=== PATIENT | female | born 1950 | race Caucasian/White ===

== ENCOUNTER 2019-01-27 11:18 | Inpatient (IN) ==
--- NOTE | 2019-01-27 11:32 | Emergency Department Note ---
Disposition Clinical Impression: Generalized weakness, EKG abnormality Disposition: Admitted As Inpatient Condition: Fair Time of Disposition: 14:20 General Adult HPI - General Stated complaint: altered mental status Time Seen by Provider: 01/27/19 11:21 Source: patient, EMS Mode of arrival: EMS Limitations: no limitations Nursing Notes Reviewed: Yes Vital Signs Reviewed: Yes - History of Present Illness HPI Narrative: Patient is a 68-year-old female who is brought in via EMS from dialysis center for concern of dizziness and confusion. Patient with known history of CKD currently on dialysis, hypertension, hyperlipidemia, COPD, atrial fibrillation with pacemaker placement. Per EMS, patient was brought in from dialysis as the nurse was concerned that she seems slightly altered following her dialysis t reatment, patient also complained of dizziness following her dialysis treatment. Per the nurse, patient was not oriented to time which was concerning and I change from baseline. There is no known focal weakness, numbness or tingling. Patient's glucose was 109, vitals otherwise stable. Per patient, she states that she has been having occasional dizziness and lightheadedness for the past few days, worse whenever she is up and moving around, she denies any syncope or loss of consciousness. She has not fallen or had any high trauma. She denies any current confusion, she states she feels at baseline. She was diagnosed with a pneumonia approximately 2 months ago, she finished her course and feels as though it is possible that she has this again and she has been having generalized weakness for the past few days.. She denies any significant change in cough, no recent fevers or chills. No sputum production. Patient denies chest pain, shortness of breath, abdominal pain, nausea or vomiting. Denies any urinary symptoms. - Related Data Home Medications Medication Instructions Recorded Confirmed HYDROcodone/Acet 5/325 mg [[place] 1 tab PO TID PRN 08/27/15 01/27/19 5-325 mg] Tizanidine HCl 2 mg PO QAM 08/27/15 01/27/19 ALPRAZolam [Xanax 0.25 MG Tablet] 0.25 mg PO BID 04/22/17 01/27/19 Labetalol HCl 200 mg PO QID 04/28/18 01/27/19 Tizanidine HCl 4 mg PO QPM 04/28/18 01/27/19 Aspirin Enteric Coated [Aspirin EC] 81 mg PO DAILY 11/13/18 01/27/19 Furosemide [Lasix] 40 mg PO SUMOWEFR 11/13/18 01/27/19 Sevelamer [Renvela] 1,600 mg PO 1200,1700 11/13/18 01/27/19 Sevelamer [Renvela] 800 mg PO 0800 11/13/18 01/27/19 Verapamil HCl [Verapamil ER] 120 mg PO DAILY 11/13/18 01/27/19 Famotidine [Pepcid] 40 mg PO DAILY 11/22/18 01/27/19 PARoxetine HCl [Paroxetine HCl] 40 mg PO DAILY 01/27/19 01/27/19 Ren[place] Tablet 1 tab PO DAILY 01/27/19 01/27/19 Allergies Allergy/AdvReac Type Severity Reaction Status Date / Time blue dye Allergy Hives Verified 11/22/18 09:40 latex Allergy Itching Verified 11/22/18 09:40 Nickel Allergy Hives Verified 11/22/18 09:40 shrimp Allergy Hives Verified 11/22/18 09:40 Sulfa (Sulfonamide Allergy Hives Verified 11/22/18 09:40 Antibiotics) All systems ED: reviewed and negative except as stated. Review of Systems: As Per HPI Constitutional: Reports: weakness. Denies: fever, chills ENT ED: Denies: congestion Cardiovascular: Denies: chest pain, palpitations, dyspnea on exertion, syncope Respiratory: Denies: cough, dyspnea, wheezes Gastrointestinal: Denies: abdominal pain, nausea, vomiting, diarrhea, hematemesis, melena, hematochezia Genitourinary: Denies: urgency, dysuria, frequency Integumentary: Denies: rash Neurological: Reports: weakness, other (Lightheaded and dizziness). Denies: headache, numbness, paresthesias, confusion Endocrine: Reports: fatigue Past Medical History - Past Medical History Medical history: Reports: atrial fibrillation, dialysis, GI bleed, hypertension, migraine, renal disease, other Surgical history: Reports: appendectomy, cholecystectomy, pacemaker/AICD, other, vascular surgery, pacemaker Psychiatric history: Reports: anxiety, depression BOTTLE CAPPER history: Reports: no BOTTLE CAPPER history - Social History Smoking Status: Never smoker Smokeless Tobacco Status: No Alcohol use: Reports: none Drug use: Reports: none Physical Exam - General Limitations: no limitations General appearance: alert, in no apparent distress - Head Head exam: atraumatic, normocephalic, normal inspection - Eye Eye exam: Present: normal appearance - ENT ENT exam: normal exam, normal oropharynx, mucous membranes moist - Neck Neck exam: Present: normal inspection, full ROM, trachea midline - Chest Chest inspection: Present: normal inspection, symmetric chest wall rise - Respiratory Respiratory exam: Present: other (Patient with decreased breath sounds in the bases, without crackles, wheezing) - Cardiovascular Cardiovascular exam: Present: regular rate, irregular rhythm, normal heart sounds - Abdominal Exam Abdominal exam: Present: soft, Non-Tender. Absent: tenderness, distention, gua rding, rebound, rigidity - Extremities Exam Extremities exam: Present: normal inspection, full ROM, normal capillary refill, other (Palpable thrill felt in the right upper extremity). Absent: tenderness, pedal edema, calf tenderness - Expanded Lower Extremity Exam Neurovascular/Tendon exam: Absent: motor deficit, sensory deficit, tendon deficit - Neurological Exam Neurological exam: Present: alert, oriented X3 - Expanded Neurological Exam Patient oriented to: Present: person, place, time Speech: Present: fluid speech Cranial nerves: EOM function (II, III, IV, ): Normal, facial sensation (V): Normal, facial palsy (VII): Normal, spinal accessory function (XI): Normal, tongue deviation (XII): Normal Cerebellar function: finger to nose: Normal Motor strength - LUE: 5/5 Motor strength - RUE: 5/5 Motor strength - LLE: 5/5 Motor strength - RLE: 5/5 Sensory exam upper extremity: light touch: Normal Sensory exam lower extremity: light touch: Normal Coma Scale Eye Opening: Spontaneous Coma Scale Motor Response: Obeys Commands Coma Scale Verbal Response: Oriented Coma Scale Total: 15 - Psychiatric Psychiatric exam: Present: normal affect, normal mood - Skin Skin exam: Present: warm, dry, intact, normal color. Absent: cyanosis, d iaphoresis Course Vital Signs Temperature 97.8 F 01/27/19 11:29 Pulse Rate 77 01/27/19 11:29 Respiratory Rate 17 01/27/19 11:29 Blood Pressure 155/84 01/27/19 11:29 O2 Sat by Pulse Oximetry 96 01/27/19 11:29 Temperature 97.8 F 01/27/19 11:29 Pulse Rate 81 01/27/19 14:56 Respiratory Rate 17 01/27/19 14:56 Blood Pressure 177/88 01/27/19 14:56 O2 Sat by Pulse Oximetry 100 01/27/19 14:56 Oxygen Delivery Oxygen Delivery Room Air Medical Decision Making - MDM Narrative Medical decision making narrative: Patient is a 68-year-old female who is presenting from dialysis for dizziness and confusion. On arrival, patient is in no acute distress, she is alert and 3, with an NIH of 0, GCS of 15. She does state that she has been having dizziness off and on for the past few days with history of dizziness in the past. She also describes this as more of a lightheadedness and feeling as though this worsens with any type of movement. Concern for intercranial etiology CT of the head will be performed, as well as infectious etiology, workup to be performed. We will hold off on fluids at this point in time, with history of dialysis, CK D, as well as initial chest x-ray does show vascular congestion. CBC is relatively unremarkable, BMP shows a creatinine which is actually better than prior in the past, this is appropriate given recent dialysis today. Urinalysis shows no acute infection. CT head shows no acute intracranial a bnormality. Looking at the patient's EKG it is difficult to decipher as there is new T-wave inversion in leads 2, 3, aVF as well as V3 through V5, it is difficult to know if this is her baseline as all prior EKGs have been paced rhythm, this is not paced. Patient currently denies any chest pain or shortness of breath, just generalized weakness and fatigue. No history of cardiac stents or CABG in the past. I did speak to Dr. Toledo regarding this patient, as initially there was concern for elevated troponin at 0.11, however I did get a call from the microbiological laboratory technician who believes that this was a lab air, we will be responding. Upon repeat laboratory work, it appears that the patient's troponin is 0.03. As a patient continues to have dizziness and lightheadedness as well as on paced rhythm with possible new T-wave introversion, patient agrees for admission for further cardiac evaluation. Patient is stable at time of admission. - Medical Records Medical records reviewed: Yes I reviewed the patient's medical records. - Lab Data Lab results reviewed: Yes I reviewed the patient's lab results. Result diagrams: 01/29/19 06:53 01/30/19 00:51 Lab Results 01/27/19 01/27/19 01/27/19 Range/Units 12:38 12:46 12:46 WBC 5.5 (4.3-11.1) K/mcL RBC 3.25 L (3.82-4.97) M/mcL Hgb 10.2 L (11.5-15.4) g/dL Hct 32.0 L (35.3-44.9) % MCV 98.5 (83.0-100.0) fL MCH 31.4 (28.0-33.3) pg MCHC 31.9 (31.6-35.5) g/dL RDW 13.8 (11.5-14.5) % Plt Count 165 (140-400) K/mcL MPV 10.2 (9.4-12.4) fL Immature Gran % 0.4 (0-4) % Seg Neutrophils % 61.4 % Lymphocytes % 16.8 % Monocytes % 12.5 % Eosinophils % 8.0 % Basophils % 0.9 % Neutrophils # 3.4 (1.6-8.9) K/mcL Lymphocytes # 0.9 (0.6-4.6) K/mcL Monocytes # 0.7 (0.0-1.3) K/mcL Eosinophils # 0.4 (0.0-0.6) K/mcL Basophils # 0.1 (0.0-0.2) K/mcL Sodium 138 (136-145) mEq/L Potassium 3.6 (3.5-5.1) mEq/L Chloride 100 (98-107) mEq/L Carbon Dioxide 30 H (23-29) mEq/L BUN 16 (8-23) mg/dL Creatinine 2.04 H (0.60-1.20) mg/dL Est GFR ( Amer) 29 L (> 60) Est GFR (Non-Af Amer) 24 L (> 60) BUN/Creatinine Ratio 8 (6-26) Glucose 84 (70-105) mg/dL Calculated Osmolality 286 (280-300) Calcium 8.3 L (8.6-10.3) mg/dL Magnesium 1.9 (1.6-2.6) mg/dL Ammonia (16-53) mcmol/L Troponin I < 0.03 (< 0.04) ng/mL Urine Color Yellow (Yellow) Urine Clarity Clear (Clear) Urine pH 8.0 (5.0-8.0) pH Units Ur Specific Avinger 1.021 (1.010-1.025) Urine Protein Trace (Neg-Trace) mg/dL Urine Glucose (UA) Normal (Normal) mg/dL Urine Ketones Negative (Negative) mg/dL Urine Blood Negative (Negative) Urine Nitrite Negative (Negative) Urine Bilirubin Negative (Negative) Urine Urobilinogen Normal (Normal) mg/dL Ur Leukocyte Esterase Moderate H (Negative) Urine Microscopic RBC 0-3 (0-3) per hpf Urine Microscopic WBC 3-5 H (0-3) per hpf Ur Squamous Epith Cells Many H (None-Few) per lpf Urine Bacteria None Seen (None-Few) per hpf Hyaline Casts None Seen (None-Few) per lpf 01/27/19 Range/Units 12:46 WBC (4.3-11.1) K/mcL RBC (3.82-4.97) M/mcL Hgb (11.5-15.4) g/dL Hct (35.3-44.9) % MCV (83.0-100.0) fL MCH (28.0-33.3) pg MCHC (31.6-35.5) g/dL RDW (11.5-14.5) % Plt Count (140-400) K/mcL MPV (9.4-12.4) fL Immature Gran % (0-4) % Seg Neutrophils % % Lymphocytes % % Monocytes % % Eosinophils % % Basophils % % Neutrophils # (1.6-8.9) K/mcL Lymphocytes # (0.6-4.6) K/mcL Monocytes # (0.0-1.3) K/mcL Eosinophils # (0.0-0.6) K/mcL Basophils # (0.0-0.2) K/mcL Sodium (136-145) mEq/L Potassium (3.5-5.1) mEq/L Chloride (98-107) mEq/L Carbon Dioxide (23-29) mEq/L BUN (8-23) mg/dL Creatinine (0.60-1.20) mg/dL Est GFR ( Amer) (> 60) Est GFR (Non-Af Amer) (> 60) BUN/Creatinine Ratio (6-26) Glucose (70-105) mg/dL Calculated Osmolality (280-300) Calcium (8.6-10.3) mg/dL Magnesium (1.6-2.6) mg/dL Ammonia 29 (16-53) mcmol/L Troponin I (< 0.04) ng/mL Urine Color (Yellow) Urine Clarity (Clear) Urine pH (5.0-8.0) pH Units Ur Specific Avinger (1.010-1.025) Urine Protein (Neg-Trace) mg/dL Urine Glucose (UA) (Normal) mg/dL Urine Ketones (Negative) mg/dL Urine Blood (Negative) Urine Nitrite (Negative) Urine Bilirubin (Negative) Urine Urobilinogen (Normal) mg/dL Ur Leukocyte Esterase (Negative) Urine Microscopic RBC (0-3) per hpf Urine Microscopic WBC (0-3) per hpf Ur Squamous Epith Cells (None-Few) per lpf Urine Bacteria (None-Few) per hpf Hyaline Casts (None-Few) per lpf - Radiology Data Radiology results reviewed: Yes I reviewed the patient's radiology results. Head CT 01/27/19 11:26 IMPRESSION: No acute intracranial abnormality. D/ / Melissa Frye MD / Melissa Frye MD Interpreting Provider: Melissa Frye MD Chest X-Ray 01/27/19 11:27 IMPRESSION: 1. Similar appearance of bibasilar airspace opacities which may represent combination of atelectasis/infiltrate and effusion. Right midlung airspace opacity may represent fluid within the fissure or infiltrate. 2. Mild pulmonary vascular congestion. D/ / Allie Garner MD / Allie Garner MD Interpreting Provider: Allie Garner MD - EKG Data EKG #1 EKG attestation: Yes I reviewed and interpreted this EKG. EKG results narrative: KG performed 1138 with ventricular rate of 76, irregularly irregular rhythm, with normal axis, there is no ST segment elevation, depression there is new T- wave changes in lead 2, 3, aVF, V3, V4, V5 patient is not currently paced. When compared to old EKG performed on 11/13/2018, this is a significant change as patient was ventricular paced at that time. Upon review of old charts, there is a EKG with the patient was not paced intermittently that did have T-wave inversions in lead 3 and V3. Attestation Statement - Attestation Attestation: I have seen this patient with the resident physician, I have personally evaluated this patient. I had reviewed the chart and document dictation by the resident physician and aM in agreement with the information documented by the resident physician. Please see documentation by the resident physician for complete chart including past medical history, family medical history, review of systems, current history and physical and laboratory and imaging studies. I was present for all procedures, provided direct supervision for all procedures, was present for the entirety of all procedures and provided direct guidance during the procedures. Please see documentation by the resident physician for any procedures performed. I have reviewed all interpretations of EKGs, and reviewed all EKGs performed on patient's as well. I have also reviewed reports of imaging as provided by radiology.
--- NOTE | 2019-01-27 12:07 | Emergency Department Note ---
Disposition Clinical Impression: Generalized weakness, EKG abnormality, Elevated troponin Disposition: Admitted As Inpatient Forms: ED Satisfaction Letter Time of Disposition: 13:29 General Adult HPI - General Chief complaint: ED Altered Mental Status Stated complaint: altered mental status Time Seen by Provider: 01/27/19 11:21 Source: patient, EMS Nursing Notes Reviewed: Yes Vital Signs Reviewed: Yes - History of Present Illness Pain Scale: 0 - Related Data Home Medications Medication Instructions Recorded Confirmed HYDROcodone/Acet 5/325 mg [[place] 1 tab PO TID PRN 08/27/15 11/22/18 5-325 mg] Paroxetine [Paxil] 40 mg PO QAM 08/27/15 11/22/18 Tizanidine HCl 2 mg PO QAM 08/27/15 11/22/18 ALPRAZolam [Xanax 0.25 MG Tablet] 0.25 mg PO BID 04/22/17 11/22/18 Labetalol HCl 200 mg PO QID 04/28/18 11/22/18 Tizanidine HCl 4 mg PO QPM 04/28/18 11/22/18 Aspirin Enteric Coated [Aspirin EC] 81 mg PO DAILY 11/13/18 11/22/18 Cholecalciferol (D-3) [Vitamin D] 2,000 unit PO DAILY 11/13/18 11/22/18 Comp.stocking,Knee,Regular,Med 20 - 30 mm DAILY 11/13/18 11/22/18 [Jobst Ultrasheer] Ferrous Sulfate [Iron] 325 mg PO DAILY 11/13/18 11/22/18 Folic Acid/Vit B Complex and C 1 tab PO DAILY 11/13/18 11/22/18 [Dialyvite Tablet] Furosemide [Lasix] 40 mg PO SUMOWEFR 11/13/18 11/22/18 Sevelamer [Renvela] 1,600 mg PO 1200,1700 11/13/18 11/22/18 Sevelamer [Renvela] 800 mg PO 0800 11/13/18 11/22/18 Verapamil HCl [Verapamil ER] 120 mg PO DAILY 11/13/18 11/22/18 Cinacalcet [Sensipar] 30 mg PO DAILY 11/22/18 11/22/18 Doxycycline Hyclate [Vibramycin] 100 mg PO BID 11/22/18 11/22/18 Famotidine [Pepcid] 40 mg PO DAILY 11/22/18 11/22/18 Allergies Allergy/AdvReac Type Severity Reaction Status Date / Time blue dye Allergy Hives Verified 11/22/18 09:40 latex Allergy Itching Verified 11/22/18 09:40 Nickel Allergy Hives Verified 11/22/18 09:40 shrimp Allergy Hives Verified 11/22/18 09:40 Sulfa (Sulfonamide Allergy Hives Verified 11/22/18 09:40 Antibiotics) Past Medical History - Past Medical History Medical history: Reports: atrial fibrillation, dialysis, GI bleed, hypertension, migraine, renal disease, other Surgical history: Reports: appendectomy, cholecystectomy, pacemaker/AICD, other, vascular surgery, pacemaker Psychiatric history: Reports: anxiety, depression AIR AND WATER FILLER history: Reports: no AIR AND WATER FILLER history - Social History Smoking Status: Never smoker Smokeless Tobacco Status: No Alcohol use: Reports: none Drug use: Reports: none Physical Exam - General General appearance: alert Course Vital Signs Temperature 97.8 F 01/27/19 11:29 Pulse Rate 77 01/27/19 11:29 Respiratory Rate 17 01/27/19 11:29 Blood Pressure 155/84 01/27/19 11:29 O2 Sat by Pulse Oximetry 96 01/27/19 11:29 Temperature 97.8 F 01/27/19 11:29 Pulse Rate 77 01/27/19 11:29 Respiratory Rate 17 01/27/19 11:29 Blood Pressure 155/84 01/27/19 11:29 O2 Sat by Pulse Oximetry 96 01/27/19 11:29 Oxygen Delivery Oxygen Delivery Nasal Cannula Medical Decision Making - Lab Data Result diagrams: 01/27/19 12:46 Lab Results 01/27/19 01/27/19 01/27/19 Range/Units 12:46 12:46 12:46 WBC 5.5 (4.3-11.1) K/mcL RBC 3.25 L (3.82-4.97) M/mcL Hgb 10.2 L (11.5-15.4) g/dL Hct 32.0 L (35.3-44.9) % MCV 98.5 (83.0-100.0) fL MCH 31.4 (28.0-33.3) pg MCHC 31.9 (31.6-35.5) g/dL RDW 13.8 (11.5-14.5) % Plt Count 165 (140-400) K/mcL MPV 10.2 (9.4-12.4) fL Immature Gran % 0.4 (0-4) % Seg Neutrophils % 61.4 % Lymphocytes % 16.8 % Monocytes % 12.5 % Eosinophils % 8.0 % Basophils % 0.9 % Neutrophils # 3.4 (1.6-8.9) K/mcL Lymphocytes # 0.9 (0.6-4.6) K/mcL Monocytes # 0.7 (0.0-1.3) K/mcL Eosinophils # 0.4 (0.0-0.6) K/mcL Basophils # 0.1 (0.0-0.2) K/mcL Ammonia 29 (16-53) mcmol/L Troponin I 0.11 H* (< 0.04) ng/mL Attestation Statement - Attestation Attestation: I have seen this patient with the resident physician, I have personally evaluated this patient. I had reviewed the chart and document dictation by the resident physician and aM in agreement with the information documented by the resident physician. Please see documentation by the resident physician for complete chart including past medical history, family medical history, review of systems, current history and physical and laboratory and imaging studies. I was present for all procedures, provided direct supervision for all procedures, was present for the entirety of all procedures and provided direct guidance during the procedures. Please see documentation by the resident physician for any procedures performed. I have reviewed all interpretations of EKGs, and reviewed all EKGs performed on patient's as well. I have also reviewed reports of imaging as provided by radiology. Patient was sent to the ER from dialysis for concerns of some generalized weakness dizziness thinking that she was a little bit slower than usual and maybe a little bit confused. Patient states that she does not need to be here. She does endorse that she has some chronic dizziness which she states feels like a lightheaded sensation when she gets up and walks around. She states that maybe been a little bit worse over the last few days but states that she did not want to come to the ER. She states a for sure to come here from dialysis. She denies any headache neck pain chest pain or shortness of breath that is any different than her baseline. She states she has a little bit of a cough and was recently treated for pneumonia, thought maybe because she was feeling a little bit more weak that she might still have pneumonia but otherwise has had no fevers no chills no sputum production no increased shortness of breath no significant increased cough. She denies abdominal pain or black or bloody stool. She does report they have recently evaluated her for some GI bleeding because of anemia, she reports she had a scope which did not show anything. We were able to find this documented from last week, which showed Maradiaga's esophagus but no other active bleeding. On physical exam she is alert and oriented, she is rundown appearance but nontoxic, she appears globally chronically ill but is in no acute distress, awake and talking and oriented. Cranial nerves are grossly intact. Lungs slightly diminished at the bases but no focal adventitious sounds. Cardiovascular irregularly irregular, but normal heart rate, 2/6 systolic murmur no rubs or gallops normal-appearing healthy appearing right upper extremity fistula. Abdomen soft and nontender. There was trace lower extremity edema without unilateral swelling palpable cord Tenderness or Homans sign. Skin is warm dry without rash or petechiae she does appear slightly pale no jaundice. EKG was A. fib rate controlled, she does not a history of a pacemaker and all of her prior EKGs that I can visualize Boni paced rhythm which makes comparison very difficult, she does have T-wave inversions in leads II, III, and F aVF as well as V3 through V5 which appear new but again this is comparing to paced rhythms from previous which makes it very difficult. Basic laboratory studies were ordered. Head CT and chest x-ray were ordered. The patient still makes urine and a urinalysis was also ordered. A head CT showed no acute findings. Chest x-ray showed evidence of potentially of some mild vascular congestion. No evidence of focal pneumonia. CBC within acceptable limits. Ammonia level within acceptable limits. Troponin is 0.11, even though this patient is a dialysis patient she does have several troponins previously that were less than 0.03, she continues to deny chest pain but as above does have EKG abnormality again it is difficult to assess its acuity but is not ST elevation or ST depression, we will contact cardiology to discuss consideration of heparin for this patient, her troponin is less than 0.6, and she is chest pain-free, therefore we will await cardiology recommendations she was given aspirin. She will be admitted to the hospital for further evaluation and management.
[2019-01-27 13:06] LABS: Basophils # 0.1 K/mcL (0.0-0.2); Basophils % 0.9 %; Eosinophils # 0.4 K/mcL (0.0-0.6); Hemoglobin 10.2 g/dL (11.5-15.4); Immature Granulocytes % 0.4 % (0-4); Lymphocytes # 0.9 K/mcL (0.6-4.6); Lymphocytes % 16.8 %; Mean Corpuscular HGB Conc 31.9 g/dL (31.6-35.5); Mean Corpuscular Hemoglobin 31.4 pg (28.0-33.3); Mean Corpuscular Volume 98.5 fL (83.0-100.0); Mean Platelet Volume 10.2 fL (9.4-12.4); Monocytes # 0.7 K/mcL (0.0-1.3); Monocytes % 12.5 %; Neutrophils # 3.4 K/mcL (1.6-8.9); Platelet Count 165 K/mcL (140-400); Red Blood Count 3.25 M/mcL (3.82-4.97); Red Cell Distribution Width 13.8 % (11.5-14.5); Segmented Neutrophils % 61.4 %; White Blood Count 5.5 K/mcL (4.3-11.1)
[2019-01-27 13:12] LABS: Bilirubin,Urine Negative (Negative); Blood,Urine Negative (Negative); Clarity,Urine Clear (Clear); Color,Urine Yellow (Yellow); Glucose,Urine (UA) Normal (Normal); Ketones,Urine Negative (Negative); Leukocyte Esterase,Urine Moderate (Negative); Nitrite,Urine Negative (Negative); Protein,Urine Trace mg/dL (Neg-Trace); Specific Gravity,Urine 1.021 (1.010-1.025); Urobilinogen,Urine Normal (Normal)
[2019-01-27 13:16] LABS: Bacteria,Urine None Seen per hpf (None-Few); Hyaline Casts,Urine None Seen per lpf (None-Few); RBC,Urine 0-3 per hpf (0-3); Squamous Epithelial Cell,Urine Many per lpf (None-Few)
[2019-01-27] MEDS ORDERED: Aspirin 81 MG TAB.CHEW PO ONE (13:20)
[2019-01-27 13:57] LABS: BUN/Creatinine Ratio 8 (6-26); Blood Urea Nitrogen 16 mg/dL (8-23); Calcium 8.3 mg/dL (8.6-10.3); Carbon Dioxide 30 mEq/L (23-29); Chloride 100 mEq/L (98-107); Glucose 84 mg/dL (70-105); Magnesium 1.9 mg/dL (1.6-2.6); Osmolality,Calculated 286 (280-300); Potassium 3.6 mEq/L (3.5-5.1); Sodium 138 mEq/L (136-145); eGFR For African Americans 29 (> 60); eGFR For Non-African Americans 24 (> 60)
[2019-01-27 14:06] LABS: Troponin I < 0.03 ng/mL (< 0.04)
--- NOTE | 2019-01-27 16:39 | Electrocardiograph Report ---
[address] [address] Test Date: 2019-01-27 Pat Name: Patricia Adamson Department: EXAM17 Room: Gender: F Test Lead: : 1950 Requested By: Boni Ascencio Order Number: [id number] Reading MD: Jose A Lynn Measurements Intervals [place] Rate: 76 P: NC: QRS: 1 QRSD: 108 T: -77 QT: 416 QTc: 468 Interpretive Statements Atrial fibrillation ST-T changes suggests diffuse ischemia Electronically Signed On 01-27-2019 16:38:22 EDT by Jose A Lynn
[2019-01-27] MEDS ORDERED: Mag Hydrox/Al Hydrox/Simeth 30 ML UDC PO PRN (17:24)
[2019-01-27] MEDS ORDERED: Ondansetron 4 MG/2 ML VIAL IVP PRN (17:24)
[2019-01-27] MEDS ORDERED: Naloxone 0.4 MG/ML INJ IVP PRN (17:24)
[2019-01-27] MEDS ORDERED: MOM Conc 10 ML UD.LIQ PO PRN (17:24)
[2019-01-27] MEDS ORDERED: *HR* Promethazine 25 MG/ML VIAL IVP PRN (17:24)
--- NOTE | 2019-01-27 17:32 | Internal Med History&Physical ---
Date of Encounter: 01/27/19 Time of Encounter: 17:29 Internal Medicine - H&P: HPI Admitted From: Home Plans for Post Hospital Care: Home History of present illness: Ms. Adamson is a 68 year old female who is brought in via EMS from dialysis center for concern of dizziness and confusion. Patient with known history of CKD currently on dialysis, hypertension, hyperlipidemia, COPD, atrial fibrillation with pacemaker placement. Per EMS, patient was brought in from dialysis as the nurse was concerned that she seems slightly altered following her dialysis treatment, patient also complained of dizziness following her dialysis treatment. Per the nurse, patient was not oriented to time which was concerning and I change from baseline. There is no known focal weakness, numbness or tingling. Per patient, she states that she has been having occasional dizziness and lightheadedness for the past few days, worse whenever she is up and moving around, she denies any syncope or loss of consciousness. She has not fallen or had any high trauma. She denies any current confusion, she states she feels at baseline. She was diagnosed with a pneumonia approximately 2 months ago, she finished her course and feels as though it is possible that she has this again and she has been having generalized weakness for the past few days.. She denies any significant change in cough, no recent fevers or chills. No sputum production. Patient denies chest pain, shortness of breath, abdominal pain, nausea or vomiting. Denies any urinary symptoms. In the ED, vital signs were notable for high blood pressure. Labs showed elevated creatinine at the baseline, chest x-ray showed mild pulmonary vascular congestion. The CT head was negative for acute change. Patient will be admitted for further evaluation. CODE STATUS is full code. Past Med Surg Social Fam HX - Past Medical History Medical history: atrial fibrillation, dialysis, GI bleed, hypertension, migraine, renal disease, other Additional medical history: Chronic Back Pain, iron deficiency anemia, cerebral aneurysm, vitamin D deficiency, pacemaker, Rheumatic Fever, Right Carotid Aneurysm, Exertional Angina Psychiatric history: anxiety, depression - Past Surgical History Surgical History: appendectomy, cholecystectomy, pacemaker/AICD, other, vascular surgery, pacemaker Additional surgical history: gastric bypass 2000. lap choley 1979. cardiac cath. pacemaker placed 05/2013. fliud drainage off right lung 08/2017. coil embolization og left distal carotid artery. hemorrhoidectomy. bilateral phlebectomy - Social History Smoking Status: Never smoker Smokeless Tobacco Status: No Alcohol use: none Drug use: none - Family History Sister Adopted: No Family Member Ethnicity: Non- Living Status: Hx Family Cardiac Disorders: Yes (HTN, CKD) Hx Family Respiratory Disorders: Yes (COPD) Father Family Member Ethnicity: Non- Living Status: Hx Family Cardiac Disorders: Yes (Stroke, CHF) Hx Family Respiratory Disorders: Yes (Smoker) Hx Family Neurologic Disorders: Yes (pt states father had stroke) Internal Medicine - H&P: Meds HYDROcodone/Acet 5/325 mg [[place] 5-325 mg] 1 tab PO TID PRN 08/27/15 [History] Tizanidine HCl 2 mg PO QAM 08/27/15 [History] ALPRAZolam [Xanax 0.25 MG Tablet] 0.25 mg PO BID 04/22/17 [History] Labetalol HCl 200 mg PO QID 04/28/18 [History] Tizanidine HCl 4 mg PO QPM 04/28/18 [History] Aspirin Enteric Coated [Aspirin EC] 81 mg PO DAILY 11/13/18 [History] Furosemide [Lasix] 40 mg PO SUMOWEFR 11/13/18 [History] Sevelamer [Renvela] 1,600 mg PO 1200,1700 11/13/18 [History] Sevelamer [Renvela] 800 mg PO 0800 11/13/18 [History] Verapamil HCl [Verapamil ER] 120 mg PO DAILY 11/13/18 [History] Famotidine [Pepcid] 40 mg PO DAILY 11/22/18 [History] PARoxetine HCl [Paroxetine HCl] 40 mg PO DAILY 01/27/19 [History] Renal-Augustine Tablet 1 tab PO DAILY 01/27/19 [History] Allergy/AdvReac Type Severity Reaction Status Date / Time blue dye Allergy Hives Verified 11/22/18 09:40 latex Allergy Itching Verified 11/22/18 09:40 Nickel Allergy Hives Verified 11/22/18 09:40 shrimp Allergy Hives Verified 11/22/18 09:40 Sulfa (Sulfonamide Allergy Hives Verified 11/22/18 09:40 Antibiotics) All Systems PM: A 10-system review of systems was performed and is negative for pertinent findings except as documented above in the HPI. Review of systems: REVIEW OF SYSTEMS: CONSTITUTIONAL: No weight loss, fever, chills, weakness or fatigue. HEENT: Eyes: No visual loss, blurred vision, double vision or yellow sclerae. Ears, Nose, Throat: No hearing loss, sneezing, congestion, runny nose or sore throat. SKIN: No rash or itching. CARDIOVASCULAR: No chest pain, chest pressure or chest discomfort. No palpitations or edema. RESPIRATORY: No shortness of breath, cough or sputum. GASTROINTESTINAL: No anorexia, nausea, vomiting or diarrhea. No abdominal pain or blood. GENITOURINARY: No dysuria, urgency, or frequency. NEUROLOGICAL: No headache, dizziness, syncope, paralysis, ataxia, numbness or tingling in the extremities. No change in bowel or bladder control. MUSCULOSKELETAL: No muscle, back pain, joint pain or stiffness. HEMATOLOGIC: No anemia, bleeding or bruising. LYMPHATICS: No enlarged nodes. No history of splenectomy. PSYCHIATRIC: No history of depression or anxiety. ENDOCRINOLOGIC: No reports of sweating, cold or heat intolerance. No polyuria or polydipsia. - Constitutional Vitals: Temp Pulse Resp BP Pulse Ox 97.8 F 81 17 177/88 100 01/27/19 11:29 01/27/19 14:56 01/27/19 14:56 01/27/19 14:56 01/27/19 14:56 General appearance: Present: A&O X 3 Exam: PHYSICAL EXAMINATION: GENERAL APPEARANCE: The patient is alert, oriented and in no acute distress. HEENT: Head is normocephalic. The sinuses are nontender. Pupils are equal and reactive. The nares are patent. Oropharynx clear without lesions. NECK: Supple without lymphadenopathy. HEART: Regular rate and rhythm. LUNGS: No crackles or wheezes are heard. ABDOMEN: Soft, nontender, nondistended with good bowel sounds heard. Inguinal area is normal. EXTREMITIES: Without cyanosis, clubbing or edema. NEUROLOGICAL: Gross nonfocal. SKIN: Warm and dry without any rash. Internal Med - H&P Results - Labs CBC & Chem 7: 01/27/19 12:46 01/27/19 12:46 Labs: Short CBC 01/27/19 Range/Units 12:46 WBC 5.5 (4.3-11.1) K/mcL Hgb 10.2 L (11.5-15.4) g/dL Hct 32.0 L (35.3-44.9) % Plt Count 165 (140-400) K/mcL Neutrophils # 3.4 (1.6-8.9) K/mcL BMP 01/27/19 12:46 Sodium 138 Potassium 3.6 Chloride 100 Carbon Dioxide 30 H BUN 16 Creatinine 2.04 H Glucose 84 Calcium 8.3 L Cardiac Enzymes 01/27/19 Range/Units 12:46 Troponin I < 0.03 (< 0.04) ng/mL Urine 01/27/19 Range/Units 12:38 Urine Color Yellow (Yellow) Urine Clarity Clear (Clear) Urine pH 8.0 (5.0-8.0) pH Units Ur Specific [place] 1.021 (1.010-1.025) Urine Protein Trace (Neg-Trace) mg/dL Urine Glucose (UA) Normal (Normal) mg/dL - Impressions ITS Impressions Head CT 01/27/19 11:26 IMPRESSION: No acute intracranial abnormality. D/ / Melissa Frye MD / Melissa Frye MD Interpreting Provider: Melissa Frye MD Chest X-Ray 01/27/19 11:27 IMPRESSION: 1. Similar appearance of bibasilar airspace opacities which may represent combination of atelectasis/infiltrate and effusion. Right midlung airspace opacity may represent fluid within the fissure or infiltrate. 2. Mild pulmonary vascular congestion. D/ / Allie Garner MD / Allie Garner MD Interpreting Provider: Allie Garner MD - Assessment and Plan (1) Pre-syncope Current Visit: Yes Status: Acute Assessment and plan: 68-year-old female with past medical history significant for ESRD with dialysis, atrial fibrillation, pacemaker/AICD, anemia, GI bleeding, and hypertension presented with one episode of presyncope after dialysis. Patient reported on and off lightheadedness in the past couple days. Based on the description per patient, it is likely orthostatic hypotension associated, given the history of ESRD and currently on dialysis. We will check orthostatic vital signs. Patient has history of atrial fibrillation, currently not on anticoagulation, likely due to history of GI bleeding, she does has increased risk of CVA, however, no focal neuro deficit on physical exam in addition to negative CT head. EKG showed atrial fibrillation with nonspecific ST-T change, patient does not have history of CAD, will continue cycling troponin, telemetry monitoring, EKG as needed. Cardiology likely will perform a pacemaker interrogation in the morning. We will check d-dimer, will pursue further testing if PE is of concern. Patient does not have any history of structural heart disease, however, further workup will be deferred to cardiology. (2) Anemia of chronic disease Current Visit: No Status: Chronic Assessment and plan: Stable, continue monitoring. (3) Atrial fibrillation Current Visit: No Status: Chronic Assessment and plan: Continue home medication once verified, not on anticoagulant likely due to history of GI bleeding. Qualifiers: Atrial fibrillation type: unspecified Qualified Code(s): I48.91 - Unspecified atrial fibrillation (4) Pacemaker Current Visit: No Status: Acute Assessment and plan: Pacemaker interrogation per cardiology. (5) H/O gastric bypass Current Visit: No Status: Acute Assessment and plan: No complications from gastric bypass surgery, continue monitoring. (6) GI bleed Current Visit: No Status: Chronic Assessment and plan: No active bleeding, continue monitoring. Qualifiers: GI bleed type/associated pathology: unspecified gastrointestinal hemorrhage type Qualified Code(s): K92.2 - Gastrointestinal hemorrhage, unspecified (7) ESRD (end stage renal disease) on dialysis Current Visit: No Status: Chronic Assessment and plan: On dialysis, renal consult. (8) Hypertension Current Visit: No Status: Acute Assessment and plan: BP was elevated, resume home medication was verified, adjust if indicated. Qualifiers: Hypertension type: unspecified Qualified Code(s): I10 - Essential (primary) hypertension (9) DVT prophylaxis Current Visit: Yes Status: Acute Assessment and plan: Heparin subcutaneous. - Time Spent With Patient Total time spent is greater than 50% in coordination of care (as documented) at patient's floor/unit and/or counseling patient: Greater than 35 minutes
[2019-01-27] MEDS ORDERED: tiZANidine 4 MG TABLET PO SCH (18:00)
[2019-01-27] MEDS: *HR* Heparin 5,000 UNIT/ML VIAL SQ SCH (20:36)
[2019-01-27] MEDS: ALPRAZolam 0.25 MG TABLET PO SCH (20:37)
--- NOTE | 2019-01-27 21:04 | Event Note ---
Date of Encounter: 01/27/19 Time of Encounter: 21:01 Patient reported to nurse and to myself that she has been having thoughts of harming herself for months but has not acted on it. States she has a plan but does not want to discuss it with me. Will order bedside sitter and suicide precautions until can be seen by psychiatry. Consult order placed will need called in a.m.
[2019-01-28 01:37] LABS: Basophils # 0.1 K/mcL (0.0-0.2); Basophils % 0.9 %; Eosinophils # 0.5 K/mcL (0.0-0.6); Eosinophils % 9.1 %; Hematocrit 31.3 % (35.3-44.9); Immature Granulocytes % 0.2 % (0-4); Lymphocytes % 18.5 %; Mean Corpuscular HGB Conc 31.9 g/dL (31.6-35.5); Mean Corpuscular Hemoglobin 31.1 pg (28.0-33.3); Mean Corpuscular Volume 97.2 fL (83.0-100.0); Mean Platelet Volume 10.9 fL (9.4-12.4); Monocytes # 0.7 K/mcL (0.0-1.3); Monocytes % 12.7 %; Neutrophils # 3.2 K/mcL (1.6-8.9); Platelet Count 139 K/mcL (140-400); Red Blood Count 3.22 M/mcL (3.82-4.97); Red Cell Distribution Width 13.8 % (11.5-14.5); Segmented Neutrophils % 58.6 %; White Blood Count 5.5 K/mcL (4.3-11.1)
[2019-01-28 01:59] LABS: Calcium 8.8 mg/dL (8.6-10.3); Potassium 4.5 mEq/L (3.5-5.1)
[2019-01-28] MEDS: *HR* HYDROcodone/Acet 5/325 mg TABLET PO PRN ×3 (03:18→22:24)
[2019-01-28] MEDS: *HR* Heparin 5,000 UNIT/ML VIAL SQ SCH ×2 (06:19→17:26)
[2019-01-28] MEDS: Renal Vitamin 1 CAP CAPSULE PO SCH (08:27)
[2019-01-28] MEDS: ALPRAZolam 0.25 MG TABLET PO SCH ×2 (08:27→22:25)
[2019-01-28] MEDS: Verapamil ER (24 HR) 120 MG TABLET.ER PO SCH (08:27)
[2019-01-28] MEDS: Famotidine 20 MG TABLET PO SCH (08:27)
[2019-01-28] MEDS: Aspirin Enteric Coated 81 MG Tablet PO SCH (08:27)
[2019-01-28] MEDS ORDERED: tiZANidine 4 MG TABLET PO SCH (09:00)
[2019-01-28] MEDS ORDERED: Furosemide 20 MG TABLET PO SCH (09:00)
--- NOTE | 2019-01-28 09:16 | Internal Med Progress Note ---
Hospitalist Progress Note - Encounter Date of Encounter: 01/28/19 Time of Encounter: 08:44 - Subjective Interval History: Patient seen and examined this morning with her. Overnight events noted. Discussed about any suicidal ideation with patient. She denies having any plan but tells only sometimes she has those thoughts given all her medical problems. Is not planning to harm herself. Has mild shortness of breath since she had pneumonia about 2 months ago. Denies any chest pain. Complains of dizziness with the room spinning more when she is ambulating. Denies any difficulty hearing or ear discharge. Has mild abdominal discomfort and recently diagnosed with Maradiaga's esophagus. - Exam Vitals: Temp Pulse Resp BP Pulse Ox 98.1 F 73 22 189/77 99 01/28/19 07:00 01/28/19 07:00 01/28/19 07:00 01/28/19 07:00 01/28/19 07:00 Exam: General: In no acute distress. Respiratory exam: CTAB. no accessory muscle use, rales, rhonchi, wheezes Cardiovascular exam: RRR, +S1, +S2. no murmur, gallop, rubs. GI/Abdominal exam: Non-tender, Non-distended, normal bowel sounds, soft, no peritoneal signs. Extremities exam: no pedal edema, pulses palpable in b/l lower extremities. no calf tenderness, Has Rt arm fistula with thrill Neurological exam: CN II-XII intact, AO X3, no focal deficits. Skin exam: No skin rash - Assessment and Plan (1) DVT prophylaxis Current Visit: Yes Status: Acute (2) Anemia of chronic disease Current Visit: No Status: Chronic (3) Atrial fibrillation Current Visit: No Status: Chronic (4) Pacemaker Current Visit: No Status: Acute (5) H/O gastric bypass Current Visit: No Status: Acute (6) GI bleed Current Visit: No Status: Chronic (7) ESRD (end stage renal disease) on dialysis Current Visit: No Status: Chronic (8) Hypertension Current Visit: No Status: Acute (9) Pre-syncope Current Visit: Yes Status: Acute - Summary of Assessment and Plan Summary of Assessment and Plan: Assessment Acute Presyncope, dizziness suicidal ideation Chronic ESRD pacemaker chronic anemia afib h/o brain aneurysm h/o gastric bypass, GI bleed, barretts HTN Plan - Will get MRI to further evaluate for posterior stroke given patient not on AC due to GI bleed history. Possible orthostatic as symptom more while ambulating. will obtain orthostatic vitals - EKG with afib with twave inversion in lateral leads. Negative trops. No h/o CAD. Cardiology consulted for pacemaker interrogation and presyncope. - Elevated d-dimer, possibly related to ESRD, CXR with bibasilar airspace opacity with possible atelectasis/infiltrated. Will monitor for fever. She does have mild shortness of breath but its present for many months. Will consider CTA chest to evaluate for PE. - c/w tele monitoring. c/w labetalol. Rate controlled. Will add amlodipine and prn hydralazine for better BP control - Patient denies suicidal ideation. Only has occasional thought give her medical problems. Denies any plan. Will cancer psychiatry consult - c/w pepcid - Heparin subcutaneous for DVT ppx Internal Medicine: Result - Labs CBC & Chem 7: 01/28/19 01:26 01/28/19 01:26 Labs: Short CBC 01/27/19 01/28/19 Range/Units 12:46 01:26 WBC 5.5 5.5 (4.3-11.1) K/mcL Hgb 10.2 L 10.0 L (11.5-15.4) g/dL Hct 32.0 L 31.3 L (35.3-44.9) % Plt Count 165 139 L (140-400) K/mcL Neutrophils # 3.4 3.2 (1.6-8.9) K/mcL BMP 01/27/19 01/28/19 12:46 01:26 Sodium 138 138 Potassium 3.6 4.5 Chloride 100 102 Carbon Dioxide 30 H 29 BUN 16 24 H Creatinine 2.04 H 2.80 H Glucose 84 88 Calcium 8.3 L 8.8 Cardiac Enzymes 01/27/19 01/27/19 01/28/19 Range/Units 12:46 19:20 01:26 Troponin I < 0.03 < 0.03 < 0.03 (< 0.04) ng/mL Urine 01/27/19 Range/Units 12:38 Urine Color Yellow (Yellow) Urine Clarity Clear (Clear) Urine pH 8.0 (5.0-8.0) pH Units Ur Specific [place] 1.021 (1.010-1.025) Urine Protein Trace (Neg-Trace) mg/dL Urine Glucose (UA) Normal (Normal) mg/dL - ABG Interpretation ABG results: PT/INR, D-dimer 1192 ng/mLFEU (0-500) H 01/27/19 19:20 - Impressions Impressions Head CT 01/27/19 11:26 IMPRESSION: No acute intracranial abnormality. D/ / Melissa Frye MD / Melissa Frye MD Interpreting Provider: Melissa Frye MD Chest X-Ray 01/27/19 11:27 IMPRESSION: 1. Similar appearance of bibasilar airspace opacities which may represent combination of atelectasis/infiltrate and effusion. Right midlung airspace opacity may represent fluid within the fissure or infiltrate. 2. Mild pulmonary vascular congestion. D/ / Allie Garner MD / Allie Garner MD Interpreting Provider: Allie Garner MD Consult Discharge Plan - Plan Referrals: Gareth Lee MD [Primary Care Provider] - (3) Atrial fibrillation Qualifiers: Atrial fibrillation type: unspecified Qualified Code(s): I48.91 - Unspecified atrial fibrillation (6) GI bleed Qualifiers: GI bleed type/associated pathology: unspecified gastrointestinal hemorrhage type Qualified Code(s): K92.2 - Gastrointestinal hemorrhage, unspecified (8) Hypertension Qualifiers: Hypertension type: unspecified Qualified Code(s): I10 - Essential (primary) hypertension
[2019-01-28] MEDS ORDERED: Acetaminophen 325 MG TABLET PO PRN (10:49)
[2019-01-28] MEDS ORDERED: Loratadine 10 MG TABLET PO PRN (10:57)
[2019-01-28] MEDS: amLODIPine 5 MG TABLET PO SCH (12:06)
--- NOTE | 2019-01-28 12:33 | Nephrology Consult Note ---
Date of Encounter: 01/28/19 Time of Encounter: 10:00 Assessment and Plan (1) ESRD (end stage renal disease) on dialysis Current Visit: No Status: Chronic ESRD on HD TTS. Today is Thursday and she completed HD yesterday, and biochemically she does not have indications for extra HD today. I recommend continuing her routine TTS dialysis schedule. Thank you for consult in the [facility], and I will follow with you. History of Present Illness - Reason for Consult Consult date: 01/27/19 end stage renal disease Requesting physician: Gordon Crane - Chief Complaint ESRD - History of Present Illness The patient is a very pleasant 68-year-old female with a past medical history of ESRD on hemodialysis every Thursday//Thursday. Nephrology was consulted to help maintain her dialysis schedule. She said she last completed dialysis on . She dialyzes at the [facility] dialysis unit in [place], [place]. She did not affirm nausea, vomiting, diarrhea, constipation, or abdominal complaints. Past Med Surg Social Fam HX - Past Medical History Medical history: atrial fibrillation, dialysis, GI bleed, hypertension, migraine, renal disease, other Additional medical history: Chronic Back Pain, iron deficiency anemia, cerebral aneurysm, vitamin D deficiency, pacemaker, Rheumatic Fever, Right Carotid Aneurysm, Exertional Angina Psychiatric history: anxiety, depression - Past Surgical History Surgical History: appendectomy, cholecystectomy, pacemaker/AICD, other, vascular surgery, pacemaker Additional surgical history: gastric bypass 2000. lap choley 1979. cardiac cath. pacemaker placed 05/2013. fliud drainage off right lung 08/2017. coil embolization og left distal carotid artery. hemorrhoidectomy. bilateral phlebectomy - Social History Smoking Status: Never smoker Smokeless Tobacco Status: No Alcohol use: none Drug use: none - Family History Sister Adopted: No Family Member Ethnicity: Non- Living Status: Hx Family Cardiac Disorders: Yes (HTN, CKD) Hx Family Respiratory Disorders: Yes (COPD) Father Family Member Ethnicity: Non- Living Status: Hx Family Cardiac Disorders: Yes (Stroke, CHF) Hx Family Respiratory Disorders: Yes (Smoker) Hx Family Neurologic Disorders: Yes (pt states father had stroke) Medications and Allergies HYDROcodone/Acet 5/325 mg [[place] 5-325 mg] 1 tab PO TID PRN 08/27/15 [History] Tizanidine HCl 2 mg PO QAM 08/27/15 [History] ALPRAZolam [Xanax 0.25 MG Tablet] 0.25 mg PO BID 04/22/17 [History] Labetalol HCl 200 mg PO QID 04/28/18 [History] Tizanidine HCl 4 mg PO QPM 04/28/18 [History] Aspirin Enteric Coated [Aspirin EC] 81 mg PO DAILY 11/13/18 [History] Furosemide [Lasix] 40 mg PO SUMOWEFR 11/13/18 [History] Sevelamer [Renvela] 1,600 mg PO 1200,1700 11/13/18 [History] Sevelamer [Renvela] 800 mg PO 0800 11/13/18 [History] Verapamil HCl [Verapamil ER] 120 mg PO DAILY 11/13/18 [History] Famotidine [Pepcid] 40 mg PO DAILY 11/22/18 [History] PARoxetine HCl [Paroxetine HCl] 40 mg PO DAILY 01/27/19 [History] Renal-Augustine Tablet 1 tab PO DAILY 01/27/19 [History] Allergy/AdvReac Type Severity Reaction Status Date / Time blue dye Allergy Hives Verified 11/22/18 09:40 latex Allergy Itching Verified 11/22/18 09:40 Nickel Allergy Hives Verified 11/22/18 09:40 shrimp Allergy Hives Verified 11/22/18 09:40 Sulfa (Sulfonamide Allergy Hives Verified 11/22/18 09:40 Antibiotics) Review of Systems All Systems: reviewed and no additional remarkable complaints except as stated Exam - Vital Signs Vital signs: Initial Vital Signs Temp Pulse Resp BP Pulse Ox 97.8 F 77 17 155/84 96 01/27/19 11:29 01/27/19 11:29 01/27/19 11:29 01/27/19 11:29 01/27/19 11:29 Vital Signs - Last 8 Hours Temp Pulse Pulse Pulse Pulse Resp BP 01/28/19 10:57 97.4 F L 72 22 149/81 01/28/19 10:47 70 72 69 01/28/19 07:00 98.1 F 73 22 189/77 BP BP BP Pulse Ox 01/28/19 10:57 98 01/28/19 10:47 147/85 149/81 157/73 01/28/19 07:00 99 Intake and Output 01/27/19 01/28/19 01/28/19 23:59 07:59 15:59 Intake Total 240 / 240 Output Total 0 / 0 300 / 300 Balance 240 / 240 -300 / -300 Intake: Oral 240 / 240 Output: Urine 0 / 0 300 / 300 Other: Meal Dinner Percent of Meal Consumed 20% # Voids 1 Weight 68.4 kg 68 kg Patient Weight 01/28/19 23:59 Weight 68 kg - General Appearance General appearance: well-developed, well-nourished, appears started age EENT: ATNC, PERRL, mucous membranes moist Neck: supple Respiratory: clear Cardiology: edema (minimal to trace ankle nontense swelling bilaterally), regular rate, regular rhythm, normal S1, normal S2 - Dialysis Access Dialysis Vascular Access: Arteriovenous Fistula (Right forearm AVF) thrill: Yes bruit: Yes Gastrointestinal: normoactive bowel sounds, no tenderness, no guarding Integumentary: no rash, warm and dry Neurologic: no focal deficit, no asterixis, alert and oriented x3 Musculoskeletal: no deformities, no erythema, no cyanosis Psychiatric: mood/affect appropriate, cooperative Results - Lab Results 01/29/19 06:53 01/29/19 06:53 Most recent lab results 01/28/19 01:26 Calcium 8.8 Consult Discharge Plan - Plan Referrals: Gareth Lee MD [Primary Care Provider] -
--- NOTE | 2019-01-28 12:35 | Event Note ---
Date of Encounter: 01/28/19 Time of Encounter: 12:30 - Cardiology Event Note [employer] single chamber pacer check done: all measurements appropriate, set to pace at 70, no events. Full cardiology consult done by Dr. Osman. Cardiology signing off, f/u arranged.
--- NOTE | 2019-01-28 14:07 | Neurology - Consult Note ---
<Leeroy Lakhani J - Last Filed: 01/28/19 15:00> Date of Encounter: 01/28/19 Time of Encounter: 13:55 Assessment and Plan (1) Dizziness Current Visit: Yes Status: Acute Neurology consulted to evaluate for lightheaded/dizziness and AMS Etiology unclear; r/o central vs peripheral cause HTN on admission with SBP in the 170's and still having episodes of HTN; HTN episodes possibly contributing to lightheadedness EKG showing A-fib which is chronic; has a pacer AICD; has been interrogated by cardio with no abnormalities Vital signs are negative for orthostasis CT head negative for acute abnormality The Neurological exam is non focal and I am unable to reproduce dizziness throughout my exam. She reports that the dizziness has significantly improved today but is still occurring intermittently. Given abrupt onset with quick resolution an central neurological cause of dizziness is thought to be less likely. Rec Echocardiogram Recommend trialing meclizine Continue with neuro assessments every shift Continuous telemetry Neurology will continue to follow History of Present Illness Chief complaint: dizziness HPI: Ms. Adamson is a 68 year old female with a PMH of atrial fibrillation, ESRD on HD, HTN, migraines, SILVINO, cerebral aneurysm with coiling, right carotid artery an eurysm, anxiety and depression, pacer with AICD. Neurology is consulted for evaluation of dizziness. The patient reports that on 01/27/19 she awoke and was "extremely dizzy "reporting that when she went to stand to get out of bed she almost fell. She describes the dizziness as a "head spinning sensation "but reports that it was not exacerbated by activity or position change. The dizziness somewhat improved enabling her to go to her scheduled hemodialysis appointment. She was then brought to [facility] via EMS for further evaluation due to altered mental state and increasing dizziness after hemodialysis. At the time of my assessment this afternoon she states that the dizziness has significantly improved but is still there somewhat intermittently. She denies any focal neurological complaints such as weakness, paresthesias, dysphagia, dysarthria, visual disturbances, ataxia. Further, she denies chest pains, shortness of breath, peripheral edema, palpitations, fevers, chills, flu-like signs or symptoms. A CT of the head was completed showing no acute intracranial abnormalities. Review her vital signs reveal hypertension on admission with SBP in the 170s. Past Med Surg Social Fam HX - Past Medical History Medical history: atrial fibrillation, dialysis, GI bleed, hypertension, migraine, renal disease, other Additional medical history: Chronic Back Pain, iron deficiency anemia, cerebral aneurysm, vitamin D deficiency, pacemaker, Rheumatic Fever, Right Carotid Aneurysm, Exertional Angina Psychiatric history: anxiety, depression - Past Surgical History Surgical History: appendectomy, cholecystectomy, pacemaker/AICD, other, vascular surgery, pacemaker Additional surgical history: gastric bypass 2000. lap choley 1979. cardiac cath. pacemaker placed 05/2013. fliud drainage off right lung 08/2017. coil embolization og left distal carotid artery. hemorrhoidectomy. bilateral phlebectomy - Social History Smoking Status: Never smoker Smokeless Tobacco Status: No Alcohol use: none Drug use: none - Family History Sister Adopted: No Family Member Ethnicity: Non- Living Status: Hx Family Cardiac Disorders: Yes (HTN, CKD) Hx Family Respiratory Disorders: Yes (COPD) Father Family Member Ethnicity: Non- Living Status: Hx Family Cardiac Disorders: Yes (Stroke, CHF) Hx Family Respiratory Disorders: Yes (Smoker) Hx Family Neurologic Disorders: Yes (pt states father had stroke) Medications and Allergies HYDROcodone/Acet 5/325 mg [[place] 5-325 mg] 1 tab PO TID PRN 08/27/15 [History] Tizanidine HCl 2 mg PO QAM 08/27/15 [History] ALPRAZolam [Xanax 0.25 MG Tablet] 0.25 mg PO BID 04/22/17 [History] Labetalol HCl 200 mg PO QID 04/28/18 [History] Tizanidine HCl 4 mg PO QPM 04/28/18 [History] Aspirin Enteric Coated [Aspirin EC] 81 mg PO DAILY 11/13/18 [History] Furosemide [Lasix] 40 mg PO SUMOWEFR 11/13/18 [History] Sevelamer [Renvela] 1,600 mg PO 1200,1700 11/13/18 [History] Sevelamer [Renvela] 800 mg PO 0800 11/13/18 [History] Verapamil HCl [Verapamil ER] 120 mg PO DAILY 11/13/18 [History] Famotidine [Pepcid] 40 mg PO DAILY 11/22/18 [History] PARoxetine HCl [Paroxetine HCl] 40 mg PO DAILY 01/27/19 [History] Renal-[place]ine Tablet 1 tab PO DAILY 01/27/19 [History] Allergy/AdvReac Type Severity Reaction Status Date / Time blue dye Allergy Hives Verified 11/22/18 09:40 latex Allergy Itching Verified 11/22/18 09:40 Nickel Allergy Hives Verified 11/22/18 09:40 shrimp Allergy Hives Verified 11/22/18 09:40 Sulfa (Sulfonamide Allergy Hives Verified 11/22/18 09:40 Antibiotics) All Systems: The remainder of the systems were reviewed and are negative Review of Systems: REVIEW OF SYSTEMS GENERAL: Negative for any nausea, vomiting, fevers, chills NEUROLOGIC: Negative for any blurry vision, blind spots, double vision, facial asymmetry, dysphagia, dysarthria, hemiparesis, hemisensory deficits, vertigo, at axia, seizures, paralysis, tingling, numbness, unilateral weakness or numbness/tingling Positive-dizziness and altered mental state. All symptoms have since resolved. She is reporting chronic diplopia CARDIAC: Negative for any chest pain, dyspnea on exertion and peripheral edema or palpitations GENITOURINARY: Negative for any dysuria, urinary frequency, incontinence. ENDOCRINE: Thyroid trouble, heat/cold intolerance, excessive sweating Physical Examination - Vital Signs Vital Signs: Initial Vital Signs Temp Pulse Resp BP Pulse Ox 97.8 F 77 17 155/84 96 01/27/19 11:29 01/27/19 11:29 01/27/19 11:29 01/27/19 11:29 01/27/19 11:29 - Exam Exam: Examination: General Examination: *CONSTITUTIONAL: Alert and oriented x3, no acute distress *GENERAL APPEARANCE OF PATIENT elderly female, no acute distress *EYES: pupils equal, round, reactive to light and accommodation, conjunctiva clear *CARDIOVASCULAR RRR, no peripheral edema, distal temperature normal, dorsalis pedis pulses normal. See vital signs Musculoskeletal: *GAIT AND STATION deferred. Sitting upright in bed without truncal ataxia *ASSESSMENT OF MUSCLE STRENGTH IN THE UPPER AND LOWER EXTREMITIES bilateral deltoid, bicep, tricep, senior speech pathologist strength, hip flexors ,anterior tibialis, dorsoflexion of the foot 4/5 *MUSCLE TONE IN THE UPPER AND LOWER EXTREMITIES normal. No abnormal movements, fasciculations or atrophy identified. Neurological: *ORIENTATION to person, situation, time and place *RECURRENT AND REMOTE MEMORY intact *ATTENTION AND CONCENTRATION are normal *LANGUAGE FUNCTION no significant aphasia or dysarthia was noted. *FUND OF KNOWLEDGE aware of current events, past history, vocabulary *MENTAL attention span and concentration normal. *CN II optic fundi were normal, no papilledema noted. *CN III,IV, chronic pupillary asymmetry left greater than right. Left pupil does not diet or constrict to stimulus. Otherwise extraocular eye movements were full, no nystagmus and no ptosis noted. *CN V shows normal sensation and jaw opens symmetrically. *CN VII shows normal facial movement symmetrically, upper and lower bilaterally. *CN VIII shows no significant hearing loss on exam *CN IX,,X palate elevated symmetrically *CN XI normal strength in the sternocleidomastoid muscles, symmetrical shoulder shrugging. *CN XII tongue protruded in the midline, with normal strength and movement. *SENSORY EXAMINATION light touch intact *REFLEXES: deep tendon reflexes were normal and symmetrical , grade 2/4 diffusely, no pathological reflexes were noted. *CEREBELLAR TESTING normal finger to nose, heel/knee/trejo *PAIN LEVEL 0/10 Results - Laboratory Findings CBC and BMP: 01/28/19 01:26 01/28/19 01:26 Abnormal lab findings: Abnormal lab results RBC 3.22 M/mcL (3.82-4.97) L 01/28/19 01:26 Hgb 10.0 g/dL (11.5-15.4) L 01/28/19 01:26 Hct 31.3 % (35.3-44.9) L 01/28/19 01:26 Plt Count 139 K/mcL (140-400) L 01/28/19 01:26 1192 ng/mLFEU (0-500) H 01/27/19 19:20 Carbon Dioxide 30 mEq/L (23-29) H 01/27/19 12:46 BUN 24 mg/dL (8-23) H 01/28/19 01:26 2.80 mg/dL (0.60-1.20) H 01/28/19 01:26 Est GFR ( Amer) 20 (> 60) L 01/28/19 01:26 Est GFR (Non-Af Amer) 17 (> 60) L 01/28/19 01:26 Calcium 8.3 mg/dL (8.6-10.3) L 01/27/19 12:46 Ur Leukocyte Esterase Moderate (Negative) H 01/27/19 12:38 3-5 per hpf (0-3) H 01/27/19 12:38 Ur Squamous Epith Cells Many per lpf (None-Few) H 01/27/19 12:38 - Diagnostic Findings Additional findings: CT/CT head/brain wo con IMPRESSION: No acute intracranial abnormality. Consult Discharge Plan - Plan Referrals: Gareth Lee MD [Primary Care Provider] - <Rickie Maldonado I - Last Filed: 01/29/19 15:13> Date of Encounter: 01/28/19 Assessment and Plan (1) Dizziness Current Visit: Yes Status: Acute I have personally performed a face to face diagnostic evaluation, including HPI, EXAM, which is included in the Assesment and plan, which was discussed with Leeroy Lakhani CNP, I agree with the above outlined documentation. As pt seem to be back to baseline, NO CT abnormality, Unable to get CCTA due to renal issues, cant get MRA due to pacer but considering all and with recent imaging studies less likely to be Vertebral stenosis. suggest increase fluids intake may treat with Meclizine PRN suggest f/u at [facility] as she is being following up for her Aneurysm Rickie Maldonado MD History of Present Illness HPI: Ms. Adamson is a 68 year old female All Systems: The remainder of the systems were reviewed and are negative Physical Examination - Vital Signs Vital Signs: Initial Vital Signs Temp Pulse Resp BP Pulse Ox 97.8 F 77 17 155/84 96 01/27/19 11:29 01/27/19 11:29 01/27/19 11:29 01/27/19 11:29 01/27/19 11:29 Results - Laboratory Findings CBC and BMP: 01/29/19 06:53 01/29/19 06:53 Abnormal lab findings: Abnormal lab results RBC 3.22 M/mcL (3.82-4.97) L 01/28/19 01:26 Hgb 10.0 g/dL (11.5-15.4) L 01/28/19 01:26 Hct 31.3 % (35.3-44.9) L 01/28/19 01:26 Plt Count 139 K/mcL (140-400) L 01/28/19 01:26 1192 ng/mLFEU (0-500) H 01/27/19 19:20 Carbon Dioxide 30 mEq/L (23-29) H 01/27/19 12:46 BUN 24 mg/dL (8-23) H 01/28/19 01:26 2.80 mg/dL (0.60-1.20) H 01/28/19 01:26 Est GFR ( Amer) 20 (> 60) L 01/28/19 01:26 Est GFR (Non-Af Amer) 17 (> 60) L 01/28/19 01:26 Calcium 8.3 mg/dL (8.6-10.3) L 01/27/19 12:46 Ur Leukocyte Esterase Moderate (Negative) H 01/27/19 12:38 3-5 per hpf (0-3) H 01/27/19 12:38 Ur Squamous Epith Cells Many per lpf (None-Few) H 01/27/19 12:38
--- NOTE | 2019-01-28 14:48 | Cardiology Consult Note ---
Date of Encounter: 01/28/19 Time of Encounter: 12:00 Assessment and Plan (1) Dizziness Current Visit: Yes Status: Acute Possibly from dehydration. Patient reports she is back to her baseline. Troponins are negative. Obtain limited echocardiogram with attention to LVEF and tricuspid valve with Doppler to evaluate for RVSP (2) Atrial fibrillation Current Visit: No Status: Chronic Rate controlled. Continue verapamil 120 mg daily. Not on anticoagulation because of multiple episodes of GI bleed Qualifiers: Atrial fibrillation type: unspecified Qualified Code(s): I48.91 - Unspecified atrial fibrillation (3) Chronic kidney disease, stage 5, kidney failure Current Visit: No Status: Chronic (4) ESRD (end stage renal disease) on dialysis Current Visit: No Status: Chronic Discussion w patient/family: The assessment and plan as outlined above was discussed with the patient and/or family members who expressed understanding and agreement. All questions were answered. Thank you for involving us in the care of your patient. Please call with any questions. History of Present Illness Consult date: 01/28/19 History of present illness: Ms. Adamson is a 68 year old female Ms. Adamson is a pleasant 68 year old female with past medical history of atrial fibrillation, PPM, ESRD on dialysis, recurrent pleural effusions requiring throracentesis, and HLD who presented with dizziness and lightheadedness prior to undergoing dialysis yesterday. She denies palpitations, chest pain, or syncope. She has severe tricuspid regurgitation and at least mild pulmonary hypertension (RVSP 45mmHg) from echocardiogram done in May 2018. LVEF at that time was 55-60% Pharmacological nuclear stress test in July 2017 was negative for ischemia Past Med Surg Social Fam HX - Past Medical History Medical history: atrial fibrillation, dialysis, GI bleed, hypertension, migraine, renal disease, other Additional medical history: Chronic Back Pain, iron deficiency anemia, cerebral aneurysm, vitamin D deficiency, pacemaker, Rheumatic Fever, Right Carotid Aneurysm, Exertional Angina Psychiatric history: anxiety, depression - Past Surgical History Surgical History: appendectomy, cholecystectomy, pacemaker/AICD, other, vascular surgery, pacemaker Additional surgical history: gastric bypass 2000. lap choley 1979. cardiac cath. pacemaker placed 05/2013. fliud drainage off right lung 08/2017. coil embolization og left distal carotid artery. hemorrhoidectomy. bilateral phlebectomy - Social History Smoking Status: Never smoker Smokeless Tobacco Status: No Alcohol use: none Drug use: none - Family History Sister Adopted: No Family Member Ethnicity: Non- Living Status: Hx Family Cardiac Disorders: Yes (HTN, CKD) Hx Family Respiratory Disorders: Yes (COPD) Father Family Member Ethnicity: Non- Living Status: Hx Family Cardiac Disorders: Yes (Stroke, CHF) Hx Family Respiratory Disorders: Yes (Smoker) Hx Family Neurologic Disorders: Yes (pt states father had stroke) Medications and Allergies HYDROcodone/Acet 5/325 mg [[place] 5-325 mg] 1 tab PO TID PRN 08/27/15 [History] Tizanidine HCl 2 mg PO QAM 08/27/15 [History] ALPRAZolam [Xanax 0.25 MG Tablet] 0.25 mg PO BID 04/22/17 [History] Labetalol HCl 200 mg PO QID 04/28/18 [History] Tizanidine HCl 4 mg PO QPM 04/28/18 [History] Aspirin Enteric Coated [Aspirin EC] 81 mg PO DAILY 11/13/18 [History] Furosemide [Lasix] 40 mg PO SUMOWEFR 11/13/18 [History] Sevelamer [Renvela] 1,600 mg PO 1200,1700 11/13/18 [History] Sevelamer [Renvela] 800 mg PO 0800 11/13/18 [History] Verapamil HCl [Verapamil ER] 120 mg PO DAILY 11/13/18 [History] Famotidine [Pepcid] 40 mg PO DAILY 11/22/18 [History] PARoxetine HCl [Paroxetine HCl] 40 mg PO DAILY 01/27/19 [History] Renal-[place]ine Tablet 1 tab PO DAILY 01/27/19 [History] Allergy/AdvReac Type Severity Reaction Status Date / Time blue dye Allergy Hives Verified 11/22/18 09:40 latex Allergy Itching Verified 11/22/18 09:40 Nickel Allergy Hives Verified 11/22/18 09:40 shrimp Allergy Hives Verified 11/22/18 09:40 Sulfa (Sulfonamide Allergy Hives Verified 11/22/18 09:40 Antibiotics) All Systems Review: The remainder of the systems were reviewed and are negative - Constitutional Constitutional: no anorexia, no chills - Cardiovascular Cardiovascular: irregular heart rhythm, no chest pain with exertion, no palpitations, no syncope - Respiratory Respiratory: no cough - Gastrointestinal Gastrointestinal: no abdominal pain - Musculoskeletal Musculoskeletal: no abnormal gait - Integumentary Integumentary: no unusual bruising - Neurological Neurological: dizziness, no abnormal speech, no focal weakness - Psychiatric Psychiatric: no anxiety - Hematological/Lymphatic Hematologic/Lymphatic: no easy bleeding Physical Examination Vital Signs, Last 4 Hours Temp Pulse Resp BP Pulse Ox 01/28/19 10:57 97.4 F L 72 22 149/81 98 General: Conversant HEENT: Atraumatic, Normocephaly Neck: No JVD Cardiac: Normal S1 and S2, Other (Irregularly irregular rhythm, grade 3/6 left lower sternal edge pansystolic murmur) Lungs: Normal Breath Sounds, Other (Mild basilar crackles) Abdomen: Soft Musculoskeletal: No Chest Wall Tenderness Extremities: No Edema, Other (Mild pedal edema) Results 01/28/19 01:26 01/28/19 01:26 Lab Results 01/27/19 01/27/19 01/28/19 19:20 19:20 01:26 WBC Hgb Hct Plt Count D-Dimer 1192 H Sodium Potassium Chloride Carbon Dioxide BUN Creatinine Glucose Calcium Troponin I < 0.03 < 0.03 01/28/19 01/28/19 01/28/19 01:26 01:26 08:44 WBC 5.5 Hgb 10.0 L Hct 31.3 L Plt Count 139 L D-Dimer Sodium 138 Potassium 4.5 Chloride 102 Carbon Dioxide 29 BUN 24 H Creatinine 2.80 H Glucose 88 Calcium 8.8 Troponin I < 0.03 - EKG Interpretation EKG results cardiology: personally reviewed (Atrial fibrillation with nonspecific ST-T changes) Consult Discharge Plan - Plan Referrals: Gareth Lee MD [Primary Care Provider] -
[2019-01-28] MEDS: tiZANidine 4 MG TABLET PO SCH ×2 (15:38→22:25)
[2019-01-29] MEDS: *HR* Heparin 5,000 UNIT/ML VIAL SQ SCH ×2 (05:26→17:07)
[2019-01-29 07:21] LABS: Basophils # 0.1 K/mcL (0.0-0.2); Basophils % 0.8 %; Eosinophils # 0.5 K/mcL (0.0-0.6); Eosinophils % 7.9 %; Hematocrit 31.9 % (35.3-44.9); Hemoglobin 10.1 g/dL (11.5-15.4); Immature Granulocytes % 0.3 % (0-4); Lymphocytes # 0.7 K/mcL (0.6-4.6); Lymphocytes % 10.6 %; Mean Corpuscular HGB Conc 31.7 g/dL (31.6-35.5); Mean Corpuscular Hemoglobin 31.4 pg (28.0-33.3); Mean Corpuscular Volume 99.1 fL (83.0-100.0); Mean Platelet Volume 10.7 fL (9.4-12.4); Monocytes # 0.6 K/mcL (0.0-1.3); Monocytes % 9.4 %; Neutrophils # 4.7 K/mcL (1.6-8.9); Platelet Count 146 K/mcL (140-400); Red Blood Count 3.22 M/mcL (3.82-4.97); Red Cell Distribution Width 13.9 % (11.5-14.5); White Blood Count 6.6 K/mcL (4.3-11.1)
[2019-01-29] MEDS: *HR* HYDROcodone/Acet 5/325 mg TABLET PO PRN ×2 (07:24→13:10)
[2019-01-29] MEDS ORDERED: 0.9 % Sodium Chloride 250 ML IVC PRN (07:26)
[2019-01-29] MEDS ORDERED: 0.9 % Sodium Chloride 1,000 ML PRIME SCH (07:30)
[2019-01-29 07:39] LABS: Calcium 9.4 mg/dL (8.6-10.3); Potassium 4.7 mEq/L (3.5-5.1)
[2019-01-29] MEDS: ALPRAZolam 0.25 MG TABLET PO SCH ×2 (08:30→21:14)
[2019-01-29] MEDS: Aspirin Enteric Coated 81 MG Tablet PO SCH (08:31)
[2019-01-29] MEDS: Renal Vitamin 1 CAP CAPSULE PO SCH (08:31)
[2019-01-29] MEDS: Famotidine 20 MG TABLET PO SCH (08:31)
[2019-01-29 08:43] LABS: Hepatitis B Surface Antibody 4.99 mIU/mL
[2019-01-29 08:54] LABS: Hepatitis B Surface Antigen Nonreactive (Nonreactive)
--- NOTE | 2019-01-29 10:10 | Nephrology Progress Note ---
Date of Encounter: 01/29/19 Time of Encounter: 08:15 - Assessment and Plan (1) ESRD (end stage renal disease) on dialysis Current Visit: No Status: Chronic ESRD on HD TTS: I recommend HD today, and I reviewed the labs/vitals/med list/other progress notes/imaging for complex E/M and MDM to compose the HD orders for today. Tentatively, her next dialysis treatment is planned for Thursday. I will be available in the interim if needed. Please feel free to call or page me with any Renal questions. Thank you Subjective Principal diagnosis: ESRD Interval history: The patient was seen and examined earlier today. She was eating breakfast, and did not affirm nausea, vomiting, or diarrhea. Objective - Vital Signs Vital signs: Vital Signs Temp Pulse Pulse Pulse Pulse Resp BP 01/29/19 07:13 97.8 F 64 16 161/61 01/29/19 05:26 98.2 F 74 19 150/81 01/29/19 01:05 97.6 F 64 16 116/76 01/28/19 19:51 97.6 F 64 17 133/78 01/28/19 15:47 97.5 F L 66 17 116/75 01/28/19 10:57 97.4 F L 72 22 149/81 01/28/19 10:47 70 72 69 BP BP BP Pulse Ox 01/29/19 07:13 98 01/29/19 05:26 97 01/29/19 01:05 98 01/28/19 19:51 99 01/28/19 15:47 94 01/28/19 10:57 98 01/28/19 10:47 147/85 149/81 157/73 Intake and Output 01/28/19 01/29/19 01/29/19 23:59 07:59 15:59 Intake Total 120 / 120 Balance 120 / -180 Intake: Oral 120 / 120 Other: # Voids 1 Weight 67.2 kg Patient Weight 01/29/19 23:59 Weight 67.2 kg - General Appearance Exam: General appearance: well-developed, well-nourished, appears started age EENT: ATNC, PERRL, mucous membranes moist Neck: supple Respiratory: clear Cardiology: edema (minimal to trace ankle nontense swelling bilaterally), regular rate, regular rhythm, normal S1, normal S2 - Dialysis Access Dialysis Vascular Access: Arteriovenous Fistula (Right forearm AVF), which appeared mildly infiltrated thrill: Yes bruit: Yes Gastrointestinal: normoactive bowel sounds, no tenderness, no guarding Integumentary: no rash, warm and dry Neurologic: no focal deficit, no asterixis, alert and oriented x3 Musculoskeletal: no deformities, no erythema, no cyanosis Psychiatric: mood/affect appropriate, cooperative - Lab 01/29/19 06:53 01/29/19 06:53 Most recent lab results 01/29/19 06:53 Calcium 9.4 Consult Discharge Plan - Plan Referrals: Gareth Lee MD [Primary Care Provider] -
[2019-01-29] MEDS ORDERED: 0.9 % Sodium Chloride 1,000 ML ONE (12:57)
[2019-01-29] MEDS: Verapamil ER (24 HR) 120 MG TABLET.ER PO SCH (13:04)
[2019-01-29] MEDS: amLODIPine 5 MG TABLET PO SCH (13:05)
[2019-01-29] MEDS ORDERED: 0.9 % Sodium Chloride 250 ML IVC SCH (14:45)
--- NOTE | 2019-01-29 14:51 | Internal Med Progress Note ---
Hospitalist Progress Note - Encounter Date of Encounter: 01/29/19 Time of Encounter: 11:45 - Subjective Interval History: Patient seen and examined this morning at bedside after dialysis. Patient complained of some headache and blurry vision. Mentioned headache started after dialysis but has on and off blurry vision for a while especially on her left eye. Currently present even with her glasses which according to her does not happen usually. Not able to completely clarify whether his double vision or blurry vision. No specific eye position making her symptoms worse. Does complain of some abdominal bloating and headache as well. Patient is h emodynamically stable. Her blood pressure has been on the higher end today. - Exam Vitals: Temp Pulse Resp BP Pulse Ox 97.7 F 64 18 195/82 98 01/29/19 13:00 01/29/19 07:13 01/29/19 13:00 01/29/19 13:00 01/29/19 07:13 Exam: General: In no acute distress. Respiratory exam: CTAB. no accessory muscle use, rales, rhonchi, wheezes Cardiovascular exam: RRR, +S1, +S2. no murmur, gallop, rubs. GI/Abdominal exam: Non-tender, Non-distended, normal bowel sounds, soft, no peritoneal signs. Extremities exam: no pedal edema, pulses palpable in b/l lower extremities. no calf tenderness, Has Rt arm fistula with thrill Neurological exam: CN II-XII intact, AO X3, no focal deficits. Skin exam: No skin rash - Assessment and Plan (1) DVT prophylaxis Current Visit: Yes Status: Acute (2) Anemia of chronic disease Current Visit: No Status: Chronic (3) Atrial fibrillation Current Visit: No Status: Chronic (4) Pacemaker Current Visit: No Status: Acute (5) H/O gastric bypass Current Visit: No Status: Acute (6) GI bleed Current Visit: No Status: Chronic (7) ESRD (end stage renal disease) on dialysis Current Visit: No Status: Chronic (8) Hypertension Current Visit: No Status: Acute (9) Pre-syncope Current Visit: Yes Status: Acute - Summary of Assessment and Plan Summary of Assessment and Plan: Assessment Acute Presyncope, dizziness, blurry vision Chronic ESRD pacemaker chronic anemia afib h/o brain aneurysm h/o gastric bypass, GI bleed, barretts HTN anxiety, depression Plan - Cannot get MRI due to pacemaker. Dehydration possible cause. Discussed with neurology and nephrology. Will stop lasix. Give 250 cc of NS and get CTA head and neck to evaluate for posterior circulatory cause. has h/o afib rate controlled with verapamil but not on AC due to GI bleed history. negative orthostatics. Complained of headache and some blurry vision today after dialysis. patient symptoms are also vague and not consistent. There may be component of anxiety/depression and patient agrees to every symptoms she is asked. - EKG with afib with twave inversion in lateral leads. Negative trops. No h/o CAD. Cardiology following, ECHO with EF 55, mild dilated RV and sever biatrial enlargement, mod-sev TR , mod pulm HTN. negative stress test in 07/2017 - Elevated d-dimer, possibly related to ESRD, CXR with bibasilar airspace opacity with possible atelectasis/infiltrated. Will monitor for fever. She does have mild shortness of breath but its present for many months. clinically stable. Monitor for now. - c/w tele monitoring. c/w labetalol, verapamil, amlodipine and prn hydralazine for better BP control - Patient denies suicidal ideation. - c/w pepcid - c/w home anxiety and depression meds. - Heparin subcutaneous for DVT ppx Internal Medicine: Result - Labs CBC & Chem 7: 01/29/19 06:53 01/29/19 06:53 Labs: Short CBC 01/29/19 Range/Units 06:53 WBC 6.6 (4.3-11.1) K/mcL Hgb 10.1 L (11.5-15.4) g/dL Hct 31.9 L (35.3-44.9) % Plt Count 146 (140-400) K/mcL Neutrophils # 4.7 (1.6-8.9) K/mcL BMP 01/29/19 06:53 Sodium 137 Potassium 4.7 Chloride 99 Carbon Dioxide 25 BUN 35 H Creatinine 4.06 H Glucose 87 Calcium 9.4 - ABG Interpretation ABG results: PT/INR, D-dimer 1192 ng/mLFEU (0-500) H 01/27/19 19:20 - Impressions Impressions Echocardiogram Limited Views 01/28/19 15:10 Impressions: LVEF 55%. Atypical septal motion consistent with paced rhythm. Normal LV chamber size, wall thickness and function. Mildly dilated right ventricle. Severely biatrial enlargement. Moderate-severe tricuspid regurgitation, due to malcoaptation Moderate pulmonary hypertension.Estimated RVSP is 44 mmHg. A device lead was visualized in the right atrium and right ventricle. Left Ventricular Wall Motion: Rest Echo Findings All wall segments showed normal motion. Findings: Study Quality * Technically adequate exam. ECG Findings * Paced rhythm. Left Ventricle * LVEF 55%. * Atypical septal motion consistent with paced rhythm. * Normal LV chamber size, wall thickness and function. Right Ventricle * Mildly dilated right ventricle. Left Atrium * Severely dilated left atrium. Right Atrium * Severely dilated right atrium. Tricuspid Valve * Moderate-severe tricuspid regurgitation. * Moderate pulmonary hypertension.Estimated RVSP is 44 mmHg. * * Estimated RA pressure is 10 mmHg. IVC * The IVC is dilated. Device lead * A device lead was visualized in the right atrium and right ventricle. Consult Discharge Plan - Plan Referrals: Gareth Lee MD [Primary Care Provider] - (3) Atrial fibrillation Qualifiers: Atrial fibrillation type: unspecified Qualified Code(s): I48.91 - Unspecified atrial fibrillation (6) GI bleed Qualifiers: GI bleed type/associated pathology: unspecified gastrointestinal hemorrhage type Qualified Code(s): K92.2 - Gastrointestinal hemorrhage, unspecified (8) Hypertension Qualifiers: Hypertension type: unspecified Qualified Code(s): I10 - Essential (primary) hypertension
[2019-01-29] MEDS ORDERED: Isovue-370 500 ML BOTTLE IVP ONE (14:53)
--- NOTE | 2019-01-29 15:07 | Neurology Progress Note ---
Date of Encounter: 01/29/19 Time of Encounter: 12:05 Assessment and Plan (1) Dizziness Current Visit: Yes Status: Acute Patient continued to have some dizziness predominantly positional increasing blurred vision in the left eye without any other focal findings on neurological examination Though no evidence of any large vessel stroke but a small vessel disease is a possibility but again the symptom does not seems to be typical as seem to be fluctuating perhaps more peripheral than central Unfortunately not able to get any MRI scan because of the pacemaker though CT scan of the head did not show any acute abnormality She is about due for her repeat CT angiogram because of her history of cerebral aneurysm but that has been precluded because of her history of renal failure. At this time I would suggest that should discuss it with nephrology is possible that he may use a lower dose of IV contrast to get a CT angiogram of her head and neck, if not we may repeat a CT of her head today In the meantime suggest to treat her accordingly she is also seem to be dehydrated is on Lasix not been getting enough fluids perhaps may benefit from increasing fluid intake and discontinuation of the Plavix that also need to be discussed with nephrology service At the same time mild headaches can be treated with symptomatically We will start her on low-dose of muscle accident night that might help as a preventive agent If not able to get CT angiogram she she will need to done at [facility] as scheduled as an outpatient Discussed with the primary team agree with the plan Rickie Maldonado MD Subjective Principal diagnosis: ESRD Interval history: Patient complaining of some occasional dizziness as well as blurring vision in her left eye though dizziness has improved since yesterday not having it as much at the same time denies any new focal motor weakness or any other sensory symptoms She is unable to get CTA because of renal failure at the same time unable to get an MRI because of the pacemaker According to the patient she has an history of coiling of cerebral aneurysm as well as bleeding in her both eyes in the past and has difficulty with her vision as well as chronic double vision in both eyes As far as dizziness is seemed to be positional especially when she is bending her head up and down and sometimes [id number] but if she is not moving the head she is not having any dizziness she is also complaining of some mild headaches as well CT scan of the head negative for any acute bleed Patient has an history of coiling of aneurysm several years ago had serial imaging studies until 5 years ago and was supposed to get every 5 years she is about to do her angiogram now she had contacted [facility] but has not been able to schedule it yet She does acknowledges that she is been getting some anxiety because of this as well as with her other medical conditions Beside dizziness and occasional diplopia that she had it for long-time patient denies any focal motor weakness or any other new neurological symptoms Objective - Constitutional Vitals: Temp Pulse Resp BP Pulse Ox 97.7 F 64 18 195/82 98 01/29/19 13:00 01/29/19 07:13 01/29/19 13:00 01/29/19 13:00 01/29/19 07:13 - Neurological Exam Motor Examination: Present: grossly full strength in all extremities Sensation intact: Present: intact Reflexes: Biceps: 1+, Triceps: 1+, Brachioradialis: 1+, Patella: 1+, Achilles: 1+ Mental Status Examination: Present: awake, alert, oriented to person, oriented to place, oriented to time, follows commands appropriately, answers questions appropriately, follows simple commands, localizes noxious stimulation Cranial nerve examination: Present: PERRL, visual acevedo intact, no facial asymmetry is present, hearing is intact symmetrically Cerebellar examination: Present: no dysmetria, no truncal ataxia, no difficulty with rapid alternating movements (On cranial nerves examination patient did have asymmetric pupils which is for longer of time as well as decreased vision and decreased movement of the left eye . medial and left rectus, which she had it chronically) Results - Laboratory Findings CBC and BMP: 01/29/19 06:53 01/29/19 06:53 Abnormal lab findings: Abnormal lab results RBC 3.22 M/mcL (3.82-4.97) L 01/29/19 06:53 Hgb 10.1 g/dL (11.5-15.4) L 01/29/19 06:53 Hct 31.9 % (35.3-44.9) L 01/29/19 06:53 Plt Count 139 K/mcL (140-400) L 01/28/19 01:26 1192 ng/mLFEU (0-500) H 01/27/19 19:20 Carbon Dioxide 30 mEq/L (23-29) H 01/27/19 12:46 BUN 35 mg/dL (8-23) H 01/29/19 06:53 4.06 mg/dL (0.60-1.20) H 01/29/19 06:53 Est GFR ( Amer) 13 (> 60) L 01/29/19 06:53 Est GFR (Non-Af Amer) 11 (> 60) L 01/29/19 06:53 Calcium 8.3 mg/dL (8.6-10.3) L 01/27/19 12:46 Ur Leukocyte Esterase Moderate (Negative) H 01/27/19 12:38 3-5 per hpf (0-3) H 01/27/19 12:38 Ur Squamous Epith Cells Many per lpf (None-Few) H 01/27/19 12:38 Hep Bs Antibody 4.99 mIU/mL (10.00-) L 01/29/19 06:53 Consult Discharge Plan - Plan Referrals: Gareth Lee MD [Primary Care Provider] -
[2019-01-29] MEDS ORDERED: 0.9 % Sodium Chloride 250 ML ONE (16:26)
[2019-01-29] MEDS: 0.9 % Sodium Chloride 250 ML IVC SCH (16:33)
[2019-01-29] MEDS: tiZANidine 4 MG TABLET PO SCH (17:07)
[2019-01-30 02:54] LABS: Calcium 8.8 mg/dL (8.6-10.3)
[2019-01-30] MEDS: tiZANidine 4 MG TABLET PO SCH (05:37)
[2019-01-30] MEDS: *HR* Heparin 5,000 UNIT/ML VIAL SQ SCH (05:37)
[2019-01-30] MEDS: 0.9 % Sodium Chloride 250 ML IVC SCH (06:59)
[2019-01-30] MEDS: Aspirin Enteric Coated 81 MG Tablet PO SCH (08:36)
[2019-01-30] MEDS: Renal Vitamin 1 CAP CAPSULE PO SCH (08:36)
[2019-01-30] MEDS: Famotidine 20 MG TABLET PO SCH (08:37)
[2019-01-30] MEDS: amLODIPine 5 MG TABLET PO SCH (08:37)
[2019-01-30] MEDS: Verapamil ER (24 HR) 120 MG TABLET.ER PO SCH (08:37)
[2019-01-30] MEDS: ALPRAZolam 0.25 MG TABLET PO SCH (08:37)
[2019-01-30] MEDS: *HR* HYDROcodone/Acet 5/325 mg TABLET PO PRN (08:42)
[2019-01-30 11:01] VITALS: BP 113/64
--- NOTE | 2019-01-30 13:36 | Discharge Summary ---
- NOTES TO OUTPATIENT PROVIDER Notes to Outpatient Provider: She will need to follow with pulmonology within a week. Has been asked to hold Lasix for about a week and follow-up with nephrology and cardiology. Orders not resulted at time of discharge: Pending orders 01/31/19 04:00 BMP [Basic Metabolic Panel] AM 0400 CBC [Complete Blood Count] [HEME] [place] 04002/01/19 04:00 BMP [Basic Metabolic Panel] AM 04002/02/19 04:00 BMP [Basic Metabolic Panel] AM 04002/03/19 04:00 BMP [Basic Metabolic Panel] AM 04002/04/19 04:00 BMP [Basic Metabolic Panel] AM 0400 Date of Encounter: 01/30/19 Time of Encounter: 11:33 - Discharge Diagnosis (1) DVT prophylaxis Priority: Secondary Status: Acute (2) Anemia of chronic disease Priority: Secondary Status: Chronic (3) Atrial fibrillation Priority: Secondary Status: Chronic Qualifiers: Atrial fibrillation type: unspecified Qualified Code(s): I48.91 - Unspecified atrial fibrillation (4) Pacemaker Priority: Secondary Status: Acute (5) H/O gastric bypass Priority: Secondary Status: Acute (6) ESRD (end stage renal disease) on dialysis Priority: Secondary Status: Chronic (7) Hypertension Priority: Secondary Status: Acute Qualifiers: Hypertension type: unspecified Qualified Code(s): I10 - Essential (primary) hypertension (8) Pre-syncope Priority: Primary Status: Acute Hospital course: Ms. 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 She had some dizziness on and off for few days. She was treated for pneumonia about 2 months ago. Patient was admitted for further evaluation. Cardiology consult was obtained for pacemaker interrogation and nephrology was called to manage dialysis. No events were noted on interrogation of pacemaker. Echocardiogram was obtained per cardiology which was unchanged. Neurology was also consulted given no obvious source for possible posterior circulation cause. Patient had CTA head and neck given she did not get MRI due to pacemaker was unremarkable. Patient got dialyzed while in hospital. She received fluid with the contrast load. Orthostatics were unremarkable. Patient could have had her symptoms from dehydration and her Lasix were held and she was given a small to 50 mL fluids. Her dizziness had resolved but she had headache after. She also complained of some shortness of breath since her pneumonia. She appears anxious and had a lot of thick symptoms. CT chest was obtained to evaluate for possible loculated effusion seen partially on head and neck CT showed stable loculated effusion and small left pleural effusion and atelectasis. Patient did not have any fevers chills and only had mild shortness of breath. Discussed with pulmonology and she could follow-up with pulmonology as outpatient. She is otherwise stable to be discharged home to follow-up with pulmonology within 1 week hold her Lasix and follow of nephrology within one week and cardiology as outpatient. Discharge discussed with: patient, showroom consultant - Time Spent with Patient Total time spent providing and/or coordinating discharge services: Time spent: Greater than 30 minutes (40) - Discharge Medications Prescriptions: Continued Tizanidine HCl 2 mg PO QAM HYDROcodone/Acet 5/325 mg [[place] 5-325 mg] 1 tab PO TID PRN PRN Reason: Pain ALPRAZolam [Xanax 0.25 MG Tablet] 0.25 mg PO BID Labetalol HCl 200 mg PO QID Tizanidine HCl 4 mg PO QPM Verapamil HCl [Verapamil ER] 120 mg PO DAILY Aspirin Enteric Coated [Aspirin EC] 81 mg PO DAILY Sevelamer [Renvela] 800 mg PO 0800 Furosemide [Lasix] 40 mg PO SUMOWEFR Sevelamer [Renvela] 1,600 mg PO 1200,1700 Famotidine [Pepcid] 40 mg PO DAILY PARoxetine HCl [Paroxetine HCl] 40 mg PO DAILY Renal-Augustine Tablet 1 tab PO DAILY Home Medications: HYDROcodone/Acet 5/325 mg [[place] 5-325 mg] 1 tab PO TID PRN 08/27/15 [History] Tizanidine HCl 2 mg PO QAM 08/27/15 [History] ALPRAZolam [Xanax 0.25 MG Tablet] 0.25 mg PO BID 04/22/17 [History] Labetalol HCl 200 mg PO QID 04/28/18 [History] Tizanidine HCl 4 mg PO QPM 04/28/18 [History] Aspirin Enteric Coated [Aspirin EC] 81 mg PO DAILY 11/13/18 [History] Furosemide [Lasix] 40 mg PO SUMOWEFR 11/13/18 [History] Sevelamer [Renvela] 1,600 mg PO 1200,1700 11/13/18 [History] Sevelamer [Renvela] 800 mg PO 0800 11/13/18 [History] Verapamil HCl [Verapamil ER] 120 mg PO DAILY 11/13/18 [History] Famotidine [Pepcid] 40 mg PO DAILY 11/22/18 [History] PARoxetine HCl [Paroxetine HCl] 40 mg PO DAILY 01/27/19 [History] Renal-Augustine Tablet 1 tab PO DAILY 01/27/19 [History] Allergies/Adverse Reactions: Allergy/AdvReac Type Severity Reaction Status Date / Time blue dye Allergy Hives Verified 11/22/18 09:40 latex Allergy Itching Verified 11/22/18 09:40 Nickel Allergy Hives Verified 11/22/18 09:40 shrimp Allergy Hives Verified 11/22/18 09:40 Sulfa (Sulfonamide Allergy Hives Verified 11/22/18 09:40 Antibiotics) Date of admission: 01/28/19 11:47 Primary care physician: Gareth Lee MD Consults: 01/27/19 14:42 Consult to Cardiology [CONS] Stat Comment: Consulting Provider: Cardiology Ruth Reason for Consult: new EKG without pacing Time Notified: 14:43 Call Completed: Yes 01/28/19 07:18 Consult to Nephrology [CONS] Routine Consulting Provider: Kidney Ruth/SABRA/MIRIAM/JOSSELIN Reason for Consult: dialysis management Call Completed: No 01/28/19 08:53 Consult to Nurse Navigator [CONS] Routine Comment: hd 01/28/19 11:55 Consult to Neurology [CONS] Routine Consulting Provider: [facility] Reason for Consult: presyncope, dizziness Call Completed: Yes 01/29/19 07:30 Consult to Dialysis [CONS] ONCE Discharging clinician: Gordon Crane - Constitutional Vitals: Temp Pulse Resp BP Pulse Ox 98.3 F 73 18 113/64 93 01/30/19 10:57 01/30/19 10:57 01/30/19 10:57 01/30/19 10:57 01/30/19 10:57 Exam: General: In no acute distress. Respiratory exam: no accessory muscle use. mild crackle at base. Cardiovascular exam: RRR, +S1, +S2. no murmur, gallop, rubs. GI/Abdominal exam: Non-tender, Non-distended, normal bowel sounds, soft, no peritoneal signs. Extremities exam: no pedal edema, pulses palpable in b/l lower extremities. no calf tenderness, Has Rt arm fistula with thrill Neurological exam: CN II-XII intact, AO X3, no focal deficits. Skin exam: No skin rash Pych: anxious - Patient Status Disposition: Home, Self-Care Condition: Fair - Discharge Instructions Follow Up With: Gareth Lee MD [Primary Care Provider] - Eugenio Parker MD [Partnered Physician] - - Diet and Activity Activity: increase activity as tolerated
--- NOTE | 2019-01-30 14:24 | Physician Discharge Referral ---
Home Health/Hosp Referral Info Transfer to: Home Health - Diagnosis (1) DVT prophylaxis Status: Acute (2) Anemia of chronic disease Status: Chronic (3) Atrial fibrillation Status: Chronic (4) Pacemaker Status: Acute (5) H/O gastric bypass Status: Acute (6) ESRD (end stage renal disease) on dialysis Status: Chronic (7) Hypertension Status: Acute (8) Pre-syncope Status: Acute - Respiratory Orders Smoking Cessation: Smoking cessation has been advised. For more information, call the [place] Tobacco Quit Line at 5-477-HLXK-NOW. - Services Needed Following services are medically necessary services: Home Health Aide - Transfer Medications Home Medications: HYDROcodone/Acet 5/325 mg [[place] 5-325 mg] 1 tab PO TID PRN 08/27/15 [History] Tizanidine HCl 2 mg PO QAM 08/27/15 [History] ALPRAZolam [Xanax 0.25 MG Tablet] 0.25 mg PO BID 04/22/17 [History] Labetalol HCl 200 mg PO QID 04/28/18 [History] Tizanidine HCl 4 mg PO QPM 04/28/18 [History] Aspirin Enteric Coated [Aspirin EC] 81 mg PO DAILY 11/13/18 [History] Furosemide [Lasix] 40 mg PO SUMOWEFR 11/13/18 [History] Sevelamer [Renvela] 1,600 mg PO 1200,1700 11/13/18 [History] Sevelamer [Renvela] 800 mg PO 0800 11/13/18 [History] Verapamil HCl [Verapamil ER] 120 mg PO DAILY 11/13/18 [History] Famotidine [Pepcid] 40 mg PO DAILY 11/22/18 [History] PARoxetine HCl [Paroxetine HCl] 40 mg PO DAILY 01/27/19 [History] Renal-Augustine Tablet 1 tab PO DAILY 01/27/19 [History] Allergies/Adverse Reactions: Allergy/AdvReac Type Severity Reaction Status Date / Time blue dye Allergy Hives Verified 11/22/18 09:40 latex Allergy Itching Verified 11/22/18 09:40 Nickel Allergy Hives Verified 11/22/18 09:40 shrimp Allergy Hives Verified 11/22/18 09:40 Sulfa (Sulfonamide Allergy Hives Verified 11/22/18 09:40 Antibiotics) Certification: Further, I certify that my clinical findings support that this patient is homebound (i.e. absences from home require considerable and taxing effort and are for medical reasons or buddhism services or infrequently or short duration when for other reasons) because: Homebound Reason: Patient requires assistance of a person or device to safely leave home Attestation: My signature below is to certify that this patient is under my care and that I, or nurse practitioner, or a physician's psychological assistant working with me, has a [id number] encounter with this patient.
== END 2019-01-30 17:18 | disposition home or self-care (01) | DRG 640 ==
LOC: EMEROOARM 11:18 → 2ANU 11:18 → SUATTDRO 01-28 11:47
PROVIDERS: ADMIT Internal Medicine Nephrology; ATTEND Internal Medicine

== ENCOUNTER 2019-02-21 18:20 | Inpatient (IN) ==
--- NOTE | 2019-02-21 18:52 | Emergency Department Note ---
Disposition Clinical Impression: Diplopia, Weakness, Atrial fibrillation, Frail elderly, CKD (chronic kidney disease), ESRD (end stage renal disease) on dialysis, Anemia, Elevated troponin, Drooping eyelid, Ataxia Disposition: Admitted As Inpatient Referrals: Gareth Lee MD [Primary Care Provider] - Forms: ED Satisfaction Letter Time of Disposition: 23:53 General Adult HPI - General Chief complaint: ED Dizziness Stated complaint: diziness Time Seen by Provider: 02/21/19 18:39 - History of Present Illness HPI Narrative: 68-year-old female comes in by EMS with concerns for double vision which began last Thursday. She has a history of chronic diplopia and wears glasses for c orrection. She states even with her glasses on now she has double vision. She reported increasing weakness and could not walk normally this evening. She has had trouble standing up. She states she cannot ambulate without holding onto things. There is no history of fall. The patient was recently admitted to the hospital for urinary tract infection. There is no history of headache neck stiffness rash or speech facial drooping unilateral arm or leg weakness or numbness or fall. The patient denies chest pain shortness of breath or abdominal pain no vomiting or diarrhea. No persistent urinary symptomatology is noted. The patient's daughter called EMS to have the patient brought to the [facility] for evaluation. The patient is currently not anticoagulated. No bleeding of any sort no convulsions or confusion. There is no history of eye pain. She describes chronic left eye droop with a chronic non-reactive left pupil. She has a history of brain vascular coil. Pain Scale: 6 - Related Data Home Medications Medication Instructions Recorded Confirmed HYDROcodone/Acet 5/325 mg [[place] 1 tab PO TID PRN 08/27/15 02/21/19 5-325 mg] Tizanidine HCl 2 mg PO QAM 08/27/15 02/21/19 ALPRAZolam [Xanax 0.25 MG Tablet] 0.25 mg PO BID 04/22/17 02/21/19 Labetalol HCl 200 mg PO QID 04/28/18 02/21/19 Tizanidine HCl 4 mg PO QPM 04/28/18 02/21/19 Aspirin Enteric Coated [Aspirin EC] 81 mg PO DAILY 11/13/18 02/21/19 Sevelamer [Renvela] 1,600 mg PO 1200,1700 11/13/18 02/21/19 Verapamil HCl [Verapamil ER] 120 mg PO DAILY 11/13/18 02/21/19 Famotidine [Pepcid] 40 mg PO DAILY 11/22/18 02/21/19 PARoxetine HCl [Paroxetine HCl] 40 mg PO DAILY 01/27/19 02/21/19 Renal Vitamin [Renal Caps Softgel] 1 mg PO DAILY #0 01/27/19 02/21/19 Furosemide [Lasix] 40 mg PO SUMOWEFR 02/04/19 02/21/19 Cetirizine HCl [Zyrtec] 10 mg PO DAILY 02/11/19 02/21/19 Ferrous Sulfate [Iron] 325 mg PO DAILY 02/11/19 02/21/19 Sevelamer [Renvela] 800 mg PO 0800 02/12/19 02/21/19 Allergies Allergy/AdvReac Type Severity Reaction Status Date / Time blue dye Allergy Hives Verified 02/12/19 14:49 latex Allergy Itching Verified 02/12/19 14:49 Nickel Allergy Hives Verified 02/12/19 14:49 shrimp Allergy Hives Verified 02/12/19 14:49 Sulfa (Sulfonamide Allergy Hives Verified 02/12/19 14:49 Antibiotics) All systems ED: reviewed and negative except as stated. 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 Absent: PERRL (The right pupil reacts normally the left does not. Some left lid droop is noted.) - ENT ENT exam: normal exam, normal oropharynx, mucous membranes moist, TM's normal bilaterally, normal external ear exam - Neck Neck exam: Present: normal inspection, full ROM, trachea midline. Absent: tenderness - Chest Chest inspection: Present: symmetric chest wall rise. Absent: tenderness - Respiratory Respiratory exam: Present: normal lung sounds bilaterally. Absent: respiratory distress, prolonged expiratory phase - Cardiovascular Cardiovascular exam: Present: regular rate, irregular rhythm - Abdominal Exam Abdominal exam: Present: soft, Non-Tender, normal bowel sounds. Absent: tenderness, distention, guarding, rebound, rigidity - Extremities Exam Extremities exam: Present: normal inspection, full ROM, normal capillary refill. Absent: tenderness, pedal edema, joint swelling, calf tenderness - Expanded Lower Extremity Exam Lower leg exam: Absent: Homans' sign Neurovascular/Tendon exam: Present: normal capillary refill. Absent: motor deficit, sensory deficit, extremity cold to touch, pallor - Back Exam Back exam: Present: normal inspection, full ROM. Absent: tenderness, CVA tenderness (R), CVA tenderness (L), vertebral tenderness - Neurological Exam Neurological exam: Present: alert, oriented X3. Absent: CN II-XII intact (Left lid droop and left nonreactive pupil noted/chronic per patient), normal gait (The patient is unable to ambulate normally and has to hold onto things.), motor sensory deficit - Psychiatric Psychiatric exam: Present: normal affect, normal mood - Skin Skin exam: Present: warm, dry, intact, normal color Course Vital Signs Temperature 98.6 F 02/21/19 18:24 Pulse Rate 82 02/21/19 18:24 Respiratory Rate 18 02/21/19 18:24 Blood Pressure 127/96 02/21/19 18:24 O2 Sat by Pulse Oximetry 100 02/21/19 18:24 Temperature 98.6 F 02/21/19 18:24 Pulse Rate 87 02/21/19 23:14 Respiratory Rate 18 02/21/19 23:14 Blood Pressure 170/91 02/21/19 23:14 O2 Sat by Pulse Oximetry 100 02/21/19 23:14 Oxygen Delivery Oxygen Delivery Nasal Cannula Medical Decision Making - [facility] Narrative Medical decision making narrative: The patient is elderly and usually takes care of herself at home. She cannot properly support her weight and walk normally at this time. The patient describes acute diplopia which began last Thursday. She has a known history of cerebrovascular disease as well as chronic diplopia with corrective diplopia glasses however she reports she now has diplopia even with her corrective glasse s on. Atrial fibrillation noted, elevated troponin noted. Aspirin ordered. Based on the patient's age, apparent new onset occular vs neurologic symptomatology, history of cerebrovascular disease, renal failure, elevated troponin, anemia, atrial fibrillation, new onset inability to ambulate properly, I thought it would be appropriate to admit the patient to the hospital. I discussed the case with the hospitalist on-call who has accepted the patient to their care. The patient and daughter are agreeable. - Lab Data Lab results reviewed: Yes I reviewed the patient's lab results. Result diagrams: 02/21/19 19:11 02/21/19 19:11 Lab Results 02/21/19 02/21/19 02/21/19 Range/Units 19:11 19:11 19:11 WBC 9.6 (4.3-11.1) K/mcL RBC 2.97 L (3.82-4.97) M/mcL Hgb 9.1 L (11.5-15.4) g/dL Hct 28.8 L (35.3-44.9) % MCV 97.0 (83.0-100.0) fL MCH 30.6 (28.0-33.3) pg MCHC 31.6 (31.6-35.5) g/dL RDW 14.2 (11.5-14.5) % Plt Count 170 (140-400) K/mcL MPV 11.0 (9.4-12.4) fL Immature Gran % 0.5 (0-4) % Seg Neutrophils % 77.8 % Lymphocytes % 8.5 % Monocytes % 7.2 % Eosinophils % 5.2 % Basophils % 0.8 % Neutrophils # 7.4 (1.6-8.9) K/mcL Lymphocytes # 0.8 (0.6-4.6) K/mcL Monocytes # 0.7 (0.0-1.3) K/mcL Eosinophils # 0.5 (0.0-0.6) K/mcL Basophils # 0.1 (0.0-0.2) K/mcL PT 11.9 (9.4-12.1) Seconds INR 1.0 APTT (26.0-36.0) Seconds Sodium 139 (136-145) mEq/L Potassium 4.2 (3.5-5.1) mEq/L Chloride 97 L (98-107) mEq/L Carbon Dioxide 27 (23-29) mEq/L BUN 39 H (8-23) mg/dL Creatinine 3.78 H (0.60-1.20) mg/dL Est GFR ( Amer) 14 L (> 60) Est GFR (Non-Af Amer) 12 L (> 60) BUN/Creatinine Ratio 10 (6-26) Glucose 98 (70-105) mg/dL Calculated Osmolality 297 (280-300) Lactic Acid (0.5-2.2) mmol/L Calcium 9.2 (8.6-10.3) mg/dL Total Bilirubin 0.4 (0.3-1.0) mg/dL AST 27 (13-39) Units/L ALT 24 (7-52) Units/L Alkaline Phosphatase 130 H (34-104) Units/L Troponin I 0.04 H* (< 0.04) ng/mL C-Reactive Protein (Less than 10) mg/L Serum Total Protein 5.9 L (6.4-8.9) g/dL Albumin 3.5 (3.5-5.7) g/dL Globulin 2.4 (2.4-3.5) g/dL Albumin/Globulin Ratio 1.5 (1.1-2.2) Urine Color (Yellow) Urine Clarity (Clear) Urine pH (5.0-8.0) pH Units Ur Specific [place] (1.010-1.025) Urine Protein (Neg-Trace) mg/dL Urine Glucose (UA) (Normal) mg/dL Urine Ketones (Negative) mg/dL Urine Blood (Negative) Urine Nitrite (Negative) Urine Bilirubin (Negative) Urine Urobilinogen (Normal) mg/dL Ur Leukocyte Esterase (Negative) Urine Microscopic RBC (0-3) per hpf Urine Microscopic WBC (0-3) per hpf Ur Squamous Epith Cells (None-Few) per lpf Urine Bacteria (None-Few) per hpf Hyaline Casts (None-Few) per lpf Ur Culture Indicated? (NO) 02/21/19 02/21/19 02/21/19 Range/Units 19:11 19:11 19:11 WBC (4.3-11.1) K/mcL RBC (3.82-4.97) M/mcL Hgb (11.5-15.4) g/dL Hct (35.3-44.9) % MCV (83.0-100.0) fL MCH (28.0-33.3) pg MCHC (31.6-35.5) g/dL RDW (11.5-14.5) % Plt Count (140-400) K/mcL MPV (9.4-12.4) fL Immature Gran % (0-4) % Seg Neutrophils % % Lymphocytes % % Monocytes % % Eosinophils % % Basophils % % Neutrophils # (1.6-8.9) K/mcL Lymphocytes # (0.6-4.6) K/mcL Monocytes # (0.0-1.3) K/mcL Eosinophils # (0.0-0.6) K/mcL Basophils # (0.0-0.2) K/mcL PT (9.4-12.1) Seconds INR APTT 34.6 (26.0-36.0) Seconds Sodium (136-145) mEq/L Potassium (3.5-5.1) mEq/L Chloride (98-107) mEq/L Carbon Dioxide (23-29) mEq/L BUN (8-23) mg/dL Creatinine (0.60-1.20) mg/dL Est GFR ( Amer) (> 60) Est GFR (Non-Af Amer) (> 60) BUN/Creatinine Ratio (6-26) Glucose (70-105) mg/dL Calculated Osmolality (280-300) Lactic Acid 0.5 (0.5-2.2) mmol/L Calcium (8.6-10.3) mg/dL Total Bilirubin (0.3-1.0) mg/dL AST (13-39) Units/L ALT (7-52) Units/L Alkaline Phosphatase (34-104) Units/L Troponin I (< 0.04) ng/mL C-Reactive Protein 11 H (Less than 10) mg/L Serum Total Protein (6.4-8.9) g/dL Albumin (3.5-5.7) g/dL Globulin (2.4-3.5) g/dL Albumin/Globulin Ratio (1.1-2.2) Urine Color (Yellow) Urine Clarity (Clear) Urine pH (5.0-8.0) pH Units Ur Specific [place] (1.010-1.025) Urine Protein (Neg-Trace) mg/dL Urine Glucose (UA) (Normal) mg/dL Urine Ketones (Negative) mg/dL Urine Blood (Negative) Urine Nitrite (Negative) Urine Bilirubin (Negative) Urine Urobilinogen (Normal) mg/dL Ur Leukocyte Esterase (Negative) Urine Microscopic RBC (0-3) per hpf Urine Microscopic WBC (0-3) per hpf Ur Squamous Epith Cells (None-Few) per lpf Urine Bacteria (None-Few) per hpf Hyaline Casts (None-Few) per lpf Ur Culture Indicated? (NO) 02/21/19 Range/Units 20:18 WBC (4.3-11.1) K/mcL RBC (3.82-4.97) M/mcL Hgb (11.5-15.4) g/dL Hct (35.3-44.9) % MCV (83.0-100.0) fL MCH (28.0-33.3) pg MCHC (31.6-35.5) g/dL RDW (11.5-14.5) % Plt Count (140-400) K/mcL MPV (9.4-12.4) fL Immature Gran % (0-4) % Seg Neutrophils % % Lymphocytes % % Monocytes % % Eosinophils % % Basophils % % Neutrophils # (1.6-8.9) K/mcL Lymphocytes # (0.6-4.6) K/mcL Monocytes # (0.0-1.3) K/mcL Eosinophils # (0.0-0.6) K/mcL Basophils # (0.0-0.2) K/mcL PT (9.4-12.1) Seconds INR APTT (26.0-36.0) Seconds Sodium (136-145) mEq/L Potassium (3.5-5.1) mEq/L Chloride (98-107) mEq/L Carbon Dioxide (23-29) mEq/L BUN (8-23) mg/dL Creatinine (0.60-1.20) mg/dL Est GFR ( Amer) (> 60) Est GFR (Non-Af Amer) (> 60) BUN/Creatinine Ratio (6-26) Glucose (70-105) mg/dL Calculated Osmolality (280-300) Lactic Acid (0.5-2.2) mmol/L Calcium (8.6-10.3) mg/dL Total Bilirubin (0.3-1.0) mg/dL AST (13-39) Units/L ALT (7-52) Units/L Alkaline Phosphatase (34-104) Units/L Troponin I (< 0.04) ng/mL C-Reactive Protein (Less than 10) mg/L Serum Total Protein (6.4-8.9) g/dL Albumin (3.5-5.7) g/dL Globulin (2.4-3.5) g/dL Albumin/Globulin Ratio (1.1-2.2) Urine Color Yellow (Yellow) Urine Clarity Clear (Clear) Urine pH 6.0 (5.0-8.0) pH Units Ur Specific [place] 1.016 (1.010-1.025) Urine Protein 100 H (Neg-Trace) mg/dL Urine Glucose (UA) Normal (Normal) mg/dL Urine Ketones Negative (Negative) mg/dL Urine Blood Negative (Negative) Urine Nitrite Negative (Negative) Urine Bilirubin Small H (Negative) Urine Urobilinogen Normal (Normal) mg/dL Ur Leukocyte Esterase Trace H (Negative) Urine Microscopic RBC 3-5 H (0-3) per hpf Urine Microscopic WBC 3-5 H (0-3) per hpf Ur Squamous Epith Cells Many H (None-Few) per lpf Urine Bacteria None Seen (None-Few) per hpf Hyaline Casts None Seen (None-Few) per lpf Ur Culture Indicated? YES A (NO) - Radiology Data Radiology results reviewed: Yes I reviewed the patient's radiology results.
[2019-02-21] MEDS ORDERED: 0.9 % Sodium Chloride 1,000 ML IVC SCH (19:00)
[2019-02-21 19:34] LABS: Basophils # 0.1 K/mcL (0.0-0.2); Basophils % 0.8 %; Eosinophils # 0.5 K/mcL (0.0-0.6); Eosinophils % 5.2 %; Hematocrit 28.8 % (35.3-44.9); Hemoglobin 9.1 g/dL (11.5-15.4); Immature Granulocytes % 0.5 % (0-4); Lymphocytes # 0.8 K/mcL (0.6-4.6); Lymphocytes % 8.5 %; Mean Corpuscular HGB Conc 31.6 g/dL (31.6-35.5); Mean Corpuscular Hemoglobin 30.6 pg (28.0-33.3); Monocytes # 0.7 K/mcL (0.0-1.3); Monocytes % 7.2 %; Neutrophils # 7.4 K/mcL (1.6-8.9); Platelet Count 170 K/mcL (140-400); Red Blood Count 2.97 M/mcL (3.82-4.97); Red Cell Distribution Width 14.2 % (11.5-14.5); Segmented Neutrophils % 77.8 %; White Blood Count 9.6 K/mcL (4.3-11.1)
[2019-02-21 19:42] LABS: Prothrombin Time 11.9 Seconds (9.4-12.1)
[2019-02-21 19:56] LABS: Albumin 3.5 g/dL (3.5-5.7); Albumin/Globulin Ratio 1.5 (1.1-2.2); Bilirubin,Total 0.4 mg/dL (0.3-1.0); Calcium 9.2 mg/dL (8.6-10.3); Globulin 2.4 g/dL (2.4-3.5); Potassium 4.2 mEq/L (3.5-5.1); Total Protein 5.9 g/dL (6.4-8.9); Troponin I 0.04 ng/mL (< 0.04)
[2019-02-21 20:33] LABS: Bilirubin,Urine Small (Negative); Blood,Urine Negative (Negative); Clarity,Urine Clear (Clear); Color,Urine Yellow (Yellow); Glucose,Urine (UA) Normal (Normal); Ketones,Urine Negative (Negative); Leukocyte Esterase,Urine Trace (Negative); Nitrite,Urine Negative (Negative); Protein,Urine 100 mg/dL (Neg-Trace); Specific Gravity,Urine 1.016 (1.010-1.025); Urobilinogen,Urine Normal (Normal)
[2019-02-21 20:35] LABS: Bacteria,Urine None Seen per hpf (None-Few); Hyaline Casts,Urine None Seen per lpf (None-Few); Squamous Epithelial Cell,Urine Many per lpf (None-Few)
[2019-02-21] MEDS ORDERED: Aspirin 325 MG TABLET PO ONE (21:25)
[2019-02-22] MEDS ORDERED: Naloxone 0.4 MG/ML INJ IVP PRN (00:11)
[2019-02-22] MEDS ORDERED: Ondansetron 4 MG/2 ML VIAL IVP PRN (00:11)
[2019-02-22] MEDS ORDERED: Acetaminophen 325 MG TABLET PO PRN (00:11)
--- NOTE | 2019-02-22 00:15 | Internal Med History&Physical ---
<Daquan Tafoya - Last Filed: 02/22/19 00:22> Date of Encounter: 02/22/19 Time of Encounter: 00:14 Internal Medicine - H&P: HPI Chief complaint: weakness Admitted From: Emergency Dept Plans for Post Hospital Care: Transfer Half-Way Facility History of present illness: Ms. Adamson is a 68 year old female with a PMHx of ESRD on TTS HD, AFib, HTN, Anemia, cerebral aneurysm s/p coiling, intraocular hemorrhage, Anxiety/depression who presents to ED with a complaint of weakness since this evening. Patient states that she was rising from a chair at about 1700 and felt unsteady on her feet. She reports that prior to this, she was walking without assistance. She has recently been admitted to this facility multiple times in the past month for fluid overload, UTI, weakness. Patient denies any symptoms of chest pains outside of baseline, increasing SOB, nausea, vomiting, urinary frequency, hesitancy, urgency, changes in colors or odors. She is currently still on ertapenem through 02/26 per ID recommendations for MDRO E.coli on previous hospitalization. She does admit to 3 loose bowel movements today but has not noticed any blood. She denies any focal defecits, numbness, tingling, changes in speech, confusion. She also notes worsening diplopia. This has been present for some time but she states that is was previously fixed with glasses. She has noticed in the past 3 days that when she closes one of her eyes the vision improves and her glasses are not helping as much. She denies headache but does note some pain in her temporal region. Denies jaw claudication. She has been complaint with HD on thursday but missed session due to not having a ride. In the ED, vitals were significant for home O2 requirement of 2L. BP has slowly worsened since arrival and is now 170/91. Labs show baseline anemia, ESRD, trop of 0.04, CRP of 11. UA shows contamination without likely infection. CXR shows findings suggestive of CHF and atelectasis. CT of the head showed no acute changes and a previous coil. At time of my interview, symptoms have not changed. PMHx as above with rheumatic fever, GI bleed, migraine PSHx: gastric bypass, jessi, AICD, vascular coiling Social: Denies smoking, denies current alcohol, no drug use Family history: CHF, CVA in father Past Med Surg Social Fam HX - Past Medical History Medical history: atrial fibrillation, dialysis, GI bleed, hypertension, migraine, renal disease, other Additional medical history: Chronic Back Pain, iron deficiency anemia, cerebral aneurysm, vitamin D deficiency, pacemaker, Rheumatic Fever, Right Carotid Aneurysm, Exertional Angina Psychiatric history: anxiety, depression - Past Surgical History Surgical History: appendectomy, cholecystectomy, pacemaker/AICD, other, vascular surgery, pacemaker Additional surgical history: gastric bypass 2000. lap choley 1979. cardiac cath. pacemaker placed 05/2013. fliud drainage off right lung 08/2017. coil embolization og left distal carotid artery. hemorrhoidectomy. bilateral phlebectomy - Social History Smoking Status: Never smoker Smokeless Tobacco Status: No Alcohol use: none Drug use: none - Family History Sister Adopted: No Family Member Ethnicity: Non- Living Status: Hx Family Cardiac Disorders: Yes (HTN, CKD) Hx Family Respiratory Disorders: Yes (COPD) Father Family Member Ethnicity: Non- Living Status: Hx Family Cardiac Disorders: Yes (Stroke, CHF) Hx Family Respiratory Disorders: Yes (Smoker) Hx Family Neurologic Disorders: Yes (pt states father had stroke) Internal Medicine - H&P: Meds HYDROcodone/Acet 5/325 mg [[place] 5-325 mg] 1 tab PO TID PRN 08/27/15 [History] Tizanidine HCl 2 mg PO QAM 08/27/15 [History] ALPRAZolam [Xanax 0.25 MG Tablet] 0.25 mg PO BID 04/22/17 [History] Labetalol HCl 200 mg PO QID 04/28/18 [History] Tizanidine HCl 4 mg PO QPM 04/28/18 [History] Aspirin Enteric Coated [Aspirin EC] 81 mg PO DAILY 11/13/18 [History] Sevelamer [Renvela] 1,600 mg PO 1200,1700 11/13/18 [History] Verapamil HCl [Verapamil ER] 120 mg PO DAILY 11/13/18 [History] Famotidine [Pepcid] 40 mg PO DAILY 11/22/18 [History] PARoxetine HCl [Paroxetine HCl] 40 mg PO DAILY 01/27/19 [History] Renal Vitamin [Renal Caps Softgel] 1 mg PO DAILY #0 01/27/19 [History] Furosemide [Lasix] 40 mg PO SUMOWEFR 02/04/19 [History] Cetirizine HCl [Zyrtec] 10 mg PO DAILY 02/11/19 [History] Ferrous Sulfate [Iron] 325 mg PO DAILY 02/11/19 [History] Sevelamer [Renvela] 800 mg PO 0800 02/12/19 [History] Allergy/AdvReac Type Severity Reaction Status Date / Time blue dye Allergy Hives Verified 02/12/19 14:49 latex Allergy Itching Verified 02/12/19 14:49 Nickel Allergy Hives Verified 02/12/19 14:49 shrimp Allergy Hives Verified 02/12/19 14:49 Sulfa (Sulfonamide Allergy Hives Verified 02/12/19 14:49 Antibiotics) All Systems PM: A 10-system review of systems was performed and is negative for pertinent findings except as documented above in the HPI. Review of systems: - Constitutional: Admits to generalized weakness. Denies fevers, chills, weight loss, generalized fatigue - Head/Neck: Denies GILMAN, neck stiffness - EENT: Admits to diplopia. Denies blurriness, tinnitus, auditory changes, rhinorrhea, congestion, sore throat, odynaphagia - CVS: Denies chest pain, palpitations, ALLEN, orthopnea, PND, - Pulm: Denies SOB, cough, sputum, hematemesis, wheezing - GI: Admits to loose bowel movements. Denies abdominal pain, anorexia, nausea, vomiting, constipation, melena - : Denies dysuria, increased frequency, urgency, hematuria, - Heme: Denies ease of bleeding or bruising - MSK: Admits to weakness. Denies joint pain, limited ROM - Skin: Denies rashes, ulcers, color changes, - Neuro: Ataxia. Denies GILMAN, paresthesias, focal deficits - Constitutional Vitals: Temp Pulse Resp BP Pulse Ox 98.6 F 87 18 170/91 100 02/21/19 18:24 02/21/19 23:14 02/21/19 23:14 02/21/19 23:14 02/21/19 23:14 Exam: Gen.: Vitals noted. No acute distress. AAOx3, resting comfortably in bed. HEENT: PERRL/EOMI, oropharynx clear, Normocephalic, atraumatic, MMM. No jaw claudication, no palpable temporal artery tenderness Neck: Supple. submandibular lymph node enlargement. No thyroid nodules. Cardiac: irregular, mildly tachycardic, systolic murmur, +S1/S2, 2+ BLE edema Pulmonary: Faint diffuse rales. no wheezes, rales or rhonchi, equal chest expansion, unlabored breathing Abdomen: soft, nontender, BS noted, no guarding, no palpable HSM Skin: warm and dry, no visible lesions. MSK: ROM intact, no joint swelling noted, gait no assessed while in bed. Non tender calf or clubbing Neuro: A&Ox3, moves all extremities, no focal deficits, sensation intact, Psych: Appropriate mood and behavior, AOx3 Internal Med - H&P Results - Labs CBC & Chem 7: 02/21/19 19:11 02/21/19 19:11 Labs: Short CBC 02/21/19 Range/Units 19:11 WBC 9.6 (4.3-11.1) K/mcL Hgb 9.1 L (11.5-15.4) g/dL Hct 28.8 L (35.3-44.9) % Plt Count 170 (140-400) K/mcL Neutrophils # 7.4 (1.6-8.9) K/mcL BMP 02/21/19 19:11 Sodium 139 Potassium 4.2 Chloride 97 L Carbon Dioxide 27 BUN 39 H Creatinine 3.78 H Glucose 98 Calcium 9.2 Cardiac Enzymes 02/21/19 Range/Units 19:11 Troponin I 0.04 H* (< 0.04) ng/mL Liver Function 02/21/19 Range/Units 19:11 Total Bilirubin 0.4 (0.3-1.0) mg/dL AST 27 (13-39) Units/L ALT 24 (7-52) Units/L Alkaline Phosphatase 130 H (34-104) Units/L Albumin 3.5 (3.5-5.7) g/dL Urine 02/21/19 Range/Units 20:18 Urine Color Yellow (Yellow) Urine Clarity Clear (Clear) Urine pH 6.0 (5.0-8.0) pH Units Ur Specific [place] 1.016 (1.010-1.025) Urine Protein 100 H (Neg-Trace) mg/dL Urine Glucose (UA) Normal (Normal) mg/dL - Impressions ITS Impressions Chest X-Ray 02/21/19 18:48 IMPRESSION: 1. Findings suggest congestive heart failure 2. Bibasilar opacification possibly representing subsegmental atelectasis D/ / Chung Caceres MD / Chung Caceres MD Interpreting Provider: Chung Caceres MD Head CT 02/21/19 18:48 IMPRESSION: No acute intracranial abnormality identified. Redemonstration of left parasellar vascular coils. D/ / Abdiel Bailey MD / Abdiel Bailey MD Interpreting Provider: Abdiel Bailey MD - Assessment and Plan (1) Generalized weakness Current Visit: Yes Status: Acute Assessment and plan: - Etiology I suspect is deconditioning from multiple hospital admissions this month - Additionally, there is a possible element of loose bowel movements- may be due to ABx - She has no focal defecits on exam but does have 3/5 strength in all extremities - Does not appear to be metabolic process given labs and ROS - CT head negative for acute process - Will consult PT/OT social work - Continue to monitor and if neurologic symptoms progress, recommend repeat brain imaging including CTA of head and neck (2) Diplopia Current Visit: Yes Status: Chronic Assessment and plan: - Appears acute on chronic - History of intraocular hemorrhage with resulting lid droop and diplopia - Exam shows appears to be baseline vision with no new focal defecits - CRP of 11 which is wnl for her age - Low suspicion for neurologic or rheum process at this time - Continue to monitor and if neurologic symptoms progress, recommend repeat brain imaging including CTA of head and neck (3) Anemia Current Visit: Yes Status: Chronic Assessment and plan: - Hgb of 9.1 on presentation - At baseline with no signs of bleed - Continue iron supplementation - Monitor with daily labs Qualifiers: Anemia type: due to chronic kidney disease Chronic kidney disease stage: on chronic dialysis Qualified Code(s): N18.6 - End stage renal disease; D63.1 - Anemia in chronic kidney disease; Z99.2 - Dependence on renal dialysis (4) Elevated troponin Current Visit: Yes Status: Acute Assessment and plan: Trop of 0.04 esrd no new chest pains this is consistent with previous labs. (5) Atrial fibrillation Current Visit: Yes Status: Chronic Assessment and plan: - Known history, not on AC due to history of bleeding both GI and intraocular - Mildly tachycardic on exam, will give home BB now - Trop 0.04 in the setting of ESRD - No new complaints of CP. EKG shows AFib - Will monitor HR after home meds Qualifiers: Atrial fibrillation type: chronic Qualified Code(s): I48.2 - Chronic atrial fibrillation (6) ESRD (end stage renal disease) on dialysis Current Visit: Yes Status: Chronic Assessment and plan: - Scheduled on TTS HD - Reports non complaince due to not having a ride, but completed thursday session - Will consult nephrology, appreciate recommendations - K and bicarb stable - Mild fluid overload appreciated, will be cautious with fluids (7) Hypertension Current Visit: Yes Status: Chronic Assessment and plan: - Rising with systolic in 170s most recently. - Will restart home home meds Qualifiers: Hypertension type: essential hypertension Qualified Code(s): I10 - Essential (primary) hypertension (8) UTI (urinary tract infection) Current Visit: Yes Status: Acute Assessment and plan: - Diagnosed on previous admission - Scheduled to get ertapenem through 02/26 - Will continue abx - Asymptomatic, UA obtained at this visit appears contaminated. Qualifiers: Urinary tract infection type: acute cystitis Hematuria presence: with hematuria Qualified Code(s): N30.01 - Acute cystitis with hematuria (9) Chronic respiratory failure Current Visit: Yes Status: Chronic Assessment and plan: - Reports O2 dependent due to fluid overload - Currently tolerating home 2L Qualifiers: Respiratory failure complication: hypoxia Qualified Code(s): J96.11 - Chronic respiratory failure with hypoxia (10) DVT prophylaxis Current Visit: Yes Status: Acute Assessment and plan: heparin - Time Spent With Patient Total time spent is greater than 50% in coordination of care (as documented) at patient's floor/unit and/or counseling patient: <Thaddeus Kapadia - Last Filed: 02/22/19 01:17> Date of Encounter: 02/22/19 Internal Medicine - H&P: HPI History of present illness: Ms. Adamson is a 68 year old female All Systems PM: A 10-system review of systems was performed and is negative for pertinent findings except as documented above in the HPI. - Constitutional Vitals: Temp Pulse Resp BP Pulse Ox 98.6 F 87 19 158/82 100 02/21/19 18:24 02/21/19 23:14 02/22/19 01:08 02/22/19 01:08 02/21/19 23:14 Internal Med - H&P Results - Labs CBC & Chem 7: 02/21/19 19:11 02/21/19 19:11 Labs: Short CBC 02/21/19 Range/Units 19:11 WBC 9.6 (4.3-11.1) K/mcL Hgb 9.1 L (11.5-15.4) g/dL Hct 28.8 L (35.3-44.9) % Plt Count 170 (140-400) K/mcL Neutrophils # 7.4 (1.6-8.9) K/mcL BMP 02/21/19 19:11 Sodium 139 Potassium 4.2 Chloride 97 L Carbon Dioxide 27 BUN 39 H Creatinine 3.78 H Glucose 98 Calcium 9.2 Cardiac Enzymes 02/21/19 Range/Units 19:11 Troponin I 0.04 H* (< 0.04) ng/mL Liver Function 02/21/19 Range/Units 19:11 Total Bilirubin 0.4 (0.3-1.0) mg/dL AST 27 (13-39) Units/L ALT 24 (7-52) Units/L Alkaline Phosphatase 130 H (34-104) Units/L Albumin 3.5 (3.5-5.7) g/dL Urine 02/21/19 Range/Units 20:18 Urine Color Yellow (Yellow) Urine Clarity Clear (Clear) Urine pH 6.0 (5.0-8.0) pH Units Ur Specific [place] 1.016 (1.010-1.025) Urine Protein 100 H (Neg-Trace) mg/dL Urine Glucose (UA) Normal (Normal) mg/dL - Impressions ITS Impressions Chest X-Ray 02/21/19 18:48 IMPRESSION: 1. Findings suggest congestive heart failure 2. Bibasilar opacification possibly representing subsegmental atelectasis D/ / Chung Caceres MD / Chung Caceres MD Interpreting Provider: Chung Caceres MD Head CT 02/21/19 18:48 IMPRESSION: No acute intracranial abnormality identified. Redemonstration of left parasellar vascular coils. D/ / Abdiel Bailey MD / Abdiel Bailey MD Interpreting Provider: Abdiel Bailey MD - Time Spent With Patient Total time spent is greater than 50% in coordination of care (as documented) at patient's floor/unit and/or counseling patient: - Attending Attestation I performed a history and physical exam of the patient on 02/21/19 and discussed management with the resident. I reviewed the resident's note and agree with the documented findings and plan of care. Patricia Adamson is a 68 year old woman with multiple comorbidities as indicated above who had a recent admission for sepsis due to UTI complicated by bacteremia currently on ertapenem for MDR E.coli who now presents with what appears to be acute on chronic diplopia as she describes new onset worsening for the past 2 days causing ambulatory difficulty and as she lives alone, needs assistance. Head CT was unremarkable. On review of old records, she has had prior issues with dizziness and visual changes. She was assessed by neurology 3 weeks ago and unfortunately could not have an MRI done because of her pacemaker however other studies revealed no signs of vessel occlusion. She seems physically deconditioned and would benefit from physical therapy and perhaps home care services as she lives alone and will be a fall risk. Her visual difficulties appear more peripheral than central however if she has persistent or worsening symptoms, would suggest a CTA of her head and neck as she is already ESRD on HD. SHIRA WADE.
[2019-02-22] MEDS ORDERED: ALPRAZolam 0.25 MG TABLET PO ONE (05:13)
[2019-02-22] MEDS: tiZANidine 4 MG TABLET PO SCH ×2 (05:40→22:53)
[2019-02-22] MEDS: *HR* Heparin 5,000 UNIT/ML VIAL SQ SCH ×2 (05:42→16:57)
[2019-02-22] MEDS: ALPRAZolam 0.25 MG TABLET PO SCH ×2 (07:13→22:53)
[2019-02-22 07:20] LABS: Basophils # 0.1 K/mcL (0.0-0.2); Basophils % 0.9 %; Eosinophils # 0.5 K/mcL (0.0-0.6); Hemoglobin 7.9 g/dL (11.5-15.4); Immature Granulocytes % 0.5 % (0-4); Lymphocytes # 0.7 K/mcL (0.6-4.6); Lymphocytes % 8.4 %; Mean Corpuscular HGB Conc 31.6 g/dL (31.6-35.5); Mean Corpuscular Hemoglobin 30.9 pg (28.0-33.3); Mean Corpuscular Volume 97.7 fL (83.0-100.0); Monocytes # 0.6 K/mcL (0.0-1.3); Monocytes % 7.8 %; Neutrophils # 5.9 K/mcL (1.6-8.9); Platelet Count 134 K/mcL (140-400); Red Blood Count 2.56 M/mcL (3.82-4.97); Segmented Neutrophils % 76.4 %; White Blood Count 7.7 K/mcL (4.3-11.1)
[2019-02-22] MEDS ORDERED: 0.9 % Sodium Chloride 250 ML IVC PRN (07:20)
[2019-02-22] MEDS ORDERED: 0.9 % Sodium Chloride 1,000 ML PRIME SCH (07:30)
[2019-02-22 07:46] LABS: Calcium 8.6 mg/dL (8.6-10.3); Magnesium 2.3 mg/dL (1.6-2.6); Potassium 4.2 mEq/L (3.5-5.1)
[2019-02-22] MEDS ORDERED: tiZANidine 4 MG TABLET PO SCH (09:00)
[2019-02-22] MEDS ORDERED: Famotidine 20 MG TABLET PO SCH (09:00)
--- NOTE | 2019-02-22 09:12 | Nephrology Consult Note ---
Date of Encounter: 02/22/19 Time of Encounter: 09:09 Assessment and Plan (1) ESRD (end stage renal disease) on dialysis Current Visit: Yes Status: Acute Current regimen is TTS at [facility]. HD in progress for today. Renal diet Renal vitamins Strict I/O Avoid nephrotoxins and renal dose all medications. (2) Dizziness Current Visit: Yes Status: Acute Per primary. (3) Frail elderly Current Visit: Yes Status: Acute Suggest social service consult for possible ECF placement. If patient declines ECF, a PT/OT see her at home. History of Present Illness - Reason for Consult Consult date: 02/22/19 end stage renal disease Requesting physician: Thaddeus Kapadia - Chief Complaint dizziness - History of Present Illness Ms. Adamson is a 68 year old female who is into the ED yesterday with dizziness. Dizziness started in the morning and progressively worsened throughout the day, so she came to the ED for evaluation. Denies chest pain or actual a couple episodes. Denies nausea, or vomiting. Admits to diarrhea since last hospitalization however she is unsure how many times she is gone to the bathroom in the past 24 hours. She has had a recent hospitalizations related to fluid overload and shortness of breath. This is her fourth hospitalization since November of this year. PMH: A. fib, pacemaker with AICD, hypertension and ESRD. Current regimen is TTS at [facility]. Last HD session was Thursday, without complication. She lives at home alone. Denies EtOH, tobacco or illicit drug use. No family history of chronic kidney disease or hemodialysis. Past Med Surg Social Fam HX - Past Medical History Medical history: atrial fibrillation, dialysis, GI bleed, hypertension, migraine, renal disease, other Additional medical history: Chronic Back Pain, iron deficiency anemia, cerebral aneurysm, vitamin D deficiency, pacemaker, Rheumatic Fever, Right Carotid Aneurysm, Exertional Angina Psychiatric history: anxiety, depression - Past Surgical History Surgical History: appendectomy, cholecystectomy, pacemaker/AICD, other, vascular surgery, pacemaker Additional surgical history: gastric bypass 2000. lap choley 1979. cardiac cath. pacemaker placed 05/2013. fliud drainage off right lung 08/2017. coil embolization og left distal carotid artery. hemorrhoidectomy. bilateral phlebectomy - Social History Smoking Status: Never smoker Smokeless Tobacco Status: No Alcohol use: none Drug use: none - Family History Sister Adopted: No Family Member Ethnicity: Non- Living Status: Hx Family Cardiac Disorders: Yes (HTN, CKD) Hx Family Respiratory Disorders: Yes (COPD) Father Family Member Ethnicity: Non- Living Status: Hx Family Cardiac Disorders: Yes (Stroke, CHF) Hx Family Respiratory Disorders: Yes (Smoker) Hx Family Neurologic Disorders: Yes (pt states father had stroke) Medications and Allergies HYDROcodone/Acet 5/325 mg [[place] 5-325 mg] 1 tab PO TID PRN 08/27/15 [History] Tizanidine HCl 2 mg PO QAM 08/27/15 [History] ALPRAZolam [Xanax 0.25 MG Tablet] 0.25 mg PO BID 04/22/17 [History] Labetalol HCl 200 mg PO QID 04/28/18 [History] Tizanidine HCl 4 mg PO QPM 04/28/18 [History] Aspirin Enteric Coated [Aspirin EC] 81 mg PO DAILY 11/13/18 [History] Sevelamer [Renvela] 1,600 mg PO 1200,1700 11/13/18 [History] Verapamil HCl [Verapamil ER] 120 mg PO DAILY 11/13/18 [History] Famotidine [Pepcid] 40 mg PO DAILY 11/22/18 [History] PARoxetine HCl [Paroxetine HCl] 40 mg PO DAILY 01/27/19 [History] Renal Vitamin [Renal Caps Softgel] 1 mg PO DAILY #0 01/27/19 [History] Furosemide [Lasix] 40 mg PO SUMOWEFR 02/04/19 [History] Cetirizine HCl [Zyrtec] 10 mg PO DAILY 02/11/19 [History] Ferrous Sulfate [Iron] 325 mg PO DAILY 02/11/19 [History] Sevelamer [Renvela] 800 mg PO 0800 02/12/19 [History] Allergy/AdvReac Type Severity Reaction Status Date / Time blue dye Allergy Hives Verified 02/12/19 14:49 latex Allergy Itching Verified 02/12/19 14:49 Nickel Allergy Hives Verified 02/12/19 14:49 shrimp Allergy Hives Verified 02/12/19 14:49 Sulfa (Sulfonamide Allergy Hives Verified 02/12/19 14:49 Antibiotics) Review of Systems All Systems review (narrative): The remainder of the systems are negative. Constitutional: fatigue, no chills, no fever(s) Nose, mouth and throat: dizziness Cardiovascular: no chest pain, no dyspnea, no edema Respiratory: no cough, no dyspnea Gastrointestinal: diarrhea, no abdominal pain, no melena, no nausea, no vomiting Genitourinary Female: no hematuria Exam - Vital Signs Vital signs: Initial Vital Signs Temp Pulse Resp BP Pulse Ox 98.6 F 82 18 127/96 100 02/21/19 18:24 02/21/19 18:24 02/21/19 18:24 02/21/19 18:24 02/21/19 18:24 Vital Signs - Last 8 Hours Temp Pulse Pulse Pulse Pulse Resp BP 02/22/19 05:14 67 69 72 02/22/19 03:24 98 F 66 16 120/70 02/22/19 01:28 97.8 F 79 17 164/84 BP BP BP Pulse Ox 02/22/19 05:14 124/72 152/78 153/82 02/22/19 03:24 98 02/22/19 01:28 99 Intake and Output 02/21/19 02/22/19 02/22/19 23:59 07:59 15:59 Intake Total 0 / 0 Output Total 0 / 0 Balance 0 / 0 Intake: Oral 0 / 0 Output: Urine 0 / 0 Other: # Voids 1 Weight 63.503 kg 65.4 kg Blood Glucose* 85 Patient Weight 02/22/19 23:59 Weight 65.4 kg - General Appearance General appearance: well-developed, frail EENT: ATNC, hearing intact, vision intact Neck: supple Respiratory: clear Cardiology: no edema, normal S1, normal S2 - Dialysis Access Dialysis Vascular Access: Arteriovenous Fistula thrill: Yes bruit: Yes Gastrointestinal: normoactive bowel sounds, no tenderness, no guarding Integumentary: no rash, warm and dry Neurologic: alert and oriented x3 Musculoskeletal: no deformities, no erythema Psychiatric: mood/affect appropriate, cooperative Results - Lab Results 02/22/19 07:08 02/22/19 07:08 Most recent lab results 02/22/19 02/22/19 07:08 07:08 Calcium 8.6 Phosphorus 5.0 H Magnesium 2.3 Consult Discharge Plan - Plan Referrals: Gareth Lee MD [Primary Care Provider] -
[2019-02-22] MEDS: Aspirin Enteric Coated 81 MG Tablet PO SCH (12:29)
[2019-02-22] MEDS: Famotidine 20 MG TABLET PO SCH (12:29)
[2019-02-22] MEDS: Renal Vitamin 1 CAP CAPSULE PO SCH (12:29)
[2019-02-22] MEDS: Verapamil ER (24 HR) 120 MG TABLET.ER PO SCH (12:36)
[2019-02-22] MEDS: traMADol 50 MG TABLET PO PRN (15:22)
--- NOTE | 2019-02-22 17:42 | Internal Med Progress Note ---
Hospitalist Progress Note - Encounter Date of Encounter: 02/22/19 Time of Encounter: 17:40 - Subjective Interval History: Patient seen when she was in dialysis. No complaints currently, however, says that she only has the weakness when she is on her feet. Physical therapy recommending inpatient rehabilitation - Exam Vitals: Temp Pulse Resp BP Pulse Ox 98.5 F 66 18 101/65 100 02/22/19 15:48 02/22/19 15:48 02/22/19 15:48 02/22/19 15:48 02/22/19 15:48 Exam: General: Ill-appearing and in no acute distress HEENT: No erythema of posterior pharynx. No exudates. Lymphatics: No mandibular or cervical lymphadenopathy Cardiovascular: RRR. No murmurs. No chest wall tenderness. Lungs: Clear to auscelltation bilaterally. Regular chest rise. Abdomen: Non-tender. No rebound or gaurding. Nl bowel sounds. Extremities: No edema. 2+ pulses radial and pedal pulses Skin: No rahses, abrasions, or contusions. Nl cap refill. Psych: Nl attention. 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 5/5 strength. Sensation to light touch and pinprick intact. - Assessment and Plan (1) Generalized weakness Current Visit: Yes Status: Acute Assessment and Plan: Patient with history of end-stage renal disease and multiple readmissions recently for fluid-related complications and acute cystitis presents with generalized weakness and unsteady gait in the setting of normal vitals and physical exam and CT head without acute changes. -Most likely related to deconditioning from repeated hospital visits. Therapy is recommending inpatient rehabilitation or swing bed -Low concern for neurological process given normal cerebellar exam and denies true vertigo symptoms. We will not do further stroke workup. -Says she has been having trouble with her glasses and is in need of new ones. This may also be a patient's gait. -Could be fluid related - Recent hx of loose stools (unsure the significance of this). Will also obtain orthostatic blood pressures PLAN - PT and OT daily - Orthostatic blood pressures - Monitor loose stools - if significant may need further workup for this - Follow-up with optometry at time of discharge for new eyewear prescription - Discharge to SNF (2) Diplopia Current Visit: Yes Status: Chronic (3) ESRD (end stage renal disease) on dialysis Current Visit: Yes Status: Acute Assessment and Plan: History of end-stage renal disease. - Nephrology following (4) UTI (urinary tract infection) Current Visit: Yes Status: Acute Assessment and Plan: She was diagnosed during a previous admission and is scheduled to get ertapenem through 02/22. - Continue ertapenem through 02/26 (5) Atrial fibrillation Current Visit: Yes Status: Chronic Assessment and Plan: Currently rate controlled on home medications. Not on anticoagulation due to history of GI bleeding. DVT Prophylaxis: heparin Internal Medicine: Result - Labs CBC & Chem 7: 02/22/19 07:08 02/22/19 07:08 Labs: Short CBC 02/21/19 02/22/19 Range/Units 19:11 07:08 WBC 9.6 7.7 (4.3-11.1) K/mcL Hgb 9.1 L 7.9 L (11.5-15.4) g/dL Hct 28.8 L 25.0 L (35.3-44.9) % Plt Count 170 134 L (140-400) K/mcL Neutrophils # 7.4 5.9 (1.6-8.9) K/mcL BMP 02/21/19 02/22/19 19:11 07:08 Sodium 139 136 Potassium 4.2 4.2 Chloride 97 L 105 Carbon Dioxide 27 26 BUN 39 H 41 H Creatinine 3.78 H 4.21 H Glucose 98 97 Calcium 9.2 8.6 Cardiac Enzymes 02/21/19 02/22/19 Range/Units 19:11 08:15 Troponin I 0.04 H* 0.04 H* (< 0.04) ng/mL Liver Function 02/21/19 Range/Units 19:11 Total Bilirubin 0.4 (0.3-1.0) mg/dL AST 27 (13-39) Units/L ALT 24 (7-52) Units/L Alkaline Phosphatase 130 H (34-104) Units/L Albumin 3.5 (3.5-5.7) g/dL Urine 02/21/19 Range/Units 20:18 Urine Color Yellow (Yellow) Urine Clarity Clear (Clear) Urine pH 6.0 (5.0-8.0) pH Units Ur Specific [place] 1.016 (1.010-1.025) Urine Protein 100 H (Neg-Trace) mg/dL Urine Glucose (UA) Normal (Normal) mg/dL - ABG Interpretation ABG results: PT/INR, D-dimer PT 11.9 Seconds (9.4-12.1) 02/21/19 19:11 - Impressions Impressions Chest X-Ray 02/21/19 18:48 IMPRESSION: 1. Findings suggest congestive heart failure 2. Bibasilar opacification possibly representing subsegmental atelectasis D/ / Chung Caceres MD / Chung Caceres MD Interpreting Provider: Chung Caceres MD Head CT 02/21/19 18:48 IMPRESSION: No acute intracranial abnormality identified. Redemonstration of left parasellar vascular coils. D/ / Abdiel Bailey MD / Abdiel Bailey MD Interpreting Provider: Abdiel Bailey MD Consult Discharge Plan - Plan Referrals: Gareth Lee MD [Primary Care Provider] - (4) UTI (urinary tract infection) Qualifiers: Urinary tract infection type: acute cystitis Hematuria presence: with hematuria Qualified Code(s): N30.01 - Acute cystitis with hematuria (5) Atrial fibrillation Qualifiers: Atrial fibrillation type: chronic Qualified Code(s): I48.2 - Chronic atrial fibrillation
[2019-02-23] MEDS: *HR* Heparin 5,000 UNIT/ML VIAL SQ SCH ×2 (05:00→16:50)
[2019-02-23 05:48] LABS: Calcium 8.7 mg/dL (8.6-10.3); Potassium 3.8 mEq/L (3.5-5.1)
[2019-02-23 07:49] LABS: Basophils # 0.1 K/mcL (0.0-0.2); Eosinophils # 0.4 K/mcL (0.0-0.6); Eosinophils % 5.4 %; Hematocrit 27.9 % (35.3-44.9); Hemoglobin 8.9 g/dL (11.5-15.4); Immature Granulocytes % 0.3 % (0-4); Lymphocytes % 12.2 %; Mean Corpuscular HGB Conc 31.9 g/dL (31.6-35.5); Mean Corpuscular Hemoglobin 30.8 pg (28.0-33.3); Mean Corpuscular Volume 96.5 fL (83.0-100.0); Mean Platelet Volume 10.6 fL (9.4-12.4); Monocytes # 0.8 K/mcL (0.0-1.3); Monocytes % 10.4 %; Neutrophils # 5.5 K/mcL (1.6-8.9); Platelet Count 158 K/mcL (140-400); Red Blood Count 2.89 M/mcL (3.82-4.97); Segmented Neutrophils % 70.7 %; White Blood Count 7.8 K/mcL (4.3-11.1)
[2019-02-23] MEDS: Verapamil ER (24 HR) 120 MG TABLET.ER PO SCH (09:11)
[2019-02-23] MEDS: Aspirin Enteric Coated 81 MG Tablet PO SCH (09:11)
[2019-02-23] MEDS: Famotidine 20 MG TABLET PO SCH (09:12)
[2019-02-23] MEDS: ALPRAZolam 0.25 MG TABLET PO SCH ×2 (09:13→21:55)
[2019-02-23] MEDS: Renal Vitamin 1 CAP CAPSULE PO SCH (09:13)
[2019-02-23] MEDS: tiZANidine 4 MG TABLET PO SCH ×2 (09:15→21:55)
[2019-02-23] MEDS: traMADol 50 MG TABLET PO PRN (10:46)
--- NOTE | 2019-02-23 12:17 | Nephrology Progress Note ---
Date of Encounter: 02/23/19 Time of Encounter: 12:14 - Assessment and Plan (1) ESRD (end stage renal disease) on dialysis Current Visit: Yes Status: Acute Current regimen is TTS at [facility]. HD completed yesterday. Plan for HD tomorrow. Renal diet Renal vitamins Strict I/O Avoid nephrotoxins and renal dose all medications. (2) Dizziness Current Visit: Yes Status: Acute Per primary. (3) Frail elderly Current Visit: Yes Status: Acute Suggest social service consult for possible ECF placement. If patient declines ECF, a PT/OT see her at home. Subjective Principal diagnosis: dizziness Interval history: Pt seen and examined, doing well. Denies chest pain or shortness of breath. Denies nausea, vomiting, diarrhea. Is overall feeling better. Objective - Vital Signs Vital signs: Vital Signs Temp Pulse Resp BP BP BP BP 02/23/19 11:18 98.1 F 63 17 102/61 02/23/19 07:07 98.1 F 87 18 138/76 02/23/19 04:43 98.4 F 70 16 118/52 02/23/19 00:21 98.0 F 72 16 111/54 02/22/19 23:23 130/85 147/94 160/85 02/22/19 19:45 98.1 F 74 17 136/96 02/22/19 15:48 98.5 F 66 18 101/65 02/22/19 12:31 98.1 F 81 18 02/22/19 12:18 97.9 F 18 157/73 Pulse Ox 02/23/19 11:18 97 02/23/19 07:07 94 02/23/19 04:43 96 02/23/19 00:21 96 02/22/19 23:23 02/22/19 19:45 100 02/22/19 15:48 100 02/22/19 12:31 100 02/22/19 12:18 Intake and Output 02/22/19 02/23/19 02/23/19 23:59 07:59 15:59 Other: # Voids 1 - General Appearance General appearance: Present: well-developed, well-nourished EENT: Present: ATNC, hearing intact, vision intact Neck: Present: supple Respiratory: Present: clear Cardiology: Present: no edema, normal S1, normal S2 Dialysis Vascular Access: Arteriovenous Fistula thrill: Yes bruit: Yes Gastrointestinal: Present: normoactive bowel sounds, no tenderness, no guarding Integumentary: Present: no rash, warm and dry Neurologic: Present: alert and oriented x3 Musculoskeletal: Present: no deformities, no erythema Psychiatric: Present: mood/affect appropriate, cooperative - Lab 02/23/19 07:20 02/23/19 05:05 Most recent lab results 02/23/19 05:05 Calcium 8.7 Consult Discharge Plan - Plan Referrals: Gareth Lee MD [Primary Care Provider] - 02/25/19 9:15 am (Please follow up as schedule...)
--- NOTE | 2019-02-23 12:58 | Event Note ---
Date of Encounter: 02/23/19 Time of Encounter: 12:57 - Cardiology Event Note PPM interrogated. Functioning normal. Last atrial high rate 02/04. Cardiology signing off. Reconsult PRN.
--- NOTE | 2019-02-23 15:24 | Electrocardiograph Report ---
[facility] [employer] Test Date: 2019-02-21 Pat Name: Patricia Adamson Department: [id number] Room: 2A37 Gender: F [employer]: : 1950 Requested By: Greg Mccullough Order Number: [id number] Reading MD: Miguel Sams Measurements Intervals [place] Rate: 78 P: PA: QRS: 71 QRSD: 104 T: 185 QT: 406 QTc: 463 Interpretive Statements Atrial fibrillation Low voltage, extremity leads Abnormal T, consider ischemia, diffuse leads Electronically Signed On 02-23-2019 15:22:45 EDT by Miguel Sams
--- NOTE | 2019-02-23 15:24 | Discharge Summary ---
- NOTES TO OUTPATIENT PROVIDER Notes to Outpatient Provider: Patient with a history of end-stage renal disease on hemodialysis, atrial fibrillation, hypertension, anemia, cerebral aneurysm status post coiling, anxiety and depression who was hospitalized here after presenting to the ER with complaints of generalized weakness and unsteadiness on her feet. She had a negative workup in the ER including negative CT scan of the head. Her orthostatic blood pressure was also in normal. She was evaluated by physical therapy and recommended placement to skilled rehabilitation. Patient has been receiving dialysis here and will continue to receive dialysis as outpatient. She was also complete antibiotic course with ertapenem for prev iously diagnosed UTI with Escherichia coli multidrug resistant organism. She is to continue taking this medication until 02/26. Repeat urine culture here has been negative. Orders not resulted at time of discharge: Pending orders 02/21/19 18:48 ECG 12 lead ECG [ECG] Stat 02/21/19 19:17 Culture,Blood [BC] Stat 02/24/19 04:00 Basic Metabolic Panel AM 0400 Complete Blood Count [HEME] AM 0400 02/25/19 04:00 Basic Metabolic Panel AM 0400 Complete Blood Count [HEME] AM 0400 Date of Encounter: 02/23/19 Time of Encounter: 15:23 - Discharge Diagnosis (1) Generalized weakness Priority: Primary Status: Acute (2) Diplopia Priority: Secondary Status: Chronic (3) Atrial fibrillation Priority: Secondary Status: Chronic Qualifiers: Atrial fibrillation type: chronic Qualified Code(s): I48.2 - Chronic atrial fibrillation (4) UTI (urinary tract infection) Priority: Secondary Status: Chronic Qualifiers: Urinary tract infection type: acute cystitis Hematuria presence: with hematuria Qualified Code(s): N30.01 - Acute cystitis with hematuria (5) ESRD (end stage renal disease) on dialysis Priority: Secondary Status: Chronic Hospital course: Ms. Adamson is a 68 year old female Patient with a history of end-stage renal disease on hemodialysis, atrial fibrillation, hypertension, anemia, cerebral aneurysm status post coiling, anxiety and depression who was hospitalized here after presenting to the ER with complaints of generalized weakness and unsteadiness on her feet. She had a negative workup in the ER including negative CT scan of the head. Her orthostatic blood pressure was also in normal. She was evaluated by physical therapy and recommended placement to skilled rehabilitation. Patient has been receiving dialysis here and will continue to receive dialysis as outpatient. She was also complete antibiotic course with ertapenem for previously diagnosed UTI with Escherichia coli multidrug resistant organism. She is to continue taking this medication until 02/26. Repeat urine culture here has been negative. He should not has a history of atrial fibrillation which is rate controlled. Patient is not on anticoagulation due to history of bleeding-GI and intraocular hemorrhage. Discharge discussed with: patient, nurse, case management - Time Spent with Patient Total time spent providing and/or coordinating discharge services: Time spent: Greater than 30 minutes (32 min) - Discharge Medications Prescriptions: New Ertapenem [INVanz] 500 mg IVPB DAILY 3 Days vial Continued Tizanidine HCl 2 mg PO QAM HYDROcodone/Acet 5/325 mg [[place] 5-325 mg] 1 tab PO TID PRN PRN Reason: Pain ALPRAZolam [Xanax 0.25 MG Tablet] 0.25 mg PO BID Labetalol HCl 200 mg PO QID Tizanidine HCl 4 mg PO QPM Verapamil HCl [Verapamil ER] 120 mg PO DAILY Aspirin Enteric Coated [Aspirin EC] 81 mg PO DAILY Sevelamer [Renvela] 1,600 mg PO 1200,1700 Famotidine [Pepcid] 40 mg PO DAILY PARoxetine HCl [Paroxetine HCl] 40 mg PO DAILY Renal Vitamin [Renal Caps Softgel] 1 mg PO DAILY #0 Furosemide [Lasix] 40 mg PO SUMOWEFR Ferrous Sulfate [Iron] 325 mg PO DAILY Cetirizine HCl [Zyrtec] 10 mg PO DAILY Sevelamer [Renvela] 800 mg PO 0800 Home Medications: HYDROcodone/Acet 5/325 mg [[place] 5-325 mg] 1 tab PO TID PRN 08/27/15 [History] Tizanidine HCl 2 mg PO QAM 08/27/15 [History] ALPRAZolam [Xanax 0.25 MG Tablet] 0.25 mg PO BID 04/22/17 [History] Labetalol HCl 200 mg PO QID 04/28/18 [History] Tizanidine HCl 4 mg PO QPM 04/28/18 [History] Aspirin Enteric Coated [Aspirin EC] 81 mg PO DAILY 11/13/18 [History] Sevelamer [Renvela] 1,600 mg PO 1200,1700 11/13/18 [History] Verapamil HCl [Verapamil ER] 120 mg PO DAILY 11/13/18 [History] Famotidine [Pepcid] 40 mg PO DAILY 11/22/18 [History] PARoxetine HCl [Paroxetine HCl] 40 mg PO DAILY 01/27/19 [History] Renal Vitamin [Renal Caps Softgel] 1 mg PO DAILY #0 01/27/19 [History] Furosemide [Lasix] 40 mg PO SUMOWEFR 02/04/19 [History] Cetirizine HCl [Zyrtec] 10 mg PO DAILY 02/11/19 [History] Ferrous Sulfate [Iron] 325 mg PO DAILY 02/11/19 [History] Sevelamer [Renvela] 800 mg PO 0800 02/12/19 [History] Ertapenem [INVanz] 500 mg IVPB DAILY 3 Days vial 02/23/19 [Rx] Allergies/Adverse Reactions: Allergy/AdvReac Type Severity Reaction Status Date / Time blue dye Allergy Hives Verified 02/23/19 14:19 latex Allergy Itching Verified 02/23/19 14:19 Nickel Allergy Hives Verified 02/23/19 14:19 shrimp Allergy Hives Verified 02/23/19 14:19 Sulfa (Sulfonamide Allergy Hives Verified 02/23/19 14:19 Antibiotics) Date of admission: 02/22/19 00:16 Primary care physician: Gareth Lee MD Consults: 02/22/19 00:12 Consult to Nephrology [CONS] Stat Consulting Provider: Kidney Ruth/SABRA/MIRIAM/JOSSELIN Reason for Consult: TTS HD Call Completed: No 02/22/19 00:13 Consult to Occupational Therapy [CONS] Routine Comment: Evaluate, develop and implement POC Reason for Consult: diffuse weakness Does patient have active BEDREST order?: No Is patient medically & hemodynamically stable?: Yes Patient assessed for mobility or mobilized this visit?: No Consult to Physical Therapy [CONS] Routine Comment: Evaluate, develop and implement POC Reason for Consult: diffuse weakness Does patient have active BEDREST order?: No Is patient medically & hemodynamically stable?: Yes Patient assessed for mobility or mobilized this visit?: No 02/22/19 00:14 Consult to Plastics Fitter [CONS] Stat Reason for SW Consult: weakness, may need placement 02/22/19 07:30 Consult to Dialysis [CONS] ONCE 02/22/19 09:26 Consult to Nurse Navigator [CONS] Routine Comment: HD 02/23/19 11:42 Consult to Cardiology [CONS] Routine Comment: Consulting Provider: Felix Miranda Reason for Consult: Pacemaker interrogation Call Completed: No Discharging clinician: Gilbert Villalobos Anticipated date of discharge: 02/23/19 - Constitutional Vitals: Temp Pulse Resp BP Pulse Ox 98.1 F 63 17 102/61 97 02/23/19 11:18 02/23/19 11:18 02/23/19 11:18 02/23/19 11:18 02/23/19 11:18 Exam: General: Patient is alert, no acute distress, oriented x 3 Respiratory: Good respiratory effort. Normal breath sounds. No wheezing or crackles. Cardiovascular: Regular rate and rhythm. s1 and s2 normal No clicks, rubs, gallops, or murmurs. No pedal edema Abdomen: Abdomen is soft, nontender. Bowel sounds are present Musculoskeletal: Spontaneously moving all extremities Skin: warm, dry, intact. Neuro: Alert oriented x 3 normal cranial nerves, no focal deficits - Patient Status Disposition: Transfer SNF Condition: Fair Functional capacity at discharge: uses cane/walker Overall status at discharge: patient is progressing back to baseline - Discharge Instructions Instructions: Anemia (GEN) Follow Up With: Gareth Lee MD [Primary Care Provider] - 02/25/19 9:15 am (Please follow up as schedule...) - Diet and Activity Activity: as per physical therapy Diet: low fat, low cholesterol, low salt diet
--- NOTE | 2019-02-23 15:30 | Physician Discharge Referral ---
ExtendedCare Referral Info Provider in Charge after Transfer: PCP Institutional Level of Care: Skilled - Diagnosis (1) Generalized weakness Priority: Primary Status: Acute (2) Diplopia Priority: Secondary Status: Chronic (3) Atrial fibrillation Priority: Secondary Status: Chronic (4) UTI (urinary tract infection) Priority: Secondary Status: Chronic (5) ESRD (end stage renal disease) on dialysis Priority: Secondary Status: Chronic Prognosis: Fair Aware of Diagnosis: Patient Aware of Prognosis: Patient - Transfer Medications Prescriptions: Ertapenem [INVanz] 500 mg IVPB DAILY 3 Days vial Home Medications: HYDROcodone/Acet 5/325 mg [[place] 5-325 mg] 1 tab PO TID PRN 08/27/15 [History] Tizanidine HCl 2 mg PO QAM 08/27/15 [History] ALPRAZolam [Xanax 0.25 MG Tablet] 0.25 mg PO BID 04/22/17 [History] Labetalol HCl 200 mg PO QID 04/28/18 [History] Tizanidine HCl 4 mg PO QPM 04/28/18 [History] Aspirin Enteric Coated [Aspirin EC] 81 mg PO DAILY 11/13/18 [History] Sevelamer [Renvela] 1,600 mg PO 1200,1700 11/13/18 [History] Verapamil HCl [Verapamil ER] 120 mg PO DAILY 11/13/18 [History] Famotidine [Pepcid] 40 mg PO DAILY 11/22/18 [History] PARoxetine HCl [Paroxetine HCl] 40 mg PO DAILY 01/27/19 [History] Renal Vitamin [Renal Caps Softgel] 1 mg PO DAILY #0 01/27/19 [History] Furosemide [Lasix] 40 mg PO SUMOWEFR 02/04/19 [History] Cetirizine HCl [Zyrtec] 10 mg PO DAILY 02/11/19 [History] Ferrous Sulfate [Iron] 325 mg PO DAILY 02/11/19 [History] Sevelamer [Renvela] 800 mg PO 0800 02/12/19 [History] Ertapenem [INVanz] 500 mg IVPB DAILY 3 Days vial 02/23/19 [Rx] Allergies/Adverse Reactions: Allergy/AdvReac Type Severity Reaction Status Date / Time blue dye Allergy Hives Verified 02/23/19 14:19 latex Allergy Itching Verified 07/24/19 14:19 Nickel Allergy Hives Verified 02/23/19 14:19 shrimp Allergy Hives Verified 02/23/19 14:19 Sulfa (Sulfonamide Allergy Hives Verified 02/23/19 14:19 Antibiotics) - Respiratory Orders Smoking Cessation: Smoking cessation has been advised. For more information, call the [place] Tobacco Quit Line at 2-167-LEUC-NOW. - Advance Directives Code Status: Full Code - Rehabiliation Orders Rehab Potential: Fair Rehab Orders: Evaluation for Physical Therapy, Evaluation for Occupational Therapy - Diet Orders Cardiac CERTIFICATION: I certify that the transfer of the above named patient to an Extended Care Facility is necessary for the continuing treatment of the diagnosis listed. The above information is true and accurate reflection of patient's current condition. Confidential - Redisclosure prohibited without a patient's written consent.
[2019-02-24 03:57] LABS: Basophils # 0.1 K/mcL (0.0-0.2); Eosinophils # 0.3 K/mcL (0.0-0.6); Eosinophils % 4.4 %; Hemoglobin 8.3 g/dL (11.5-15.4); Immature Granulocytes % 0.4 % (0-4); Lymphocytes # 1.1 K/mcL (0.6-4.6); Lymphocytes % 14.8 %; Mean Corpuscular HGB Conc 31.9 g/dL (31.6-35.5); Mean Corpuscular Hemoglobin 30.5 pg (28.0-33.3); Mean Corpuscular Volume 95.6 fL (83.0-100.0); Mean Platelet Volume 11.3 fL (9.4-12.4); Monocytes # 0.8 K/mcL (0.0-1.3); Monocytes % 10.8 %; Platelet Count 154 K/mcL (140-400); Red Blood Count 2.72 M/mcL (3.82-4.97); Red Cell Distribution Width 14.3 % (11.5-14.5); Segmented Neutrophils % 68.6 %; White Blood Count 7.3 K/mcL (4.3-11.1)
[2019-02-24 04:12] LABS: Calcium 8.8 mg/dL (8.6-10.3); Potassium 3.6 mEq/L (3.5-5.1)
[2019-02-24] MEDS: *HR* Heparin 5,000 UNIT/ML VIAL SQ SCH ×2 (05:43→17:53)
[2019-02-24] MEDS ORDERED: 0.9 % Sodium Chloride 250 ML IVC PRN (07:19)
[2019-02-24] MEDS: Renal Vitamin 1 CAP CAPSULE PO SCH (07:49)
[2019-02-24] MEDS: Verapamil ER (24 HR) 120 MG TABLET.ER PO SCH (07:49)
[2019-02-24] MEDS: tiZANidine 4 MG TABLET PO SCH ×2 (07:49→20:12)
[2019-02-24] MEDS: ALPRAZolam 0.25 MG TABLET PO SCH ×2 (07:50→20:12)
[2019-02-24] MEDS: Aspirin Enteric Coated 81 MG Tablet PO SCH (07:50)
[2019-02-24] MEDS: Famotidine 20 MG TABLET PO SCH (07:50)
[2019-02-24] MEDS ORDERED: Albumin 25% 12.5gm/50mL 25.0 GM/100 ML IV.SOLN ONE (09:58)
--- NOTE | 2019-02-24 10:55 | Internal Med Progress Note ---
Hospitalist Progress Note - Encounter Date of Encounter: 02/24/19 Time of Encounter: 10:55 - Subjective Interval History: Patient evaluated during dialysis. She denies any new complaints today. Does continue to feel deconditioned. No dizziness or lightheadedness. No vertigo- like symptoms. Doing well overall. Awaiting placement. - Exam Vitals: Temp Pulse Resp BP Pulse Ox 98.1 F 85 16 138/73 94 02/24/19 07:30 02/24/19 07:30 02/24/19 07:30 02/24/19 07:30 02/24/19 07:40 Exam: General: Patient is alert, no acute distress, oriented x 3 Eyes: Left strabismus Respiratory: Good respiratory effort. Normal breath sounds. No wheezing or crackles. Cardiovascular: Regular rate and rhythm. s1 and s2 normal No clicks, rubs, gallops, or murmurs. No pedal edema Abdomen: Abdomen is soft, nontender. Bowel sounds are present Musculoskeletal: Spontaneously moving all extremities Skin: warm, dry, intact. Neuro: Alert oriented x 3 normal cranial nerves, no focal deficits - Assessment and Plan (1) Generalized weakness Current Visit: Yes Status: Acute (2) Diplopia Current Visit: Yes Status: Chronic (3) Atrial fibrillation Current Visit: Yes Status: Chronic (4) UTI (urinary tract infection) Current Visit: Yes Status: Chronic (5) ESRD (end stage renal disease) on dialysis Current Visit: Yes Status: Chronic DVT Prophylaxis: Continue subcutaneous heparin - Summary of Assessment and Plan Summary of Assessment and Plan: Generalized weakness: Patient evaluated by physical therapy and recommended placement to inpatient swing bed / SNF. Continue PTOT while patient is here. Awaiting placement. ESRD on hemodialysis: Patient being dialyzed today. Nephrology following for dialysis needs. Atrial fibrillation: Rate controlled. Not on anticoagulation due to history of GI bleeding and intraocular hemorrhage. Recent UTI with Escherichia coli multidrug-resistant: Continue ertapenem then 02/26. - Time Spent with Patient Total time spent is greater than 50% in coordination of care (as documented) at patient's floor/unit and/or counseling patient: Internal Medicine: Result - Labs CBC & Chem 7: 02/24/19 03:30 02/24/19 03:30 Labs: Short CBC 02/24/19 Range/Units 03:30 WBC 7.3 (4.3-11.1) K/mcL Hgb 8.3 L (11.5-15.4) g/dL Hct 26.0 L (35.3-44.9) % Plt Count 154 (140-400) K/mcL Neutrophils # 5.0 (1.6-8.9) K/mcL [facility] 02/24/19 03:30 Sodium 135 L Potassium 3.6 Chloride 100 Carbon Dioxide 28 BUN 24 H Creatinine 3.58 H Glucose 80 Calcium 8.8 - ABG Interpretation ABG results: PT/INR, D-dimer PT 11.9 Seconds (9.4-12.1) 02/21/19 19:11 Consult Discharge Plan - Plan Instructions: Anemia (GEN) Referrals: Gareth Lee MD [Primary Care Provider] - 02/25/19 9:15 am (Please follow up as schedule...) Prescriptions: Ertapenem [INVanz] 500 mg IVPB DAILY 3 Days vial (3) Atrial fibrillation Qualifiers: Atrial fibrillation type: chronic Qualified Code(s): I48.2 - Chronic atrial fibrillation (4) UTI (urinary tract infection) Qualifiers: Urinary tract infection type: acute cystitis Hematuria presence: with hematuria Qualified Code(s): N30.01 - Acute cystitis with hematuria
--- NOTE | 2019-02-24 12:15 | Nephrology Progress Note ---
Date of Encounter: 02/24/19 Time of Encounter: 12:13 - Assessment and Plan (1) ESRD (end stage renal disease) on dialysis Current Visit: Yes Status: Chronic Current regimen is TTS at [facility]. HD in progress today. Renal diet Renal vitamins Strict I/O Avoid nephrotoxins and renal dose all medications. (2) Dizziness Current Visit: Yes Status: Acute Per primary. (3) Frail elderly Current Visit: Yes Status: Acute Pt agrees to go to ECF, would like [place], which is close to her daughter. Subjective Principal diagnosis: dizziness Interval history: Pt seen and examined during HD, tolerating well. Denies chest pain or shortness of breath. Denies nausea, vomiting, diarrhea. Is overall feeling better. Has agreed to go to an ECF, would like to be close to [place], which is where her daughter lives. Objective - Vital Signs Vital signs: Vital Signs Temp Pulse Resp BP Pulse Ox 02/24/19 11:45 118/67 02/24/19 11:30 109/52 02/24/19 11:15 97/62 02/24/19 11:00 101/53 02/24/19 10:45 101/59 02/24/19 10:30 108/51 02/24/19 10:15 99/57 02/24/19 10:10 91/53 02/24/19 10:00 88/56 02/24/19 09:45 99/61 02/24/19 09:30 95/56 02/24/19 09:15 101/51 02/24/19 09:00 101/55 02/24/19 08:45 98.7 F 18 103/54 02/24/19 07:40 94 02/24/19 07:30 98.1 F 85 16 138/73 94 02/24/19 04:34 97.9 F 62 17 107/58 96 02/23/19 23:18 97.5 F L 76 17 117/70 96 02/23/19 19:29 97.7 F 73 17 138/75 100 02/23/19 16:08 97.7 F 73 16 131/80 94 Intake and Output 02/23/19 02/24/19 02/24/19 23:59 07:59 15:59 Intake Total 840 / 870 Balance 30 / 870 840 / 870 Intake: Oral 30 / 270 240 / 270 Intake, Rinseback and Flushes 600 / 600 Other: Meal Breakfast Percent of Meal Consumed 80% Stool Size Moderate Stool Consistency loose # Voids 1 # Bowel Movements 1 Weight 66 kg 66 kg Hemodialysis Net Fluid Removed 2218 (mL) Patient Weight 02/24/19 23:59 Weight 66 kg - General Appearance General appearance: Present: well-developed, well-nourished EENT: Present: ATNC, hearing intact, vision intact Neck: Present: supple Respiratory: Present: clear Cardiology: Present: no edema, normal S1, normal S2 Dialysis Vascular Access: Arteriovenous Fistula thrill: Yes bruit: Yes Gastrointestinal: Present: normoactive bowel sounds, no tenderness, no guarding Integumentary: Present: no rash, warm and dry Neurologic: Present: alert and oriented x3 Musculoskeletal: Present: no deformities, no erythema Psychiatric: Present: mood/affect appropriate, cooperative - Lab 02/24/19 03:30 02/24/19 03:30 Most recent lab results 02/24/19 03:30 Calcium 8.8 Consult Discharge Plan - Plan Instructions: Anemia (GEN) Referrals: Gareth Lee MD [Primary Care Provider] - 02/25/19 9:15 am (Please follow up as schedule...) Prescriptions: Ertapenem [INVanz] 500 mg IVPB DAILY 3 Days vial
[2019-02-24] MEDS: traMADol 50 MG TABLET PO PRN (13:56)
[2019-02-25 04:51] LABS: Basophils # 0.1 K/mcL (0.0-0.2); Eosinophils # 0.3 K/mcL (0.0-0.6); Eosinophils % 4.6 %; Hemoglobin 8.6 g/dL (11.5-15.4); Immature Granulocytes % 0.2 % (0-4); Lymphocytes # 0.8 K/mcL (0.6-4.6); Lymphocytes % 13.9 %; Mean Corpuscular HGB Conc 31.9 g/dL (31.6-35.5); Mean Corpuscular Hemoglobin 30.8 pg (28.0-33.3); Mean Corpuscular Volume 96.8 fL (83.0-100.0); Mean Platelet Volume 11.3 fL (9.4-12.4); Monocytes # 0.8 K/mcL (0.0-1.3); Monocytes % 12.5 %; Neutrophils # 4.1 K/mcL (1.6-8.9); Platelet Count 154 K/mcL (140-400); Red Blood Count 2.79 M/mcL (3.82-4.97); Red Cell Distribution Width 14.3 % (11.5-14.5); Segmented Neutrophils % 67.8 %; White Blood Count 6.1 K/mcL (4.3-11.1)
[2019-02-25 04:57] LABS: Campylobacter by PCR Not detected (Not detect)
[2019-02-25 04:58] LABS: Adenovirus F 40/41 PCR Not detected (Not detect); Astrovirus PCR Not detected (Not detect); Cryptosporidium by PCR Not detected (Not detect); Cyclospora cayetanensis PCR Not detected (Not detect); E. coli O157 by PCR Not detected (Not detect); Entamoeba histolytica PCR Not detected (Not detect); Enteroaggregative E.coli(EAEC) Not detected (Not detect); Enteropathogenic E.coli(EPEC) Not detected (Not detect); Enterotoxigenic E.coli (ETEC) Not detected (Not detect); Giardia lamblia PCR Not detected (Not detect); Norovirus GI/GII PCR Not detected (Not detect); Plesiomonas shigelloides PCR Not detected (Not detect); Rotavirus A PCR Not detected (Not detect); Salmonella PCR Not detected (Not detect); Sapovirus PCR Not detected (Not detect); Shig/EnteroinvasiveE coli EIEC Not detected (Not detect); Shigalike tox-prod E coli STEC Not detected (Not detect); Vibrio PCR Not detected (Not detect); Vibrio cholerae PCR Not detected (Not detect); Yersinia enterocolitica PCR Not detected (Not detect)
[2019-02-25 04:59] LABS: C.difficile Toxin A/B Gene PCR DETECTED (Not detect)
[2019-02-25 05:09] LABS: Calcium 9.4 mg/dL (8.6-10.3); Potassium 3.9 mEq/L (3.5-5.1)
[2019-02-25] MEDS: *HR* Heparin 5,000 UNIT/ML VIAL SQ SCH ×2 (06:07→17:44)
[2019-02-25] MEDS: traMADol 50 MG TABLET PO PRN ×2 (06:15→21:03)
[2019-02-25] MEDS: Famotidine 20 MG TABLET PO SCH (08:15)
[2019-02-25] MEDS: Renal Vitamin 1 CAP CAPSULE PO SCH (08:15)
[2019-02-25] MEDS: ALPRAZolam 0.25 MG TABLET PO SCH ×2 (08:15→21:03)
[2019-02-25] MEDS: Verapamil ER (24 HR) 120 MG TABLET.ER PO SCH (08:15)
[2019-02-25] MEDS: Aspirin Enteric Coated 81 MG Tablet PO SCH (08:15)
[2019-02-25] MEDS: tiZANidine 4 MG TABLET PO SCH ×2 (08:16→21:03)
[2019-02-25] MEDS: Vancomycin Oral Soln 125 MG/2.5 ML UDC PO SCH ×4 (09:13→21:04)
--- NOTE | 2019-02-25 11:32 | Internal Med Progress Note ---
Hospitalist Progress Note - Encounter Date of Encounter: 02/25/19 Time of Encounter: 11:30 - Subjective Interval History: Patient developed diarrhea overnight. Has had multiple episodes of loose stools. Has not had any this morning after she had breakfast. No fever or chills reported overnight. - Exam Vitals: Temp Pulse Resp BP Pulse Ox 97.8 F 96 16 148/81 92 02/25/19 07:31 02/25/19 07:31 02/25/19 07:31 02/25/19 07:31 02/25/19 07:31 Exam: General: Patient is alert, no acute distress, oriented x 3 Eyes: Left strabismus Respiratory: Good respiratory effort. Normal breath sounds. No wheezing or crackles. Cardiovascular: Regular rate and rhythm. s1 and s2 normal No clicks, rubs, gallops, or murmurs. No pedal edema Abdomen: Abdomen is soft, nontender. Hyperactive bowel sounds Musculoskeletal: Spontaneously moving all extremities Skin: warm, dry, intact. Neuro: Alert oriented x 3 normal cranial nerves, no focal deficits - Assessment and Plan (1) C. difficile diarrhea Current Visit: Yes Status: Acute (2) Generalized weakness Current Visit: Yes Status: Acute (3) Diplopia Current Visit: Yes Status: Chronic (4) Atrial fibrillation Current Visit: Yes Status: Chronic (5) UTI (urinary tract infection) Current Visit: Yes Status: Chronic (6) ESRD (end stage renal disease) on dialysis Current Visit: Yes Status: Chronic DVT Prophylaxis: Continue subcutaneous heparin - Summary of Assessment and Plan Summary of Assessment and Plan: C. difficile diarrhea: Patient's stool positive for C. difficile toxin. Started patient on oral vancomycin. Most likely due to long-term ertapenem use. We will also place patient on gentle IV hydration to keep up with her fluid losses. Generalized weakness: Patient evaluated by physical therapy. Awaiting placement . ESRD on hemodialysis: Dialysis completed yesterday. Your for dialysis tomorrow. Nephrology following. Atrial fibrillation: Rate controlled. Not on anticoagulation due to history of GI bleeding and intraocular hemorrhage. Recent UTI with Escherichia coli multidrug-resistant: Patient will be on ertapenem to 02/26. - Time Spent with Patient Total time spent is greater than 50% in coordination of care (as documented) at patient's floor/unit and/or counseling patient: Internal Medicine: Result - Labs CBC & Chem 7: 02/25/19 04:10 02/25/19 04:10 Labs: Short CBC 02/25/19 Range/Units 04:10 WBC 6.1 (4.3-11.1) K/mcL Hgb 8.6 L (11.5-15.4) g/dL Hct 27.0 L (35.3-44.9) % Plt Count 154 (140-400) K/mcL Neutrophils # 4.1 (1.6-8.9) K/mcL BMP 02/25/19 04:10 Sodium 138 Potassium 3.9 Chloride 99 Carbon Dioxide 28 BUN 15 Creatinine 2.85 H Glucose 83 Calcium 9.4 - ABG Interpretation ABG results: PT/INR, D-dimer PT 11.9 Seconds (9.4-12.1) 02/21/19 19:11 Consult Discharge Plan - Plan Instructions: Anemia (GEN) Referrals: Gareth Lee MD [Primary Care Provider] - 02/25/19 9:15 am (Please follow up as schedule...) Prescriptions: Ertapenem [INVanz] 500 mg IVPB DAILY 3 Days vial (4) Atrial fibrillation Qualifiers: Atrial fibrillation type: chronic Qualified Code(s): I48.2 - Chronic atrial fibrillation (5) UTI (urinary tract infection) Qualifiers: Urinary tract infection type: acute cystitis Hematuria presence: with hematuria Qualified Code(s): N30.01 - Acute cystitis with hematuria
[2019-02-25] MEDS: 0.9 % Sodium Chloride 1,000 ML IVC SCH (12:07)
--- NOTE | 2019-02-25 16:30 | Nephrology Progress Note ---
Date of Encounter: 02/25/19 Time of Encounter: 12:00 - Assessment and Plan (1) ESRD (end stage renal disease) on dialysis Current Visit: Yes Status: Chronic s/p HD yesterday, next HD tomorrow Continue renal diet Careful use of IVF advised Lytes stable (2) Frail elderly Current Visit: Yes Status: Acute (3) Dizziness Current Visit: Yes Status: Acute Subjective Principal diagnosis: dizziness Interval history: Interim noted, pt seen and examined feeling better with no more diarrhea on IVF: NS at 75cc/hr Objective - Vital Signs Vital signs: Vital Signs Temp Pulse Resp BP Pulse Ox 02/25/19 11:29 97.7 F 88 16 122/74 98 02/25/19 07:31 97.8 F 96 16 148/81 92 02/25/19 05:02 98.3 F 73 17 153/70 97 02/25/19 00:34 98.0 F 71 16 124/75 100 02/24/19 20:05 98.2 F 73 16 129/62 97 Intake and Output 02/25/19 02/25/19 02/25/19 07:59 15:59 23:59 Intake Total 240 / 240 Balance 240 / 240 Intake: Oral 240 / 240 Other: Meal Breakfast Percent of Meal Consumed 100% Stool Size Small Stool Consistency liquid Stool Characteristics Seedy Stool Color Brown # Voids 1 # Bowel Movements 1 Weight 66.5 kg Patient Weight 02/25/19 23:59 Weight 66.5 kg - General Appearance General appearance: Present: chronically ill, fatigue EENT: Present: ATNC, mucous membranes moist Neck: Present: no JVD, supple Respiratory: Present: clear Cardiology: Present: no edema, normal S1, normal S2 Dialysis Vascular Access: Arteriovenous Fistula thrill: Yes bruit: Yes Gastrointestinal: Present: no tenderness, no guarding Integumentary: Present: warm and dry Neurologic: Present: no focal deficit Musculoskeletal: Present: no deformities Psychiatric: Present: mood/affect appropriate, cooperative - Lab 02/25/19 04:10 02/25/19 04:10 Most recent lab results 02/25/19 04:10 Calcium 9.4 Consult Discharge Plan - Plan Instructions: Anemia (GEN) Referrals: Gareth Lee MD [Primary Care Provider] - 02/25/19 9:15 am (Please follow up as schedule...)
[2019-02-26] MEDS: 0.9 % Sodium Chloride 1,000 ML IVC SCH (01:25)
[2019-02-26] MEDS: *HR* Heparin 5,000 UNIT/ML VIAL SQ SCH (06:14)
[2019-02-26 08:06] LABS: Hematocrit 27.7 % (35.3-44.9); Hemoglobin 8.6 g/dL (11.5-15.4); Mean Corpuscular Hemoglobin 30.4 pg (28.0-33.3); Mean Corpuscular Volume 97.9 fL (83.0-100.0); Mean Platelet Volume 11.4 fL (9.4-12.4); Platelet Count 158 K/mcL (140-400); Red Blood Count 2.83 M/mcL (3.82-4.97); Red Cell Distribution Width 14.3 % (11.5-14.5); White Blood Count 5.9 K/mcL (4.3-11.1)
[2019-02-26] MEDS: Verapamil ER (24 HR) 120 MG TABLET.ER PO SCH (08:22)
[2019-02-26] MEDS: Aspirin Enteric Coated 81 MG Tablet PO SCH (08:22)
[2019-02-26] MEDS: Famotidine 20 MG TABLET PO SCH (08:23)
[2019-02-26] MEDS: ALPRAZolam 0.25 MG TABLET PO SCH (08:23)
[2019-02-26] MEDS: Renal Vitamin 1 CAP CAPSULE PO SCH (08:23)
[2019-02-26] MEDS: tiZANidine 4 MG TABLET PO SCH (08:23)
[2019-02-26] MEDS: Vancomycin Oral Soln 125 MG/2.5 ML UDC PO SCH ×3 (08:24→16:52)
[2019-02-26 08:30] LABS: Calcium 9.2 mg/dL (8.6-10.3); Potassium 4.2 mEq/L (3.5-5.1)
[2019-02-26] MEDS ORDERED: 0.9 % Sodium Chloride 250 ML IVC PRN (08:33)
--- NOTE | 2019-02-26 11:35 | Physician Discharge Referral ---
Home Health/Hosp Referral Info Transfer to: Home Health Provider in Charge Post Discharge: PCP - Diagnosis (1) C. difficile diarrhea Priority: Primary Status: Acute (2) Generalized weakness Priority: Secondary Status: Acute (3) Diplopia Priority: Secondary Status: Chronic (4) Atrial fibrillation Priority: Secondary Status: Chronic (5) UTI (urinary tract infection) Priority: Secondary Status: Chronic (6) ESRD (end stage renal disease) on dialysis Priority: Secondary Status: Chronic - Respiratory Orders Smoking Cessation: Smoking cessation has been advised. For more information, call the [place] Tobacco Quit Line at 2-304-EFOG-NOW. - Diet/Nutrition Diet/Nutrition Orders: Renal, Cardiac - Activity Activity Orders: Walker - Services Needed Following services are medically necessary services: Nursing, Physical Therapy, Occupational Therapy - Transfer Medications Home Medications: HYDROcodone/Acet 5/325 mg [[place] 5-325 mg] 1 tab PO TID PRN 08/27/15 [History] Tizanidine HCl 2 mg PO QAM 08/27/15 [History] ALPRAZolam [Xanax 0.25 MG Tablet] 0.25 mg PO BID 04/22/17 [History] Labetalol HCl 200 mg PO QID 04/28/18 [History] Tizanidine HCl 4 mg PO QPM 04/28/18 [History] Aspirin Enteric Coated [Aspirin EC] 81 mg PO DAILY 11/13/18 [History] Sevelamer [Renvela] 1,600 mg PO 1200,1700 11/13/18 [History] Verapamil HCl [Verapamil ER] 120 mg PO DAILY 11/13/18 [History] Famotidine [Pepcid] 40 mg PO DAILY 11/22/18 [History] PARoxetine HCl [Paroxetine HCl] 40 mg PO DAILY 01/27/19 [History] Renal Vitamin [Renal Caps Softgel] 1 mg PO DAILY #0 01/27/19 [History] Furosemide [Lasix] 40 mg PO SUMOWEFR 02/04/19 [History] Cetirizine HCl [Zyrtec] 10 mg PO DAILY 02/11/19 [History] Ferrous Sulfate [Iron] 325 mg PO DAILY 02/11/19 [History] Sevelamer [Renvela] 800 mg PO 0800 02/12/19 [History] Allergies/Adverse Reactions: Allergy/AdvReac Type Severity Reaction Status Date / Time blue dye Allergy Hives Verified 02/23/19 14:19 latex Allergy Itching Verified 02/23/19 14:19 Nickel Allergy Hives Verified 02/23/19 14:19 shrimp Allergy Hives Verified 02/23/19 14:19 Sulfa (Sulfonamide Allergy Hives Verified 02/23/19 14:19 Antibiotics) Certification: Further, I certify that my clinical findings support that this patient is homebound (i.e. absences from home require considerable and taxing effort and are for medical reasons or uatsdin services or infrequently or short duration when for other reasons) because: Homebound Reason: Patient requires assistance of a person or device to safely leave home (Patient has had recurrent hospitalizations and has been recommended physical therapy and occupational therapy) Attestation: My signature below is to certify that this patient is under my care and that I, or nurse practitioner, or a physician's marketing operations assistant working with me, has a [id number] encounter with this patient.
[2019-02-26 13:21] VITALS: BP 111/73
--- NOTE | 2019-02-26 13:39 | Nephrology Progress Note ---
Date of Encounter: 02/26/19 Time of Encounter: 12:00 - Assessment and Plan (1) ESRD (end stage renal disease) on dialysis Current Visit: Yes Status: Chronic Continue HD with minimal HD as tolerated Lytes stable will stop IVF today, can tolerate po fluid intake Ok to discharge from a renal standpoint, probiotics advised (2) C. difficile diarrhea Current Visit: Yes Status: Acute Continue abx per primary, po vanco (3) Anemia Current Visit: Yes Status: Chronic Hgb noted at 8.6, stable EPO with HD on outpatient planned with goal of 10-11 Qualifiers: Anemia type: due to chronic kidney disease Chronic kidney disease stage: on chronic dialysis Qualified Code(s): N18.6 - End stage renal disease; D63.1 - Anemia in chronic kidney disease; Z99.2 - Dependence on renal dialysis (4) UTI (urinary tract infection) Current Visit: Yes Status: Chronic Completed abx regimen today Qualifiers: Urinary tract infection type: acute cystitis Hematuria presence: with hematuria Qualified Code(s): N30.01 - Acute cystitis with hematuria Subjective Principal diagnosis: dizziness Interval history: Pt seen and examined on HD doing well. Pt does not want to be sent to rehab in a [place] where she is required to change her dialysis unit and time, prefers to go home instead Objective - Vital Signs Vital signs: Vital Signs Temp Pulse Resp BP Pulse Ox 02/26/19 13:03 97.9 F 18 111/73 02/26/19 12:40 98/49 02/26/19 12:30 95/46 02/26/19 12:25 91/49 02/26/19 12:20 92/44 02/26/19 12:15 88/49 02/26/19 12:10 91/54 02/26/19 11:55 100/47 02/26/19 11:40 96/50 02/26/19 11:25 100/52 02/26/19 11:10 104/60 02/26/19 10:55 109/64 02/26/19 10:40 97/60 02/26/19 10:25 94/57 02/26/19 10:10 98/66 02/26/19 09:55 105/64 02/26/19 09:40 97.7 F 18 97/67 02/26/19 07:28 97.7 F 76 16 134/71 98 02/26/19 03:05 97.7 F 73 16 137/82 96 02/25/19 20:30 97.7 F 85 16 144/72 99 Intake and Output 02/25/19 02/26/19 02/26/19 23:59 07:59 15:59 Intake Total 200 / 440 1000 / 1600 600 / 1600 Output Total 215 / 2150 Balance 200 / 440 1000 / -551 -1551 / -551 Intake: IV Fluids 1000 / 1000 0.9 % Sodium Chloride 1,000 ML 1000 / 1000 @ 75 mls/hr IVC .[id number] ADAN Rx #:[id number] Oral 200 / 440 0 / 0 Intake, Rinseback and Flushes 600 / 600 Output: Urine 0 / 0 Total Dialysis (HD) Output 2150 Other: Meal Dinner Percent of Meal Consumed 85% Weight 65.9 kg Hemodialysis Net Fluid Removed 1551 (mL) Patient Weight 02/26/19 23:59 Weight 65.9 kg - General Appearance General appearance: Present: chronically ill, fatigue, frail EENT: Present: ATNC, mucous membranes moist Neck: Present: no JVD, supple Respiratory: Present: clear Cardiology: Present: edema (trace LE edema bilat), normal S1, normal S2 Dialysis Vascular Access: Arteriovenous Fistula thrill: Yes bruit: Yes Gastrointestinal: Present: no tenderness, no guarding Integumentary: Present: warm and dry Neurologic: Present: no focal deficit Musculoskeletal: Present: no deformities Psychiatric: Present: mood/affect appropriate, cooperative - Lab 02/26/19 07:34 02/26/19 07:34 Most recent lab results 02/26/19 07:34 Calcium 9.2 Consult Discharge Plan - Plan Instructions: Anemia (GEN) Referrals: Gareth Lee MD [Primary Care Provider] - 02/25/19 9:15 am (Please follow up as schedule...)
--- NOTE | 2019-02-26 13:50 | Discharge Summary ---
- NOTES TO OUTPATIENT PROVIDER Notes to Outpatient Provider: Patient with a history of end-stage renal disease on hemodialysis, atrial fibrillation, hypertension, anemia, cerebral aneurysm status post coiling, anxiety and depression who was hospitalized here after presenting to the ER with complaints of generalized weakness and unsteadiness on her feet. She had a negative workup in the ER including negative CT scan of the head. Her orthostatic blood pressure was also in normal. She was evaluated by physical therapy and recommended placement to skilled rehabilitation. Patient however was not happy with the arrangements made for her and wished to go home with home health and statin. She was being treated for previously diagnosed UTI with Escherichia coli multidrug resistant organism with ertapenem. Completed treatment for this today. Repeat urine culture here has been negative. Patient does have C. difficile diarrhea. Has been placed on oral vancomycin and will complete 10 day course. She will also be on lactobacillus. Orders not resulted at time of discharge: Pending orders 02/21/19 19:17 Culture,Blood [BC] Stat Date of Encounter: 02/26/19 Time of Encounter: 13:49 - Discharge Diagnosis (1) C. difficile diarrhea Priority: Primary Status: Acute (2) Generalized weakness Priority: Secondary Status: Acute (3) Diplopia Priority: Secondary Status: Chronic (4) Atrial fibrillation Priority: Secondary Status: Chronic Qualifiers: Atrial fibrillation type: chronic Qualified Code(s): I48.2 - Chronic atrial fibrillation (5) UTI (urinary tract infection) Priority: Secondary Status: Chronic Qualifiers: Urinary tract infection type: acute cystitis Hematuria presence: with hematuria Qualified Code(s): N30.01 - Acute cystitis with hematuria (6) ESRD (end stage renal disease) on dialysis Priority: Secondary Status: Chronic Hospital course: Ms. Adamson is a 68 year old female patient with a history of end-stage renal disease on hemodialysis, atrial fibrillation, hypertension, anemia, cerebral aneurysm status post coiling, anxiety and depression who was hospitalized here after presenting to the ER with complaints of generalized weakness and unsteadiness on her feet. She had a negative workup in the ER including negative CT scan of the head. Her orthostatic blood pressure was also in normal. She was evaluated by physical therapy and recommended placement to skilled rehabilitation. Patient however was not happy with the arrangements made for her and wished to go home with home health and statin. She was being treated for previously diagnosed UTI with Escherichia coli multidrug resistant organism with ertapenem. Completed treatment for this today. Repeat urine culture here has been negative. Patient does have C. difficile diarrhea. Has been placed on oral vancomycin and will complete 10 day course. She will also be on lactobacillus. Discharge discussed with: patient, nurse, functional consultant - Time Spent with Patient Total time spent providing and/or coordinating discharge services: Time spent: Greater than 30 minutes (35 min) - Discharge Medications Prescriptions: New Vancomycin Oral Soln [Firvanq] 125 mg PO QID #40 udc Continued Tizanidine HCl 2 mg PO QAM HYDROcodone/Acet 5/325 mg [[place] 5-325 mg] 1 tab PO TID PRN PRN Reason: Pain ALPRAZolam [Xanax 0.25 MG Tablet] 0.25 mg PO BID Labetalol HCl 200 mg PO QID Tizanidine HCl 4 mg PO QPM Verapamil HCl [Verapamil ER] 120 mg PO DAILY Aspirin Enteric Coated [Aspirin EC] 81 mg PO DAILY Sevelamer [Renvela] 1,600 mg PO 1200,1700 Famotidine [Pepcid] 40 mg PO DAILY PARoxetine HCl [Paroxetine HCl] 40 mg PO DAILY Renal Vitamin [Renal Caps Softgel] 1 mg PO DAILY #0 Furosemide [Lasix] 40 mg PO SUMOWEFR Ferrous Sulfate [Iron] 325 mg PO DAILY Cetirizine HCl [Zyrtec] 10 mg PO DAILY Sevelamer [Renvela] 800 mg PO 0800 Home Medications: HYDROcodone/Acet 5/325 mg [[place] 5-325 mg] 1 tab PO TID PRN 08/27/15 [History] Tizanidine HCl 2 mg PO QAM 08/27/15 [History] ALPRAZolam [Xanax 0.25 MG Tablet] 0.25 mg PO BID 04/22/17 [History] Labetalol HCl 200 mg PO QID 04/28/18 [History] Tizanidine HCl 4 mg PO QPM 04/28/18 [History] Aspirin Enteric Coated [Aspirin EC] 81 mg PO DAILY 11/13/18 [History] Sevelamer [Renvela] 1,600 mg PO 1200,1700 11/13/18 [History] Verapamil HCl [Verapamil ER] 120 mg PO DAILY 11/13/18 [History] Famotidine [Pepcid] 40 mg PO DAILY 11/22/18 [History] PARoxetine HCl [Paroxetine HCl] 40 mg PO DAILY 01/27/19 [History] Renal Vitamin [Renal Caps Softgel] 1 mg PO DAILY #0 01/27/19 [History] Furosemide [Lasix] 40 mg PO SUMOWEFR 02/04/19 [History] Cetirizine HCl [Zyrtec] 10 mg PO DAILY 02/11/19 [History] Ferrous Sulfate [Iron] 325 mg PO DAILY 02/11/19 [History] Sevelamer [Renvela] 800 mg PO 0800 02/12/19 [History] Vancomycin Oral Soln [Firvanq] 125 mg PO QID #40 udc 02/26/19 [Rx] Allergies/Adverse Reactions: Allergy/AdvReac Type Severity Reaction Status Date / Time blue dye Allergy Hives Verified 02/23/19 14:19 latex Allergy Itching Verified 02/23/19 14:19 Nickel Allergy Hives Verified 02/23/19 14:19 shrimp Allergy Hives Verified 02/23/19 14:19 Sulfa (Sulfonamide Allergy Hives Verified 02/23/19 14:19 Antibiotics) Date of admission: 02/25/19 14:02 Primary care physician: Gareth Lee MD Consults: 02/22/19 00:12 Consult to Nephrology [CONS] Stat Consulting Provider: Elsa Miranda/SABRA/MIRIAM/JOSSELIN Reason for Consult: TTS HD Call Completed: No 02/22/19 00:13 Consult to Occupational Therapy [CONS] Routine Comment: Evaluate, develop and implement POC Reason for Consult: diffuse weakness Does patient have active BEDREST order?: No Is patient medically & hemodynamically stable?: Yes Patient assessed for mobility or mobilized this visit?: No Consult to Physical Therapy [CONS] Routine Comment: Evaluate, develop and implement POC Reason for Consult: diffuse weakness Does patient have active BEDREST order?: No Is patient medically & hemodynamically stable?: Yes Patient assessed for mobility or mobilized this visit?: No 02/22/19 00:14 Consult to Public School Teacher [CONS] Stat Reason for SW Consult: weakness, may need placement 02/22/19 07:30 Consult to Dialysis [CONS] ONCE 02/22/19 09:26 Consult to Nurse Navigator [CONS] Routine Comment: HD 02/23/19 11:42 Consult to Cardiology [CONS] Routine Comment: Consulting Provider: Felix Miranda Reason for Consult: Pacemaker interrogation Call Completed: No 02/24/19 07:30 Consult to Dialysis [CONS] ONCE 02/26/19 08:45 Consult to Dialysis [CONS] ONCE Discharging clinician: Gilbert Villalobos Anticipated date of discharge: 02/26/19 - Constitutional Vitals: Temp Pulse Resp BP Pulse Ox 97.9 F 76 18 111/73 98 02/26/19 13:03 02/26/19 07:28 02/26/19 13:03 02/26/19 13:03 02/26/19 07:28 Exam: General: Patient is alert, no acute distress, oriented x 3 Eyes: Left strabismus Respiratory: Good respiratory effort. Normal breath sounds. No wheezing or crackles. Cardiovascular: Regular rate and rhythm. s1 and s2 normal No clicks, rubs, gallops, or murmurs. No pedal edema Abdomen: Abdomen is soft, nontender. Hyperactive bowel sounds Musculoskeletal: Spontaneously moving all extremities Skin: warm, dry, intact. Neuro: Alert oriented x 3 normal cranial nerves, no focal deficits - Patient Status Disposition: Home Health Service Condition: Good Functional capacity at discharge: uses cane/walker Overall status at discharge: patient is progressing back to baseline - Discharge Instructions Instructions: Anemia (GEN), Atrial Fibrillation (DC), Chronic Hypertension (DC) Follow Up With: Gareth Lee MD [Primary Care Provider] - 02/25/19 9:15 am (Please follow up as schedule...) - Diet and Activity Activity: as per physical therapy
== END 2019-02-26 17:30 | disposition home health service (06) | DRG 689 ==
LOC: 2ANU 18:20 → EMEROOARM 18:20 → SUATTDRO 02-22 00:16 → 2ANU 02-22 01:09
PROVIDERS: ADMIT Internal Medicine; ATTEND Internal Medicine

== ENCOUNTER 2019-03-03 22:16 | Inpatient (IN) ==
--- NOTE | 2019-03-03 22:28 | Emergency Department Note ---
Disposition Clinical Impression: Visual hallucination Fall Qualifiers: Encounter type: initial encounter Qualified Code(s): W19.XXXA - Unspecified fall, initial encounter Altered mental status Qualifiers: Altered mental status type: disorientation Qualified Code(s): R41.0 - Disorientation, unspecified Disposition: Admitted As Inpatient Condition: Fair Referrals: Gareth Lee MD [Primary Care Provider] - Forms: ED Satisfaction Letter Time of Disposition: 01:03 General Adult HPI - General Chief complaint: ED Fall Stated complaint: fall/weakness Time Seen by Provider: 03/03/19 22:21 Source: patient, EMS Limitations: physical limitation, age Nursing Notes Reviewed: Yes Vital Signs Reviewed: Yes - History of Present Illness HPI Narrative: 68-year-old female with history of end-stage renal disease on dialysis T/T/S, A. fib not on anticoagulation, cerebral aneurysm and who presents the emergency d epartment via EMS status post fall and being found down by her daughter. The patient has no knowledge of why she fell. She was found down at her assisted living facility. She states she was unable to obtain dialysis today as she "did not know where she was." She states she was crawling around on the floor as there are snakes in her room. Her daughter found her several hours after she was reportedly down with a wide array of objects throughout the room. She was also complaining of distortion of her cats face. She states she now has pain in her left rib cage. No lower back but she denies any headache, visual changes, nausea, vomiting, abdominal pain, dysuria. Of note, patient was recently discharged on 02/26/19 secondary to C. difficile and generalized weakness. It was recommended that she was followed up in a half-way facility but the patient declined and has been following up at assisted living facility. Pain Scale: 6 - Related Data Home Medications Medication Instructions Recorded Confirmed HYDROcodone/Acet 5/325 mg [[place] 1 tab PO TID PRN 08/27/15 02/23/19 5-325 mg] Tizanidine HCl 2 mg PO QAM 08/27/15 02/23/19 ALPRAZolam [Xanax 0.25 MG Tablet] 0.25 mg PO BID 04/22/17 02/23/19 Labetalol HCl 200 mg PO QID 04/28/18 02/23/19 Tizanidine HCl 4 mg PO QPM 04/28/18 02/23/19 Aspirin Enteric Coated [Aspirin EC] 81 mg PO DAILY 11/13/18 02/23/19 Sevelamer [Renvela] 1,600 mg PO 1200,1700 11/13/18 02/23/19 Verapamil HCl [Verapamil ER] 120 mg PO DAILY 11/13/18 02/23/19 Famotidine [Pepcid] 40 mg PO DAILY 11/22/18 02/23/19 PARoxetine HCl [Paroxetine HCl] 40 mg PO DAILY 01/27/19 02/23/19 Renal Vitamin [Renal Caps Softgel] 1 mg PO DAILY #0 01/27/19 02/23/19 Furosemide [Lasix] 40 mg PO SUMOWEFR 02/04/19 02/23/19 Cetirizine HCl [Zyrtec] 10 mg PO DAILY 02/11/19 02/23/19 Ferrous Sulfate [Iron] 325 mg PO DAILY 02/11/19 02/23/19 Sevelamer [Renvela] 800 mg PO 0800 02/12/19 02/23/19 Previous Rx's Medication Instructions Recorded Lactobacillus Acidophilus 1 each PO BID #60 capsule 02/26/19 [Acidophilus Lactobacilli] Vancomycin Oral Soln [Firvanq] 125 mg PO QID #40 udc 02/26/19 Allergies Allergy/AdvReac Type Severity Reaction Status Date / Time blue dye Allergy Hives Verified 02/23/19 14:19 latex Allergy Itching Verified 02/23/19 14:19 Nickel Allergy Hives Verified 02/23/19 14:19 shrimp Allergy Hives Verified 02/23/19 14:19 Sulfa (Sulfonamide Allergy Hives Verified 02/23/19 14:19 Antibiotics) Review of Systems: ROS per history of present illness, all other systems reviewed and negative or normal. All systems ED: reviewed and negative except as stated. Review of Systems: As Per HPI Past Medical History - Past Medical History Medical history: Reports: atrial fibrillation, dialysis, GI bleed, hypertension, migraine, renal disease, other Surgical history: Reports: appendectomy, cholecystectomy, pacemaker/AICD, other, vascular surgery, pacemaker Psychiatric history: Reports: anxiety, depression MOTHERCRAFT NURSE history: Reports: no MOTHERCRAFT NURSE history - Social History Smoking Status: Never smoker Smokeless Tobacco Status: No Alcohol use: Reports: none Drug use: Reports: none Physical Exam General: Conversant. No apparent distress. Follow commands. Appears stated age. Neck: No JVD. Trachea midline. Neck supple. Patient notes no midline cervical spine tenderness. Eyes: PERRL. No scleral icterus. Patient is chronic left-sided ptosis. HENT: Normocephalic. Moist mucus membranes. Patient has right forehead bruising without palpable stepoff or crepitus. Cardiovascular: Regular rate and rhythm. Normal S1 and S2. No murmurs appreciated. Normal capillary refill. Extremities well perfused with 2+ distal pulses bilaterally. No edema. Pulmonary: Normal and equal breath sounds bilaterally, anteriorly and posteriorly. No wheezes, rales, or rhonchi. Not in respiratory distress. Speaks in full sentences. Abdomen: Soft, mild distension, and tontender. No bruits or masses. No guarding. Neuro:Alert and oriented to person, place, and time. CN II-XII tested and grossly intact. No hemineglect. Speech is fluid and without slurring. Sensory: Sensation intact to light touch in all extremities. Motor: Normal tone and bulk. No pronator drift. 5/5 strength in LUE 5/5 strength in RUE 5/5 strength in LLE 5/5 strength in RLE Coordination: Finger to nose and heel to trejo testing intact bilaterally. Reflexes: Brachioradialis, biceps, and patellar reflexes 2+ and symmetric bilaterally. Skin: No rashes noted on visualized skin. Musculoskeletal: No bony abnormalities visualized. Moves all extremities. Patien t complains of midline thoracic and lumbar spine. No hematoma. Psych: Normal mood. Pleasant. Makes appropriate eye contact. - General Limitations: physical limitation, age General appearance: alert, in no apparent distress Course Vital Signs Temperature 98.6 F 03/03/19 22:20 Pulse Rate 98 03/03/19 22:20 Respiratory Rate 18 03/03/19 22:20 Blood Pressure 181/90 03/03/19 22:20 O2 Sat by Pulse Oximetry 99 03/03/19 22:20 Temperature 98.6 F 03/03/19 22:20 Pulse Rate 94 03/04/19 01:07 Respiratory Rate 21 03/04/19 01:07 Blood Pressure 165/78 03/04/19 01:07 O2 Sat by Pulse Oximetry 98 03/04/19 01:07 Oxygen Delivery Oxygen Delivery Nasal Cannula Medical Decision Making - MDM Narrative Medical decision making narrative: 68-year-old female with history of end-stage renal disease on dialysis, cerebral aneurysm who presents emergency department with complaints of altered mentation. The patient was found down by neighbors at her assisted living facility and had been down for quite some time. She has complaints of visual hallucinations of snakes but is alert and oriented 3 here in the emergency department and denies current hallucinations but she does not seem to understand the significance of her previous hallucinations and significant period of time which she spent on the floor for an unknown reason. She is complaint of left-sided rib pain and does have a right-sided forehead contusion without palpable step-off. Otherwise fast exam performed and interpreted by myself shows no evidence of free intraperitoneal fluid. Given her altered mentation, missed dialysis session today did obtain laboratory evaluation as well as CT imaging to evaluate for brandy dence of trauma. Patient has leukocytosis to 12.9, chronic-appearing anemia. Otherwise BUN elevated at 31, creatinine 4.29. No evidence of hyperkalemia. CK elevated 675, lactate 0.6. Ammonia 21. Urinalysis shows no evidence of urinary tract infection. CT imaging shows no evidence of acute intracranial pathology. CT cervical, thoracic, lumbar spine show no evidence of acute fractures. CT c hest does show concerning infiltrate for pneumonia versus atelectasis. Given recent hospitalization for multidrug resistant organism will place patient on ertapenem and vancomycin according to previous sensitivities. Discussed with family that she does not have proper care at her assisted living facility and they do not have the resources to take care of her at home and they agree with plan for admission for possible placement. Patient will likely require half-way facility placement and daughter seems to think patient will be more willing to follow through with this. Discussed case with on-call hospitalist Dr. Short who agrees with plan for admission and accepts the patient to the inpatient service. Patient agrees with and understands course of treatment plan including plan for admission. All questions answered. - Medical Records Medical records reviewed: Yes I reviewed the patient's medical records. - Lab Data Lab results reviewed: Yes I reviewed the patient's lab results. Result diagrams: 03/03/19 22:29 03/03/19 22:55 Lab Results 03/03/19 03/03/19 03/03/19 Range/Units 00:00 22:29 22:30 WBC 12.9 H D (4.3-11.1) K/mcL RBC 3.36 L (3.82-4.97) M/mcL Hgb 10.2 L D (11.5-15.4) g/dL Hct 32.2 L (35.3-44.9) % MCV 95.8 (83.0-100.0) fL MCH 30.4 (28.0-33.3) pg MCHC 31.7 (31.6-35.5) g/dL RDW 14.1 (11.5-14.5) % Plt Count 215 (140-400) K/mcL MPV 10.9 (9.4-12.4) fL Immature Gran % 0.7 (0-4) % Seg Neutrophils % 88.8 % Lymphocytes % 4.3 % Monocytes % 5.7 % Eosinophils % 0.0 % Basophils % 0.5 % Neutrophils # 11.5 H (1.6-8.9) K/mcL Lymphocytes # 0.6 (0.6-4.6) K/mcL Monocytes # 0.7 (0.0-1.3) K/mcL Eosinophils # 0.0 (0.0-0.6) K/mcL Basophils # 0.1 (0.0-0.2) K/mcL Sodium Cancelled Potassium Cancelled Chloride Cancelled Carbon Dioxide Cancelled BUN Cancelled Creatinine Cancelled Est GFR ( Amer) Cancelled Est GFR (Non-Af Amer) Cancelled BUN/Creatinine Ratio Cancelled Glucose Cancelled Calculated Osmolality Cancelled Lactic Acid (0.5-2.2) mmol/L Calcium Cancelled Magnesium Cancelled Total Bilirubin Cancelled Direct Bilirubin Cancelled Indirect Bilirubin Cancelled AST Cancelled ALT Cancelled Alkaline Phosphatase Cancelled Ammonia (16-53) mcmol/L Creatine Kinase Cancelled Troponin I 0.07 H* (< 0.04) ng/mL Serum Total Protein Cancelled Albumin Cancelled Globulin Cancelled Albumin/Globulin Ratio Cancelled Urine Color Yellow (Yellow) Urine Clarity Clear (Clear) Urine pH 6.5 (5.0-8.0) pH Units Ur Specific [place] 1.013 (1.010-1.025) Urine Protein 100 H (Neg-Trace) mg/dL Urine Glucose (UA) Normal (Normal) mg/dL Urine Ketones Trace H (Negative) mg/dL Urine Blood Small H (Negative) Urine Nitrite Negative (Negative) Urine Bilirubin Negative (Negative) Urine Urobilinogen Normal (Normal) mg/dL Ur Leukocyte Esterase Negative (Negative) Urine Microscopic RBC 0-3 (0-3) per hpf Urine Microscopic WBC 0-3 (0-3) per hpf Ur Squamous Epith Cells Many H (None-Few) per lpf Urine Bacteria None Seen (None-Few) per hpf Hyaline Casts None Seen (None-Few) per lpf Ur Culture Indicated? NO (NO) Specimen Rejected 03/03/19 03/03/19 03/04/19 Range/Units 22:47 22:55 00:19 WBC (4.3-11.1) K/mcL RBC (3.82-4.97) M/mcL Hgb (11.5-15.4) g/dL Hct (35.3-44.9) % MCV (83.0-100.0) fL MCH (28.0-33.3) pg MCHC (31.6-35.5) g/dL RDW (11.5-14.5) % Plt Count (140-400) K/mcL MPV (9.4-12.4) fL Immature Gran % (0-4) % Seg Neutrophils % % Lymphocytes % % Monocytes % % Eosinophils % % Basophils % % Neutrophils # (1.6-8.9) K/mcL Lymphocytes # (0.6-4.6) K/mcL Monocytes # (0.0-1.3) K/mcL Eosinophils # (0.0-0.6) K/mcL Basophils # (0.0-0.2) K/mcL Sodium 138 Potassium 4.1 Chloride 102 Carbon Dioxide 18 L BUN 31 H Creatinine 4.29 H Est GFR ( Amer) 12 L Est GFR (Non-Af Amer) 10 L BUN/Creatinine Ratio 7 Glucose 82 Calculated Osmolality 292 Lactic Acid (0.5-2.2) mmol/L Calcium 9.5 Magnesium 2.1 Total Bilirubin 1.1 H Direct Bilirubin 0.3 H Indirect Bilirubin 0.8 AST 47 H ALT 20 Alkaline Phosphatase 133 H Ammonia 21 (16-53) mcmol/L Creatine Kinase 675 H Troponin I (< 0.04) ng/mL Serum Total Protein 6.1 L Albumin 3.8 Globulin 2.3 L Albumin/Globulin Ratio 1.7 Urine Color (Yellow) Urine Clarity (Clear) Urine pH (5.0-8.0) pH Units Ur Specific [place] (1.010-1.025) Urine Protein (Neg-Trace) mg/dL Urine Glucose (UA) (Normal) mg/dL Urine Ketones (Negative) mg/dL Urine Blood (Negative) Urine Nitrite (Negative) Urine Bilirubin (Negative) Urine Urobilinogen (Normal) mg/dL Ur Leukocyte Esterase (Negative) Urine Microscopic RBC (0-3) per hpf Urine Microscopic WBC (0-3) per hpf Ur Squamous Epith Cells (None-Few) per lpf Urine Bacteria (None-Few) per hpf Hyaline Casts (None-Few) per lpf Ur Culture Indicated? (NO) Specimen Rejected Accident 03/04/19 Range/Units 00:19 WBC (4.3-11.1) K/mcL RBC (3.82-4.97) M/mcL Hgb (11.5-15.4) g/dL Hct (35.3-44.9) % MCV (83.0-100.0) fL MCH (28.0-33.3) pg MCHC (31.6-35.5) g/dL RDW (11.5-14.5) % Plt Count (140-400) K/mcL MPV (9.4-12.4) fL Immature Gran % (0-4) % Seg Neutrophils % % Lymphocytes % % Monocytes % % Eosinophils % % Basophils % % Neutrophils # (1.6-8.9) K/mcL Lymphocytes # (0.6-4.6) K/mcL Monocytes # (0.0-1.3) K/mcL Eosinophils # (0.0-0.6) K/mcL Basophils # (0.0-0.2) K/mcL Sodium Potassium Chloride Carbon Dioxide BUN Creatinine Est GFR ( Amer) Est GFR (Non-Af Amer) BUN/Creatinine Ratio Glucose Calculated Osmolality Lactic Acid 0.6 (0.5-2.2) mmol/L Calcium Magnesium Total Bilirubin Direct Bilirubin Indirect Bilirubin AST ALT Alkaline Phosphatase Ammonia (16-53) mcmol/L Creatine Kinase Troponin I (< 0.04) ng/mL Serum Total Protein Albumin Globulin Albumin/Globulin Ratio Urine Color (Yellow) Urine Clarity (Clear) Urine pH (5.0-8.0) pH Units Ur Specific [place] (1.010-1.025) Urine Protein (Neg-Trace) mg/dL Urine Glucose (UA) (Normal) mg/dL Urine Ketones (Negative) mg/dL Urine Blood (Negative) Urine Nitrite (Negative) Urine Bilirubin (Negative) Urine Urobilinogen (Normal) mg/dL Ur Leukocyte Esterase (Negative) Urine Microscopic RBC (0-3) per hpf Urine Microscopic WBC (0-3) per hpf Ur Squamous Epith Cells (None-Few) per lpf Urine Bacteria (None-Few) per hpf Hyaline Casts (None-Few) per lpf Ur Culture Indicated? (NO) Specimen Rejected - Radiology Data Radiology results reviewed: Yes I reviewed the patient's radiology results. Chest X-Ray 03/03/19 22:29 IMPRESSION: Stable portable study. D/ / Michelle Benjamin Cha, MD / Michelle Benjamin Cha, MD Interpreting Provider: Michelle Benjamin Cha, MD Head CT 03/04/19 22:48 IMPRESSION: No cervical spine fracture. No acute intracranial pathology. Bilateral effusions and airspace disease suspicious of pneumonia D/ / Juan Rodriguez / Juan Rodriguez Interpreting Provider: Juan Rodriguez Abdomen/Pelvis CT 03/04/19 22:49 IMPRESSION: No acute traumatic injury to the chest, abdomen, or pelvis. No thoracolumbar spine fracture. Bilateral lower lobe airspace disease related to effusions possibly a combination of atelectasis and pneumonia. Ground-glass opacities in the upper lobes bilaterally most likely infectious or inflammatory in nature. Attention at follow-up is advised. Generalized mesenteric edema could represent sequela of volume overload. D/ / Juan Rodriguez / Juan Rodriguez Interpreting Provider: Juan Rodriguez Cervical Spine CT 03/04/19 22:49 IMPRESSION: No cervical spine fracture. No acute intracranial pathology. Bilateral effusions and airspace disease suspicious of pneumonia D/ / Juan Rodriguez / Juan Rodriguez Interpreting Provider: Juan Rodriguez Chest CT 03/04/19 22:49 IMPRESSION: No acute traumatic injury to the chest, abdomen, or pelvis. No thoracolumbar spine fracture. Bilateral lower lobe airspace disease related to effusions possibly a combination of atelectasis and pneumonia. Ground-glass opacities in the upper lobes bilaterally most likely infectious or inflammatory in nature. Attention at follow-up is advised. Generalized mesenteric edema could represent sequela of volume overload. D/ / Juan Rodriguez / Juan Rodriguez Interpreting Provider: Juan Rodriguez Lumbar Spine CT 03/04/19 22:49 IMPRESSION: No acute traumatic injury to the chest, abdomen, or pelvis. No thoracolumbar spine fracture. Bilateral lower lobe airspace disease related to effusions possibly a combination of atelectasis and pneumonia. Ground-glass opacities in the upper lobes bilaterally most likely infectious or inflammatory in nature. Attention at follow-up is advised. Generalized mesenteric edema could represent sequela of volume overload. D/ / Juan Rodriguez / Juan Rodriguez Interpreting Provider: Juan Rodriguez Thoracic Spine CT 03/04/19 22:49 IMPRESSION: No acute traumatic injury to the chest, abdomen, or pelvis. No thoracolumbar spine fracture. Bilateral lower lobe airspace disease related to effusions possibly a combination of atelectasis and pneumonia. Ground-glass opacities in the upper lobes bilaterally most likely infectious or inflammatory in nature. Attention at follow-up is advised. Generalized mesenteric edema could represent sequela of volume overload. D/ / Juan Rodriguez / Juan Rodriguez Interpreting Provider: Juan Rodriguez - EKG Data EKG #1 EKG attestation: Yes I reviewed and interpreted this EKG. EKG results narrative: Atrial fibrillation rate of 98. Normal axis. No acute ischemic changes. T- wave inversions in the 4 through 6. When compared with prior from 02/21/19 and no significant changes.
[2019-03-03 23:12] LABS: Basophils # 0.1 K/mcL (0.0-0.2); Basophils % 0.5 %; Hematocrit 32.2 % (35.3-44.9); Immature Granulocytes % 0.7 % (0-4); Lymphocytes # 0.6 K/mcL (0.6-4.6); Lymphocytes % 4.3 %; Mean Corpuscular HGB Conc 31.7 g/dL (31.6-35.5); Mean Corpuscular Hemoglobin 30.4 pg (28.0-33.3); Mean Corpuscular Volume 95.8 fL (83.0-100.0); Mean Platelet Volume 10.9 fL (9.4-12.4); Monocytes # 0.7 K/mcL (0.0-1.3); Monocytes % 5.7 %; Neutrophils # 11.5 K/mcL (1.6-8.9); Platelet Count 215 K/mcL (140-400); Red Blood Count 3.36 M/mcL (3.82-4.97); Red Cell Distribution Width 14.1 % (11.5-14.5); Segmented Neutrophils % 88.8 %
[2019-03-03 23:14] LABS: Hemoglobin 10.2 g/dL (11.5-15.4); White Blood Count 12.9 K/mcL (4.3-11.1)
[2019-03-04 00:20] LABS: Bilirubin,Urine Negative (Negative); Blood,Urine Small (Negative); Clarity,Urine Clear (Clear); Color,Urine Yellow (Yellow); Glucose,Urine (UA) Normal (Normal); Ketones,Urine Trace mg/dL (Negative); Leukocyte Esterase,Urine Negative (Negative); Nitrite,Urine Negative (Negative); PH,Urine 6.5 pH Units (5.0-8.0); Protein,Urine 100 mg/dL (Neg-Trace); Specific Gravity,Urine 1.013 (1.010-1.025); Urobilinogen,Urine Normal (Normal)
[2019-03-04 00:22] LABS: Bacteria,Urine None Seen per hpf (None-Few); Hyaline Casts,Urine None Seen per lpf (None-Few); RBC,Urine 0-3 per hpf (0-3); Squamous Epithelial Cell,Urine Many per lpf (None-Few); WBC,Urine 0-3 per hpf (0-3)
[2019-03-04 00:46] LABS: Albumin 3.8 g/dL (3.5-5.7); Albumin/Globulin Ratio 1.7 (1.1-2.2); Bilirubin,Direct 0.3 mg/dL (0.0-0.2); Bilirubin,Indirect 0.8 mg/dL (0.0-1.2); Bilirubin,Total 1.1 mg/dL (0.3-1.0); Calcium 9.5 mg/dL (8.6-10.3); Globulin 2.3 g/dL (2.4-3.5); Magnesium 2.1 mg/dL (1.6-2.6); Potassium 4.1 mEq/L (3.5-5.1); Total Protein 6.1 g/dL (6.4-8.9)
--- NOTE | 2019-03-04 00:49 | Emergency Department Note ---
Disposition Clinical Impression: Visual hallucination Fall Qualifiers: Encounter type: initial encounter Qualified Code(s): W19.XXXA - Unspecified fall, initial encounter Altered mental status Qualifiers: Altered mental status type: unspecified Qualified Code(s): R41.82 - Altered mental status, unspecified Disposition: Still a Patient Condition: Good Forms: ED Satisfaction Letter Time of Disposition: 00:50 General Adult HPI - General Chief complaint: ED Fall Stated complaint: fall/weakness Time Seen by Provider: 03/03/19 22:21 Source: patient, EMS Limitations: physical limitation, age - History of Present Illness Pain Scale: 6 - Related Data Home Medications Medication Instructions Recorded Confirmed HYDROcodone/Acet 5/325 mg [[place] 1 tab PO TID PRN 08/27/15 02/23/19 5-325 mg] Tizanidine HCl 2 mg PO QAM 08/27/15 02/23/19 ALPRAZolam [Xanax 0.25 MG Tablet] 0.25 mg PO BID 04/22/17 02/23/19 Labetalol HCl 200 mg PO QID 04/28/18 02/23/19 Tizanidine HCl 4 mg PO QPM 04/28/18 02/23/19 Aspirin Enteric Coated [Aspirin EC] 81 mg PO DAILY 11/13/18 02/23/19 Sevelamer [Renvela] 1,600 mg PO 1200,1700 11/13/18 02/23/19 Verapamil HCl [Verapamil ER] 120 mg PO DAILY 11/13/18 02/23/19 Famotidine [Pepcid] 40 mg PO DAILY 11/22/18 02/23/19 PARoxetine HCl [Paroxetine HCl] 40 mg PO DAILY 01/27/19 02/23/19 Renal Vitamin [Renal Caps Softgel] 1 mg PO DAILY #0 01/27/19 02/23/19 Furosemide [Lasix] 40 mg PO SUMOWEFR 02/04/19 02/23/19 Cetirizine HCl [Zyrtec] 10 mg PO DAILY 02/11/19 02/23/19 Ferrous Sulfate [Iron] 325 mg PO DAILY 02/11/19 02/23/19 Sevelamer [Renvela] 800 mg PO 0800 02/12/19 02/23/19 Previous Rx's Medication Instructions Recorded Lactobacillus Acidophilus 1 each PO BID #60 capsule 02/26/19 [Acidophilus Lactobacilli] Vancomycin Oral Soln [Firvanq] 125 mg PO QID #40 udc 02/26/19 Allergies Allergy/AdvReac Type Severity Reaction Status Date / Time blue dye Allergy Hives Verified 02/23/19 14:19 latex Allergy Itching Verified 02/23/19 14:19 Nickel Allergy Hives Verified 02/23/19 14:19 shrimp Allergy Hives Verified 02/23/19 14:19 Sulfa (Sulfonamide Allergy Hives Verified 02/23/19 14:19 Antibiotics) Past Medical History - Past Medical History Medical history: Reports: atrial fibrillation, dialysis, GI bleed, hypertension, migraine, renal disease, other Surgical history: Reports: appendectomy, cholecystectomy, pacemaker/AICD, other, vascular surgery, pacemaker Psychiatric history: Reports: anxiety, depression [employer] history: Reports: no [employer] history - Social History Smoking Status: Never smoker Smokeless Tobacco Status: No Alcohol use: Reports: none Drug use: Reports: none Physical Exam - General Limitations: physical limitation, age General appearance: alert, in no apparent distress Course Vital Signs Temperature 98.6 F 03/03/19 22:20 Pulse Rate 98 03/03/19 22:20 Respiratory Rate 18 03/03/19 22:20 Blood Pressure 181/90 03/03/19 22:20 O2 Sat by Pulse Oximetry 99 03/03/19 22:20 Temperature 98.6 F 03/03/19 22:20 Pulse Rate 98 03/03/19 22:20 Respiratory Rate 18 03/03/19 22:20 Blood Pressure 181/90 03/03/19 22:20 O2 Sat by Pulse Oximetry 99 03/03/19 22:20 Oxygen Delivery Oxygen Delivery Room Air Medical Decision Making - Lab Data Result diagrams: 03/03/19 22:29 03/03/19 22:55 Lab Results 03/03/19 03/03/19 03/03/19 Range/Units 00:00 22:29 22:30 WBC 12.9 H D (4.3-11.1) K/mcL RBC 3.36 L (3.82-4.97) M/mcL Hgb 10.2 L D (11.5-15.4) g/dL Hct 32.2 L (35.3-44.9) % MCV 95.8 (83.0-100.0) fL MCH 30.4 (28.0-33.3) pg MCHC 31.7 (31.6-35.5) g/dL RDW 14.1 (11.5-14.5) % Plt Count 215 (140-400) K/mcL MPV 10.9 (9.4-12.4) fL Immature Gran % 0.7 (0-4) % Seg Neutrophils % 88.8 % Lymphocytes % 4.3 % Monocytes % 5.7 % Eosinophils % 0.0 % Basophils % 0.5 % Neutrophils # 11.5 H (1.6-8.9) K/mcL Lymphocytes # 0.6 (0.6-4.6) K/mcL Monocytes # 0.7 (0.0-1.3) K/mcL Eosinophils # 0.0 (0.0-0.6) K/mcL Basophils # 0.1 (0.0-0.2) K/mcL Sodium Cancelled Potassium Cancelled Chloride Cancelled Carbon Dioxide Cancelled BUN Cancelled Creatinine Cancelled Est GFR ( Amer) Cancelled Est GFR (Non-Af Amer) Cancelled BUN/Creatinine Ratio Cancelled Glucose Cancelled Calculated Osmolality Cancelled Lactic Acid (0.5-2.2) mmol/L Calcium Cancelled Magnesium Cancelled Total Bilirubin Cancelled Direct Bilirubin Cancelled Indirect Bilirubin Cancelled AST Cancelled ALT Cancelled Alkaline Phosphatase Cancelled Ammonia (16-53) mcmol/L Creatine Kinase Cancelled Troponin I 0.07 H* (< 0.04) ng/mL Serum Total Protein Cancelled Albumin Cancelled Globulin Cancelled Albumin/Globulin Ratio Cancelled Urine Color Yellow (Yellow) Urine Clarity Clear (Clear) Urine pH 6.5 (5.0-8.0) pH Units Ur Specific [place] 1.013 (1.010-1.025) Urine Protein 100 H (Neg-Trace) mg/dL Urine Glucose (UA) Normal (Normal) mg/dL Urine Ketones Trace H (Negative) mg/dL Urine Blood Small H (Negative) Urine Nitrite Negative (Negative) Urine Bilirubin Negative (Negative) Urine Urobilinogen Normal (Normal) mg/dL Ur Leukocyte Esterase Negative (Negative) Urine Microscopic RBC 0-3 (0-3) per hpf Urine Microscopic WBC 0-3 (0-3) per hpf Ur Squamous Epith Cells Many H (None-Few) per lpf Urine Bacteria None Seen (None-Few) per hpf Hyaline Casts None Seen (None-Few) per lpf Ur Culture Indicated? NO (NO) Specimen Rejected 03/03/19 03/03/19 03/04/19 Range/Units 22:47 22:55 00:19 WBC (4.3-11.1) K/mcL RBC (3.82-4.97) M/mcL Hgb (11.5-15.4) g/dL Hct (35.3-44.9) % MCV (83.0-100.0) fL MCH (28.0-33.3) pg MCHC (31.6-35.5) g/dL RDW (11.5-14.5) % Plt Count (140-400) K/mcL MPV (9.4-12.4) fL Immature Gran % (0-4) % Seg Neutrophils % % Lymphocytes % % Monocytes % % Eosinophils % % Basophils % % Neutrophils # (1.6-8.9) K/mcL Lymphocytes # (0.6-4.6) K/mcL Monocytes # (0.0-1.3) K/mcL Eosinophils # (0.0-0.6) K/mcL Basophils # (0.0-0.2) K/mcL Sodium 138 Potassium 4.1 Chloride 102 Carbon Dioxide 18 L BUN 31 H Creatinine 4.29 H Est GFR ( Amer) 12 L Est GFR (Non-Af Amer) 10 L BUN/Creatinine Ratio 7 Glucose 82 Calculated Osmolality 292 Lactic Acid (0.5-2.2) mmol/L Calcium 9.5 Magnesium 2.1 Total Bilirubin 1.1 H Direct Bilirubin 0.3 H Indirect Bilirubin 0.8 AST 47 H ALT 20 Alkaline Phosphatase 133 H Ammonia 21 (16-53) mcmol/L Creatine Kinase 675 H Troponin I (< 0.04) ng/mL Serum Total Protein 6.1 L Albumin 3.8 Globulin 2.3 L Albumin/Globulin Ratio 1.7 Urine Color (Yellow) Urine Clarity (Clear) Urine pH (5.0-8.0) pH Units Ur Specific [place] (1.010-1.025) Urine Protein (Neg-Trace) mg/dL Urine Glucose (UA) (Normal) mg/dL Urine Ketones (Negative) mg/dL Urine Blood (Negative) Urine Nitrite (Negative) Urine Bilirubin (Negative) Urine Urobilinogen (Normal) mg/dL Ur Leukocyte Esterase (Negative) Urine Microscopic RBC (0-3) per hpf Urine Microscopic WBC (0-3) per hpf Ur Squamous Epith Cells (None-Few) per lpf Urine Bacteria (None-Few) per hpf Hyaline Casts (None-Few) per lpf Ur Culture Indicated? (NO) Specimen Rejected Accident 03/04/19 Range/Units 00:19 WBC (4.3-11.1) K/mcL RBC (3.82-4.97) M/mcL Hgb (11.5-15.4) g/dL Hct (35.3-44.9) % MCV (83.0-100.0) fL MCH (28.0-33.3) pg MCHC (31.6-35.5) g/dL RDW (11.5-14.5) % Plt Count (140-400) K/mcL MPV (9.4-12.4) fL Immature Gran % (0-4) % Seg Neutrophils % % Lymphocytes % % Monocytes % % Eosinophils % % Basophils % % Neutrophils # (1.6-8.9) K/mcL Lymphocytes # (0.6-4.6) K/mcL Monocytes # (0.0-1.3) K/mcL Eosinophils # (0.0-0.6) K/mcL Basophils # (0.0-0.2) K/mcL Sodium Potassium Chloride Carbon Dioxide BUN Creatinine Est GFR ( Amer) Est GFR (Non-Af Amer) BUN/Creatinine Ratio Glucose Calculated Osmolality Lactic Acid 0.6 (0.5-2.2) mmol/L Calcium Magnesium Total Bilirubin Direct Bilirubin Indirect Bilirubin AST ALT Alkaline Phosphatase Ammonia (16-53) mcmol/L Creatine Kinase Troponin I (< 0.04) ng/mL Serum Total Protein Albumin Globulin Albumin/Globulin Ratio Urine Color (Yellow) Urine Clarity (Clear) Urine pH (5.0-8.0) pH Units Ur Specific [place] (1.010-1.025) Urine Protein (Neg-Trace) mg/dL Urine Glucose (UA) (Normal) mg/dL Urine Ketones (Negative) mg/dL Urine Blood (Negative) Urine Nitrite (Negative) Urine Bilirubin (Negative) Urine Urobilinogen (Normal) mg/dL Ur Leukocyte Esterase (Negative) Urine Microscopic RBC (0-3) per hpf Urine Microscopic WBC (0-3) per hpf Ur Squamous Epith Cells (None-Few) per lpf Urine Bacteria (None-Few) per hpf Hyaline Casts (None-Few) per lpf Ur Culture Indicated? (NO) Specimen Rejected Attestation Statement - Attestation Attestation: I reviewed the residents documentation and agree with the residents assessment and plan of care. I have personally had face to face time with the patient. (Brief History, Brief Exam, and MDM) I personally supervised and was present for the lopez/critical portions of the following procedures completed by the resident: EKG 68 year old female presents to the eD s/p fall seoncdayr to weakness and states that she is otherwise seeing snakes on her floor and was most recently discharged from the hospital for C.diff. labs and CT scans are pending. I will sign liya out to Dr. Dietz/Debra for followup on CT scans and labs. Shei s dialysis paitnet and is unsure if she missed a session. PLan is to admit patinet for AMS and possible geriatric pysch component to the matter
[2019-03-04] MEDS ORDERED: Piperacillin/Tazobactam 3.375 GM in 0.9 % Sodium Chloride Mini Bag 100 ML IVPB ONE (01:55)
[2019-03-04] MEDS ORDERED: Ertapenem 1,000 MG in 0.9 % Sodium Chloride Mini Bag 100 ML IVPB ONE (01:57)
--- NOTE | 2019-03-04 02:40 | Emergency Department Note ---
START Narrative - START START: This patient was signed out to me at shift change from Dr. Candace Villeda. Patient was awaiting further test results and CT results prior to being admitted. All of the CT and test results returned and Dr. Melendez, resident physician who was also seeing the patient with Dr. Villeda, consulted the hospitalist, Dr. Short, who accepted admission of the patient.
[2019-03-04] MEDS ORDERED: Ringers Solution, Lactated 500 ML IVC ONE (03:00)
--- NOTE | 2019-03-04 03:21 | Internal Med History&Physical ---
Date of Encounter: 03/04/19 Time of Encounter: 03:20 Internal Medicine - H&P: HPI Chief complaint: fall Admitted From: Long-term Nursing Facility Plans for Post Hospital Care: Transfer [facility]irement Facility History of present illness: Patricia Adamson is a 68-year-old woman who lives at an assisted living facility with multiple comorbidities including ESRD on T/Th/Sa HD schedule, atrial fibrillation, hypertension, chronic anemia, cerebral aneurysms that required coiling, right carotid artery aneurysm and mood disorder who has been evaluated here a number of times with complaints of dizziness and diplopia. She was only discharged from here on 02/26 after she was admitted with complaints of generalized weakness and diarrhea while receiving ertapenem for MDR UTI that was detected on her admission a week prior to the last. She was found to have C. difficile associated diarrhea and was discharged to complete a 10 day course of oral vancomycin. Her daughter brings her in tonight after she was unable to get in touch with her for the last 24 hours so she called her neighbor at the facility who went to her room and found her laying down on the floor. It appears the patient had been down on the floor since the previous night presumed to have fallen after she got up at night to go to the bathroom and could not get up. She therefore missed her dialysis session and has not eaten or drank anyth ing since she has been down. In the emergency room showed comprehensive imaging studies done which found no acute anomalies. She was given empiric antibiotics due to concern for pneumonia however on my review of the chest CT it is unchanged from previous and the patient has no respiratory symptoms at all. She denies fever, chills, chest pain and productive cough. She does have some back pain and pain in her ribs she thinks from the fall. She still makes urine and says she has been voiding a lot without difficulty. There was also concern of visual hallucinations in the ER she reportedly was seeing things that were not there. She continues to complain of diplopia and keeps her left eye closed to facilitate her vision. Lab work revealed a CK of 675, hemoglobin 10.2 from a baseline of 8 and WBC of 12.9. She reports feeling hungry and thirsty, requesting something to eat. Vitals: Reviewed General: Frail-appearing elderly woman lying in bed in NAD with occasional jerky movements. Skin: Warm, pale and very dry. HEENT: Dry mucous membranes. (+) conjunctivae pallor. Left eyelid droop. Neck: No lymphadenopathy. No JVD. No carotid bruits. No palpable thyroid. Chest: Normal thoracic expansion. No wheezes, rales or rhonchi. Heart: Irregularly irregular. Abdomen: Non-distended, soft and non-tender to palpation. No peritoneal reaction. Extremities: No clubbing, cyanosis or edema. No calf tenderness. Normal distal pulses. Neurological: Awake, alert and oriented to person, place. No focal deficits. Psych: Affect flat. Assessment/Plan 1. Dehydration: I believe the patient is clinically dehydrated and it is corroborated with the hematologic parameters demonstrating signs of hemoconcentration. I do not think the WBC elevation is from an active infection and on review of her chest CT which is unchanged from previous, she seems to erwin ve chronic loculated pleural effusions. Taking into account her ongoing diuresis, with no intake for the past 24-36 hours, she is likely volume depleted. Will give her 500ml of LR tonight which would be in addition to the fluid volume she will get from the IV antibiotics ordered for her in the ER. 2. C.diff associated diarrhea: The patient did not complete her prescribed ten day course and says she stopped taking the oral vancomycin a long time ago because she felt better and no longer had diarrhea. She was discharged only 4 days ago on this after receiving 3 days in the hospital. She is at risk of recurrence because of this therefore will continue the oral vancomycin for the next 3-4 days to ensure she gets at least 7 days of therapy. This is especially important with the armada of antibiotics she was given tonight in the ER. 3. Diplopia: It may be secondary to a reported history of intraocular hemorrh age. The patient says she missed her last appointment with an appliance line assembler for evaluation of this problem and feels her glasses are no longer sufficient. She plans to follow up as an outpatient. 4. Fall: The patient is notably unsteady with occasional jerking movements which the daughter relates as having been present for months. It is unclear if this has to do with uremia or a central entity. Precautions will be ordered and will consult clinical social worker as she will need placement in a facility where she can be cared for adequately. Being at the assisted living facility, there is no observance of her status as we noted and she does not take her medications which will lead her right back to the hospital weekly. 5. ESRD: Will consult nephrology for dialysis today given her missed session. Check lytes. 6. Atrial fibrillation: Not on anticoagulation due to bleeding history and frail state with fall risks. 7. Hypertension: Will resume home medications once reconciled. Past Med Surg Social Fam HX - Past Medical History Medical history: atrial fibrillation, dialysis, GI bleed, hypertension, migraine, renal disease, other Additional medical history: Chronic Back Pain, iron deficiency anemia, cerebral aneurysm, vitamin D deficiency, pacemaker, Rheumatic Fever, Right Carotid Aneurysm, Exertional Angina Psychiatric history: anxiety, depression - Past Surgical History Surgical History: appendectomy, cholecystectomy, pacemaker/AICD, other, vascular surgery, pacemaker Additional surgical history: gastric bypass 2000. lap choley 1979. cardiac cath. pacemaker placed 05/2013. fliud drainage off right lung 08/2017. coil embolization og left distal carotid artery. hemorrhoidectomy. bilateral phlebectomy - Social History Smoking Status: Never smoker Smokeless Tobacco Status: No Alcohol use: none Drug use: none - Family History Sister Adopted: No Family Member Ethnicity: Non- Living Status: Hx Family Cardiac Disorders: Yes (HTN, CKD) Hx Family Respiratory Disorders: Yes (COPD) Father Family Member Ethnicity: Non- Living Status: Hx Family Cardiac Disorders: Yes (Stroke, CHF) Hx Family Respiratory Disorders: Yes (Smoker) Hx Family Neurologic Disorders: Yes (pt states father had stroke) Internal Medicine - H&P: Meds HYDROcodone/Acet 5/325 mg [[place] 5-325 mg] 1 tab PO TID PRN 08/27/15 [History] Tizanidine HCl 2 mg PO QAM 08/27/15 [History] ALPRAZolam [Xanax 0.25 MG Tablet] 0.25 mg PO BID 04/22/17 [History] Labetalol HCl 200 mg PO QID 04/28/18 [History] Tizanidine HCl 4 mg PO QPM 04/28/18 [History] Aspirin Enteric Coated [Aspirin EC] 81 mg PO DAILY 11/13/18 [History] Sevelamer [Renvela] 1,600 mg PO 1200,1700 11/13/18 [History] Verapamil HCl [Verapamil ER] 120 mg PO DAILY 11/13/18 [History] Famotidine [Pepcid] 40 mg PO DAILY 11/22/18 [History] PARoxetine HCl [Paroxetine HCl] 40 mg PO DAILY 01/27/19 [History] Renal Vitamin [Renal Caps Softgel] 1 mg PO DAILY #0 01/27/19 [History] Furosemide [Lasix] 40 mg PO SUMOWEFR 02/04/19 [History] Cetirizine HCl [Zyrtec] 10 mg PO DAILY 02/11/19 [History] Ferrous Sulfate [Iron] 325 mg PO DAILY 02/11/19 [History] Sevelamer [Renvela] 800 mg PO 0800 02/12/19 [History] Lactobacillus Acidophilus [Acidophilus Lactobacilli] 1 each PO BID #60 capsule 02/26/19 [Rx] Vancomycin Oral Soln [Firvanq] 125 mg PO QID #40 udc 02/26/19 [Rx] Allergy/AdvReac Type Severity Reaction Status Date / Time blue dye Allergy Hives Verified 02/23/19 14:19 latex Allergy Itching Verified 02/23/19 14:19 Nickel Allergy Hives Verified 02/23/19 14:19 shrimp Allergy Hives Verified 02/23/19 14:19 Sulfa (Sulfonamide Allergy Hives Verified 02/23/19 14:19 Antibiotics) All Systems PM: A 10-system review of systems was performed and is negative for pertinent findings except as documented above in the HPI. - Constitutional Vitals: Temp Pulse Resp BP Pulse Ox 98.6 F 85 18 161/77 98 03/03/19 22:20 03/04/19 02:20 03/04/19 02:20 03/04/19 02:20 03/04/19 02:20 Exam: . Internal Med - H&P Results - Labs CBC & Chem 7: 03/03/19 22:29 03/03/19 22:55 Labs: Short CBC 03/03/19 Range/Units 22:29 WBC 12.9 H D (4.3-11.1) K/mcL Hgb 10.2 L D (11.5-15.4) g/dL Hct 32.2 L (35.3-44.9) % Plt Count 215 (140-400) K/mcL Neutrophils # 11.5 H (1.6-8.9) K/mcL BMP 03/03/19 03/03/19 22:30 22:55 Sodium Cancelled 138 Potassium Cancelled 4.1 Chloride Cancelled 102 Carbon Dioxide Cancelled 18 L BUN Cancelled 31 H Creatinine Cancelled 4.29 H Glucose Cancelled 82 Calcium Cancelled 9.5 Cardiac Enzymes 03/03/19 Range/Units 22:30 Troponin I 0.07 H* (< 0.04) ng/mL Liver Function 03/03/19 03/03/19 Range/Units 22:30 22:55 Total Bilirubin Cancelled 1.1 H Direct Bilirubin Cancelled 0.3 H AST Cancelled 47 H ALT Cancelled 20 Alkaline Phosphatase Cancelled 133 H Albumin Cancelled 3.8 Urine 03/03/19 Range/Units 00:00 Urine Color Yellow (Yellow) Urine Clarity Clear (Clear) Urine pH 6.5 (5.0-8.0) pH Units Ur Specific [place] 1.013 (1.010-1.025) Urine Protein 100 H (Neg-Trace) mg/dL Urine Glucose (UA) Normal (Normal) mg/dL - Impressions ITS Impressions Chest X-Ray 03/03/19 22:29 IMPRESSION: Stable portable study. D/ / Michelle Benjamin Cha, MD / Michelle Benjamin Cha, MD Interpreting Provider: Michelle Benjamin Cha, MD Head CT 03/04/19 22:48 IMPRESSION: No cervical spine fracture. No acute intracranial pathology. Bilateral effusions and airspace disease suspicious of pneumonia D/ / Juan Rodriguez / Juan Rodriguez Interpreting Provider: Juan Rodriguez Abdomen/Pelvis CT 03/04/19 22:49 IMPRESSION: No acute traumatic injury to the chest, abdomen, or pelvis. No thoracolumbar spine fracture. Bilateral lower lobe airspace disease related to effusions possibly a combination of atelectasis and pneumonia. Ground-glass opacities in the upper lobes bilaterally most likely infectious or inflammatory in nature. Attention at follow-up is advised. Generalized mesenteric edema could represent sequela of volume overload. D/ / Juan Rodriguez / Juan Rodriguez Interpreting Provider: Juan Rodriguez Cervical Spine CT 03/04/19 22:49 IMPRESSION: No cervical spine fracture. No acute intracranial pathology. Bilateral effusions and airspace disease suspicious of pneumonia D/ / Juan Rodriguez / Juan Rodriguez Interpreting Provider: Juan Rodriguez Chest CT 03/04/19 22:49 IMPRESSION: No acute traumatic injury to the chest, abdomen, or pelvis. No thoracolumbar spine fracture. Bilateral lower lobe airspace disease related to effusions possibly a combination of atelectasis and pneumonia. Ground-glass opacities in the upper lobes bilaterally most likely infectious or inflammatory in nature. Attention at follow-up is advised. Generalized mesenteric edema could represent sequela of volume overload. D/ / Juan Rodriguez / Juan Rodriguez Interpreting Provider: Juan Rodriguez Lumbar Spine CT 03/04/19 22:49 IMPRESSION: No acute traumatic injury to the chest, abdomen, or pelvis. No thoracolumbar spine fracture. Bilateral lower lobe airspace disease related to effusions possibly a combination of atelectasis and pneumonia. Ground-glass opacities in the upper lobes bilaterally most likely infectious or inflammatory in nature. Attention at follow-up is advised. Generalized mesenteric edema could represent sequela of volume overload. D/ / Juan Rodriguez / Juan Rodriguez Interpreting Provider: Juan Rodriguez Thoracic Spine CT 03/04/19 22:49 IMPRESSION: No acute traumatic injury to the chest, abdomen, or pelvis. No thoracolumbar spine fracture. Bilateral lower lobe airspace disease related to effusions possibly a combination of atelectasis and pneumonia. Ground-glass opacities in the upper lobes bilaterally most likely infectious or inflammatory in nature. Attention at follow-up is advised. Generalized mesenteric edema could represent sequela of volume overload. D/ / Juan Rodriguez / Juan Rodriguez Interpreting Provider: Juan Rodriguez - Time Spent With Patient Total time spent is greater than 50% in coordination of care (as documented) at patient's floor/unit and/or counseling patient: Greater than 35 minutes
[2019-03-04] MEDS ORDERED: *HR* HYDROcodone/Acet 5/325 mg TABLET PO ONE (05:05)
[2019-03-04 06:11] LABS: Basophils # 0.1 K/mcL (0.0-0.2); Basophils % 0.8 %; Eosinophils % 0.2 %; Hematocrit 30.2 % (35.3-44.9); Hemoglobin 9.7 g/dL (11.5-15.4); Immature Granulocytes % 0.5 % (0-4); Lymphocytes # 0.9 K/mcL (0.6-4.6); Lymphocytes % 7.4 %; Mean Corpuscular HGB Conc 32.1 g/dL (31.6-35.5); Mean Corpuscular Hemoglobin 30.9 pg (28.0-33.3); Mean Corpuscular Volume 96.2 fL (83.0-100.0); Monocytes % 8.4 %; Neutrophils # 9.9 K/mcL (1.6-8.9); Platelet Count 211 K/mcL (140-400); Red Blood Count 3.14 M/mcL (3.82-4.97); Red Cell Distribution Width 14.5 % (11.5-14.5); Segmented Neutrophils % 82.7 %
[2019-03-04] MEDS: *HR* Heparin 5,000 UNIT/ML VIAL SQ SCH ×2 (06:16→17:17)
[2019-03-04 06:31] LABS: Calcium 9.3 mg/dL (8.6-10.3); Potassium 3.9 mEq/L (3.5-5.1)
[2019-03-04 08:32] LABS: Hepatitis B Surface Antibody 3.33 mIU/mL
[2019-03-04 08:43] LABS: Hepatitis B Surface Antigen Nonreactive (Nonreactive)
[2019-03-04] MEDS ORDERED: Famotidine 20 MG TABLET PO SCH (09:00)
--- NOTE | 2019-03-04 09:13 | Internal Med Progress Note ---
Hospitalist Progress Note - Encounter Date of Encounter: 03/04/19 - Exam Vitals: Temp Pulse Resp BP Pulse Ox 99.0 F 87 17 157/81 98 03/04/19 07:18 03/04/19 07:18 03/04/19 07:18 03/04/19 07:18 03/04/19 07:18 - Time Spent with Patient Total time spent is greater than 50% in coordination of care (as documented) at patient's floor/unit and/or counseling patient: Internal Medicine: Result - Labs CBC & Chem 7: 03/04/19 05:13 03/04/19 05:13 Labs: Short CBC 03/03/19 03/04/19 Range/Units 22:29 05:13 WBC 12.9 H D 12.0 H (4.3-11.1) K/mcL Hgb 10.2 L D 9.7 L (11.5-15.4) g/dL Hct 32.2 L 30.2 L (35.3-44.9) % Plt Count 215 211 (140-400) K/mcL Neutrophils # 11.5 H 9.9 H (1.6-8.9) K/mcL BMP 03/03/19 03/03/19 03/04/19 22:30 22:55 05:13 Sodium Cancelled 138 139 Potassium Cancelled 4.1 3.9 Chloride Cancelled 102 102 Carbon Dioxide Cancelled 18 L 22 L BUN Cancelled 31 H 34 H Creatinine Cancelled 4.29 H 4.57 H Glucose Cancelled 82 71 Calcium Cancelled 9.5 9.3 Cardiac Enzymes 03/03/19 Range/Units 22:30 Troponin I 0.07 H* (< 0.04) ng/mL Liver Function 03/03/19 03/03/19 Range/Units 22:30 22:55 Total Bilirubin Cancelled 1.1 H Direct Bilirubin Cancelled 0.3 H AST Cancelled 47 H ALT Cancelled 20 Alkaline Phosphatase Cancelled 133 H Albumin Cancelled 3.8 Urine 03/03/19 Range/Units 00:00 Urine Color Yellow (Yellow) Urine Clarity Clear (Clear) Urine pH 6.5 (5.0-8.0) pH Units Ur Specific [place] 1.013 (1.010-1.025) Urine Protein 100 H (Neg-Trace) mg/dL Urine Glucose (UA) Normal (Normal) mg/dL - Impressions Impressions Chest X-Ray 03/03/19 22:29 IMPRESSION: Stable portable study. D/ / Michelle Benjamin Cha, MD / Michelle Benjamin Cha, MD Interpreting Provider: Michelle Benjamin Cha, MD Head CT 03/04/19 22:48 IMPRESSION: No cervical spine fracture. No acute intracranial pathology. Bilateral effusions and airspace disease suspicious of pneumonia D/ / Juan Rodriguez / Juan Rodriguez Interpreting Provider: Juan Rodriguez Abdomen/Pelvis CT 03/04/19 22:49 IMPRESSION: No acute traumatic injury to the chest, abdomen, or pelvis. No thoracolumbar spine fracture. Bilateral lower lobe airspace disease related to effusions possibly a combination of atelectasis and pneumonia. Ground-glass opacities in the upper lobes bilaterally most likely infectious or inflammatory in nature. Attention at follow-up is advised. Generalized mesenteric edema could represent sequela of volume overload. D/ / 03/04/2019 07:33:31 Juan wolf Interpreting Provider: Juan Rodriguez Cervical Spine CT 03/04/19 22:49 IMPRESSION: No cervical spine fracture. No acute intracranial pathology. Bilateral effusions and airspace disease suspicious of pneumonia D/ / Juan Rodriguez / Juan Rodriguez Interpreting Provider: Juan Rodriguez Chest CT 03/04/19 22:49 IMPRESSION: No acute traumatic injury to the chest, abdomen, or pelvis. No thoracolumbar spine fracture. Bilateral lower lobe airspace disease related to effusions possibly a combination of atelectasis and pneumonia. Ground-glass opacities in the upper lobes bilaterally most likely infectious or inflammatory in nature. Attention at follow-up is advised. Generalized mesenteric edema could represent sequela of volume overload. D/ / 03/04/2019 07:33:31 Juan wolf Interpreting Provider: Juan Rodriguez Lumbar Spine CT 03/04/19 22:49 IMPRESSION: No acute traumatic injury to the chest, abdomen, or pelvis. No thoracolumbar spine fracture. Bilateral lower lobe airspace disease related to effusions possibly a combination of atelectasis and pneumonia. Ground-glass opacities in the upper lobes bilaterally most likely infectious or inflammatory in nature. Attention at follow-up is advised. Generalized mesenteric edema could represent sequela of volume overload. D/ / 03/04/2019 07:33:31 Juan wolf Interpreting Provider: Juan Rodriguez Thoracic Spine CT 03/04/19 22:49 IMPRESSION: No acute traumatic injury to the chest, abdomen, or pelvis. No thoracolumbar spine fracture. Bilateral lower lobe airspace disease related to effusions possibly a combination of atelectasis and pneumonia. Ground-glass opacities in the upper lobes bilaterally most likely infectious or inflammatory in nature. Attention at follow-up is advised. Generalized mesenteric edema could represent sequela of volume overload. D/ / 03/04/2019 07:33:31 Juan wolf Interpreting Provider: Juan Rodriguez Consult Discharge Plan - Plan Referrals: Gareth Lee MD [Primary Care Provider] -
[2019-03-04] MEDS: tiZANidine 4 MG TABLET PO SCH ×2 (09:25→17:17)
[2019-03-04] MEDS: Verapamil ER (24 HR) 120 MG TABLET.ER PO SCH (09:25)
[2019-03-04] MEDS: Renal Vitamin 1 CAP CAPSULE PO SCH (09:25)
[2019-03-04] MEDS: Aspirin Enteric Coated 81 MG Tablet PO SCH (09:26)
[2019-03-04] MEDS: Vancomycin Oral Soln 125 MG/2.5 ML UDC PO SCH ×4 (09:26→21:08)
[2019-03-04] MEDS: Lactobacillus 1 EACH CAP.SPRINK PO SCH ×2 (09:26→21:08)
[2019-03-04] MEDS: Loratadine 10 MG TABLET PO SCH (09:26)
--- NOTE | 2019-03-04 10:24 | Event Note ---
<Myron Patel A - Last Filed: 03/04/19 14:46> Date of Encounter: 03/04/19 Pt admitted earlier today with dehydration. She was found on the floor in apartment. She has received some IV fluids and is slowly improving. She is to have dialysis today. Exam Alert Comfortable Agree with assessment and plan as above. D/C planning. <Vidal Moody S - Last Filed: 03/04/19 15:49> Date of Encounter: 03/04/19 Time of Encounter: 10:17 Pt was seen and examined at bedside. Acutely complaints of SOB, currently 98% on 3LNC. On 2-3L O2 at home. Also admits to some soreness on left rib cage and left lower back. Complains of diarrhea, 3-4x a day, non bloody, did not finish 10d course of PO vancomycin from prev visit for c diff and weakness (discharged on 02/26). States her sx improved after 2 days so she only took two days of vanc after discharge. Denies headache, fever, chills, chest pain, palpitations, cough, abd pain, N/V/C, dysuria, urinary freq/urgency, blood in urine, peripheral edema, hallucinations. Vitals: Reviewed General: A&Ox3, not in acute distress. appears frail with occasional jerky movements. Skin: Warm, pale and very dry. HEENT: Dry mucous membranes. (+) conjunctivae pallor. Left eyelid droop. EOMI. Neck: No LAD. No JVD. No carotid bruits. No palpable thyroid. Resp: CTAB. No wheezes, crackles, rales or rhonchi Heart: Irregularly irregular Abdomen: soft, nontender, nondistended. nbsx4. no masses palpated, no hsm. no peritoneal signs. Extremities: No clubbing, cyanosis or edema. No calf tenderness. Normal distal pulses.Psych: Affect flat. Assessment/Plan 1. Dehydration - denies chest pain, palpitations, headache, peripheral edema. initially had SOB, liekly 2/2 fluid overload, resolved after dialysis. - has been on the floor of her home for almost 24hrs before being found, was unable to eat, drink, go to bathroom, get thurs dialysis - leukocytosis 12.0 (perv 12.9) likely 2/2 reactive due to dehydration - no signs of infection. CT lung findings unchanged, likely no PNA at this time - given 500ml LR at admission - continue fluid repletion through IV abx 2. ESRD - missed this past thurs dialysis - BUN 34 (prev 31), creat 4.57 (prev 4.29), eGFR 9, phos 5.2 - nephro recs: got dialysis today. renal diet, renal vitamins - monitor labs - strict I/Os 3. C.diff associated diarrhea - discharged on 02/26 on 10 d course of vancomycin for c diff, only completed 2 days of treatment at home - got 3 days of inpatient vancomycin - at risk of recurrence - still having 3-4x episodes of diarrhea (non bloody) - continue PO vancomycin, must have at least 7 days of therapy - monitor labs 4. Fall - complains of left rib cage pain, left lower back pain. has occasional jerking motions at rest, unsteady. denies headache, dizziness, numbness/tingling, hallucinations - etiology uncertain - pt says she lives alone at an apartment (not assisted living). daughter wants her to go to jail facility but pt claims she wants to go back to her apt. - social work consulted - SNF. OK to discharge pending placement - fall precautions 5. Diplopia - admits to diplopia chronically. denies blurry vision, dizziness, headache - likely 2/2 to hx of intraocular hemorrhage. - missed last appt with numerical control tool programmer for evaluation of diplopia - will f/u outpatient 6. Atrial fibrillation - not on anticoagulation at home due to bleeding history and frail state with fall risks 7. Hypertension - BP 157/81 (prev 181/90) - continue home medications 8. DTV ppx - heparin 5000u
[2019-03-04] MEDS ORDERED: 0.9 % Sodium Chloride 1,000 ML ONE (10:39)
[2019-03-04] MEDS ORDERED: 0.9 % Sodium Chloride 250 ML IVC PRN (10:52)
[2019-03-04] MEDS ORDERED: 0.9 % Sodium Chloride 1,000 ML PRIME SCH (11:00)
--- NOTE | 2019-03-04 11:45 | Nephrology Consult Note ---
Date of Encounter: 03/04/19 Time of Encounter: 11:42 Assessment and Plan (1) ESRD (end stage renal disease) on dialysis Current Visit: Yes Status: Acute Current regimen is TTS at [facility]. HD in progress for today. Will reassess need for UF or HD tomorrow. Renal diet Renal vitamins Strict I/O Avoid nephrotoxins and renal dose all medications. Will order additional UF or HD as needed. (2) Altered mental status Current Visit: Yes Status: Acute Per primary. Qualifiers: Altered mental status type: disorientation Qualified Code(s): R41.0 - Disorientation, unspecified (3) Acute and chronic respiratory failure with hypoxia Current Visit: No Status: Acute Continue supplemental O2. Per primary. (4) Acute exacerbation of CHF (congestive heart failure) Current Visit: No Status: Acute Per primary. Qualifiers: Heart failure type: diastolic Qualified Code(s): I50.33 - Acute on chronic diastolic (congestive) heart failure (5) Anemia Current Visit: No Status: Acute Hgb is 9.7, stable. Goal HGB is 10-11. Qualifiers: Anemia type: due to chronic kidney disease Chronic kidney disease stage: on chronic dialysis Qualified Code(s): N18.6 - End stage renal disease; D63.1 - Anemia in chronic kidney disease; Z99.2 - Dependence on renal dialysis History of Present Illness - Reason for Consult Consult date: 03/04/19 end stage renal disease Requesting physician: Eve Short - Chief Complaint fall at home - History of Present Illness Ms. Adamson is a 68 year old female who presented to ED s/p fall at home. This is her fifth hospitalization since November 2018. She was referred to an extended care facility last time but declined. PMH: A. fib, pacemaker with AICD, hypertension and ESRD. Current regimen is TTS at [facility]. She missed Thursday session due to her follow-up. She was apparently down for some time before her daughter found her. We will plan for hemodialysis today. She lives at home alone, again would encourage ECF placement upon discharge. Denies tobacco, EtOH or illicit drug use. No family history of chronic kidney disease or hemodialysis. She is not sure how long she has been on dialysis, but she appears a little altered. Past Med Surg Social Fam HX - Past Medical History Medical history: atrial fibrillation, dialysis, GI bleed, hypertension, migraine, renal disease, other Additional medical history: Chronic Back Pain, iron deficiency anemia, cerebral aneurysm, vitamin D deficiency, pacemaker, Rheumatic Fever, Right Carotid Aneurysm, Exertional Angina Psychiatric history: anxiety, depression - Past Surgical History Surgical History: appendectomy, cholecystectomy, pacemaker/AICD, other, vascular surgery, pacemaker Additional surgical history: gastric bypass 2000. lap choley 1979. cardiac cath. pacemaker placed 05/2013. fliud drainage off right lung 08/2017. coil embolization og left distal carotid artery. hemorrhoidectomy. bilateral phlebectomy - Social History Smoking Status: Never smoker Smokeless Tobacco Status: No Alcohol use: none Drug use: none - Family History Sister Adopted: No Family Member Ethnicity: Non- Living Status: Hx Family Cardiac Disorders: Yes (HTN, CKD) Hx Family Respiratory Disorders: Yes (COPD) Father Family Member Ethnicity: Non- Living Status: Hx Family Cardiac Disorders: Yes (Stroke, CHF) Hx Family Respiratory Disorders: Yes (Smoker) Hx Family Neurologic Disorders: Yes (pt states father had stroke) Medications and Allergies HYDROcodone/Acet 5/325 mg [[place] 5-325 mg] 1 tab PO TID PRN 08/27/15 [History] Tizanidine HCl 2 mg PO QAM 08/27/15 [History] ALPRAZolam [Xanax 0.25 MG Tablet] 0.25 mg PO BID 04/22/17 [History] Labetalol HCl 200 mg PO QID 04/28/18 [History] Tizanidine HCl 4 mg PO QPM 04/28/18 [History] Aspirin Enteric Coated [Aspirin EC] 81 mg PO DAILY 11/13/18 [History] Sevelamer [Renvela] 1,600 mg PO 1200,1700 11/13/18 [History] Verapamil HCl [Verapamil ER] 120 mg PO DAILY 11/13/18 [History] Famotidine [Pepcid] 40 mg PO DAILY 11/22/18 [History] PARoxetine HCl [Paroxetine HCl] 40 mg PO DAILY 01/27/19 [History] Renal Vitamin [Renal Caps Softgel] 1 mg PO DAILY #0 01/27/19 [History] Furosemide [Lasix] 40 mg PO SUMOWEFR 02/04/19 [History] Cetirizine HCl [Zyrtec] 10 mg PO DAILY 02/11/19 [History] Ferrous Sulfate [Iron] 325 mg PO DAILY 02/11/19 [History] Sevelamer [Renvela] 800 mg PO 0800 02/12/19 [History] Lactobacillus Acidophilus [Acidophilus Lactobacilli] 1 each PO BID #60 capsule 02/26/19 [Rx] Allergy/AdvReac Type Severity Reaction Status Date / Time blue dye Allergy Hives Verified 02/23/19 14:19 latex Allergy Itching Verified 02/23/19 14:19 Nickel Allergy Hives Verified 02/23/19 14:19 shrimp Allergy Hives Verified 02/23/19 14:19 Sulfa (Sulfonamide Allergy Hives Verified 02/23/19 14:19 Antibiotics) Review of Systems All Systems review (narrative): The remainder the systems are negative. Constitutional: no chills, no fatigue, no fever(s) Cardiovascular: no chest pain at rest, no dyspnea, no edema Respiratory: no cough Gastrointestinal: no change in bowel habits, no diarrhea, no nausea, no vomiting Genitourinary Female: no hematuria Exam - Vital Signs Vital signs: Initial Vital Signs Temp Pulse Resp BP Pulse Ox 98.6 F 98 18 181/90 99 03/03/19 22:20 03/03/19 22:20 03/03/19 22:20 03/03/19 22:20 03/03/19 22:20 Vital Signs - Last 8 Hours Temp Pulse Resp BP Pulse Ox 03/04/19 07:18 99.0 F 87 17 157/81 98 03/04/19 05:50 182/85 03/04/19 04:27 97.9 F 94 18 177/95 99 Intake and Output 03/03/19 03/04/19 03/04/19 23:59 07:59 15:59 Intake Total 850 / 850 Output Total 450 / 450 Balance 400 / 400 Intake: IV Fluids 850 / 850 Lactated Ringers 500 ML @ 1000 500 / 500 mls/hr IVC .Q30M ONE Rx#: [id number] INVanz 1,000 MG In 0.9 % Sodium 100 / 100 Chloride (Mini-Bag +) 100 ML @ 100 mls/hr IVPB ONCE ONE Rx#: [id number] Vancocin 1,000 MG In 0.9 % 250 / 250 Sodium Chloride 250 ML @ 167 mls/hr IVPB ONCE STA Rx#: [id number] Oral 0 / 0 Output: Urine 0 / 0 Urine/Stool Mix 450 / 450 Other: Stool Size Moderate Stool Consistency loose liquid Stool Color Brown Weight 64.41 kg Blood Glucose* 109 - General Appearance General appearance: chronically ill, frail EENT: ATNC, hearing intact, vision intact Neck: supple Respiratory: clear Cardiology: no edema, normal S1, normal S2 - Dialysis Access Dialysis Vascular Access: Arteriovenous Fistula thrill: Yes bruit: Yes Gastrointestinal: normoactive bowel sounds, no tenderness, no guarding Integumentary: no rash, warm and dry Neurologic: alert and oriented x3 Musculoskeletal: no deformities, no erythema Psychiatric: mood/affect appropriate, cooperative Results - Lab Results 03/04/19 05:13 03/04/19 05:13 Most recent lab results 03/03/19 03/03/19 03/04/19 22:30 22:55 05:13 Calcium Cancelled 9.5 9.3 Phosphorus Magnesium Cancelled 2.1 03/04/19 05:13 Calcium Phosphorus 5.2 H Magnesium Consult Discharge Plan - Plan Referrals: Gareth Lee MD [Primary Care Provider] -
[2019-03-04] MEDS: Famotidine 20 MG TABLET PO SCH (21:08)
[2019-03-05] MEDS: *HR* HYDROcodone/Acet 5/325 mg TABLET PO PRN ×2 (03:39→20:52)
[2019-03-05] MEDS: *HR* Heparin 5,000 UNIT/ML VIAL SQ SCH ×2 (06:01→17:59)
[2019-03-05] MEDS ORDERED: 0.9 % Sodium Chloride 250 ML IVC PRN (09:24)
[2019-03-05] MEDS: Verapamil ER (24 HR) 120 MG TABLET.ER PO SCH (09:28)
[2019-03-05 09:29] LABS: Basophils # 0.1 K/mcL (0.0-0.2); Basophils % 0.8 %; Eosinophils # 0.3 K/mcL (0.0-0.6); Eosinophils % 3.6 %; Hemoglobin 9.3 g/dL (11.5-15.4); Immature Granulocytes % 0.6 % (0-4); Lymphocytes # 1.1 K/mcL (0.6-4.6); Lymphocytes % 12.6 %; Mean Corpuscular HGB Conc 32.1 g/dL (31.6-35.5); Mean Corpuscular Hemoglobin 30.7 pg (28.0-33.3); Mean Corpuscular Volume 95.7 fL (83.0-100.0); Mean Platelet Volume 10.7 fL (9.4-12.4); Monocytes # 0.9 K/mcL (0.0-1.3); Monocytes % 11.1 %; Neutrophils # 6.1 K/mcL (1.6-8.9); Platelet Count 198 K/mcL (140-400); Red Blood Count 3.03 M/mcL (3.82-4.97); Red Cell Distribution Width 14.5 % (11.5-14.5); Segmented Neutrophils % 71.3 %; White Blood Count 8.5 K/mcL (4.3-11.1)
[2019-03-05] MEDS: tiZANidine 4 MG TABLET PO SCH ×2 (09:29→17:38)
[2019-03-05] MEDS: Renal Vitamin 1 CAP CAPSULE PO SCH (09:35)
[2019-03-05] MEDS: Vancomycin Oral Soln 125 MG/2.5 ML UDC PO SCH ×5 (09:36→20:52)
[2019-03-05] MEDS: Lactobacillus 1 EACH CAP.SPRINK PO SCH ×2 (09:36→20:52)
[2019-03-05] MEDS: Aspirin Enteric Coated 81 MG Tablet PO SCH (09:36)
[2019-03-05] MEDS: Loratadine 10 MG TABLET PO SCH (09:36)
[2019-03-05 09:42] LABS: Calcium 9.1 mg/dL (8.6-10.3); Phosphorous 3.9 mg/dL (2.7-4.5); Potassium 3.5 mEq/L (3.5-5.1)
--- NOTE | 2019-03-05 12:27 | Internal Med Progress Note ---
<Myron Patel - Last Filed: 03/05/19 15:37> Hospitalist Progress Note - Encounter Date of Encounter: 03/05/19 - Exam Vitals: Temp Pulse Resp BP Pulse Ox 98.6 F 76 15 135/64 99 03/05/19 11:20 03/05/19 07:30 03/05/19 11:20 03/05/19 13:05 03/05/19 07:30 - Assessment and Plan (1) Dehydration Current Visit: Yes Status: Acute Comments: - denies chest pain, palpitations, headache, peripheral edema. initially had SOB, likely 2/2 fluid overload, resolved after dialysis. - leukocytosis 8.5 (perv 12.0) likely 2/2 reactive due to dehydration - no signs of infection. CT lung findings unchanged, likely no PNA at this time - given 500ml LR at admission - continue fluid repletion, monitor for fluid overload - continue to monitor (2) C. difficile diarrhea Current Visit: Yes Status: Acute Comments: - discharged on 02/26 on 10 d c ourse of vancomycin for c diff, only completed 2 days of treatment at home - got 3 days of inpatient vancomycin - at risk of recurrence - denies fever, chills, abdominal pain, N/V/D/C, melena, hematochezia - continue PO vancomycin, must have at least 7 days of therapy - monitor labs (3) ESRD (end stage renal disease) on dialysis Current Visit: Yes Status: Acute (4) Fall Current Visit: Yes Status: Acute (5) Hyperkalemia Current Visit: No Status: Resolved (6) Atrial fibrillation Current Visit: No Status: Chronic (7) Hypertension Current Visit: No Status: Chronic - Time Spent with Patient Total time spent is greater than 50% in coordination of care (as documented) at patient's floor/unit and/or counseling patient: Internal Medicine: Result - Labs CBC & Chem 7: 03/05/19 09:08 03/05/19 09:08 Labs: Short CBC 03/05/19 Range/Units 09:08 WBC 8.5 (4.3-11.1) K/mcL Hgb 9.3 L (11.5-15.4) g/dL Hct 29.0 L (35.3-44.9) % Plt Count 198 (140-400) K/mcL Neutrophils # 6.1 (1.6-8.9) K/mcL BMP 03/05/19 09:08 Sodium 138 Potassium 3.5 Chloride 97 L Carbon Dioxide 33 H BUN 21 Creatinine 3.32 H Glucose 132 H Calcium 9.1 - Impressions Impressions Abdomen/Pelvis CT 03/04/19 22:49 IMPRESSION: No acute traumatic injury to the chest, abdomen, or pelvis. No thoracolumbar spine fracture. Bilateral lower lobe airspace disease related to effusions possibly a combination of atelectasis and pneumonia. Ground-glass opacities in the upper lobes bilaterally most likely infectious or inflammatory in nature. Attention at follow-up is advised. Generalized mesenteric edema could represent sequela of volume overload. D/ : / 03/04/2019 07:33:31 Juan wolf Interpreting Provider: Juan Rodriguez Chest CT 03/04/19 22:49 IMPRESSION: No acute traumatic injury to the chest, abdomen, or pelvis. No thoracolumbar spine fracture. Bilateral lower lobe airspace disease related to effusions possibly a combination of atelectasis and pneumonia. Ground-glass opacities in the upper lobes bilaterally most likely infectious or inflammatory in nature. Attention at follow-up is advised. Generalized mesenteric edema could represent sequela of volume overload. D/ / 03/04/2019 07:33:31 Juan wolf Interpreting Provider: Juan Rodriguez Lumbar Spine CT 03/04/19 22:49 IMPRESSION: No acute traumatic injury to the chest, abdomen, or pelvis. No thoracolumbar spine fracture. Bilateral lower lobe airspace disease related to effusions possibly a combination of atelectasis and pneumonia. Ground-glass opacities in the upper lobes bilaterally most likely infectious or inflammatory in nature. Attention at follow-up is advised. Generalized mesenteric edema could represent sequela of volume overload. D/ : / 03/04/2019 07:33:31 Juan wolf Interpreting Provider: Juan Rodriguez Thoracic Spine CT 03/04/19 22:49 IMPRESSION: No acute traumatic injury to the chest, abdomen, or pelvis. No thoracolumbar spine fracture. Bilateral lower lobe airspace disease related to effusions possibly a combination of atelectasis and pneumonia. Ground-glass opacities in the upper lobes bilaterally most likely infectious or inflammatory in nature. Attention at follow-up is advised. Generalized mesenteric edema could represent sequela of volume overload. D/ / 03/04/2019 07:33:31 Juan Rodriguez / maryann Interpreting Provider: Juan Rodriguez Consult Discharge Plan - Plan Referrals: Gareth Lee MD [Primary Care Provider] - - Attending Attestation I examined this patient and my medical decision-making was reviewed with the Resident Physician on 03/05/19. I agree with the documented findings, disposition and treatment plan as described except to the extent set forth below. Ms Adamson is currently admitted for dehydration and fall. She remains moderate to high risk due to potential for worsening clinical status. Ms Adamson is eating breakfast. She is doing better. No fever or chills. No CP or SOB now. Exam: Alert. Comfortable. NC. Mucus membranes dry. EOMI. Neck supple. Heart not tachy. No wheeze. Abd soft. Moves all extremities. No rash. Plan: Continue supportive care. Dialysis per nephrology. Awaiting bed at SNF. <Vidal Moody - Last Filed: 03/05/19 17:04> Hospitalist Progress Note - Encounter Date of Encounter: 03/05/19 Time of Encounter: 17:03 - Subjective Interval History: Patient was seen and examined at bedside. No acute complaints. Still feels soreness on left rib cage and left lower back. Denies headache, fever, chills, chest pain, palpitations, cough, abd pain, N/V/D/C, dysuria, urinary freq/urgency, blood in urine, peripheral edema, hallucinations. currently agrees to be sent to a rehabilitation facility. - Exam Vitals: Temp Pulse Resp BP Pulse Ox 98.0 F 76 18 131/65 99 03/05/19 07:30 03/05/19 07:30 03/05/19 07:30 03/05/19 07:30 03/05/19 07:30 Exam: General: A&Ox3, not in acute distress. appears frail with occasional jerky movements. Skin: Warm, pale and very dry. HEENT: Dry mucous membranes. (+) conjunctivae pallor. Left eyelid droop. EOMI. Neck: No LAD. No JVD. No carotid bruits. No palpable thyroid. Resp: CTAB. No wheezes, crackles, rales or rhonchi Heart: Irregularly irregular Abdomen: soft, nontender, nondistended. nbsx4. no masses palpated, no hsm. no peritoneal signs. Extremities: No clubbing, cyanosis or edema. No calf tenderness. Normal distal pulses. Psych: Affect flat. - Assessment and Plan (1) Dehydration Current Visit: Yes Status: Acute Comments: - denies chest pain, palpitations, headache, peripheral edema. initially had SOB, likely 2/2 fluid overload, resolved after dialysis. - leukocytosis 8.5 (perv 12.0) likely 2/2 reactive due to dehydration - no signs of infection. CT lung findings unchanged, likely no PNA at this time - given 500ml LR at admission - continue fluid repletion, monitor for fluid overload - continue to monitor (2) ESRD (end stage renal disease) on dialysis Current Visit: Yes Status: Chronic Comments: - missed this past dialysis. Received dialysis riday and again thursday. - Denies symptoms of fluid overload, no dyspnea, no peripheral edema - BUN 21 (prev 34), creat 3.32 (prev 4.57), eGFR 14, phos 3.9 (5.2) - nephro recs: continue renal diet, renal vitamins. - monitor labs - strict I/Os (3) Fall Current Visit: Yes Status: Acute Comments: - complains of left rib cage pain, left lower back pain. has occasional jerking motions at rest, unsteady. denies headache, dizziness, numbness/tingling, hallucinations - etiology uncertain - pt says she lives alone at an apartment. agreeing to being transferred to a rehabilitation center on Thursday. - social work consulted - SNF, plan to discharge Thursday to rehabilitation center per Recs - fall precautions (4) C. difficile diarrhea Current Visit: Yes Status: Acute Comments: - discharged on 02/26 on 10 d course of vancomycin for c diff, only completed 2 days of treatment at home - got 3 days of inpatient vancomycin - at risk of recurrence - denies fever, chills, abdominal pain, N/V/D/C, melena, hematochezia - continue PO vancomycin, must have at least 7 days of therapy - monitor labs (5) Atrial fibrillation Current Visit: No Status: Chronic Comments: - not on anticoagulation at home due to bleeding history and frail state with fall risks - takes baby aspirin at home (6) Diplopia Current Visit: No Status: Chronic Comments: - admits to diplopia chronically. denies blurry vision, dizziness, headache - likely 2/2 to hx of intraocular hemorrhage. - missed last appt with pediatric nurse practitioner for evaluation of diplopia - will f/u outpatient DVT Prophylaxis: heparin 5000u - Time Spent with Patient Total time spent is greater than 50% in coordination of care (as documented) at patient's floor/unit and/or counseling patient: Internal Medicine: Result - Labs CBC & Chem 7: 03/05/19 09:08 03/05/19 09:08 Labs: Short CBC 03/05/19 Range/Units 09:08 WBC 8.5 (4.3-11.1) K/mcL Hgb 9.3 L (11.5-15.4) g/dL Hct 29.0 L (35.3-44.9) % Plt Count 198 (140-400) K/mcL Neutrophils # 6.1 (1.6-8.9) K/mcL BMP 03/05/19 09:08 Sodium 138 Potassium 3.5 Chloride 97 L Carbon Dioxide 33 H BUN 21 Creatinine 3.32 H Glucose 132 H Calcium 9.1 - Impressions Impressions Abdomen/Pelvis CT 03/04/19 22:49 IMPRESSION: No acute traumatic injury to the chest, abdomen, or pelvis. No thoracolumbar spine fracture. Bilateral lower lobe airspace disease related to effusions possibly a combination of atelectasis and pneumonia. Ground-glass opacities in the upper lobes bilaterally most likely infectious or inflammatory in nature. Attention at follow-up is advised. Generalized mesenteric edema could represent sequela of volume overload. D/ / 03/04/2019 07:33:31 Juan wolf Interpreting Provider: Juan Rodriguez Chest CT 03/04/19 22:49 IMPRESSION: No acute traumatic injury to the chest, abdomen, or pelvis. No thoracolumbar spine fracture. Bilateral lower lobe airspace disease related to effusions possibly a combination of atelectasis and pneumonia. Ground-glass opacities in the upper lobes bilaterally most likely infectious or inflammatory in nature. Attention at follow-up is advised. Generalized mesenteric edema could represent sequela of volume overload. D/ / 03/04/2019 07:33:31 Juan wolf Interpreting Provider: Jaun Rodriguez Lumbar Spine CT 03/04/19 22:49 IMPRESSION: No acute traumatic injury to the chest, abdomen, or pelvis. No thoracolumbar spine fracture. Bilateral lower lobe airspace disease related to effusions possibly a combination of atelectasis and pneumonia. Ground-glass opacities in the upper lobes bilaterally most likely infectious or inflammatory in nature. Attention at follow-up is advised. Generalized mesenteric edema could represent sequela of volume overload. D/ / 03/04/2019 07:33:31 Juan wolf Interpreting Provider: Juan Rodriguez Thoracic Spine CT 03/04/19 22:49 IMPRESSION: No acute traumatic injury to the chest, abdomen, or pelvis. No thoracolumbar spine fracture. Bilateral lower lobe airspace disease related to effusions possibly a combination of atelectasis and pneumonia. Ground-glass opacities in the upper lobes bilaterally most likely infectious or inflammatory in nature. Attention at follow-up is advised. Generalized mesenteric edema could represent sequela of volume overload. D/ / 03/04/2019 07:33:31 Juan wolf Interpreting Provider: Juan Rodriguez <Myron Patel - Last Filed: 03/05/19 15:37> (4) Fall Qualifiers: Encounter type: subsequent encounter Qualified Code(s): W19.XXXD - Un specified fall, subsequent encounter (6) Atrial fibrillation Qualifiers: Atrial fibrillation type: chronic Qualified Code(s): I48.2 - Chronic atrial fibrillation (7) Hypertension Qualifiers: Hypertension type: essential hypertension Qualified Code(s): I10 - Essential (primary) hypertension
--- NOTE | 2019-03-05 13:08 | Nephrology Progress Note ---
Date of Encounter: 03/05/19 Time of Encounter: 13:08 - Assessment and Plan (1) ESRD (end stage renal disease) on dialysis Current Visit: Yes Status: Acute Current regimen is TTS at [facility]. HD in progress for today. Patient seen on dialysis. Will reassess need for UF or HD tomorrow. Renal diet Renal vitamins Strict I/O Avoid nephrotoxins and renal dose all medications. Will order additional UF or HD as needed. (2) Anemia Current Visit: No Status: Acute Qualifiers: Anemia type: due to chronic kidney disease Chronic kidney disease stage: on chronic dialysis Qualified Code(s): N18.6 - End stage renal disease; D63.1 - Anemia in chronic kidney disease; Z99.2 - Dependence on renal dialysis (3) Acute exacerbation of CHF (congestive heart failure) Current Visit: No Status: Acute Qualifiers: Heart failure type: diastolic Qualified Code(s): I50.33 - Acute on chronic diastolic (congestive) heart failure (4) Acute and chronic respiratory failure with hypoxia Current Visit: No Status: Acute (5) Altered mental status Current Visit: Yes Status: Acute Qualifiers: Altered mental status type: disorientation Qualified Code(s): R41.0 - Disorientation, unspecified Subjective Principal diagnosis: esrd Interval history: Patient seen. No new complaint. ROS otherwise stable. Objective - Vital Signs Vital signs: Vital Signs Temp Pulse Resp BP Pulse Ox 03/05/19 11:20 98.6 F 15 158/7 03/05/19 07:30 98.0 F 76 18 131/65 99 03/05/19 04:44 98.0 F 75 16 125/62 99 03/05/19 01:18 98.2 F 76 16 123/69 100 03/04/19 20:29 98.8 F 79 17 111/68 99 03/04/19 16:41 98.0 F 66 16 104/65 97 03/04/19 15:15 97.4 F L 18 134/65 03/04/19 15:00 115/56 03/04/19 14:45 124/50 03/04/19 14:30 116/99 03/04/19 14:15 109/69 03/04/19 14:00 119/99 03/04/19 13:45 125/54 03/04/19 13:30 118/49 03/04/19 13:15 124/53 Intake and Output 03/04/19 03/05/19 03/05/19 23:59 07:59 15:59 Intake Total 980 / 980 Balance 980 / 980 Intake: Oral 480 / 480 Intake, Rinseback and Flushes 500 / 500 Other: Meal Breakfast Percent of Meal Consumed 100% Stool Size Large Stool Consistency loose soft Stool Color Brown # Voids 1 Weight 62.7 kg Hemodialysis Net Fluid Removed 0 (mL) Patient Weight 03/05/19 23:59 Weight 62.7 kg - General Appearance General appearance: Present: well-developed, well-nourished EENT: Present: ATNC Neck: Present: supple Cardiology: Present: regular rate - Lab 03/06/19 05:20 03/06/19 05:20 Most recent lab results 03/05/19 09:08 Calcium 9.1 Phosphorus 3.9 Consult Discharge Plan - Plan Referrals: Gareth Lee MD [Primary Care Provider] -
[2019-03-05] MEDS: Famotidine 20 MG TABLET PO SCH (20:52)
[2019-03-06] MEDS: *HR* Heparin 5,000 UNIT/ML VIAL SQ SCH ×2 (05:31→16:46)
[2019-03-06 05:35] LABS: Basophils # 0.1 K/mcL (0.0-0.2); Basophils % 0.6 %; Eosinophils # 0.4 K/mcL (0.0-0.6); Eosinophils % 5.4 %; Hematocrit 28.8 % (35.3-44.9); Hemoglobin 9.1 g/dL (11.5-15.4); Immature Granulocytes % 0.5 % (0-4); Lymphocytes # 0.9 K/mcL (0.6-4.6); Lymphocytes % 11.1 %; Mean Corpuscular HGB Conc 31.6 g/dL (31.6-35.5); Mean Corpuscular Hemoglobin 30.5 pg (28.0-33.3); Mean Corpuscular Volume 96.6 fL (83.0-100.0); Mean Platelet Volume 10.3 fL (9.4-12.4); Monocytes # 1.1 K/mcL (0.0-1.3); Monocytes % 13.1 %; Neutrophils # 5.5 K/mcL (1.6-8.9); Platelet Count 173 K/mcL (140-400); Red Blood Count 2.98 M/mcL (3.82-4.97); Red Cell Distribution Width 14.5 % (11.5-14.5); Segmented Neutrophils % 69.3 %
[2019-03-06 05:57] LABS: Calcium 8.8 mg/dL (8.6-10.3); Potassium 3.6 mEq/L (3.5-5.1)
[2019-03-06] MEDS: Loratadine 10 MG TABLET PO SCH (09:49)
[2019-03-06] MEDS: tiZANidine 4 MG TABLET PO SCH ×2 (09:49→21:13)
[2019-03-06] MEDS: Aspirin Enteric Coated 81 MG Tablet PO SCH (09:49)
[2019-03-06] MEDS: Renal Vitamin 1 CAP CAPSULE PO SCH (09:49)
[2019-03-06] MEDS: Verapamil ER (24 HR) 120 MG TABLET.ER PO SCH (09:49)
[2019-03-06] MEDS: Lactobacillus 1 EACH CAP.SPRINK PO SCH ×2 (09:49→22:38)
[2019-03-06] MEDS: Vancomycin Oral Soln 125 MG/2.5 ML UDC PO SCH ×4 (09:50→21:13)
--- NOTE | 2019-03-06 10:06 | Nephrology Progress Note ---
Date of Encounter: 03/06/19 Time of Encounter: 10:06 - Assessment and Plan (1) ESRD (end stage renal disease) on dialysis Current Visit: Yes Status: Acute Current regimen is TTS at [facility]. Will reassess need for UF or HD tomorrow. Renal diet Renal vitamins Strict I/O Avoid nephrotoxins and renal dose all medications. Will order additional UF or HD as needed. (2) Anemia Current Visit: No Status: Acute Goal HGB is 10-11. Qualifiers: Anemia type: due to chronic kidney disease Chronic kidney disease stage: on chronic dialysis Qualified Code(s): N18.6 - End stage renal disease; D63.1 - Anemia in chronic kidney disease; Z99.2 - Dependence on renal dialysis (3) Acute exacerbation of CHF (congestive heart failure) Current Visit: No Status: Acute Qualifiers: Heart failure type: diastolic Qualified Code(s): I50.33 - Acute on chronic diastolic (congestive) heart failure (4) Acute and chronic respiratory failure with hypoxia Current Visit: No Status: Acute (5) Altered mental status Current Visit: Yes Status: Acute Qualifiers: Altered mental status type: disorientation Qualified Code(s): R41.0 - Disorientation, unspecified Subjective Principal diagnosis: esrd Interval history: Patient seen. No new complaint. ROS otherwise stable. Objective - Vital Signs Vital signs: Vital Signs Temp Pulse Resp BP Pulse Ox 03/06/19 08:08 98.1 F 67 18 139/84 99 03/06/19 04:12 97.7 F 76 16 128/73 100 03/05/19 23:59 98.3 F 78 16 101/69 92 03/05/19 20:58 98.0 F 82 15 121/74 93 03/05/19 16:00 98.5 F 81 16 126/71 98 03/05/19 14:45 98.6 F 15 165/82 03/05/19 14:20 156/88 03/05/19 14:05 168/77 03/05/19 13:50 158/83 03/05/19 13:35 133/59 03/05/19 13:20 145/56 03/05/19 13:05 135/64 03/05/19 12:50 141/54 03/05/19 12:35 138/48 03/05/19 12:20 156/86 03/05/19 12:05 138/73 03/05/19 11:50 141/67 03/05/19 11:35 150/74 03/05/19 11:20 98.6 F 15 158/77 Intake and Output 03/05/19 03/06/19 03/06/19 23:59 07:59 15:59 Other: Meal Breakfast Percent of Meal Consumed 90% Stool Size Large Stool Consistency liquid Stool Color Brown # Bowel Movements 1 Weight 53 kg Patient Weight 03/06/19 23:59 Weight 53 kg - General Appearance General appearance: Present: well-developed, well-nourished EENT: Present: ATNC Neck: Present: supple Cardiology: Present: regular rate Neurologic: Present: alert and oriented x3 Musculoskeletal: Present: no cyanosis Psychiatric: Present: mood/affect appropriate - Lab 03/06/19 05:20 03/06/19 05:20 Most recent lab results 03/06/19 05:20 Calcium 8.8 Consult Discharge Plan - Plan Referrals: Gareth Lee MD [Primary Care Provider] -
--- NOTE | 2019-03-06 10:17 | Internal Med Progress Note ---
<Myron Patel - Last Filed: 03/06/19 16:22> Hospitalist Progress Note - Encounter Date of Encounter: 03/06/19 - Exam Vitals: Temp Pulse Resp BP Pulse Ox 98.3 F 65 18 91/54 100 03/06/19 15:54 03/06/19 15:54 03/06/19 15:54 03/06/19 15:54 03/06/19 15:54 - Assessment and Plan (1) Dehydration Current Visit: Yes Status: Acute Comments: - denies chest pain, palpitations, headache, peripheral edema. initially had SOB, likely 2/2 fluid overload, resolved after dialysis. - leukocytosis 8.0 (prev 8.5) likely 2/2 reactive due to dehydration - no signs of infection. CT lung findings unchanged, likely no PNA at this time - given 500ml LR at admission - continue fluid repletion, monitor for fluid overload - Restarted Lasix, home dose - continue to monitor (2) C. difficile diarrhea Current Visit: Yes Status: Acute Comments: - discharged on 02/26 on 10 d course of vancomycin for c diff, only completed 2 days of treatment at home - got 3 days of inpatient vancomycin - at risk of recurrence - Admits to having diarrhea (nonbloody) last night. denies fever, chills, abdominal pain, N/V/C, melena, hematochezia - continue PO vancomycin, must have at least 7 days of therapy - day 3 - monitor labs (3) ESRD (end stage renal disease) on dialysis Current Visit: Yes Status: Acute (4) Fall Current Visit: Yes Status: Acute (5) Hyperkalemia Current Visit: No Status: Resolved (6) Atrial fibrillation Current Visit: No Status: Chronic (7) Hypertension Current Visit: No Status: Chronic - Time Spent with Patient Total time spent is greater than 50% in coordination of care (as documented) at patient's floor/unit and/or counseling patient: Internal Medicine: Result - Labs CBC & Chem 7: 03/06/19 05:20 03/06/19 05:20 Labs: Short CBC 03/06/19 Range/Units 05:20 WBC 8.0 (4.3-11.1) K/mcL Hgb 9.1 L (11.5-15.4) g/dL Hct 28.8 L (35.3-44.9) % Plt Count 173 (140-400) K/mcL Neutrophils # 5.5 (1.6-8.9) K/mcL BMP 03/06/19 05:20 Sodium 138 Potassium 3.6 Chloride 100 Carbon Dioxide 32 H BUN 15 Creatinine 2.58 H Glucose 99 Calcium 8.8 Consult Discharge Plan - Plan Referrals: Gareth Lee MD [Primary Care Provider] - - Attending Attestation I examined this patient and my medical decision-making was reviewed with the Resident Physician on 03/06/19. I agree with the documented findings, disposition and treatment plan as described except to the extent set forth below. Ms Adamson is currently admitted for dehydration and fall. She remains moderate risk at this time. Ms Adamson is eating breakfast. She is feeling OK. No fever or chills. No CP or S OB. Exam: Alert. Comfortable. NC. Mucus membranes dry. EOMI. Neck supple. Heart distant and not tachy. No wheeze. Abd soft. No edema. Moves all extremities. No rash. Plan: Supportive care today. Working on d/c planning to SNF. Restart home meds. <Vidal Moody S - Last Filed: 03/06/19 18:11> Hospitalist Progress Note - Encounter Date of Encounter: 03/06/19 Time of Encounter: 18:11 - Subjective Interval History: Patient was seen and examined at bedside. Complains of left rib cage pain, no evidence of bruising. Dr. Fernandez was present when I saw the patient, agrees with plan to discharge tomorrow. No other acute complaints. Denies headache, fever, chills, chest pain, palpitations, cough, abd pain, N/V/D/C, dysuria, urinary freq/urgency, blood in urine, peripheral edema, hallucinations. Currently agrees to be sent to a rehabilitation facility. - Exam Vitals: Temp Pulse Resp BP Pulse Ox 98.1 F 67 18 139/84 99 03/06/19 08:08 03/06/19 08:08 03/06/19 08:08 03/06/19 08:08 03/06/19 08:08 Exam: General: A&Ox3, not in acute distress. appears frail with occasional jerky movements. Skin: Warm, pale and very dry. HEENT: Dry mucous membranes. (+) conjunctivae pallor. Left eyelid droop. EOMI. Neck: No LAD. No JVD. No carotid bruits. No palpable thyroid. Resp: CTAB. No wheezes, crackles, rales or rhonchi Heart: Irregularly irregular Abdomen: soft, nontender, nondistended. nbsx4. no masses palpated, no hsm. no peritoneal signs. Extremities: No clubbing, cyanosis or edema. No calf tenderness. Normal distal pulses. Psych: Affect flat. - Assessment and Plan (1) Dehydration Current Visit: Yes Status: Acute Comments: - denies chest pain, palpitations, headache, peripheral edema. initially had SOB, likely 2/2 fluid overload, resolved after dialysis. - leukocytosis 8.0 (prev 8.5) likely 2/2 reactive due to dehydration - no signs of infection. CT lung findings unchanged, likely no PNA at this time - given 500ml LR at admission - continue fluid repletion, monitor for fluid overload - Restarted Lasix, home dose - continue to monitor (2) ESRD (end stage renal disease) on dialysis Current Visit: Yes Status: Chronic Comments: - missed this past dialysis. Received dialysis Thursday and again thursday. Back to usual schedule (TTSa) - Denies symptoms of fluid overload, no dyspnea, no peripheral edema - BUN 15 (prev 21), creat 2.58 (prev 3.32), eGFR 18 - nephro recs: continue renal diet, renal vitamins. Okay to discharge to rehabilitation center. Resume previous dialysis schedule. - monitor labs - strict I/Os (3) Fall Current Visit: Yes Status: Acute Comments: - complains of left rib cage pain, no bruising. Has occasional jerking motions at rest, unsteady. Denies headache, dizziness, numbness/tingling, hallucinations - etiology uncertain - pt says she lives alone at an apartment. Agreeing to being transferred to a rehabilitation center on Thursday at this time. - social work consulted - SNF, plan to discharge Thursday to rehabilitation center per recs - fall precautions (4) C. difficile diarrhea Current Visit: Yes Status: Acute Comments: - discharged on 02/26 on 10 d course of vancomycin for c diff, only completed 2 days of treatment at home - got 3 days of inpatient vancomycin - at risk of recurrence - Admits to having diarrhea (nonbloody) last night. 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 denies blurry vision, dizziness, headache - likely 2/2 to hx of intraocular hemorrhage. - missed last appt with assembler deck and hull for evaluation of diplopia - will f/u outpatient - Time Spent with Patient Total time spent is greater than 50% in coordination of care (as documented) at patient's floor/unit and/or counseling patient: Internal Medicine: Result - Labs CBC & Chem 7: 03/06/19 05:20 03/06/19 05:20 Labs: Short CBC 03/06/19 Range/Units 05:20 WBC 8.0 (4.3-11.1) K/mcL Hgb 9.1 L (11.5-15.4) g/dL Hct 28.8 L (35.3-44.9) % Plt Count 173 (140-400) K/mcL Neutrophils # 5.5 (1.6-8.9) K/mcL BMP 03/06/19 05:20 Sodium 138 Potassium 3.6 Chloride 100 Carbon Dioxide 32 H BUN 15 Creatinine 2.58 H Glucose 99 Calcium 8.8 <Myron Patel - Last Filed: 03/06/19 16:22> (4) Fall Qualifiers: Encounter type: subsequent encounter Qualified Code(s): W19.XXXD - Unspecified fall, subsequent encounter (6) Atrial fibrillation Qualifiers: Atrial fibrillation type: chronic Qualified Code(s): I48.2 - Chronic atrial fibrillation (7) Hypertension Qualifiers: Hypertension type: essential hypertension Qualified Code(s): I10 - Essential (primary) hypertension
[2019-03-06] MEDS: *HR* HYDROcodone/Acet 5/325 mg TABLET PO PRN ×2 (12:38→21:18)
[2019-03-06] MEDS: Furosemide 40 MG TABLET PO SCH (16:56)
[2019-03-06] MEDS: Famotidine 20 MG TABLET PO SCH (21:13)
[2019-03-07] MEDS: *HR* Heparin 5,000 UNIT/ML VIAL SQ SCH ×2 (06:03→16:53)
[2019-03-07 06:32] LABS: Hematocrit 28.9 % (35.3-44.9); Hemoglobin 8.9 g/dL (11.5-15.4); Mean Corpuscular HGB Conc 30.8 g/dL (31.6-35.5); Mean Corpuscular Hemoglobin 30.2 pg (28.0-33.3); Mean Platelet Volume 11.1 fL (9.4-12.4); Platelet Count 168 K/mcL (140-400); Red Blood Count 2.95 M/mcL (3.82-4.97); Red Cell Distribution Width 14.3 % (11.5-14.5); White Blood Count 7.5 K/mcL (4.3-11.1)
[2019-03-07 06:50] LABS: Potassium 4.2 mEq/L (3.5-5.1)
[2019-03-07] MEDS: Loratadine 10 MG TABLET PO SCH (10:06)
[2019-03-07] MEDS: tiZANidine 4 MG TABLET PO SCH ×2 (10:07→16:53)
[2019-03-07] MEDS: Lactobacillus 1 EACH CAP.SPRINK PO SCH ×2 (10:07→20:45)
[2019-03-07] MEDS: Furosemide 40 MG TABLET PO SCH (10:07)
[2019-03-07] MEDS: *HR* HYDROcodone/Acet 5/325 mg TABLET PO PRN ×2 (10:07→20:44)
[2019-03-07] MEDS: Verapamil ER (24 HR) 120 MG TABLET.ER PO SCH (10:07)
[2019-03-07] MEDS: Renal Vitamin 1 CAP CAPSULE PO SCH (10:07)
[2019-03-07] MEDS: Vancomycin Oral Soln 125 MG/2.5 ML UDC PO SCH (10:13)
--- NOTE | 2019-03-07 10:14 | Nephrology Progress Note ---
Date of Encounter: 03/07/19 Time of Encounter: 10:09 - Assessment and Plan (1) ESRD (end stage renal disease) on dialysis Current Visit: Yes Status: Acute Current regimen is TTS at [facility]. Will reassess need for UF or HD tomorrow. Renal diet Renal vitamins Strict I/O Avoid nephrotoxins and renal dose all medications. Will order additional UF or HD as needed. Patient has been referred to [facility] in [place]. She will go to [facility] for HD. Reports she would eventually like to move to [place], which is closer to her daughter. May go from a renal standpoint if chair time is set in [place]. (2) Anemia Current Visit: No Status: Acute Goal HGB is 10-11. Hgb is 8.9, fairly stable. Qualifiers: Anemia type: due to chronic kidney disease Chronic kidney disease stage: on chronic dialysis Qualified Code(s): N18.6 - End stage renal disease; D63.1 - Anemia in chronic kidney disease; Z99.2 - Dependence on renal dialysis (3) Acute exacerbation of CHF (congestive heart failure) Current Visit: No Status: Acute Per primary. Qualifiers: Heart failure type: diastolic Qualified Code(s): I50.33 - Acute on chronic diastolic (congestive) heart failure (4) Acute and chronic respiratory failure with hypoxia Current Visit: No Status: Acute Continue supplemental O2. Per primary. (5) Altered mental status Current Visit: Yes Status: Acute Per primary. Qualifiers: Altered mental status type: disorientation Qualified Code(s): R41.0 - Disorientation, unspecified Subjective Principal diagnosis: esrd Interval history: Seen and examined in room. Is overall feeling better. Denies chest pain or shortness of breath. Metastases to nausea and diarrhea. Denies emesis. He reports she is going to and ECF after this discharge. Objective - Vital Signs Vital signs: Vital Signs Temp Pulse Resp BP Pulse Ox 03/07/19 07:12 98.6 F 78 16 143/65 96 03/07/19 03:41 97.8 F 79 18 126/74 99 03/06/19 23:49 98 F 65 18 115/71 100 03/06/19 18:56 97.8 F 65 18 107/68 98 03/06/19 15:54 98.3 F 65 18 91/54 100 03/06/19 10:48 98.5 F 79 18 123/70 100 Intake and Output 03/06/19 03/07/19 03/07/19 23:59 07:59 15:59 Intake Total 720 / 960 240 / 240 Balance 720 / 960 240 / 240 Intake: Oral 720 / 960 240 / 240 Other: Meal Dinner Breakfast Percent of Meal Consumed 80% 100% Weight 53 kg - General Appearance General appearance: Present: well-developed, well-nourished EENT: Present: ATNC, hearing intact, vision intact Neck: Present: supple Respiratory: Present: clear Cardiology: Present: no edema, normal S1, normal S2 Dialysis Vascular Access: Arteriovenous Fistula thrill: Yes bruit: Yes Gastrointestinal: Present: normoactive bowel sounds, no tenderness, no guarding Integumentary: Present: no rash, warm and dry Neurologic: Present: alert and oriented x3 Musculoskeletal: Present: no deformities, no erythema Psychiatric: Present: mood/affect appropriate, cooperative - Lab 03/07/19 05:55 03/07/19 05:55 Most recent lab results 03/07/19 05:55 Calcium 9.0 Consult Discharge Plan - Plan Referrals: Gareth Lee MD [Primary Care Provider] -
[2019-03-07] MEDS: Aspirin Enteric Coated 81 MG Tablet PO SCH (10:15)
--- NOTE | 2019-03-07 13:06 | Electrocardiograph Report ---
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
--- NOTE | 2019-03-07 16:29 | Internal Med Progress Note ---
<Vidal Moody - Last Filed: 03/07/19 16:17> Hospitalist Progress Note - Encounter Date of Encounter: 03/07/19 Time of Encounter: 16:17 - Subjective Interval History: Patient was seen and examined at bedside. Continues to complain of left rib cage pain, no evidence of bruising. No other acute complaints. Denies headache, fever , chills, chest pain, palpitations, cough, abd pain, N/V/D/C, dysuria, urinary freq/urgency, blood in urine, peripheral edema, hallucinations. Currently agrees to be sent to a rehabilitation facility. - Exam Vitals: Temp Pulse Resp BP Pulse Ox 97.9 F 71 16 120/68 95 03/07/19 16:06 03/07/19 16:06 03/07/19 16:06 03/07/19 16:06 03/07/19 16:06 Exam: General: A&Ox3, not in acute distress. appears frail with occasional jerky movements. Skin: Warm, pale and very dry. HEENT: Dry mucous membranes. (+) conjunctivae pallor. Left eyelid droop. EOMI. Neck: No LAD. No JVD. No carotid bruits. No palpable thyroid. Resp: CTAB. No wheezes, crackles, rales or rhonchi Heart: Irregularly irregular Abdomen: soft, nontender, nondistended. nbsx4. no masses palpated, no hsm. no peritoneal signs. Extremities: No clubbing, cyanosis or edema. No calf tenderness. Normal distal pulses. Psych: Affect flat. - Assessment and Plan (1) Dehydration Current Visit: Yes Status: Acute Assessment and Plan: - denies chest pain, palpitations, headache, peripheral edema. initially had SOB, likely 2/2 fluid overload, resolved after dialysis. - leukocytosis 8.0 (prev 8.5) likely 2/2 reactive due to dehydration - no signs of infection. CT lung findings unchanged, likely no PNA at this time - given 500ml LR at admission - continue fluid repletion, monitor for fluid overload - Restarted Lasix, home dose - continue to monitor (2) ESRD (end stage renal disease) on dialysis Current Visit: Yes Status: Chronic Assessment and Plan: - missed this past dialysis. Received dialysis Thursday and again thursday. Back to usual schedule (TTSa) - Denies symptoms of fluid overload, no dyspnea, no peripheral edema - nephro recs: continue renal diet, renal vitamins. Okay to discharge to rehabilitation center, discharge pending insurance. Resume previous dialysis schedule. - monitor labs - strict I/Os (3) Fall Current Visit: Yes Status: Acute Assessment and Plan: - complains of left rib cage pain, no bruising. Has occasional jerking motions at rest, unsteady. Denies headache, dizziness, numbness/tingling, hallucinations - etiology uncertain - pt says she lives alone at an apartment. Agreeing to being transferred to a rehabilitation center on Thursday at this time. - social work consulted - SNF, plan to discharge to rehabilitation center per recs - fall precautions (4) C. difficile diarrhea Current Visit: Yes Status: Acute Assessment and Plan: - discharged on 02/26 on 10 d course of vancomycin for c diff, only completed 2 days of treatment at home - got 3 days of inpatient vancomycin - at risk of r ecurrence - Admits to having diarrhea (nonbloody) last night. 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 denies blurry vision, dizziness, headache - likely 2/2 to hx of intraocular hemorrhage. - missed last appt with metallic yarn slitting machine operator for evaluation of diplopia - will f/u outpatient Comments: - Time Spent with Patient Total time spent is greater than 50% in coordination of care (as documented) at patient's floor/unit and/or counseling patient: Internal Medicine: Result - Labs CBC & Chem 7: 03/07/19 05:55 03/07/19 05:55 Labs: Short CBC 03/07/19 Range/Units 05:55 WBC 7.5 (4.3-11.1) K/mcL Hgb 8.9 L (11.5-15.4) g/dL Hct 28.9 L (35.3-44.9) % Plt Count 168 (140-400) K/mcL [facility] 03/07/19 05:55 Sodium 140 Potassium 4.2 Chloride 99 Carbon Dioxide 30 H BUN 27 H Creatinine 3.51 H Glucose 89 Calcium 9.0 Consult Discharge Plan - Plan Referrals: Gareth Lee MD [Primary Care Provider] - <Myron Patel - Last Filed: 03/07/19 17:22> Hospitalist Progress Note - Encounter Date of Encounter: 03/07/19 - Exam Vitals: Temp Pulse Resp BP Pulse Ox 97.9 F 71 16 120/68 95 03/07/19 16:06 03/07/19 16:06 03/07/19 16:06 03/07/19 16:06 03/07/19 16:06 - Assessment and Plan (1) Dehydration Current Visit: Yes Status: Acute (2) C. difficile diarrhea Current Visit: Yes Status: Acute Comments: (3) ESRD (end stage renal disease) on dialysis Current Visit: Yes Status: Acute (4) Fall Current Visit: Yes Status: Acute (5) Atrial fibrillation Current Visit: No Status: Chronic (6) Hypertension Current Visit: No Status: Chronic - Time Spent with Patient Total time spent is greater than 50% in coordination of care (as documented) at patient's floor/unit and/or counseling patient: Internal Medicine: Result - Labs CBC & Chem 7: 03/07/19 05:55 03/07/19 05:55 Labs: Short CBC 03/07/19 Range/Units 05:55 WBC 7.5 (4.3-11.1) K/mcL Hgb 8.9 L (11.5-15.4) g/dL Hct 28.9 L (35.3-44.9) % Plt Count 168 (140-400) K/mcL [facility] 03/07/19 05:55 Sodium 140 Potassium 4.2 Chloride 99 Carbon Dioxide 30 H BUN 27 H Creatinine 3.51 H Glucose 89 Calcium 9.0 - Attending Attestation I examined this patient and my medical decision-making was reviewed with the Resident Physician on 03/07/19. I agree with the documented findings, disposition and treatment plan as described except to the extent set forth below. Ms Adamson is currently admitted for dehydration due to C diff diarrhea and ESRD. She remains moderate to high risk due to potential for worsening clinical status. Ms Adamson is feeling OK. No fever or chills. No new issues. Exam: Alert. Comfortable. Mucus membranes dry. Heart not tachy. No wheeze. Abd soft. No rash. Plan: Awaiting insurance and dialysis chair. Continue current plan. <Myron Patel - Last Filed: 03/07/19 17:22> (4) Fall Qualifiers: Encounter type: subsequent encounter Qualified Code(s): W19.XXXD - Unspecified fall, subsequent encounter (5) Atrial fibrillation Qualifiers: Atrial fibrillation type: chronic Qualified Code(s): I48.2 - Chronic atrial fibrillation (6) Hypertension Qualifiers: Hypertension type: essential hypertension Qualified Code(s): I10 - Essential (primary) hypertension
[2019-03-07] MEDS: Famotidine 20 MG TABLET PO SCH (20:45)
[2019-03-08 01:22] LABS: Hematocrit 27.4 % (35.3-44.9); Hemoglobin 8.6 g/dL (11.5-15.4); Mean Corpuscular HGB Conc 31.4 g/dL (31.6-35.5); Mean Corpuscular Hemoglobin 30.9 pg (28.0-33.3); Mean Corpuscular Volume 98.6 fL (83.0-100.0); Mean Platelet Volume 11.1 fL (9.4-12.4); Platelet Count 163 K/mcL (140-400); Red Blood Count 2.78 M/mcL (3.82-4.97); Red Cell Distribution Width 14.3 % (11.5-14.5); White Blood Count 6.6 K/mcL (4.3-11.1)
[2019-03-08 01:40] LABS: Calcium 8.9 mg/dL (8.6-10.3); Potassium 4.3 mEq/L (3.5-5.1)
[2019-03-08] MEDS: *HR* Heparin 5,000 UNIT/ML VIAL SQ SCH ×2 (06:20→17:02)
[2019-03-08] MEDS ORDERED: 0.9 % Sodium Chloride 250 ML IVC PRN (08:14)
[2019-03-08] MEDS ORDERED: 0.9 % Sodium Chloride 1,000 ML PRIME SCH (08:15)
[2019-03-08] MEDS: Renal Vitamin 1 CAP CAPSULE PO SCH (09:52)
[2019-03-08] MEDS: Lactobacillus 1 EACH CAP.SPRINK PO SCH ×2 (09:52→20:27)
[2019-03-08] MEDS: Aspirin Enteric Coated 81 MG Tablet PO SCH (09:53)
[2019-03-08] MEDS: Verapamil ER (24 HR) 120 MG TABLET.ER PO SCH (09:53)
[2019-03-08] MEDS: Furosemide 40 MG TABLET PO SCH (09:53)
[2019-03-08] MEDS: Loratadine 10 MG TABLET PO SCH (09:53)
[2019-03-08] MEDS: tiZANidine 4 MG TABLET PO SCH ×2 (09:53→17:01)
--- NOTE | 2019-03-08 10:53 | Nephrology Progress Note ---
Date of Encounter: 03/08/19 Time of Encounter: 10:51 - Assessment and Plan (1) ESRD (end stage renal disease) on dialysis Current Visit: Yes Status: Acute HD TRS Renal vitamins. Renal dose medications. Renal diet. Additional dialysis and ultrafiltration as needed. Current regimen is TTS at [facility]. Patient seen on dialysis. Patient has been referred to [facility] in [place]. She will go to [facility] for HD. Reports she would eventually like to move to [place], which is closer to her daughter. May go from a renal standpoint if chair time is set in [place]. (2) Anemia Current Visit: No Status: Acute Qualifiers: Anemia type: due to chronic kidney disease Chronic kidney disease stage: on chronic dialysis Qualified Code(s): N18.6 - End stage renal disease; D63.1 - Anemia in chronic kidney disease; Z99.2 - Dependence on renal dialysis (3) Acute exacerbation of CHF (congestive heart failure) Current Visit: No Status: Acute Qualifiers: Heart failure type: diastolic Qualified Code(s): I50.33 - Acute on chronic diastolic (congestive) heart failure (4) Acute and chronic respiratory failure with hypoxia Current Visit: No Status: Acute (5) Altered mental status Current Visit: Yes Status: Acute Qualifiers: Altered mental status type: disorientation Qualified Code(s): R41.0 - Disor ientation, unspecified Subjective Principal diagnosis: esrd Interval history: Patient seen. No new complaint. ROS otherwise stable. Objective - Vital Signs Vital signs: Vital Signs Temp Pulse Resp BP Pulse Ox 03/08/19 07:15 97.6 F 77 18 145/69 100 03/08/19 03:37 97.9 F 72 17 124/58 99 03/08/19 00:05 97.5 F L 77 17 133/71 100 03/07/19 20:55 96 03/07/19 19:24 97.7 F 71 18 106/65 100 03/07/19 16:06 97.9 F 71 16 120/68 95 03/07/19 11:28 97.9 F 64 16 95/54 100 Intake and Output 03/07/19 03/08/19 03/08/19 23:59 07:59 15:59 Other: # Voids 1 Weight 53 kg - General Appearance General appearance: Present: well-developed, well-nourished EENT: Present: ATNC Neck: Present: supple Cardiology: Present: regular rate Integumentary: Present: warm and dry Neurologic: Present: alert and oriented x3 Musculoskeletal: Present: no cyanosis Psychiatric: Present: mood/affect appropriate - Lab 03/08/19 01:04 03/08/19 01:04 Most recent lab results 03/08/19 01:04 Calcium 8.9 Consult Discharge Plan - Plan Referrals: Gareth Lee MD [Primary Care Provider] - 03/15/19 9:15 am
--- NOTE | 2019-03-08 13:29 | Internal Med Progress Note ---
<Vidal Moody - Last Filed: 03/08/19 13:26> Hospitalist Progress Note - Encounter Date of Encounter: 03/08/19 Time of Encounter: 13:26 - Subjective Interval History: Patient was seen and examined at bedside. Was comfortably sleeping, but pleasantly awoke and was cooperative with exam. Complains of left rib cage pain, says that it is slightly improved. No other acute complaints. Denies headache, fever, chills, chest pain, palpitations, cough, abd pain, N/V/D/C, dysuria, urinary freq/urgency, blood in urine, peripheral edema, hallucinations. Currently agrees to be sent to a rehabilitation facility. - Exam Vitals: Temp Pulse Resp BP Pulse Ox 97.6 F 77 18 145/69 100 03/08/19 07:15 03/08/19 07:15 03/08/19 07:15 03/08/19 07:15 03/08/19 07:15 Exam: General: A&Ox3, not in acute distress. appears frail with occasional jerky movements. Skin: Warm, pale and very dry. HEENT: Dry mucous membranes. (+) conjunctivae pallor. Left eyelid droop. EOMI. Neck: No LAD. No JVD. No carotid bruits. No palpable thyroid. Resp: CTAB. No wheezes, crackles, rales or rhonchi Heart: Irregularly irregular Abdomen: soft, nontender, nondistended. nbsx4. no masses palpated, no hsm. no peritoneal signs. Extremities: No clubbing, cyanosis or edema. No calf tenderness. Normal distal pulses. Psych: Affect flat. - Assessment and Plan (1) Dehydration Current Visit: Yes Status: Acute Assessment and Plan: - denies chest pain, palpitations, headache, peripheral edema. initially had SOB, likely 2/2 fluid overload, resolved after dialysis. - leukocytosis resolved, likely 2/2 reactive due to dehydration - no signs of infection. CT lung findings unchanged, likely no PNA at this time - Current WBC 6.6 - given 500ml LR at admission - continue fluid repletion, monitor for fluid overload - Restarted Lasix, home dose - continue to monitor (2) ESRD (end stage renal disease) on dialysis Current Visit: Yes Status: Chronic Assessment and Plan: - missed dialysis last . Received dialysis Thursday and again Thursday. Back to usual schedule (TTSa) - Denies symptoms of fluid overload, no dyspnea, no peripheral edema - nephro recs: continue renal diet, renal vitamins. Okay to discharge to rehabilitation center at [place], discharge pending HD chair placement. Resume previous dialysis schedule. - monitor labs - strict I/Os (3) Fall Current Visit: Yes Status: Acute Assessment and Plan: - Left rib cage pain slightly improved, no bruising. Has occasional jerking motions at rest, unsteady. Denies headache, dizziness, numbness/tingling, hallucinations - etiology uncertain - pt says she lives alone at an apartment. Agreeing to being transferred to a rehabilitation center at [facility], placement pending HD chair availability - social work consulted - SNF, plan to discharge to rehabilitation center per recs - fall precautions (4) C. difficile diarrhea Current Visit: Yes Status: Acute Assessment and Plan: - discharged on 02/26 on 10 d course of vancomycin for c diff, only completed 2 days of treatment at home - got 3 days of inpatient vancomycin - at risk of recurrence - Denies any episodes of diarrhea since yesterday. Says that stool is starting to clump. 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 denies blurry vision, dizziness, headache. - likely 2/2 to hx of intraocular hemorrhage. - missed last appt with trommel tender for evaluation of diplopia - will f/u outpatient Comments: - Time Spent with Patient Total time spent is greater than 50% in coordination of care (as documented) at patient's floor/unit and/or counseling patient: Internal Medicine: Result - Labs CBC & Chem 7: 03/08/19 01:04 03/08/19 01:04 Labs: Short CBC 03/08/19 Range/Units 01:04 WBC 6.6 (4.3-11.1) K/mcL Hgb 8.6 L (11.5-15.4) g/dL Hct 27.4 L (35.3-44.9) % Plt Count 163 (140-400) K/mcL BMP 03/08/19 01:04 Sodium 136 Potassium 4.3 Chloride 102 Carbon Dioxide 29 BUN 33 H Creatinine 3.98 H Glucose 89 Calcium 8.9 Consult Discharge Plan - Plan Referrals: Gareth Lee MD [Primary Care Provider] - 03/15/19 9:15 am <Myron Patel - Last Filed: 03/08/19 15:01> Hospitalist Progress Note - Encounter Date of Encounter: 03/08/19 - Exam Vitals: Temp Pulse Resp BP Pulse Ox 97.6 F 77 18 145/69 100 03/08/19 07:15 03/08/19 07:15 03/08/19 07:15 03/08/19 07:15 03/08/19 07:15 - Assessment and Plan (1) Dehydration Current Visit: Yes Status: Acute (2) C. difficile diarrhea Current Visit: Yes Status: Acute Comments: (3) ESRD (end stage renal disease) on dialysis Current Visit: Yes Status: Acute (4) Fall Current Visit: Yes Status: Acute (5) Atrial fibrillation Current Visit: No Status: Chronic (6) Hypertension Current Visit: No Status: Chronic - Time Spent with Patient Total time spent is greater than 50% in coordination of care (as documented) at patient's floor/unit and/or counseling patient: Internal Medicine: Result - Labs CBC & Chem 7: 03/08/19 01:04 03/08/19 01:04 Labs: Short CBC 03/08/19 Range/Units 01:04 WBC 6.6 (4.3-11.1) K/mcL Hgb 8.6 L (11.5-15.4) g/dL Hct 27.4 L (35.3-44.9) % Plt Count 163 (140-400) K/mcL BMP 03/08/19 01:04 Sodium 136 Potassium 4.3 Chloride 102 Carbon Dioxide 29 BUN 33 H Creatinine 3.98 H Glucose 89 Calcium 8.9 - Attending Attestation I examined this patient and my medical decision-making was reviewed with the Resident Physician on 8/6/19. I agree with the documented findings, disposition and treatment plan as described except to the extent set forth below. Ms Adamson is currently admitted for dehydration related to diarrhea from C diff. She remains moderate risk at this time. Ms Adamson is feeling OK. No new issues. No fever or chills. Awaiting insurance and dialysis time. Exam: Alert. Comfortable. NC. EOMI. Mucus membranes dry. Heart not tachy. No wheeze. Abd soft. Moves all extremities. No rash. Plan: Dialysis today. Await dialysis chair time and insurance for SNF. <Myron Patel - Last Filed: 03/08/19 15:01> (4) Fall Qualifiers: Encounter type: subsequent encounter Qualified Code(s): W19.XXXD - Unspecified fall, subsequent encounter (5) Atrial fibrillation Qualifiers: Atrial fibrillation type: chronic Qualified Code(s): I48.2 - Chronic atrial fibrillation (6) Hypertension Qualifiers: Hypertension type: essential hypertension Qualified Code(s): I10 - Essential (primary) hypertension
[2019-03-08] MEDS: Famotidine 20 MG TABLET PO SCH (20:27)
[2019-03-08] MEDS: *HR* HYDROcodone/Acet 5/325 mg TABLET PO PRN (20:27)
[2019-03-09 04:58] LABS: Hematocrit 27.6 % (35.3-44.9); Hemoglobin 8.7 g/dL (11.5-15.4); Mean Corpuscular HGB Conc 31.5 g/dL (31.6-35.5); Mean Corpuscular Hemoglobin 31.5 pg (28.0-33.3); Mean Platelet Volume 10.8 fL (9.4-12.4); Platelet Count 166 K/mcL (140-400); Red Blood Count 2.76 M/mcL (3.82-4.97); Red Cell Distribution Width 14.3 % (11.5-14.5); White Blood Count 6.3 K/mcL (4.3-11.1)
[2019-03-09] MEDS: *HR* Heparin 5,000 UNIT/ML VIAL SQ SCH ×2 (05:08→16:33)
[2019-03-09 05:16] LABS: Calcium 9.1 mg/dL (8.6-10.3)
[2019-03-09] MEDS: Lactobacillus 1 EACH CAP.SPRINK PO SCH ×2 (07:42→21:06)
[2019-03-09] MEDS: Renal Vitamin 1 CAP CAPSULE PO SCH (07:43)
[2019-03-09] MEDS: Loratadine 10 MG TABLET PO SCH (07:43)
[2019-03-09] MEDS: tiZANidine 4 MG TABLET PO SCH ×2 (07:43→16:33)
[2019-03-09] MEDS: Aspirin Enteric Coated 81 MG Tablet PO SCH (07:43)
[2019-03-09] MEDS: Verapamil ER (24 HR) 120 MG TABLET.ER PO SCH (07:43)
[2019-03-09] MEDS: *HR* HYDROcodone/Acet 5/325 mg TABLET PO PRN ×2 (07:47→16:33)
[2019-03-09] MEDS: Furosemide 40 MG TABLET PO SCH (07:50)
--- NOTE | 2019-03-09 08:42 | Internal Med Progress Note ---
Hospitalist Progress Note - Encounter Date of Encounter: 03/09/19 Time of Encounter: 08:41 - Subjective Interval History: Ms. Adamson was seen and evaluated at the bedside. At that time, she was noted to be resting comfortably, and was easily to voice. She endorses no acute complaints or concerns, and reports that her diarrhea has continued to improve. She voices that she is tired of sitting in bed and that she would like to get up and moves both throughout the room and in the hallways. She denies any chest pain, shortness of breath, abdominal pain, or other concerns. Nursing staff reports no significant overnight events. - Exam Vitals: Temp Pulse Resp BP Pulse Ox 97.5 F L 75 19 162/91 99 03/09/19 07:02 03/09/19 07:02 03/09/19 07:02 03/09/19 07:02 03/09/19 07:02 Exam: GENERAL: Well-developed, well-nourished elderly female resting in bed comfortably and in no acute distress. HEENT: Atraumatic and normocephalic. CARDIOVASCULAR: Regular rate and rhythm. S1 and S2 present. No murmurs, gallops, or rubs. RESPIRATORY: Diffusely decreased breath sounds bilaterally. Chest rises and falls symmetrically without accessory muscle use. GASTROINTESTINAL: Abdomen is soft, nontender, nondistended. Active bowel sounds present 4 quadrants. EXTREMITIES: No clubbing, cyanosis, or edema. SKIN: Warm, dry, and intact. NEUROLOGIC: Alert and oriented x3. Patient is cooperative with exam and answers questions appropriately. No apparent focal deficits. PSYCHIATRIC: Appropriate mood and affect. - Assessment and Plan (1) ESRD (end stage renal disease) on dialysis Current Visit: Yes Status: Chronic Assessment and Plan: History of ESRD on hemodialysis Thursday//Thursday. At the time of admission, patient did appear to be grossly fluid overload due to missing a scheduled hemodialysis appointment, with associated increased shortness of breath. This has since resolved with continuation of normal dialysis schedule, and patient denies any ongoing shortness of breath or respiratory discomfort. She is resting comfortably on 2 L via nasal cannula. Plan: - Continue hemodialysis per nephrology recommendations. Continue renal diet and normal renal vitamins. - Avoid nephrotoxins and renally dose medications as appropriate. Continue to monitor strict I's and O's. - Anticipate discharge to ECF once chair time can be confirmed at nearby dial ysis facility. (2) Fall Current Visit: Yes Status: Acute Assessment and Plan: Likely secondary to dehydration from poor oral intake and C. difficile diarrhea, both of which have been addressed during this admission. Patient initially presented to the emergency department after being found on the floor for a prolonged period of time. Patient has endorsed left-sided rib cage pain, which has been improving throughout her hospital stay. Per PT/OT evaluations, patient would benefit from rehabilitation facility. - Continue physical and occupational therapy. Anticipate discharge to rehabilitation facility once dialysis chair time can be confirmed. - Encourage cautious mobilization ad kelli. (3) Chronic respiratory failure Current Visit: Yes Status: Chronic Assessment and Plan: History of chronic respiratory failure, on 2L home oxygen. Patient denies any worsening shortness of breath, orthopnea, or increased work of breathing. (4) Chronic anemia Current Visit: Yes Status: Acute Assessment and Plan: Likely etiology is anemia of chronic disease. At time of admission, patient was noted to have hemoglobin of 10.2, which has trended down to 8.9 today; however, patient does not show any apparent signs of bleeding. Review of previous laboratory studies show his baseline to be around 9.5. - Continue to monitor and trend daily laboratory studies. - Continue oral iron supplementation. (5) C. difficile diarrhea Current Visit: Yes Status: Acute Assessment and Plan: Present on admission; patient has completed appropriate course of oral vancomycin for treatment of this problem. If she continues to have several bowel movements each day, patient reports that her stool is becoming more formed. She denies any recurrent episodes of foul-smelling diarrhea. Comments: (6) Atrial fibrillation Current Visit: Yes Status: Chronic Assessment and Plan: History of atrial fibrillation. Patient has remained appropriately rate controlled throughout her hospitalization. - Continue home medications of labetalol and verapamil. (7) Hypertension Current Visit: No Status: Chronic Assessment and Plan: - Continue home medications of Lasix, labetalol, and verapamil. - Continue hydralazine 10mg IVP Q6H PRN. (8) DVT prophylaxis Current Visit: Yes Status: Acute Assessment and Plan: - Heparin 5000units SQ Q12H. - Time Spent with Patient Total time spent is greater than 50% in coordination of care (as documented) at patient's floor/unit and/or counseling patient: Internal Medicine: Result - Labs CBC & Chem 7: 03/09/19 04:12 03/09/19 04:12 Labs: Short CBC 03/09/19 Range/Units 04:12 WBC 6.3 (4.3-11.1) K/mcL Hgb 8.7 L (11.5-15.4) g/dL Hct 27.6 L (35.3-44.9) % Plt Count 166 (140-400) K/mcL BMP 03/09/19 04:12 Sodium 138 Potassium 4.0 Chloride 101 Carbon Dioxide 34 H BUN 17 Creatinine 3.03 H Glucose 87 Calcium 9.1 Consult Discharge Plan - Plan Referrals: Gareth Lee MD [Primary Care Provider] - 03/15/19 9:15 am (2) Fall Qualifiers: Encounter type: initial encounter Qualified Code(s): W19.XXXA - Unspecified fall, initial encounter (3) Chronic respiratory failure Qualifiers: Respiratory failure complication: hypoxia Qualified Code(s): J96.11 - Chronic respiratory failure with hypoxia (6) Atrial fibrillation Qualifiers: Atrial fibrillation type: chronic Qualified Code(s): I48.2 - Chronic atrial fibrillation (7) Hypertension Qualifiers: Hypertension type: essential hypertension Qualified Code(s): I10 - Essential (primary) hypertension
--- NOTE | 2019-03-09 12:49 | Nephrology Progress Note ---
Date of Encounter: 03/09/19 Time of Encounter: 12:47 - Assessment and Plan (1) ESRD (end stage renal disease) on dialysis Current Visit: Yes Status: Acute HD TTS. Renal vitamins. Renal dose medications. Renal diet. Additional dialysis and ultrafiltration as needed. Current regimen is TTS at [facility]. Plan for HD tomorrow. Patient has been referred to [facility] in [place]. She will go to [facility] for HD. Reports she would eventually like to move to [place], which is closer to her daughter. May go from a renal standpoint if chair time is set in [place]. (2) Anemia Current Visit: No Status: Acute Goal HGB is 10-11. Hgb is 8.7, fairly stable. Qualifiers: Anemia type: due to chronic kidney disease Chronic kidney disease stage: on chronic dialysis Qualified Code(s): N18.6 - End stage renal disease; D63.1 - Anemia in chronic kidney disease; Z99.2 - Dependence on renal dialysis (3) Acute exacerbation of CHF (congestive heart failure) Current Visit: No Status: Acute Per primary. Qualifiers: Heart failure type: diastolic Qualified Code(s): I50.33 - Acute on chronic diastolic (congestive) heart failure (4) Acute and chronic respiratory failure with hypoxia Current Visit: No Status: Acute Continue supplemental O2. Per primary. (5) Altered mental status Current Visit: Yes Status: Acute Resolving. Qualifiers: Altered mental status type: disorientation Qualified Code(s): R41.0 - Disorientation, unspecified Subjective Principal diagnosis: esrd Interval history: Seen and examined in room. Is overall feeling better. Denies chest pain or shortness of breath. Denies nausea, vomiting, diarrhea. Objective - Vital Signs Vital signs: Vital Signs Temp Pulse Resp BP Pulse Ox 03/09/19 12:11 97.6 F 66 19 145/71 95 03/09/19 07:02 97.5 F L 75 19 162/91 99 03/09/19 05:21 99 03/09/19 04:04 97.6 F 71 16 132/76 100 03/09/19 00:49 97.6 F 75 17 143/79 100 03/08/19 20:33 98 03/08/19 19:30 98.2 F 75 16 123/74 100 03/08/19 15:24 98.0 F 62 17 112/66 99 03/08/19 13:24 97.9 F 16 123/69 03/08/19 13:05 100/73 03/08/19 12:50 95/64 Intake and Output 03/08/19 03/09/19 03/09/19 23:59 07:59 15:59 Intake Total 100 / 700 240 / 240 Output Total 0 / 0 Balance 100 / -1900 0 / 240 240 / 240 Intake: Oral 100 / 100 240 / 240 Output: Urine 0 / 0 Other: Meal Breakfast Percent of Meal Consumed 100% Weight 56.6 kg Patient Weight 03/09/19 23:59 Weight 56.6 kg - General Appearance General appearance: Present: frail EENT: Present: ATNC, hearing intact, vision intact Neck: Present: supple Respiratory: Present: clear Cardiology: Present: no edema, normal S1, normal S2 Dialysis Vascular Access: Arteriovenous Fistula thrill: Yes bruit: Yes Gastrointestinal: Present: normoactive bowel sounds, no tenderness, no guarding Integumentary: Present: no rash, warm and dry Neurologic: Present: alert and oriented x3 Musculoskeletal: Present: no deformities, no erythema Psychiatric: Present: mood/affect appropriate, cooperative - Lab 03/09/19 04:12 03/09/19 04:12 Most recent lab results 03/09/19 04:12 Calcium 9.1 Consult Discharge Plan - Plan Referrals: Gareth Lee MD [Primary Care Provider] - 03/15/19 9:15 am
[2019-03-09] MEDS: Famotidine 20 MG TABLET PO SCH (21:06)
[2019-03-10] MEDS: *HR* HYDROcodone/Acet 5/325 mg TABLET PO PRN ×3 (00:48→16:37)
[2019-03-10] MEDS ORDERED: ALPRAZolam 0.25 MG TABLET PO ONE (03:05)
[2019-03-10] MEDS: *HR* Heparin 5,000 UNIT/ML VIAL SQ SCH ×2 (05:42→16:36)
[2019-03-10 05:49] LABS: Hematocrit 27.5 % (35.3-44.9); Hemoglobin 8.7 g/dL (11.5-15.4); Mean Corpuscular HGB Conc 31.6 g/dL (31.6-35.5); Mean Corpuscular Hemoglobin 31.1 pg (28.0-33.3); Mean Corpuscular Volume 98.2 fL (83.0-100.0); Platelet Count 174 K/mcL (140-400); Red Cell Distribution Width 14.3 % (11.5-14.5); White Blood Count 7.8 K/mcL (4.3-11.1)
[2019-03-10 06:17] LABS: Calcium 9.3 mg/dL (8.6-10.3)
[2019-03-10] MEDS: Lactobacillus 1 EACH CAP.SPRINK PO SCH ×2 (07:56→20:31)
[2019-03-10] MEDS: tiZANidine 4 MG TABLET PO SCH ×2 (07:57→16:37)
[2019-03-10] MEDS: Renal Vitamin 1 CAP CAPSULE PO SCH (07:57)
[2019-03-10] MEDS: Loratadine 10 MG TABLET PO SCH (07:57)
[2019-03-10] MEDS: Aspirin Enteric Coated 81 MG Tablet PO SCH (07:58)
[2019-03-10] MEDS: Verapamil ER (24 HR) 120 MG TABLET.ER PO SCH (08:02)
[2019-03-10] MEDS: Furosemide 40 MG TABLET PO SCH (08:02)
[2019-03-10] MEDS ORDERED: 0.9 % Sodium Chloride 250 ML IVC PRN (08:14)
--- NOTE | 2019-03-10 10:14 | Nephrology Progress Note ---
Date of Encounter: 03/10/19 Time of Encounter: 10:12 - Assessment and Plan (1) ESRD (end stage renal disease) on dialysis Current Visit: Yes Status: Acute HD TTS. Renal vitamins. Renal dose medications. Renal diet. Additional dialysis and ultrafiltration as needed. Current regimen is TTS at [facility]. HD in progress for today. Patient has been referred to [facility] in [place]. She will go to [facility] for HD. Reports she would eventually like to move to [place], which is closer to her daughter. May go from a renal standpoint if chair time is set in [place]. (2) Anemia Current Visit: No Status: Acute Goal HGB is 10-11. Transfusion per primary team. Qualifiers: Anemia type: due to chronic kidney disease Chronic kidney disease stage: on chronic dialysis Qualified Code(s): N18.6 - End stage renal disease; D63.1 - Anemia in chronic kidney disease; Z99.2 - Dependence on renal dialysis (3) Acute exacerbation of CHF (congestive heart failure) Current Visit: No Status: Acute Per primary. Qualifiers: Heart failure type: diastolic Qualified Code(s): I50.33 - Acute on chronic diastolic (congestive) heart failure (4) Acute and chronic respiratory failure with hypoxia Current Visit: No Status: Acute Continue supplemental O2. Per primary. (5) Altered mental status Current Visit: Yes Status: Acute Resolving. Qualifiers: Altered mental status type: disorientation Qualified Code(s): R41.0 - Disorientation, unspecified Subjective Principal diagnosis: esrd Interval history: Seen and examined in HD, tolerating well. Is overall feeling better. Denies chest pain or shortness of breath. Denies nausea, vomiting, diarrhea. Objective - Vital Signs Vital signs: Vital Signs Temp Pulse Resp BP Pulse Ox 03/10/19 07:37 98.1 F 86 17 152/88 100 03/10/19 05:47 98.0 F 81 17 150/78 100 03/10/19 00:36 98.2 F 80 16 151/77 97 03/09/19 21:06 100 03/09/19 18:59 98.1 F 75 16 126/74 100 03/09/19 16:26 98.1 F 70 16 168/74 96 03/09/19 12:11 97.6 F 66 19 145/71 95 Intake and Output 03/09/19 03/10/19 03/10/19 23:59 07:59 15:59 Intake Total 120 / 120 Output Total 0 / 0 Balance 0 / 240 120 / 120 Intake: Oral 120 / 120 Output: Urine 0 / 0 Other: Meal Breakfast Percent of Meal Consumed 90% - General Appearance General appearance: Present: well-developed, well-nourished EENT: Present: ATNC, hearing intact, vision intact Neck: Present: supple Respiratory: Present: clear Cardiology: Present: no edema, normal S1, normal S2 Dialysis Vascular Access: Arteriovenous Fistula thrill: Yes bruit: Yes Gastrointestinal: Present: normoactive bowel sounds, no tenderness, no guarding Integumentary: Present: no rash, warm and dry Neurologic: Present: alert and oriented x3 Musculoskeletal: Present: no deformities, no erythema Psychiatric: Present: mood/affect appropriate, cooperative - Lab 03/10/19 05:05 03/10/19 05:05 Most recent lab results 03/10/19 05:05 Calcium 9.3 Consult Discharge Plan - Plan Referrals: Gareth Lee MD [Primary Care Provider] - 03/15/19 9:15 am
--- NOTE | 2019-03-10 11:39 | Internal Med Progress Note ---
Hospitalist Progress Note - Encounter Date of Encounter: 03/10/19 - Exam Vitals: Temp Pulse Resp BP Pulse Ox 98.1 F 86 17 152/88 100 03/10/19 07:37 03/10/19 07:37 03/10/19 07:37 03/10/19 07:37 03/10/19 07:37 - Assessment and Plan (1) Dehydration Current Visit: Yes Status: Resolved (2) ESRD (end stage renal disease) on dialysis Current Visit: Yes Status: Chronic (3) Fall Current Visit: Yes Status: Acute (4) C. difficile diarrhea Current Visit: Yes Status: Acute Comments: (5) Atrial fibrillation Current Visit: Yes Status: Chronic (6) Diplopia Current Visit: No Status: Chronic Comments: - Time Spent with Patient Total time spent is greater than 50% in coordination of care (as documented) at patient's floor/unit and/or counseling patient: Internal Medicine: Result - Labs CBC & Chem 7: 03/10/19 05:05 03/10/19 05:05 Labs: Short CBC 03/10/19 Range/Units 05:05 WBC 7.8 (4.3-11.1) K/mcL Hgb 8.7 L (11.5-15.4) g/dL Hct 27.5 L (35.3-44.9) % Plt Count 174 (140-400) K/mcL BMP 03/10/19 05:05 Sodium 137 Potassium 4.0 Chloride 99 Carbon Dioxide 30 H BUN 26 H Creatinine 4.11 H Glucose 87 Calcium 9.3 Consult Discharge Plan - Plan Referrals: Gareth Lee MD [Primary Care Provider] - 03/15/19 9:15 am (3) Fall Qualifiers: Encounter type: initial encounter Qualified Code(s): W19.XXXA - Unspecified fall, initial encounter (5) Atrial fibrillation Qualifiers: Atrial fibrillation type: chronic Qualified Code(s): I48.2 - Chronic atrial fibrillation
--- NOTE | 2019-03-10 14:07 | Discharge Summary ---
- NOTES TO OUTPATIENT PROVIDER Notes to Outpatient Provider: Ms. Adamson is a 68 year old female who presented to [facility] from home on 03/03 after a change in mental status. She was found lying on her floor after having visual hallucinations. She was most likely on the floor for 24-48 hours before she was found. She was brought in by EMS. Patient had consequently missed one dialysis session. She had previously been discharged from [facility] on 02/26 on a seven-day course of vancomycin for Clostridium difficile patient did not complete her antibiotic course and was still having nonbloody diarrhea. Patient was admitted for dialysis and continued treatment of the C. difficile. Patient received appropriate dialysis sessions while in the hospital. Her labs appeared to return to baseline after receiving treatment. Her AMS improved back to baseline. Patient was also treated for C. difficile with oral vancomycin. Due to patients frequent hospital visits secondary to similar symptoms, patient agrees and will be transferred to a nursing facility where she can receive further care and monitoring and where she will continue to receive dialysis. Date of Encounter: 03/10/19 Time of Encounter: 16:28 - Discharge Diagnosis (1) Dehydration Priority: Primary Status: Resolved (2) ESRD (end stage renal disease) on dialysis Priority: Secondary Status: Chronic (3) Fall Priority: Secondary Status: Acute Qualifiers: Qualified Code(s): W19.XXXA - Unspecified fall, initial encounter (4) C. difficile diarrhea Priority: Secondary Status: Acute (5) Atrial fibrillation Priority: Secondary Status: Chronic Qualifiers: Qualified Code(s): I48.2 - Chronic atrial fibrillation (6) Diplopia Priority: Secondary Status: Chronic Hospital course: Ms. Adamson is a 68 year old female who presented to [facility] from home on 03/03 after a change in mental status. She was found lying on her floor after having visual hallucinations. She was most likely on the floor for 24-48 hours before she was found. She was brought in by EMS. Patient had consequently missed one dialysis session. She had previously been discharged from [facility] on 02/26 on a seven-day course of vancomycin for Clostridium difficile patient did not complete her antibiotic course and was still having nonbloody diarrhea. Patient was admitted for dialysis and continued treatment of the C. difficile. Patient received appropriate dialysis sessions while in the hospital. Her labs appeared to return to baseline after receiving treatment. Her AMS improved back to baseline. Patient was also treated for C. difficile with oral vancomycin. Due to patients frequent hospital visits secondary to similar symptoms, patient agrees and will be transferred to a nursing facility where she can receive further care and monitoring and where she will continue to receive dialysis. - Time Spent with Patient Total time spent providing and/or coordinating discharge services: - Discharge Medications Prescriptions: Continued Tizanidine HCl 2 mg PO QAM Labetalol HCl 200 mg PO QID Tizanidine HCl 4 mg PO QPM Verapamil HCl [Verapamil ER] 120 mg PO DAILY Aspirin Enteric Coated [Aspirin EC] 81 mg PO DAILY Sevelamer [Renvela] 1,600 mg PO 1200,1700 Famotidine [Pepcid] 40 mg PO DAILY PARoxetine HCl [Paroxetine HCl] 40 mg PO DAILY Renal Vitamin [Renal Caps Softgel] 1 mg PO DAILY #0 Furosemide [Lasix] 40 mg PO SUMOWE Ferrous Sulfate [Iron] 325 mg PO DAILY Cetirizine HCl [Zyrtec] 10 mg PO DAILY Sevelamer [Renvela] 800 mg PO 0800 Lactobacillus Acidophilus [Acidophilus Lactobacilli] 1 each PO BID #60 capsule HYDROcodone/Acet 5/325 mg [[place] 5-325 mg] 1 tab PO TID PRN 2 Days #6 tablet PRN Reason: Pain ALPRAZolam [Xanax 0.25 MG Tablet] 0.25 mg PO BID 2 Days #4 tablet Discontinued Vancomycin HCl 125 mg PO QID Home Medications: Tizanidine HCl 2 mg PO QAM 08/27/15 [History] Labetalol HCl 200 mg PO QID 04/28/18 [History] Tizanidine HCl 4 mg PO QPM 04/28/18 [History] Aspirin Enteric Coated [Aspirin EC] 81 mg PO DAILY 11/13/18 [History] Sevelamer [Renvela] 1,600 mg PO 1200,1700 11/13/18 [History] Verapamil HCl [Verapamil ER] 120 mg PO DAILY 11/13/18 [History] Famotidine [Pepcid] 40 mg PO DAILY 11/22/18 [History] PARoxetine HCl [Paroxetine HCl] 40 mg PO DAILY 01/27/19 [History] Renal Vitamin [Renal Caps Softgel] 1 mg PO DAILY #0 01/27/19 [History] Furosemide [Lasix] 40 mg PO SUMOWEFR 07/05/19 [History] Cetirizine HCl [Zyrtec] 10 mg PO DAILY 02/11/19 [History] Ferrous Sulfate [Iron] 325 mg PO DAILY 02/11/19 [History] Sevelamer [Renvela] 800 mg PO 0800 02/12/19 [History] Lactobacillus Acidophilus [Acidophilus Lactobacilli] 1 each PO BID #60 capsule 02/26/19 [Rx] ALPRAZolam [Xanax 0.25 MG Tablet] 0.25 mg PO BID 2 Days #4 tablet 03/10/19 [Rx] HYDROcodone/Acet 5/325 mg [[place] 5-325 mg] 1 tab PO TID PRN 2 Days #6 tablet 03/10/19 [Rx] Allergies/Adverse Reactions: Allergy/AdvReac Type Severity Reaction Status Date / Time blue dye Allergy Hives Verified 02/23/19 14:19 latex Allergy Itching Verified 02/23/19 14:19 Nickel Allergy Hives Verified 02/23/19 14:19 shrimp Allergy Hives Verified 02/23/19 14:19 Sulfa (Sulfonamide Allergy Hives Verified 02/23/19 14:19 Antibiotics) Date of admission: 03/06/19 12:49 Primary care physician: Gareth Lee MD Consults: 03/04/19 02:32 Consult to Nephrology [CONS] Routine Consulting Provider: Elsa Miranda/SABRA/MIRIAM/JOSSELIN Reason for Consult: Patient with missed HD session Call Completed: No 03/04/19 02:59 Consult to Installation And Service Technician [CONS] Routine Reason for SW Consult: Patient cannot care for herself at [facility]. Needs placement in [place] if possible. 03/04/19 09:49 Consult to Nurse Navigator [CONS] Routine Comment: hd 03/04/19 11:00 Consult to Dialysis [CONS] ONCE 03/04/19 11:49 Consult to Physical Therapy [CONS] Routine Comment: Evaluate, develop and implement POC Reason for Consult: recent fall. found on the floor by neighbor, was there for 24 hr. unsteady gait, occasional jerking motions at rest. Does patient have active BEDREST order?: No Is patient medically & hemodynamically stable?: Yes 03/05/19 09:30 Consult to Dialysis [CONS] ONCE 03/08/19 08:15 Consult to Dialysis [CONS] ONCE 03/10/19 08:15 Consult to Dialysis [CONS] ONCE Discharging clinician: Vidal Moody - Constitutional Vitals: Temp Pulse Resp BP Pulse Ox 97.6 F 86 15 132/76 100 03/10/19 10:25 03/10/19 07:37 03/10/19 10:25 03/10/19 10:55 03/10/19 07:37 Exam: GENERAL: Well-developed, well-nourished elderly female resting in bed comfortably and in no acute distress. HEENT: Atraumatic and normocephalic. CARDIOVASCULAR: Regular rate and rhythm. S1 and S2 present. No murmurs, gallops, or rubs. RESPIRATORY: Diffusely decreased breath sounds bilaterally. Chest rises and falls symmetrically without accessory muscle use. GASTROINTESTINAL: Abdomen is soft, nontender, nondistended. Active bowel sounds present 4 quadrants. EXTREMITIES: No clubbing, cyanosis, or edema. SKIN: Warm, dry, and intact. NEUROLOGIC: Alert and oriented x3. Patient is cooperative with exam and answers questions appropriately. No apparent focal deficits. PSYCHIATRIC: Appropriate mood and affect. - Patient Status Disposition: Transfer SNF Condition: Good Functional capacity at discharge: independent ambulation Overall status at discharge: patient is back to baseline - Discharge Instructions Follow Up With: Gareth Lee MD [Primary Care Provider] - 03/15/19 9:15 am Additional Instructions: Please continue home medications as instructed. Please continue to remain compliant with your dialysis schedule. Please follow up with PCP regarding your recent hospital stay. Please return to the emergency department if you experience fevers, chills, chest pain, shortness of breath, blood in stool or urine, or any other concerning or worsening symptoms. - Diet and Activity Activity: resume usual activities as tolerated Diet: advance to your usual diet, other (renal diet)
--- NOTE | 2019-03-10 16:31 | Physician Discharge Referral ---
ExtendedCare Referral Info Transfer To: [facility] Provider in Charge: Dr. Rishi Fofana Provider in Charge after Transfer: PCP - Diagnosis (1) Dehydration Priority: Secondary Status: Resolved (2) ESRD (end stage renal disease) on dialysis Priority: Secondary Status: Chronic (3) Fall Priority: Primary Status: Acute (4) C. difficile diarrhea Priority: Secondary Status: Acute (5) Atrial fibrillation Priority: Secondary Status: Chronic (6) Diplopia Priority: Secondary Status: Chronic - Transfer Medications Prescriptions: HYDROcodone/Acet 5/325 mg [[place] 5-325 mg] 1 tab PO TID PRN 2 Days #6 tablet PRN Reason: Pain ALPRAZolam [Xanax 0.25 MG Tablet] 0.25 mg PO BID 2 Days #4 tablet Home Medications: Tizanidine HCl 2 mg PO QAM 08/27/15 [History] Labetalol HCl 200 mg PO QID 04/28/18 [History] Tizanidine HCl 4 mg PO QPM 04/28/18 [History] Aspirin Enteric Coated [Aspirin EC] 81 mg PO DAILY 11/13/18 [History] Sevelamer [Renvela] 1,600 mg PO 1200,1700 11/13/18 [History] Verapamil HCl [Verapamil ER] 120 mg PO DAILY 11/13/18 [History] Famotidine [Pepcid] 40 mg PO DAILY 11/22/18 [History] PARoxetine HCl [Paroxetine HCl] 40 mg PO DAILY 01/27/19 [History] Renal Vitamin [Renal Caps Softgel] 1 mg PO DAILY #0 01/27/19 [History] Furosemide [Lasix] 40 mg PO SUMOWEFR 02/04/19 [History] Cetirizine HCl [Zyrtec] 10 mg PO DAILY 02/11/19 [History] Ferrous Sulfate [Iron] 325 mg PO DAILY 02/11/19 [History] Sevelamer [Renvela] 800 mg PO 0800 02/12/19 [History] Lactobacillus Acidophilus [Acidophilus Lactobacilli] 1 each PO BID #60 capsule 02/26/19 [Rx] ALPRAZolam [Xanax 0.25 MG Tablet] 0.25 mg PO BID 2 Days #4 tablet 03/10/19 [Rx] HYDROcodone/Acet 5/325 mg [[place] 5-325 mg] 1 tab PO TID PRN 2 Days #6 tablet 03/10/19 [Rx] Allergies/Adverse Reactions: Allergy/AdvReac Type Severity Reaction Status Date / Time blue dye Allergy Hives Verified 02/23/19 14:19 latex Allergy Itching Verified 02/23/19 14:19 Nickel Allergy Hives Verified 02/23/19 14:19 shrimp Allergy Hives Verified 02/23/19 14:19 Sulfa (Sulfonamide Allergy Hives Verified 02/23/19 14:19 Antibiotics) - Respiratory Orders Smoking Cessation: Smoking cessation has been advised. For more information, call the [place] Tobacco Quit Line at 7-218-FTQFNOW. - Advance Directives Code Status: Full Code - Mobility Orders Ambulate - Rehabiliation Orders Rehab Potential: Good Rehab Orders: ROM Exercises - Treatments Skin tear care topically daily PRN per policy - Diet Orders Renal CERTIFICATION: I certify that the transfer of the above named patient to an Extended Care Facility is necessary for the continuing treatment of the diagnosis listed. The above information is true and accurate reflection of patient's current condition. Confidential - Redisclosure prohibited without a patient's written consent.
[2019-03-10] MEDS: Famotidine 20 MG TABLET PO SCH (20:30)
[2019-03-11] MEDS: *HR* HYDROcodone/Acet 5/325 mg TABLET PO PRN ×3 (01:50→16:52)
[2019-03-11] MEDS: *HR* Heparin 5,000 UNIT/ML VIAL SQ SCH ×2 (05:41→16:53)
[2019-03-11 07:00] LABS: Hematocrit 28.4 % (35.3-44.9); Hemoglobin 8.8 g/dL (11.5-15.4); Mean Corpuscular Hemoglobin 30.3 pg (28.0-33.3); Mean Corpuscular Volume 97.9 fL (83.0-100.0); Mean Platelet Volume 11.5 fL (9.4-12.4); Platelet Count 168 K/mcL (140-400); Red Cell Distribution Width 14.3 % (11.5-14.5); White Blood Count 7.5 K/mcL (4.3-11.1)
[2019-03-11 07:19] LABS: Calcium 9.2 mg/dL (8.6-10.3); Potassium 4.1 mEq/L (3.5-5.1)
[2019-03-11] MEDS: Renal Vitamin 1 CAP CAPSULE PO SCH (07:50)
[2019-03-11] MEDS: Loratadine 10 MG TABLET PO SCH (07:50)
[2019-03-11] MEDS: Aspirin Enteric Coated 81 MG Tablet PO SCH (07:51)
[2019-03-11] MEDS: Verapamil ER (24 HR) 120 MG TABLET.ER PO SCH (07:51)
[2019-03-11] MEDS: Lactobacillus 1 EACH CAP.SPRINK PO SCH (07:51)
[2019-03-11] MEDS: Furosemide 40 MG TABLET PO SCH (07:51)
[2019-03-11] MEDS: tiZANidine 4 MG TABLET PO SCH ×2 (08:00→16:53)
--- NOTE | 2019-03-11 08:51 | Nephrology Progress Note ---
Date of Encounter: 03/11/19 Time of Encounter: 08:25 - Assessment and Plan (1) ESRD (end stage renal disease) on dialysis Current Visit: Yes Status: Chronic ESRD on HD TTS and last dialyzed yesterday. I saw her on my list today and noted the discharge summary: pt said she was not allowed to be released for unclear reasons to her, but then I spoke to the floor RN: awaiting placement d/t recent falls. Next HD planned for tomorrow (Thursday), if she remains in the hospital. (2) Anemia Current Visit: No Status: Acute Goal HGB is 10-11. Transfusion per primary team. Qualifiers: Anemia type: due to chronic kidney disease Chronic kidney disease stage: on chronic dialysis Qualified Code(s): N18.6 - End stage renal disease; D63.1 - Anemia in chronic kidney disease; Z99.2 - Dependence on renal dialysis (3) Acute exacerbation of CHF (congestive heart failure) Current Visit: No Status: Acute Qualifiers: Heart failure type: diastolic Qualified Code(s): I50.33 - Acute on chronic diastolic (congestive) heart failure (4) Acute and chronic respiratory failure with hypoxia Current Visit: No Status: Acute (5) Altered mental status Current Visit: Yes Status: Acute Qualifiers: Altered mental status type: disorientation Qualified Code(s): R41.0 - Disorientation, unspecified Subjective Principal diagnosis: esrd Interval history: Patient was seen and examined earlier today, she reported feeling about the same. She said she has been in the hospital for quite some time. She reported that dialysis was not smoothly yesterday. Her Floor RN stated that she is awaiting placement. Objective - Vital Signs Vital signs: Vital Signs Temp Pulse Resp BP Pulse Ox 03/11/19 07:04 97.9 F 73 19 151/79 100 03/11/19 05:13 98 F 72 20 148/68 95 03/10/19 23:20 97.6 F 78 20 154/70 95 03/10/19 19:14 98 F 70 20 137/67 100 03/10/19 16:07 98.2 F 86 17 168/90 98 03/10/19 13:50 97.9 F 15 134/83 03/10/19 13:25 127/70 03/10/19 13:10 131/67 08/08/19 12:55 140/75 03/10/19 12:40 130/93 03/10/19 12:25 133/78 03/10/19 12:10 122/69 03/10/19 11:55 125/77 03/10/19 11:40 126/69 03/10/19 11:25 127/64 03/10/19 11:10 133/65 03/10/19 10:55 132/76 03/10/19 10:40 121/70 03/10/19 10:25 97.6 F 15 120/73 - General Appearance General appearance: Present: appears started age, cachectic, fatigue, frail EENT: Present: mucous membranes moist Cardiology: Present: no edema Dialysis Vascular Access: Arteriovenous Fistula (RUE) thrill: Yes bruit: Yes Neurologic: Present: no focal deficit, alert and oriented x3 Psychiatric: Present: cooperative - Lab 03/11/19 05:54 03/11/19 05:54 Most recent lab results 03/11/19 05:54 Calcium 9.2 Consult Discharge Plan - Plan Additional Instructions: Please continue home medications as instructed. Please continue to remain compliant with your dialysis schedule. Please follow up with PCP regarding your recent hospital stay. Please return to the emergency department if you experience fevers, chills, chest pain, shortness of breath, blood in stool or urine, or any other concerning or worsening symptoms. Referrals: Gareth Lee MD [Primary Care Provider] - 03/15/19 9:15 am Prescriptions: HYDROcodone/Acet 5/325 mg [[place] 5-325 mg] 1 tab PO TID PRN 2 Days #6 tablet PRN Reason: Pain ALPRAZolam [Xanax 0.25 MG Tablet] 0.25 mg PO BID 2 Days #4 tablet
--- NOTE | 2019-03-11 09:42 | Internal Med Progress Note ---
Hospitalist Progress Note - Encounter Date of Encounter: 03/11/19 Time of Encounter: 09:41 - Subjective Interval History: Patient was seen and examined at bedside. Seems frustrated because of prolonged duration of stay. Otherwise no acute complaints. Denies headache, fever, chills, chest pain, palpitations, cough, abd pain, N/V/D/C, dysuria, urinary freq /urgency, blood in urine, peripheral edema, hallucinations. Currently agrees to be sent to a rehabilitation facility. - Exam Vitals: Temp Pulse Resp BP Pulse Ox 97.9 F 73 19 151/79 100 03/11/19 07:04 03/11/19 07:04 03/11/19 07:04 03/11/19 07:04 03/11/19 07:04 Exam: GENERAL: Well-developed, well-nourished elderly female resting in bed comfortably and in no acute distress. HEENT: Atraumatic and normocephalic. CARDIOVASCULAR: Regular rate and rhythm. S1 and S2 present. No murmurs, gallops, or rubs. RESPIRATORY: Diffusely decreased breath sounds bilaterally. Chest rises and falls symmetrically without accessory muscle use. GASTROINTESTINAL: Abdomen is soft, nontender, nondistended. Active bowel sounds present 4 quadrants. EXTREMITIES: No clubbing, cyanosis, or edema. SKIN: Warm, dry, and intact. NEUROLOGIC: Alert and oriented x3. Patient is cooperative with exam and answers questions appropriately. No apparent focal deficits. PSYCHIATRIC: Appropriate mood and affect. - Assessment and Plan (1) Dehydration Current Visit: Yes Status: Resolved Assessment and Plan: - denies chest pain, palpitations, headache, peripheral edema. initially had SOB, likely 2/2 fluid overload, resolved after dialysis. - leukocytosis resolved, likely 2/2 reactive due to dehydration - no signs of infection. CT lung findings unchanged, likely no PNA at this time - Current WBC 7.5 - given 500ml LR at admission - monitor for fluid overload - Restarted Lasix, home dose - continue to monitor - plan to discharge today (2) ESRD (end stage renal disease) on dialysis Current Visit: Yes Status: Chronic Assessment and Plan: - missed dialysis last . Received dialysis in patient and resumed usual schedule (TTSa) - Denies symptoms of fluid overload, no dyspnea, no peripheral edema - nephro recs: continue renal diet, renal vitamins. Okay to discharge. Resume previous dialysis schedule. - monitor labs - strict I/Os - plan to discharge today (3) Fall Current Visit: Yes Status: Acute Assessment and Plan: - Left rib cage pain slightly improved, no bruising. Has occasional jerking motions at rest, unsteady. Denies headache, dizziness, numbness/tingling, hallucinations - etiology uncertain - pt says she lives alone at an apartment. Agreeing to being transferred to a rehabilitation center at [place], placement pending HD chair availability - pelvic xr (-) for fracture - social work consulted - SNF, determined. will discharge today - fall precautions (4) C. difficile diarrhea Current Visit: Yes Status: Acute Assessment and Plan: - discharged on 02/26 on 10 d course of vancomycin for c diff, only completed 2 days of treatment at home - got 3 days of inpatient vancomycin - at risk of recurrence - Denies any episodes of diarrhea since yesterday. Says that stool is starting to clump. Denies fever, chills, abdominal pain, N/V/C, melena, hematochezia - finished oral vancomycin course - monitor labs Comments: (5) Atrial fibrillation Current Visit: Yes Status: Chronic Assessment and Plan: - not on anticoagulation at home due to bleeding history and frail state with fall risks - takes baby aspirin at home (6) Diplopia Current Visit: No Status: Chronic Assessment and Plan: - admits to diplopia chronically, says that it has been progressively worsening. denies blurry vision, dizziness, headache. - likely 2/2 to hx of intraocular hemorrhage. - missed last appt with principal statistical scientist for evaluation of diplopia - will f/u outpatient Comments: DVT Prophylaxis: heparin 5000u - Time Spent with Patient Total time spent is greater than 50% in coordination of care (as documented) at patient's floor/unit and/or counseling patient: Internal Medicine: Result - Labs CBC & Chem 7: 03/11/19 05:54 03/11/19 05:54 Labs: Short CBC 03/11/19 Range/Units 05:54 WBC 7.5 (4.3-11.1) K/mcL Hgb 8.8 L (11.5-15.4) g/dL Hct 28.4 L (35.3-44.9) % Plt Count 168 (140-400) K/mcL BMP 03/11/19 05:54 Sodium 136 Potassium 4.1 Chloride 101 Carbon Dioxide 29 BUN 13 Creatinine 2.90 H Glucose 85 Calcium 9.2 - Impressions Impressions Hip X-Ray 03/10/19 10:51 IMPRESSION: No acute osseous abnormality of the left hip. Sensitivity of the exam is limited by severe osteopenia. D/ /10/2019 15:50:30 Blade Narayanan MD / [facility] Interpreting Provider: Blade Narayanan MD Consult Discharge Plan - Plan Additional Instructions: Please continue home medications as instructed. Please continue to remain compliant with your dialysis schedule. Please follow up with PCP regarding your recent hospital stay. Please return to the emergency department if you experience fevers, chills, chest pain, shortness of breath, blood in stool or urine, or any other concerning or worsening symptoms. Referrals: Gareth Lee MD [Primary Care Provider] - 03/15/19 9:15 am Prescriptions: HYDROcodone/Acet 5/325 mg [[place] 5-325 mg] 1 tab PO TID PRN 2 Days #6 tablet PRN Reason: Pain ALPRAZolam [Xanax 0.25 MG Tablet] 0.25 mg PO BID 2 Days #4 tablet (3) Fall Qualifiers: Encounter type: initial encounter Qualified Code(s): W19.XXXA - Unspecified f all, initial encounter (5) Atrial fibrillation Qualifiers: Atrial fibrillation type: chronic Qualified Code(s): I48.2 - Chronic atrial fibrillation
[2019-03-11 19:14] VITALS: BP 144/81
== END 2019-03-11 19:00 | DRG 640 ==
LOC: 3BNU 22:16 → EMEROOARM 22:16 → SUATTDRO 03-04 02:22 → 2ANU 03-04 03:09 → SUATTDRO 03-06 12:49
PROVIDERS: ADMIT Internal Medicine; ATTEND Internal Medicine

== ENCOUNTER 2019-06-21 09:37 | Inpatient (IN) ==
[2019-06-21] MEDS ORDERED: Pantoprazole 40 MG VIAL IVP ONE (09:59)
[2019-06-21] MEDS ORDERED: 0.9 % Sodium Chloride 250 ML IV ONE (09:59)
[2019-06-21 10:37] LABS: Basophils # 0.1 K/mcL (0.0-0.2); Basophils % 0.6 %; Eosinophils # 0.1 K/mcL (0.0-0.6); Eosinophils % 1.6 %; Hematocrit 20.5 % (35.3-44.9); Hemoglobin 6.9 g/dL (11.5-15.4); Immature Granulocytes % 0.4 % (0-4); Lymphocytes # 0.8 K/mcL (0.6-4.6); Lymphocytes % 9.7 %; Mean Corpuscular HGB Conc 33.7 g/dL (31.6-35.5); Mean Platelet Volume 11.1 fL (9.4-12.4); Monocytes # 0.5 K/mcL (0.0-1.3); Monocytes % 5.7 %; Neutrophils # 6.8 K/mcL (1.6-8.9); Platelet Count 169 K/mcL (140-400); Red Blood Count 2.03 M/mcL (3.82-4.97); Red Cell Distribution Width 12.9 % (11.5-14.5); White Blood Count 8.3 K/mcL (4.3-11.1)
[2019-06-21 10:44] LABS: INR 1.3; Prothrombin Time 14.2 Seconds (9.4-12.1)
[2019-06-21 10:47] LABS: Activated Partial Thrombo Time 28.5 Seconds (26.0-36.0)
[2019-06-21] MEDS ORDERED: Pantoprazole 40 MG in 0.9 % Sodium Chloride Mini Bag 100 ML IVC SCH (11:00)
[2019-06-21 11:06] LABS: Alanine Aminotransferase 15 Units/L (7-52); Albumin 2.9 g/dL (3.5-5.7); Albumin/Globulin Ratio 1.8 (1.1-2.2); Alkaline Phosphatase 65 Units/L (34-104); Aspartate Amino Transferase 14 Units/L (13-39); Bilirubin,Total 0.3 mg/dL (0.3-1.0); Blood Urea Nitrogen > 130 mg/dL (8-23); Carbon Dioxide 18 mEq/L (23-29); Chloride 104 mEq/L (98-107); Globulin 1.6 g/dL (2.4-3.5); Glucose 126 mg/dL (70-105); Lipase 25 Units/L (11-82); Potassium 6.5 mEq/L (3.5-5.1); Sodium 133 mEq/L (136-145); Total Protein 4.5 g/dL (6.4-8.9); eGFR For African Americans 10 (> 60); eGFR For Non-African Americans 8 (> 60)
[2019-06-21] MEDS ORDERED: Insulin Human Regular 10 UNIT in 0.9 % Sodium Chloride 10 ML IV ONE (11:07)
[2019-06-21] MEDS ORDERED: *HR* Dextrose 50 % in Water (Syg) 50 ML SYRINGE IVP ONE (11:08)
[2019-06-21] MEDS ORDERED: Calcium Gluconate 1gm/50mL 1 GM/50 ML BAG IVPB PRN (11:08)
[2019-06-21] MEDS ORDERED: Ondansetron 4 MG/2 ML VIAL IVP PRN (12:58)
[2019-06-21] MEDS ORDERED: 0.9 % Sodium Chloride 250 ML ONE ×2 (13:10→17:03)
[2019-06-21 13:13] LABS: Hepatitis B Surface Antibody < 3.10 mIU/mL
[2019-06-21 13:22] LABS: Hepatitis B Surface Antigen Nonreactive (Nonreactive)
[2019-06-21] MEDS ORDERED: Calcium Gluconate 1gm/50mL 1 GM/50 ML BAG IVPB ONE (13:37)
[2019-06-21] MEDS ORDERED: Sodium Bicarbonate 50 MEQ/50 ML VIAL IVP ONE (13:38)
[2019-06-21] MEDS ORDERED: 0.9 % Sodium Chloride 250 ML IVC PRN (14:35)
[2019-06-21] MEDS ORDERED: 0.9 % Sodium Chloride 1,000 ML PRIME SCH (14:45)
[2019-06-21] MEDS: MetroNIDAZOLE 500 MG/100 ML 500 MG/100 ML BAG IVPB SCH (17:14)
[2019-06-21] MEDS: Pantoprazole 40 MG VIAL IVP SCH (17:14)
[2019-06-21] MEDS ORDERED: Acetaminophen 325 MG TABLET PO PRN (17:23)
[2019-06-21 18:00] LABS: Folate 15.5 ng/mL (3.0-16.0)
[2019-06-21 18:02] LABS: Potassium 3.8 mEq/L (3.5-5.1)
[2019-06-21] MEDS: Furosemide 20 MG TABLET PO SCH (18:22)
[2019-06-21] MEDS ORDERED: tiZANidine 4 MG TABLET PO SCH (21:00)
[2019-06-21] MEDS: ALPRAZolam 0.25 MG TABLET PO SCH (21:28)
[2019-06-21 23:31] LABS: Bilirubin,Urine Negative (Negative); Blood,Urine Trace (Negative); Clarity,Urine Clear (Clear); Color,Urine Yellow (Yellow); Glucose,Urine (UA) Normal (Normal); Ketones,Urine Negative (Negative); Leukocyte Esterase,Urine Trace (Negative); Nitrite,Urine Negative (Negative); PH,Urine 7.5 pH Units (5.0-8.0); Protein,Urine 30 mg/dL (Neg-Trace); Specific Gravity,Urine 1.009 (1.010-1.025); Urobilinogen,Urine Normal (Normal)
[2019-06-21 23:33] LABS: Bacteria,Urine None Seen per hpf (None-Few); Hyaline Casts,Urine None Seen per lpf (None-Few); RBC,Urine 0-3 per hpf (0-3); Squamous Epithelial Cell,Urine Many per lpf (None-Few); WBC,Urine 0-3 per hpf (0-3)
[2019-06-21 23:38] LABS: Hematocrit 26.5 % (35.3-44.9)
[2019-06-21 23:39] LABS: Hemoglobin 9.4 g/dL (11.5-15.4)
[2019-06-22] MEDS: MetroNIDAZOLE 500 MG/100 ML 500 MG/100 ML BAG IVPB SCH ×2 (01:27→08:21)
[2019-06-22] MEDS ORDERED: Acetaminophen IV 500 MG/50 ML INFUS..BTL IVPB ONE (03:00)
[2019-06-22] MEDS: Pantoprazole 40 MG VIAL IVP SCH ×2 (06:28→18:26)
[2019-06-22 06:56] LABS: Basophils # 0.1 K/mcL (0.0-0.2); Basophils % 0.7 %; Eosinophils # 0.2 K/mcL (0.0-0.6); Eosinophils % 2.7 %; Hematocrit 24.5 % (35.3-44.9); Hemoglobin 8.2 g/dL (11.5-15.4); Immature Granulocytes % 0.3 % (0-4); Lymphocytes % 13.4 %; Mean Corpuscular HGB Conc 33.5 g/dL (31.6-35.5); Mean Corpuscular Hemoglobin 31.9 pg (28.0-33.3); Mean Corpuscular Volume 95.3 fL (83.0-100.0); Mean Platelet Volume 10.8 fL (9.4-12.4); Monocytes # 0.7 K/mcL (0.0-1.3); Monocytes % 9.6 %; Neutrophils # 5.6 K/mcL (1.6-8.9); Platelet Count 150 K/mcL (140-400); Red Blood Count 2.57 M/mcL (3.82-4.97); Red Cell Distribution Width 15.1 % (11.5-14.5); Segmented Neutrophils % 73.3 %; White Blood Count 7.7 K/mcL (4.3-11.1)
[2019-06-22 07:06] LABS: Calcium 8.9 mg/dL (8.6-10.3); Potassium 3.8 mEq/L (3.5-5.1)
[2019-06-22] MEDS ORDERED: Furosemide 40 MG TABLET PO SCH ×2 (08:00→09:00)
[2019-06-22] MEDS ORDERED: tiZANidine 4 MG TABLET PO PRN (09:55)
[2019-06-22] MEDS: ALPRAZolam 0.25 MG TABLET PO SCH ×2 (12:17→21:39)
[2019-06-22] MEDS ORDERED: 0.9 % Sodium Chloride 500 ML IVC SCH (13:30)
[2019-06-22] MEDS ORDERED: Lidocaine -MPF 2% 2 ML VIAL ONE (14:19)
[2019-06-22] MEDS ORDERED: *HR* Propofol 200 MG/20 ML VIAL IVP ONE (14:19)
[2019-06-22] MEDS ORDERED: *HR* PHENYLEPHRINE 1,000 MCG/10 ML SYRINGE IVP ONE (14:24)
[2019-06-22] MEDS ORDERED: *HR* FentaNYL (PF) 100 MCG/2 ML VIAL ONE (14:42)
[2019-06-22 16:06] LABS: Hematocrit 24.6 % (35.3-44.9); Hemoglobin 8.2 g/dL (11.5-15.4)
[2019-06-22] MEDS: Furosemide 20 MG TABLET PO SCH (18:25)
[2019-06-23] MEDS: Pantoprazole 40 MG VIAL IVP SCH (05:23)
[2019-06-23 06:16] LABS: Mean Corpuscular HGB Conc 33.3 g/dL (31.6-35.5); Mean Corpuscular Hemoglobin 32.5 pg (28.0-33.3); Mean Corpuscular Volume 97.6 fL (83.0-100.0); Mean Platelet Volume 11.1 fL (9.4-12.4); Platelet Count 144 K/mcL (140-400); Red Blood Count 2.46 M/mcL (3.82-4.97); Red Cell Distribution Width 14.9 % (11.5-14.5); White Blood Count 6.2 K/mcL (4.3-11.1)
[2019-06-23 06:57] LABS: Calcium 8.9 mg/dL (8.6-10.3); Potassium 4.5 mEq/L (3.5-5.1)
[2019-06-23] MEDS ORDERED: MetroNIDAZOLE 500 MG/100 ML 500 MG/100 ML BAG IVPB SCH (08:00)
[2019-06-23] MEDS ORDERED: Sodium Ferric Gluconat/Sucrose 125 MG in 0.9 % Sodium Chloride 100 ML IVPB SCH (09:00)
[2019-06-23] MEDS ORDERED: Cyanocobalamin (B-12) 1,000 MCG TABLET PO SCH (09:00)
[2019-06-23] MEDS: ALPRAZolam 0.25 MG TABLET PO SCH (09:55)
[2019-06-23] MEDS ORDERED: 0.9 % Sodium Chloride 250 ML IVC PRN (09:59)
[2019-06-23] MEDS ORDERED: 0.9 % Sodium Chloride 1,000 ML PRIME SCH (10:00)
[2019-06-23 16:17] VITALS: BP 129/77
[2019-06-27 16:56] LABS: C282Y Hemochromatosis Mutation NEGATIVE; H63D Hemochromatosis Mutation NEGATIVE; HFE Specimen Type WHOLE BLOOD; S65C Hemochromatosis Mutation NEGATIVE
== END 2019-06-23 18:17 | disposition home health service (06) | DRG 377 ==
LOC: SUATTDRO → EMEROOARM 09:37 → SUATTDRO 14:41 → 2ANU 14:41
PROVIDERS: ADMIT Internal Medicine; ATTEND Internal Medicine

== ENCOUNTER 2019-06-25 08:08 | Inpatient (IN) ==
[2019-06-25 08:48] LABS: Hematocrit 25.3 % (35.3-44.9); Hemoglobin 8.2 g/dL (11.5-15.4); Mean Corpuscular HGB Conc 32.4 g/dL (31.6-35.5); Mean Corpuscular Hemoglobin 33.2 pg (28.0-33.3); Mean Corpuscular Volume 102.4 fL (83.0-100.0); Mean Platelet Volume 10.5 fL (9.4-12.4); Platelet Count 174 K/mcL (140-400); Red Blood Count 2.47 M/mcL (3.82-4.97); Red Cell Distribution Width 14.1 % (11.5-14.5); White Blood Count 7.9 K/mcL (4.3-11.1)
[2019-06-25 09:08] LABS: BUN/Creatinine Ratio 12 (6-26); Blood Urea Nitrogen 48 mg/dL (8-23); Calcium 9.4 mg/dL (8.6-10.3); Carbon Dioxide 28 mEq/L (23-29); Chloride 100 mEq/L (98-107); Glucose 106 mg/dL (70-105); Osmolality,Calculated 295 (280-300); Sodium 136 mEq/L (136-145); Troponin I < 0.03 ng/mL (< 0.04); eGFR For African Americans 13 (> 60); eGFR For Non-African Americans 11 (> 60)
[2019-06-25] MEDS ORDERED: Metoclopramide 10 MG/2 ML VIAL IVP ONE (09:19)
[2019-06-25 10:07] LABS: Bilirubin,Urine Negative (Negative); Blood,Urine Negative (Negative); Clarity,Urine Clear (Clear); Color,Urine Yellow (Yellow); Glucose,Urine (UA) Normal (Normal); Ketones,Urine Negative (Negative); Leukocyte Esterase,Urine Negative (Negative); Nitrite,Urine Negative (Negative); Protein,Urine 30 mg/dL (Neg-Trace); Specific Gravity,Urine 1.008 (1.010-1.025); Urobilinogen,Urine Normal (Normal)
[2019-06-25 10:10] LABS: Bacteria,Urine None Seen per hpf (None-Few); Hyaline Casts,Urine None Seen per lpf (None-Few); RBC,Urine 0-3 per hpf (0-3); Squamous Epithelial Cell,Urine Few per lpf (None-Few); WBC,Urine 0-3 per hpf (0-3)
[2019-06-25] MEDS ORDERED: Naloxone 0.4 MG/ML INJ IVP PRN (10:38)
[2019-06-25] MEDS ORDERED: Ondansetron 4 MG/2 ML VIAL IVP PRN (10:48)
[2019-06-25] MEDS ORDERED: 0.9 % Sodium Chloride 250 ML IVC PRN (13:17)
[2019-06-25] MEDS ORDERED: 0.9 % Sodium Chloride 1,000 ML PRIME SCH (13:30)
[2019-06-25] MEDS: Furosemide 20 MG TABLET PO SCH ×2 (16:59→17:01)
[2019-06-25] MEDS: ALPRAZolam 0.25 MG TABLET PO SCH (21:44)
[2019-06-25] MEDS: tiZANidine 4 MG TABLET PO SCH (21:45)
[2019-06-25] MEDS: metroNIDAZOLE 500 MG TABLET PO SCH (21:45)
[2019-06-26] MEDS: metroNIDAZOLE 500 MG TABLET PO SCH ×3 (07:58→20:11)
[2019-06-26] MEDS: ALPRAZolam 0.25 MG TABLET PO SCH ×2 (07:58→20:11)
[2019-06-26] MEDS: Verapamil ER (24 HR) 120 MG TABLET.ER PO SCH (07:58)
[2019-06-26 07:59] LABS: Calcium 8.8 mg/dL (8.6-10.3); Potassium 4.4 mEq/L (3.5-5.1)
[2019-06-26 08:07] LABS: Thyroid Stimulating Hormone 6.769 mcIU/mL (0.340-5.600)
[2019-06-26 08:18] LABS: Folate 20.5 ng/mL (3.0-16.0)
[2019-06-26 08:54] LABS: Basophils # 0.1 K/mcL (0.0-0.2); Basophils % 0.7 %; Eosinophils # 0.8 K/mcL (0.0-0.6); Eosinophils % 8.3 %; Hematocrit 24.2 % (35.3-44.9); Hemoglobin 7.9 g/dL (11.5-15.4); Immature Granulocytes % 0.2 % (0-4); Lymphocytes # 1.1 K/mcL (0.6-4.6); Lymphocytes % 11.7 %; Mean Corpuscular HGB Conc 32.6 g/dL (31.6-35.5); Mean Corpuscular Hemoglobin 33.1 pg (28.0-33.3); Mean Corpuscular Volume 101.3 fL (83.0-100.0); Mean Platelet Volume 10.7 fL (9.4-12.4); Monocytes # 0.9 K/mcL (0.0-1.3); Monocytes % 9.8 %; Neutrophils # 6.4 K/mcL (1.6-8.9); Platelet Count 172 K/mcL (140-400); Red Blood Count 2.39 M/mcL (3.82-4.97); Red Cell Distribution Width 13.9 % (11.5-14.5); Segmented Neutrophils % 69.3 %; White Blood Count 9.2 K/mcL (4.3-11.1)
[2019-06-26] MEDS: Furosemide 20 MG TABLET PO SCH (16:42)
[2019-06-26] MEDS: tiZANidine 4 MG TABLET PO SCH (20:11)
[2019-06-26 21:36] LABS: Bilirubin,Urine Negative (Negative); Blood,Urine Moderate (Negative); Clarity,Urine Cloudy (Clear); Color,Urine Yellow (Yellow); Glucose,Urine (UA) Normal (Normal); Ketones,Urine Negative (Negative); Leukocyte Esterase,Urine Large (Negative); Nitrite,Urine Negative (Negative); PH,Urine 7.5 pH Units (5.0-8.0); Protein,Urine 30 mg/dL (Neg-Trace); Specific Gravity,Urine 1.008 (1.010-1.025); Urobilinogen,Urine Normal (Normal)
[2019-06-26 21:37] LABS: Bacteria,Urine Many per hpf (None-Few); Hyaline Casts,Urine None Seen per lpf (None-Few); Squamous Epithelial Cell,Urine Many per lpf (None-Few); WBC,Urine TNTC per hpf (0-3)
[2019-06-27 04:31] LABS: Hematocrit 22.3 % (35.3-44.9); Hemoglobin 7.2 g/dL (11.5-15.4)
[2019-06-27 04:41] LABS: Calcium 8.9 mg/dL (8.6-10.3); Potassium 4.7 mEq/L (3.5-5.1)
[2019-06-27] MEDS: ALPRAZolam 0.25 MG TABLET PO SCH ×2 (08:43→20:27)
[2019-06-27] MEDS: Verapamil ER (24 HR) 120 MG TABLET.ER PO SCH (08:43)
[2019-06-27] MEDS: Furosemide 40 MG TABLET PO SCH (08:48)
[2019-06-27] MEDS ORDERED: Furosemide 40 MG TABLET PO SCH (09:00)
[2019-06-27] MEDS ORDERED: 0.9 % Sodium Chloride 250 ML ONE (11:17)
[2019-06-27] MEDS: Sodium Ferric Gluconat/Sucrose 125 MG in 0.9 % Sodium Chloride 100 ML IVPB SCH (11:31)
[2019-06-27] MEDS: Acetaminophen 325 MG TABLET PO PRN (17:12)
[2019-06-27] MEDS: Furosemide 20 MG TABLET PO SCH (17:12)
[2019-06-27] MEDS: tiZANidine 4 MG TABLET PO PRN (20:27)
[2019-06-28 05:33] LABS: Basophils # 0.1 K/mcL (0.0-0.2); Basophils % 0.7 %; Eosinophils # 1.4 K/mcL (0.0-0.6); Eosinophils % 11.2 %; Hematocrit 26.5 % (35.3-44.9); Hemoglobin 8.7 g/dL (11.5-15.4); Immature Granulocytes % 0.4 % (0-4); Lymphocytes # 1.3 K/mcL (0.6-4.6); Mean Corpuscular HGB Conc 32.8 g/dL (31.6-35.5); Mean Corpuscular Hemoglobin 32.5 pg (28.0-33.3); Mean Corpuscular Volume 98.9 fL (83.0-100.0); Monocytes % 8.2 %; Neutrophils # 8.7 K/mcL (1.6-8.9); Platelet Count 178 K/mcL (140-400); Red Blood Count 2.68 M/mcL (3.82-4.97); Red Cell Distribution Width 15.1 % (11.5-14.5); Segmented Neutrophils % 69.5 %; White Blood Count 12.5 K/mcL (4.3-11.1)
[2019-06-28 05:51] LABS: % Iron Saturation 87 % (15-50); Calcium 9.1 mg/dL (8.6-10.3); Iron 164 mcg/dL (50-170); Transferrin 135 mg/dL (203-362)
[2019-06-28] MEDS ORDERED: 0.9 % Sodium Chloride 250 ML IVC PRN (07:18)
[2019-06-28] MEDS ORDERED: 0.9 % Sodium Chloride 1,000 ML PRIME SCH (07:30)
[2019-06-28] MEDS ORDERED: cefTRIAXone 1,000 MG in Water for inj. (sterile) 10 ML IVP SCH (09:00)
[2019-06-28] MEDS: Verapamil ER (24 HR) 120 MG TABLET.ER PO SCH (13:08)
[2019-06-28] MEDS: ALPRAZolam 0.25 MG TABLET PO SCH ×2 (13:10→23:11)
[2019-06-28] MEDS: cefTRIAXone 1,000 MG in 0.9 % Sodium Chloride Mini Bag 100 ML IVPB SCH (13:11)
[2019-06-28] MEDS: Cyanocobalamin (B-12) 1,000 MCG TABLET PO SCH (13:11)
[2019-06-28] MEDS: Acetaminophen 325 MG TABLET PO PRN ×2 (14:07→20:36)
[2019-06-28] MEDS: Furosemide 20 MG TABLET PO SCH (17:05)
[2019-06-28] MEDS: tiZANidine 4 MG TABLET PO PRN (23:11)
[2019-06-29 04:17] LABS: Basophils # 0.1 K/mcL (0.0-0.2); Basophils % 0.8 %; Eosinophils # 1.2 K/mcL (0.0-0.6); Eosinophils % 10.8 %; Hematocrit 26.6 % (35.3-44.9); Hemoglobin 8.6 g/dL (11.5-15.4); Immature Granulocytes % 0.4 % (0-4); Lymphocytes % 9.2 %; Mean Corpuscular HGB Conc 32.3 g/dL (31.6-35.5); Mean Corpuscular Hemoglobin 32.3 pg (28.0-33.3); Mean Platelet Volume 10.6 fL (9.4-12.4); Monocytes # 0.9 K/mcL (0.0-1.3); Monocytes % 8.2 %; Neutrophils # 7.9 K/mcL (1.6-8.9); Platelet Count 166 K/mcL (140-400); Red Blood Count 2.66 M/mcL (3.82-4.97); Red Cell Distribution Width 14.8 % (11.5-14.5); Segmented Neutrophils % 70.6 %; White Blood Count 11.2 K/mcL (4.3-11.1)
[2019-06-29 04:36] LABS: Calcium 9.2 mg/dL (8.6-10.3); Potassium 4.3 mEq/L (3.5-5.1)
[2019-06-29] MEDS ORDERED: 0.9 % Sodium Chloride 250 ML IVC PRN (06:33)
[2019-06-29] MEDS: ALPRAZolam 0.25 MG TABLET PO SCH ×2 (08:35→19:45)
[2019-06-29] MEDS: Verapamil ER (24 HR) 120 MG TABLET.ER PO SCH (12:15)
[2019-06-29] MEDS: Cyanocobalamin (B-12) 1,000 MCG TABLET PO SCH (12:16)
[2019-06-29] MEDS: Furosemide 40 MG TABLET PO SCH (12:16)
[2019-06-29] MEDS: cefTRIAXone 1,000 MG in 0.9 % Sodium Chloride Mini Bag 100 ML IVPB SCH (12:16)
[2019-06-29] MEDS: Sodium Ferric Gluconat/Sucrose 125 MG in 0.9 % Sodium Chloride 100 ML IVPB SCH (12:16)
[2019-06-29] MEDS: *HR* Heparin 5,000 UNIT/ML VIAL SQ SCH (16:42)
[2019-06-29] MEDS: Furosemide 20 MG TABLET PO SCH (16:42)
[2019-06-29] MEDS: tiZANidine 4 MG TABLET PO PRN (19:45)
[2019-06-29] MEDS: Acetaminophen 325 MG TABLET PO PRN (19:53)
[2019-06-30 05:52] LABS: Hematocrit 26.3 % (35.3-44.9); Hemoglobin 8.5 g/dL (11.5-15.4)
[2019-06-30] MEDS: *HR* Heparin 5,000 UNIT/ML VIAL SQ SCH ×2 (06:03→17:15)
[2019-06-30 06:07] LABS: Magnesium 1.8 mg/dL (1.6-2.6); Phosphorous 3.1 mg/dL (2.7-4.5); Potassium 4.1 mEq/L (3.5-5.1)
[2019-06-30] MEDS ORDERED: Artificial Tears SOLN 15 ML BOTTLE BOTH EYES ONE (06:53)
[2019-06-30] MEDS: Verapamil ER (24 HR) 120 MG TABLET.ER PO SCH (08:05)
[2019-06-30] MEDS: ALPRAZolam 0.25 MG TABLET PO SCH ×2 (08:06→21:43)
[2019-06-30] MEDS: cefTRIAXone 1,000 MG in 0.9 % Sodium Chloride Mini Bag 100 ML IVPB SCH (08:06)
[2019-06-30] MEDS: Furosemide 20 MG TABLET PO SCH (17:15)
[2019-06-30] MEDS: tiZANidine 4 MG TABLET PO PRN (21:43)
[2019-07-01 05:40] LABS: Basophils # 0.1 K/mcL (0.0-0.2); Basophils % 0.6 %; Eosinophils # 1.2 K/mcL (0.0-0.6); Eosinophils % 10.5 %; Hematocrit 26.3 % (35.3-44.9); Hemoglobin 8.6 g/dL (11.5-15.4); Immature Granulocytes % 0.5 % (0-4); Lymphocytes # 1.2 K/mcL (0.6-4.6); Lymphocytes % 10.6 %; Mean Corpuscular HGB Conc 32.7 g/dL (31.6-35.5); Mean Corpuscular Volume 100.8 fL (83.0-100.0); Mean Platelet Volume 11.2 fL (9.4-12.4); Monocytes % 8.6 %; Neutrophils # 7.7 K/mcL (1.6-8.9); Platelet Count 179 K/mcL (140-400); Red Blood Count 2.61 M/mcL (3.82-4.97); Red Cell Distribution Width 14.5 % (11.5-14.5); Segmented Neutrophils % 69.2 %; White Blood Count 11.1 K/mcL (4.3-11.1)
[2019-07-01 05:58] LABS: Potassium 4.2 mEq/L (3.5-5.1)
[2019-07-01] MEDS: *HR* Heparin 5,000 UNIT/ML VIAL SQ SCH ×2 (06:26→17:46)
[2019-07-01] MEDS ORDERED: 0.9 % Sodium Chloride 250 ML IVC PRN (07:47)
[2019-07-01] MEDS: Furosemide 40 MG TABLET PO SCH ×2 (08:07→10:32)
[2019-07-01] MEDS: ALPRAZolam 0.25 MG TABLET PO SCH ×2 (08:11→23:59)
[2019-07-01] MEDS: Cyanocobalamin (B-12) 1,000 MCG TABLET PO SCH (08:11)
[2019-07-01] MEDS: Verapamil ER (24 HR) 120 MG TABLET.ER PO SCH (10:31)
[2019-07-01] MEDS: cefTRIAXone 1,000 MG in 0.9 % Sodium Chloride Mini Bag 100 ML IVPB SCH (10:32)
[2019-07-01] MEDS: Sodium Ferric Gluconat/Sucrose 125 MG in 0.9 % Sodium Chloride 100 ML IVPB SCH (11:33)
[2019-07-01] MEDS: Furosemide 20 MG TABLET PO SCH (17:44)
[2019-07-01] MEDS: tiZANidine 4 MG TABLET PO PRN (23:59)
[2019-07-02 05:24] LABS: Basophils # 0.1 K/mcL (0.0-0.2); Basophils % 0.8 %; Eosinophils # 1.1 K/mcL (0.0-0.6); Eosinophils % 10.8 %; Hematocrit 25.5 % (35.3-44.9); Hemoglobin 8.5 g/dL (11.5-15.4); Immature Granulocytes % 0.4 % (0-4); Lymphocytes # 1.1 K/mcL (0.6-4.6); Lymphocytes % 10.8 %; Mean Corpuscular HGB Conc 33.3 g/dL (31.6-35.5); Mean Corpuscular Hemoglobin 32.9 pg (28.0-33.3); Mean Corpuscular Volume 98.8 fL (83.0-100.0); Mean Platelet Volume 11.3 fL (9.4-12.4); Monocytes # 0.8 K/mcL (0.0-1.3); Monocytes % 7.7 %; Neutrophils # 7.4 K/mcL (1.6-8.9); Platelet Count 172 K/mcL (140-400); Red Blood Count 2.58 M/mcL (3.82-4.97); Segmented Neutrophils % 69.5 %; White Blood Count 10.6 K/mcL (4.3-11.1)
[2019-07-02 05:45] LABS: Potassium 4.3 mEq/L (3.5-5.1)
[2019-07-02] MEDS ORDERED: 0.9 % Sodium Chloride 250 ML IVC PRN (06:59)
[2019-07-02] MEDS: *HR* Heparin 5,000 UNIT/ML VIAL SQ SCH ×2 (07:41→18:30)
[2019-07-02] MEDS: Cyanocobalamin (B-12) 1,000 MCG TABLET PO SCH (08:04)
[2019-07-02] MEDS: ALPRAZolam 0.25 MG TABLET PO SCH ×2 (08:04→23:01)
[2019-07-02] MEDS: 0.9 % Sodium Chloride 1,000 ML PRIME SCH (08:55)
[2019-07-02] MEDS: Verapamil ER (24 HR) 120 MG TABLET.ER PO SCH (14:00)
[2019-07-02] MEDS: cefTRIAXone 1,000 MG in 0.9 % Sodium Chloride Mini Bag 100 ML IVPB SCH (14:01)
[2019-07-02] MEDS: *HR* HYDROcodone/Acet 5/325 mg TABLET PO PRN (15:16)
[2019-07-02] MEDS: tiZANidine 4 MG TABLET PO PRN (15:16)
[2019-07-02] MEDS: Furosemide 20 MG TABLET PO SCH (18:30)
[2019-07-03] MEDS: *HR* Heparin 5,000 UNIT/ML VIAL SQ SCH ×2 (06:55→17:20)
[2019-07-03] MEDS: ALPRAZolam 0.25 MG TABLET PO SCH ×2 (06:55→23:39)
[2019-07-03] MEDS: Cyanocobalamin (B-12) 1,000 MCG TABLET PO SCH (09:32)
[2019-07-03] MEDS: Verapamil ER (24 HR) 120 MG TABLET.ER PO SCH (09:32)
[2019-07-03] MEDS: cefTRIAXone 1,000 MG in 0.9 % Sodium Chloride Mini Bag 100 ML IVPB SCH (09:33)
[2019-07-03] MEDS: Furosemide 40 MG TABLET PO SCH (09:37)
[2019-07-03] MEDS: Acetaminophen 325 MG TABLET PO PRN ×2 (10:04→20:42)
[2019-07-03 16:18] LABS: Magnesium 1.9 mg/dL (1.6-2.6)
[2019-07-03] MEDS: Furosemide 20 MG TABLET PO SCH (17:21)
[2019-07-03] MEDS: *HR* HYDROcodone/Acet 5/325 mg TABLET PO PRN (23:39)
[2019-07-03] MEDS: tiZANidine 4 MG TABLET PO PRN (23:42)
[2019-07-04 04:59] LABS: Basophils # 0.1 K/mcL (0.0-0.2); Basophils % 0.7 %; Eosinophils # 0.6 K/mcL (0.0-0.6); Eosinophils % 9.3 %; Hematocrit 25.8 % (35.3-44.9); Hemoglobin 8.5 g/dL (11.5-15.4); Immature Granulocytes % 0.6 % (0-4); Lymphocytes # 1.2 K/mcL (0.6-4.6); Lymphocytes % 17.3 %; Mean Corpuscular HGB Conc 32.9 g/dL (31.6-35.5); Mean Corpuscular Hemoglobin 32.2 pg (28.0-33.3); Mean Corpuscular Volume 97.7 fL (83.0-100.0); Mean Platelet Volume 11.2 fL (9.4-12.4); Monocytes # 0.8 K/mcL (0.0-1.3); Neutrophils # 4.2 K/mcL (1.6-8.9); Platelet Count 167 K/mcL (140-400); Red Blood Count 2.64 M/mcL (3.82-4.97); Red Cell Distribution Width 13.9 % (11.5-14.5); Segmented Neutrophils % 61.1 %; White Blood Count 6.9 K/mcL (4.3-11.1)
[2019-07-04] MEDS: *HR* Heparin 5,000 UNIT/ML VIAL SQ SCH ×2 (05:15→17:00)
[2019-07-04 05:32] LABS: Calcium 8.9 mg/dL (8.6-10.3); Magnesium 1.9 mg/dL (1.6-2.6); Phosphorous 3.8 mg/dL (2.7-4.5); Potassium 4.1 mEq/L (3.5-5.1)
[2019-07-04] MEDS: Furosemide 40 MG TABLET PO SCH (08:09)
[2019-07-04] MEDS: Cyanocobalamin (B-12) 1,000 MCG TABLET PO SCH (08:09)
[2019-07-04] MEDS: ALPRAZolam 0.25 MG TABLET PO SCH ×2 (08:09→21:54)
[2019-07-04] MEDS: Verapamil ER (24 HR) 120 MG TABLET.ER PO SCH (08:09)
[2019-07-04] MEDS: Sodium Ferric Gluconat/Sucrose 125 MG in 0.9 % Sodium Chloride 100 ML IVPB SCH (08:10)
[2019-07-04] MEDS: *HR* HYDROcodone/Acet 5/325 mg TABLET PO PRN (10:35)
[2019-07-04] MEDS: Furosemide 20 MG TABLET PO SCH (16:59)
[2019-07-04] MEDS: Acetaminophen 325 MG TABLET PO PRN (21:44)
[2019-07-04] MEDS: tiZANidine 4 MG TABLET PO PRN (21:54)
[2019-07-05] MEDS: *HR* Heparin 5,000 UNIT/ML VIAL SQ SCH (06:39)
[2019-07-05] MEDS ORDERED: 0.9 % Sodium Chloride 250 ML IVC PRN (06:53)
[2019-07-05 07:42] LABS: Basophils # 0.1 K/mcL (0.0-0.2); Basophils % 1.3 %; Eosinophils # 0.7 K/mcL (0.0-0.6); Eosinophils % 9.1 %; Hematocrit 29.6 % (35.3-44.9); Hemoglobin 9.6 g/dL (11.5-15.4); Immature Granulocytes % 0.6 % (0-4); Lymphocytes # 1.1 K/mcL (0.6-4.6); Lymphocytes % 15.1 %; Mean Corpuscular HGB Conc 32.4 g/dL (31.6-35.5); Mean Corpuscular Volume 101.7 fL (83.0-100.0); Mean Platelet Volume 11.3 fL (9.4-12.4); Monocytes # 0.5 K/mcL (0.0-1.3); Monocytes % 6.3 %; Neutrophils # 4.8 K/mcL (1.6-8.9); Platelet Count 177 K/mcL (140-400); Red Blood Count 2.91 M/mcL (3.82-4.97); Red Cell Distribution Width 13.7 % (11.5-14.5); Segmented Neutrophils % 67.6 %; White Blood Count 7.1 K/mcL (4.3-11.1)
[2019-07-05 07:57] LABS: Calcium 9.4 mg/dL (8.6-10.3); Potassium 3.8 mEq/L (3.5-5.1)
[2019-07-05] MEDS: ALPRAZolam 0.25 MG TABLET PO SCH (08:11)
[2019-07-05] MEDS: Cyanocobalamin (B-12) 1,000 MCG TABLET PO SCH (08:11)
[2019-07-05] MEDS: 0.9 % Sodium Chloride 1,000 ML PRIME SCH (09:20)
[2019-07-05] MEDS ORDERED: Acetaminophen 325 MG TABLET PO PRN (10:17)
[2019-07-05] MEDS ORDERED: *HR* HYDROcodone/Acet 5/325 mg TABLET PO PRN (10:18)
[2019-07-05] MEDS: Verapamil ER (24 HR) 120 MG TABLET.ER PO SCH (13:20)
[2019-07-05 14:56] VITALS: BP 150/87
== END 2019-07-05 15:56 | DRG 689 ==
LOC: 3ANU 08:08 → EMEROOARM 08:08 → SUATTDRO 10:32 → 3ANU 12:53 → 2ANU 12:59 → SUATTDRO 06-27 13:35 → 2ANU 07-01 13:55
PROVIDERS: ADMIT Family Medicine; ATTEND Internal Medicine

== ENCOUNTER 2019-07-14 01:17 | Observation (INO) ==
[2019-07-14] MEDS ORDERED: Ondansetron 4 MG/2 ML VIAL IVP PRN (07:18)
[2019-07-14] MEDS ORDERED: Naloxone 0.4 MG/ML INJ IVP PRN (07:18)
[2019-07-14] MEDS ORDERED: *HR* HYDROcodone/Acet 5/325 mg TABLET PO PRN ×2 (09:43→09:54)
[2019-07-14] MEDS ORDERED: Acetaminophen 325 MG TABLET PO PRN ×2 (09:43→09:54)
[2019-07-14] MEDS ORDERED: 0.9 % Sodium Chloride 250 ML IVC PRN (09:46)
[2019-07-14] MEDS ORDERED: *HR* Heparin 10,000 UNIT/10 ML VIAL IV PRN (09:46)
[2019-07-14] MEDS ORDERED: 0.9 % Sodium Chloride 1,000 ML PRIME SCH (10:00)
[2019-07-14 10:40] LABS: Basophils # 0.1 K/mcL (0.0-0.2); Basophils % 0.8 %; Eosinophils # 0.4 K/mcL (0.0-0.6); Eosinophils % 4.3 %; Hematocrit 26.5 % (35.3-44.9); Immature Granulocytes % 0.2 % (0-4); Lymphocytes # 0.7 K/mcL (0.6-4.6); Mean Corpuscular Hemoglobin 33.2 pg (28.0-33.3); Mean Corpuscular Volume 97.8 fL (83.0-100.0); Mean Platelet Volume 10.1 fL (9.4-12.4); Monocytes # 0.7 K/mcL (0.0-1.3); Monocytes % 7.4 %; Platelet Count 161 K/mcL (140-400); Red Blood Count 2.71 M/mcL (3.82-4.97); Red Cell Distribution Width 14.9 % (11.5-14.5); Segmented Neutrophils % 79.3 %; White Blood Count 8.8 K/mcL (4.3-11.1)
[2019-07-14 11:01] LABS: Calcium 8.4 mg/dL (8.6-10.3); Potassium 4.4 mEq/L (3.5-5.1)
[2019-07-14] MEDS: Furosemide 20 MG TABLET PO SCH (17:38)
[2019-07-14] MEDS ORDERED: Furosemide 20 MG TABLET PO SCH (18:00)
[2019-07-14] MEDS ORDERED: ARIPiprazole 5 MG TABLET PO SCH (21:00)
[2019-07-14] MEDS: ALPRAZolam 0.25 MG TABLET PO SCH (21:40)
[2019-07-15 04:33] LABS: Hematocrit 27.8 % (35.3-44.9); Mean Corpuscular HGB Conc 32.4 g/dL (31.6-35.5); Mean Corpuscular Hemoglobin 32.6 pg (28.0-33.3); Mean Corpuscular Volume 100.7 fL (83.0-100.0); Mean Platelet Volume 10.3 fL (9.4-12.4); Platelet Count 150 K/mcL (140-400); Red Blood Count 2.76 M/mcL (3.82-4.97); Red Cell Distribution Width 14.6 % (11.5-14.5); White Blood Count 7.4 K/mcL (4.3-11.1)
[2019-07-15 04:50] LABS: Calcium 8.5 mg/dL (8.6-10.3); Potassium 3.7 mEq/L (3.5-5.1)
[2019-07-15 05:18] LABS: Hepatitis B Surface Antibody < 3.10 mIU/mL
[2019-07-15 05:29] LABS: Hepatitis B Surface Antigen Nonreactive (Nonreactive)
[2019-07-15] MEDS ORDERED: *HR* Heparin 10,000 UNIT/10 ML VIAL IV PRN (07:24)
[2019-07-15] MEDS ORDERED: 0.9 % Sodium Chloride 250 ML IVC PRN (07:24)
[2019-07-15] MEDS ORDERED: 0.9 % Sodium Chloride 1,000 ML PRIME SCH (07:30)
[2019-07-15] MEDS ORDERED: Furosemide 40 MG TABLET PO SCH ×2 (08:00→09:00)
[2019-07-15] MEDS: ALPRAZolam 0.25 MG TABLET PO SCH (08:19)
[2019-07-15] MEDS ORDERED: PAROXETINE HCL PO SCH (09:00)
[2019-07-15] MEDS ORDERED: Aspirin 81 MG TAB.CHEW PO SCH (09:00)
[2019-07-15] MEDS ORDERED: Cyanocobalamin (B-12) 1,000 MCG TABLET PO SCH (09:00)
[2019-07-15] MEDS ORDERED: Verapamil ER (24 HR) 120 MG TABLET.ER PO SCH (09:00)
[2019-07-15 15:28] VITALS: BP 109/57
[2019-07-15] MEDS: Furosemide 20 MG TABLET PO SCH (16:24)
== END 2019-07-15 17:10 | disposition home or self-care (01) ==
LOC: 2ANU → SUATTDRO 01:17
PROVIDERS: ADMIT Internal Medicine; ATTEND Internal Medicine

== ENCOUNTER 2019-07-23 20:26 | Inpatient (IN) ==
[2019-07-24 01:12] LABS: Basophils # 0.1 K/mcL (0.0-0.2); Basophils % 0.7 %; Eosinophils # 0.3 K/mcL (0.0-0.6); Eosinophils % 4.6 %; Hematocrit 24.6 % (35.3-44.9); Hemoglobin 8.1 g/dL (11.5-15.4); Immature Granulocytes % 0.4 % (0-4); Lymphocytes # 0.9 K/mcL (0.6-4.6); Lymphocytes % 13.1 %; Mean Corpuscular HGB Conc 32.9 g/dL (31.6-35.5); Mean Corpuscular Hemoglobin 32.9 pg (28.0-33.3); Mean Platelet Volume 10.3 fL (9.4-12.4); Monocytes # 0.8 K/mcL (0.0-1.3); Monocytes % 11.2 %; Neutrophils # 4.8 K/mcL (1.6-8.9); Platelet Count 172 K/mcL (140-400); Red Blood Count 2.46 M/mcL (3.82-4.97); Red Cell Distribution Width 13.6 % (11.5-14.5); White Blood Count 6.8 K/mcL (4.3-11.1)
[2019-07-24 01:16] LABS: Prothrombin Time 10.9 Seconds (9.4-12.1)
[2019-07-24 01:32] LABS: % Iron Saturation 36 % (15-50); Iron 64 mcg/dL (50-170); Transferrin 126 mg/dL (203-362)
[2019-07-24 01:33] LABS: Albumin 3.2 g/dL (3.5-5.7); Albumin/Globulin Ratio 1.5 (1.1-2.2); Bilirubin,Total 0.4 mg/dL (0.3-1.0); Calcium 8.8 mg/dL (8.6-10.3); Globulin 2.1 g/dL (2.4-3.5); Total Protein 5.3 g/dL (6.4-8.9)
[2019-07-24 01:34] LABS: Chol/HDL Ratio 1.7 (0-4.9); Magnesium 2.3 mg/dL (1.6-2.6); Phosphorous 2.7 mg/dL (2.7-4.5)
[2019-07-24] MEDS ORDERED: Naloxone 0.4 MG/ML INJ IVP PRN (02:17)
[2019-07-24] MEDS ORDERED: Ondansetron 4 MG/2 ML VIAL IVP PRN (02:17)
[2019-07-24] MEDS ORDERED: Acetaminophen 325 MG TABLET PO PRN (02:17)
[2019-07-24] MEDS: *HR* OxyCODONE Immed Rel 5 MG TABLET PO PRN ×4 (03:46→21:55)
[2019-07-24] MEDS ORDERED: *HR* Metoprolol 5 MG/5 ML VIAL IVP ONE (04:28)
[2019-07-24] MEDS ORDERED: *HR* Labetalol 20 MG/4 ML SYRINGE IVP ONE (07:32)
[2019-07-24 07:55] LABS: Hematocrit 25.6 % (35.3-44.9); Hemoglobin 8.5 g/dL (11.5-15.4)
[2019-07-24] MEDS: Cyanocobalamin (B-12) 1,000 MCG TABLET PO SCH (09:55)
[2019-07-24] MEDS: Renal Vitamin 1 CAP CAPSULE PO SCH (09:55)
[2019-07-24] MEDS: Furosemide 20 MG TABLET PO SCH (18:12)
[2019-07-24] MEDS: ALPRAZolam 0.25 MG TABLET PO SCH (21:49)
[2019-07-24] MEDS: ARIPiprazole 5 MG TABLET PO SCH (21:49)
[2019-07-25] MEDS ORDERED: Regadenoson 0.4 MG/5 ML SYRINGE IVP ONE (06:08)
[2019-07-25 06:38] LABS: Basophils # 0.1 K/mcL (0.0-0.2); Basophils % 0.5 %; Eosinophils # 0.7 K/mcL (0.0-0.6); Eosinophils % 7.2 %; Hematocrit 26.4 % (35.3-44.9); Hemoglobin 8.4 g/dL (11.5-15.4); Immature Granulocytes % 0.4 % (0-4); Lymphocytes # 0.9 K/mcL (0.6-4.6); Lymphocytes % 9.4 %; Mean Corpuscular HGB Conc 31.8 g/dL (31.6-35.5); Mean Corpuscular Hemoglobin 32.7 pg (28.0-33.3); Mean Corpuscular Volume 102.7 fL (83.0-100.0); Mean Platelet Volume 10.7 fL (9.4-12.4); Monocytes # 0.8 K/mcL (0.0-1.3); Monocytes % 8.6 %; Platelet Count 193 K/mcL (140-400); Red Blood Count 2.57 M/mcL (3.82-4.97); Red Cell Distribution Width 13.7 % (11.5-14.5); Segmented Neutrophils % 73.9 %; White Blood Count 9.5 K/mcL (4.3-11.1)
[2019-07-25 07:08] LABS: % Iron Saturation 19 % (15-50); BUN/Creatinine Ratio 9 (6-26); Blood Urea Nitrogen 46 mg/dL (8-23); Calcium 8.9 mg/dL (8.6-10.3); Carbon Dioxide 24 mEq/L (23-29); Chloride 96 mEq/L (98-107); Glucose 94 mg/dL (70-105); Iron 32 mcg/dL (50-170); Magnesium 2.4 mg/dL (1.6-2.6); Osmolality,Calculated 286 (280-300); Potassium 4.9 mEq/L (3.5-5.1); Sodium 132 mEq/L (136-145); Transferrin 122 mg/dL (203-362); eGFR For African Americans 10 (> 60); eGFR For Non-African Americans 9 (> 60)
[2019-07-25 07:23] LABS: Folate 20.9 ng/mL (3.0-16.0)
[2019-07-25 07:24] LABS: Ferritin > 1500 ng/mL (10-120); Vitamin B12 > 1500 pg/mL (250-1100)
[2019-07-25] MEDS ORDERED: 0.9 % Sodium Chloride 250 ML IVC PRN ×2 (08:10→21:17)
[2019-07-25] MEDS ORDERED: *HR* Heparin 10,000 UNIT/10 ML VIAL IV PRN ×2 (08:10→21:17)
[2019-07-25] MEDS: *HR* OxyCODONE Immed Rel 5 MG TABLET PO PRN ×2 (08:14→16:09)
[2019-07-25] MEDS ORDERED: 0.9 % Sodium Chloride 1,000 ML PRIME SCH ×2 (08:15→21:17)
[2019-07-25] MEDS ORDERED: Verapamil ER (24 HR) 120 MG TABLET.ER PO SCH (09:00)
[2019-07-25] MEDS ORDERED: Aspirin Enteric Coated 81 MG Tablet PO SCH (09:00)
[2019-07-25] MEDS: Cyanocobalamin (B-12) 1,000 MCG TABLET PO SCH (09:48)
[2019-07-25] MEDS: Renal Vitamin 1 CAP CAPSULE PO SCH (09:57)
[2019-07-25] MEDS ORDERED: *HR* HYDROmorphone (PF) 1 MG/ML SYRINGE IVP PRN ×2 (12:20→21:17)
[2019-07-25] MEDS: ALPRAZolam 0.25 MG TABLET PO SCH (12:34)
[2019-07-25] MEDS: Furosemide 20 MG TABLET PO SCH (17:13)
[2019-07-25] MEDS ORDERED: *HR* FentaNYL (PF) 100 MCG/2 ML VIAL ONE (17:53)
[2019-07-25] MEDS ORDERED: Lidocaine -MPF 2% 2 ML VIAL ONE (17:53)
[2019-07-25] MEDS ORDERED: *HR* Propofol 200 MG/20 ML VIAL IVP ONE (17:53)
[2019-07-25] MEDS ORDERED: Ropivacaine/PF 0.5% 30 ML VIAL ONE (18:11)
[2019-07-25] MEDS ORDERED: CeFAZolin Syr 2,000MG/20 ML 2,000 MG/20 ML SYRINGE IVPB ONE (18:29)
[2019-07-25] MEDS ORDERED: Dexamethasone 4 MG/ML VIAL ONE (18:52)
[2019-07-25] MEDS ORDERED: Ondansetron 4 MG/2 ML VIAL ONE (18:53)
[2019-07-25] MEDS ORDERED: Acetaminophen 325 MG TABLET PO PRN (21:17)
[2019-07-25] MEDS ORDERED: Naloxone 0.4 MG/ML INJ IVP PRN (21:17)
[2019-07-25] MEDS ORDERED: Ondansetron 4 MG/2 ML VIAL IVP PRN (21:17)
[2019-07-25] MEDS: CEFAZOLIN IVPB SCH (23:53)
[2019-07-25] MEDS: SODIUM CHLORIDE 0.9% IVPB SCH (23:53)
[2019-07-26] MEDS: ALPRAZolam 0.25 MG TABLET PO SCH ×4 (02:54→23:11)
[2019-07-26 06:53] LABS: Basophils % 0.3 %; Hematocrit 23.4 % (35.3-44.9); Hemoglobin 7.4 g/dL (11.5-15.4); Immature Granulocytes % 0.8 % (0-4); Lymphocytes # 0.5 K/mcL (0.6-4.6); Lymphocytes % 5.8 %; Mean Corpuscular HGB Conc 31.6 g/dL (31.6-35.5); Mean Corpuscular Hemoglobin 33.6 pg (28.0-33.3); Mean Corpuscular Volume 106.4 fL (83.0-100.0); Mean Platelet Volume 10.9 fL (9.4-12.4); Monocytes # 0.6 K/mcL (0.0-1.3); Monocytes % 7.5 %; Neutrophils # 6.8 K/mcL (1.6-8.9); Platelet Count 174 K/mcL (140-400); Red Cell Distribution Width 14.1 % (11.5-14.5); Segmented Neutrophils % 85.6 %; White Blood Count 7.9 K/mcL (4.3-11.1)
[2019-07-26 07:13] LABS: Calcium 8.1 mg/dL (8.6-10.3); Magnesium 2.1 mg/dL (1.6-2.6); Potassium 4.9 mEq/L (3.5-5.1)
[2019-07-26] MEDS: ARIPiprazole 5 MG TABLET PO SCH ×2 (07:42→21:52)
[2019-07-26] MEDS: amLODIPine 5 MG TABLET PO SCH ×2 (07:55→09:28)
[2019-07-26] MEDS: Renal Vitamin 1 CAP CAPSULE PO SCH (07:55)
[2019-07-26] MEDS ORDERED: 0.9 % Sodium Chloride 250 ML IVC PRN (07:56)
[2019-07-26] MEDS ORDERED: *HR* Heparin 10,000 UNIT/10 ML VIAL IV PRN (07:56)
[2019-07-26] MEDS: Cyanocobalamin (B-12) 1,000 MCG TABLET PO SCH (07:56)
[2019-07-26] MEDS: SODIUM CHLORIDE 0.9% IVPB SCH (07:57)
[2019-07-26] MEDS: Aspirin Enteric Coated 81 MG Tablet PO SCH (07:57)
[2019-07-26] MEDS: CEFAZOLIN IVPB SCH (07:57)
[2019-07-26] MEDS ORDERED: Verapamil ER (24 HR) 120 MG TABLET.ER PO SCH (09:00)
[2019-07-26] MEDS ORDERED: ALPRAZolam 0.25 MG TABLET PO SCH (09:00)
[2019-07-26] MEDS: *HR* OxyCODONE Immed Rel 5 MG TABLET PO PRN ×2 (12:39→23:11)
[2019-07-26] MEDS: Furosemide 20 MG TABLET PO SCH (17:01)
[2019-07-26] MEDS ORDERED: tiZANidine 4 MG TABLET PO ONE (22:55)
[2019-07-27 06:40] LABS: Hemoglobin 6.8 g/dL (11.5-15.4); Mean Corpuscular HGB Conc 32.4 g/dL (31.6-35.5); Mean Corpuscular Volume 101.9 fL (83.0-100.0); Mean Platelet Volume 10.6 fL (9.4-12.4); Platelet Count 195 K/mcL (140-400); Red Blood Count 2.06 M/mcL (3.82-4.97); Red Cell Distribution Width 14.6 % (11.5-14.5)
[2019-07-27 07:03] LABS: Magnesium 2.1 mg/dL (1.6-2.6); Phosphorous 2.7 mg/dL (2.7-4.5)
[2019-07-27 07:05] LABS: Calcium 8.2 mg/dL (8.6-10.3); Potassium 3.8 mEq/L (3.5-5.1)
[2019-07-27] MEDS: Aspirin Enteric Coated 81 MG Tablet PO SCH (08:13)
[2019-07-27] MEDS: ALPRAZolam 0.25 MG TABLET PO SCH ×2 (08:13→22:08)
[2019-07-27] MEDS: amLODIPine 5 MG TABLET PO SCH (08:13)
[2019-07-27] MEDS: Cyanocobalamin (B-12) 1,000 MCG TABLET PO SCH (08:14)
[2019-07-27] MEDS: Renal Vitamin 1 CAP CAPSULE PO SCH (08:14)
[2019-07-27] MEDS: *HR* OxyCODONE Immed Rel 5 MG TABLET PO PRN ×2 (14:07→22:09)
[2019-07-27] MEDS: Furosemide 20 MG TABLET PO SCH (17:21)
[2019-07-27] MEDS: ARIPiprazole 5 MG TABLET PO SCH (22:08)
[2019-07-28 06:44] LABS: Calcium 8.3 mg/dL (8.6-10.3); Potassium 4.5 mEq/L (3.5-5.1)
[2019-07-28 06:48] LABS: Hematocrit 21.4 % (35.3-44.9); Hemoglobin 6.8 g/dL (11.5-15.4); Mean Corpuscular HGB Conc 31.8 g/dL (31.6-35.5); Mean Corpuscular Hemoglobin 33.5 pg (28.0-33.3); Mean Corpuscular Volume 105.4 fL (83.0-100.0); Mean Platelet Volume 10.3 fL (9.4-12.4); Platelet Count 189 K/mcL (140-400); Red Blood Count 2.03 M/mcL (3.82-4.97); Red Cell Distribution Width 14.6 % (11.5-14.5); White Blood Count 8.3 K/mcL (4.3-11.1)
[2019-07-28] MEDS: ALPRAZolam 0.25 MG TABLET PO SCH ×2 (08:15→21:46)
[2019-07-28] MEDS: Renal Vitamin 1 CAP CAPSULE PO SCH (08:15)
[2019-07-28] MEDS: Aspirin Enteric Coated 81 MG Tablet PO SCH (08:15)
[2019-07-28] MEDS: *HR* OxyCODONE Immed Rel 5 MG TABLET PO PRN ×3 (08:15→21:46)
[2019-07-28] MEDS: amLODIPine 5 MG TABLET PO SCH (08:16)
[2019-07-28] MEDS: Cyanocobalamin (B-12) 1,000 MCG TABLET PO SCH (08:17)
[2019-07-28] MEDS ORDERED: 0.9 % Sodium Chloride 250 ML IVC PRN (08:28)
[2019-07-28] MEDS ORDERED: 0.9 % Sodium Chloride 1,000 ML PRIME SCH (08:30)
[2019-07-28] MEDS: Furosemide 20 MG TABLET PO SCH (16:52)
[2019-07-28] MEDS: ARIPiprazole 5 MG TABLET PO SCH (21:46)
[2019-07-29 06:04] LABS: Hematocrit 30.7 % (35.3-44.9); Mean Corpuscular HGB Conc 32.2 g/dL (31.6-35.5); Mean Corpuscular Hemoglobin 32.6 pg (28.0-33.3); Mean Platelet Volume 10.3 fL (9.4-12.4); Platelet Count 187 K/mcL (140-400); Red Blood Count 3.04 M/mcL (3.82-4.97); Red Cell Distribution Width 16.1 % (11.5-14.5); White Blood Count 8.8 K/mcL (4.3-11.1)
[2019-07-29 06:10] LABS: Hemoglobin 9.9 g/dL (11.5-15.4)
[2019-07-29 06:23] LABS: Calcium 8.9 mg/dL (8.6-10.3); Potassium 4.3 mEq/L (3.5-5.1)
[2019-07-29] MEDS ORDERED: 0.9 % Sodium Chloride 250 ML IVC PRN (08:20)
[2019-07-29] MEDS: Aspirin Enteric Coated 81 MG Tablet PO SCH (08:36)
[2019-07-29] MEDS: Renal Vitamin 1 CAP CAPSULE PO SCH (08:37)
[2019-07-29] MEDS: *HR* OxyCODONE Immed Rel 5 MG TABLET PO PRN ×3 (08:37→22:03)
[2019-07-29] MEDS: Cyanocobalamin (B-12) 1,000 MCG TABLET PO SCH (08:37)
[2019-07-29] MEDS: ALPRAZolam 0.25 MG TABLET PO SCH ×2 (08:37→20:15)
[2019-07-29] MEDS: amLODIPine 5 MG TABLET PO SCH (14:37)
[2019-07-29] MEDS: Furosemide 20 MG TABLET PO SCH (16:32)
[2019-07-29] MEDS: ARIPiprazole 5 MG TABLET PO SCH (20:15)
[2019-07-30] MEDS: *HR* OxyCODONE Immed Rel 5 MG TABLET PO PRN ×3 (04:23→21:57)
[2019-07-30] MEDS: amLODIPine 5 MG TABLET PO SCH (09:53)
[2019-07-30] MEDS: ALPRAZolam 0.25 MG TABLET PO SCH ×2 (09:53→21:57)
[2019-07-30] MEDS: Cyanocobalamin (B-12) 1,000 MCG TABLET PO SCH (09:54)
[2019-07-30] MEDS: Aspirin Enteric Coated 81 MG Tablet PO SCH (09:56)
[2019-07-30] MEDS: Renal Vitamin 1 CAP CAPSULE PO SCH (09:56)
[2019-07-30] MEDS: Furosemide 20 MG TABLET PO SCH (17:14)
[2019-07-30 18:22] LABS: Hematocrit 30.6 % (35.3-44.9); Hemoglobin 10.4 g/dL (11.5-15.4); Mean Corpuscular Hemoglobin 32.5 pg (28.0-33.3); Mean Corpuscular Volume 95.6 fL (83.0-100.0); Platelet Count 184 K/mcL (140-400); Red Cell Distribution Width 14.8 % (11.5-14.5); White Blood Count 10.4 K/mcL (4.3-11.1)
[2019-07-30 18:38] LABS: Calcium 9.2 mg/dL (8.6-10.3); Potassium 4.8 mEq/L (3.5-5.1)
[2019-07-30] MEDS: ARIPiprazole 5 MG TABLET PO SCH (21:58)
[2019-07-31] MEDS: *HR* OxyCODONE Immed Rel 5 MG TABLET PO PRN ×2 (06:11→13:52)
[2019-07-31 07:00] LABS: Mean Corpuscular HGB Conc 33.3 g/dL (31.6-35.5); Mean Corpuscular Hemoglobin 32.3 pg (28.0-33.3); Mean Corpuscular Volume 96.8 fL (83.0-100.0); Mean Platelet Volume 10.4 fL (9.4-12.4); Platelet Count 167 K/mcL (140-400); Red Cell Distribution Width 14.6 % (11.5-14.5)
[2019-07-31 07:19] LABS: Calcium 8.9 mg/dL (8.6-10.3); Potassium 4.4 mEq/L (3.5-5.1)
[2019-07-31] MEDS: Renal Vitamin 1 CAP CAPSULE PO SCH (09:16)
[2019-07-31] MEDS: Aspirin Enteric Coated 81 MG Tablet PO SCH (09:16)
[2019-07-31] MEDS: Cyanocobalamin (B-12) 1,000 MCG TABLET PO SCH (09:16)
[2019-07-31] MEDS: ALPRAZolam 0.25 MG TABLET PO SCH (09:16)
[2019-07-31] MEDS: amLODIPine 5 MG TABLET PO SCH (09:17)
[2019-07-31] MEDS ORDERED: 0.9 % Sodium Chloride 250 ML IVC PRN (09:33)
[2019-07-31 13:10] VITALS: BP 137/81
== END 2019-07-31 13:52 | DRG 510 ==
LOC: 2ANU → SUATTDRO 07-24 02:17
PROVIDERS: ADMIT Internal Medicine; ATTEND Internal Medicine

== ENCOUNTER 2019-10-21 14:46 | Inpatient (IN) ==
[2019-10-21] MEDS ORDERED: Naloxone 0.4 MG/ML INJ IVP PRN (17:44)
[2019-10-21] MEDS ORDERED: Ondansetron 4 MG/2 ML VIAL IVP PRN (17:44)
[2019-10-21] MEDS ORDERED: Ringers Solution, Lactated 1,000 ML IVC SCH (17:45)
[2019-10-21] MEDS ORDERED: SODIUM CHLORIDE/NAHCO3/KCL/PEG 4,000 ML SOLN.RECON PO ONE ×2 (18:02→22:00)
[2019-10-21] MEDS: Pantoprazole 40 MG VIAL IVP SCH (18:30)
[2019-10-21 18:33] LABS: Prothrombin Time 11.6 Seconds (9.4-12.1)
[2019-10-21 18:37] LABS: Eosinophils % 2.7 %; Mean Platelet Volume 11.5 fL (9.4-12.4); Red Cell Distribution Width 16.4 % (11.5-14.5)
[2019-10-21 18:38] LABS: Basophils # 0.1 K/mcL (0.0-0.2); Basophils % 0.9 %; Eosinophils # 0.2 K/mcL (0.0-0.6); Hematocrit 19.3 % (35.3-44.9); Immature Granulocytes % 0.4 % (0-4); Lymphocytes # 0.9 K/mcL (0.6-4.6); Lymphocytes % 16.1 %; Mean Corpuscular HGB Conc 31.1 g/dL (31.6-35.5); Mean Corpuscular Hemoglobin 29.4 pg (28.0-33.3); Mean Corpuscular Volume 94.6 fL (83.0-100.0); Monocytes # 0.6 K/mcL (0.0-1.3); Neutrophils # 3.9 K/mcL (1.6-8.9); Platelet Count 137 K/mcL (140-400); Red Blood Count 2.04 M/mcL (3.82-4.97); Segmented Neutrophils % 69.9 %; White Blood Count 5.6 K/mcL (4.3-11.1)
[2019-10-21 18:49] LABS: Albumin 3.2 g/dL (3.5-5.7); Albumin/Globulin Ratio 1.9 (1.1-2.2); Bilirubin,Total 0.7 mg/dL (0.3-1.0); Calcium 8.3 mg/dL (8.6-10.3); Globulin 1.7 g/dL (2.4-3.5); Potassium 4.9 mEq/L (3.5-5.1); Total Protein 4.9 g/dL (6.4-8.9)
[2019-10-21 19:22] LABS: Anisocytosis 1+ (Not Present); Hypochromasia Present (Not Present); Microcytosis Present (Not Present); Platelet Estimate Slight Decrease (Normal)
[2019-10-21] MEDS ORDERED: 0.9 % Sodium Chloride 250 ML ONE (20:00)
[2019-10-22 01:14] LABS: Basophils % 0.7 %; Eosinophils # 0.2 K/mcL (0.0-0.6); Eosinophils % 2.9 %; Hematocrit 22.6 % (35.3-44.9); Hemoglobin 7.4 g/dL (11.5-15.4); Immature Granulocytes % 0.4 % (0-4); Lymphocytes # 0.9 K/mcL (0.6-4.6); Lymphocytes % 15.4 %; Mean Corpuscular HGB Conc 32.7 g/dL (31.6-35.5); Mean Corpuscular Volume 91.5 fL (83.0-100.0); Mean Platelet Volume 11.5 fL (9.4-12.4); Monocytes # 0.5 K/mcL (0.0-1.3); Monocytes % 9.7 %; Platelet Count 131 K/mcL (140-400); Red Blood Count 2.47 M/mcL (3.82-4.97); Red Cell Distribution Width 16.2 % (11.5-14.5); Segmented Neutrophils % 70.9 %; White Blood Count 5.6 K/mcL (4.3-11.1)
[2019-10-22 01:30] LABS: Albumin 2.9 g/dL (3.5-5.7); Albumin/Globulin Ratio 1.5 (1.1-2.2); Bilirubin,Total 0.9 mg/dL (0.3-1.0); Calcium 8.2 mg/dL (8.6-10.3); Globulin 1.9 g/dL (2.4-3.5); Potassium 4.8 mEq/L (3.5-5.1); Total Protein 4.8 g/dL (6.4-8.9)
[2019-10-22] MEDS: Pantoprazole 40 MG VIAL IVP SCH ×2 (06:26→19:23)
[2019-10-22 07:05] LABS: Hematocrit 23.9 % (35.3-44.9); Hemoglobin 7.7 g/dL (11.5-15.4)
[2019-10-22] MEDS ORDERED: 0.9 % Sodium Chloride 250 ML IVC PRN (12:34)
[2019-10-22] MEDS ORDERED: 0.9 % Sodium Chloride 1,000 ML PRIME SCH (12:45)
[2019-10-22 16:11] LABS: Hematocrit 22.3 % (35.3-44.9); Hemoglobin 7.3 g/dL (11.5-15.4)
[2019-10-22 16:12] LABS: Hematocrit 22.2 % (35.3-44.9); Hemoglobin 7.4 g/dL (11.5-15.4)
[2019-10-23 05:56] LABS: Basophils % 0.4 %; Eosinophils # 0.3 K/mcL (0.0-0.6); Eosinophils % 3.5 %; Hematocrit 31.1 % (35.3-44.9); Immature Granulocytes % 0.6 % (0-4); Lymphocytes # 0.9 K/mcL (0.6-4.6); Lymphocytes % 10.9 %; Mean Corpuscular HGB Conc 34.1 g/dL (31.6-35.5); Mean Corpuscular Hemoglobin 30.5 pg (28.0-33.3); Mean Corpuscular Volume 89.6 fL (83.0-100.0); Mean Platelet Volume 11.9 fL (9.4-12.4); Monocytes # 0.8 K/mcL (0.0-1.3); Monocytes % 9.6 %; Platelet Count 172 K/mcL (140-400); Red Blood Count 3.47 M/mcL (3.82-4.97); Red Cell Distribution Width 16.7 % (11.5-14.5)
[2019-10-23 05:57] LABS: Neutrophils # 6.2 K/mcL (1.6-8.9); White Blood Count 8.3 K/mcL (4.3-11.1)
[2019-10-23 05:58] LABS: Hemoglobin 10.6 g/dL (11.5-15.4)
[2019-10-23 06:08] LABS: Albumin 3.5 g/dL (3.5-5.7); Albumin/Globulin Ratio 1.7 (1.1-2.2); Bilirubin,Total 1.1 mg/dL (0.3-1.0); Calcium 8.7 mg/dL (8.6-10.3); Globulin 2.1 g/dL (2.4-3.5); Potassium 4.3 mEq/L (3.5-5.1); Total Protein 5.6 g/dL (6.4-8.9)
[2019-10-23] MEDS: Pantoprazole 40 MG VIAL IVP SCH (06:48)
[2019-10-23] MEDS ORDERED: Lidocaine -MPF 2% 2 ML VIAL ONE (08:10)
[2019-10-23 10:43] LABS: Hematocrit 29.3 % (35.3-44.9); Hemoglobin 9.6 g/dL (11.5-15.4)
[2019-10-23] MEDS: PARoxetine 20 MG TABLET PO SCH (11:39)
[2019-10-23] MEDS: tiZANidine 4 MG TABLET PO SCH (17:30)
[2019-10-23] MEDS: ALPRAZolam 0.25 MG TABLET PO SCH (22:11)
[2019-10-24 01:08] LABS: Basophils % 0.5 %; Eosinophils # 0.3 K/mcL (0.0-0.6); Eosinophils % 4.2 %; Hematocrit 26.4 % (35.3-44.9); Hemoglobin 8.5 g/dL (11.5-15.4); Immature Granulocytes % 0.3 % (0-4); Lymphocytes # 0.8 K/mcL (0.6-4.6); Lymphocytes % 12.4 %; Mean Corpuscular HGB Conc 32.2 g/dL (31.6-35.5); Mean Corpuscular Volume 93.3 fL (83.0-100.0); Mean Platelet Volume 11.3 fL (9.4-12.4); Monocytes # 0.9 K/mcL (0.0-1.3); Monocytes % 14.3 %; Neutrophils # 4.2 K/mcL (1.6-8.9); Platelet Count 123 K/mcL (140-400); Red Blood Count 2.83 M/mcL (3.82-4.97); Red Cell Distribution Width 16.6 % (11.5-14.5); Segmented Neutrophils % 68.3 %; White Blood Count 6.2 K/mcL (4.3-11.1)
[2019-10-24 01:27] LABS: Albumin 2.9 g/dL (3.5-5.7); Albumin/Globulin Ratio 1.6 (1.1-2.2); Bilirubin,Total 0.7 mg/dL (0.3-1.0); Globulin 1.8 g/dL (2.4-3.5); Potassium 4.1 mEq/L (3.5-5.1); Total Protein 4.7 g/dL (6.4-8.9)
[2019-10-24] MEDS: PARoxetine 20 MG TABLET PO SCH (07:48)
[2019-10-24] MEDS: ALPRAZolam 0.25 MG TABLET PO SCH (07:48)
[2019-10-24 08:07] LABS: Hematocrit 27.1 % (35.3-44.9); Hemoglobin 8.6 g/dL (11.5-15.4)
[2019-10-24] MEDS ORDERED: tiZANidine 4 MG TABLET PO SCH (09:00)
[2019-10-24] MEDS ORDERED: Furosemide 20 MG TABLET PO SCH (09:00)
[2019-10-24] MEDS ORDERED: Verapamil ER (24 HR) 120 MG TABLET.ER PO SCH (09:00)
[2019-10-24] MEDS ORDERED: 0.9 % Sodium Chloride 250 ML IVC PRN (09:50)
[2019-10-24 15:03] VITALS: BP 154/79
[2019-10-24 16:20] LABS: Hepatitis B Surface Antibody < 3.10 mIU/mL
[2019-10-24 16:25] LABS: Hepatitis B Surface Antigen Nonreactive (Nonreactive)
[2019-10-24] MEDS: tiZANidine 4 MG TABLET PO SCH (17:03)
== END 2019-10-24 17:30 | disposition home or self-care (01) | DRG 811 ==
LOC: 2ANU → SUATTDRO 17:09
PROVIDERS: ADMIT Internal Medicine; ATTEND Internal Medicine

== ENCOUNTER 2019-11-29 13:01 | Inpatient (IN) ==
[2019-11-29] MEDS ORDERED: Ondansetron 4 MG/2 ML VIAL IVP PRN (15:52)
[2019-11-29] MEDS ORDERED: Naloxone 0.4 MG/ML INJ IVP PRN (15:52)
[2019-11-29] MEDS ORDERED: Furosemide 20 MG TABLET PO SCH (16:00)
[2019-11-29] MEDS ORDERED: *HR* OxyCODONE Immed Rel 5 MG TABLET PO PRN (16:07)
[2019-11-29] MEDS: Dexamethasone 4 MG/ML VIAL IVP SCH (16:32)
[2019-11-29] MEDS: tiZANidine 4 MG TABLET PO SCH (16:33)
[2019-11-29] MEDS ORDERED: Furosemide 20 MG/2 ML VIAL IVP ONE (19:07)
[2019-11-29] MEDS: ALPRAZolam 0.25 MG TABLET PO SCH (20:10)
[2019-11-29] MEDS: RESTASIS OPH OP SCH (20:11)
[2019-11-30] MEDS: *HR* OxyCODONE Immed Rel 5 MG TABLET PO PRN ×3 (00:15→20:43)
[2019-11-30 02:29] LABS: Eosinophils % 0.2 %; Hematocrit 36.8 % (35.3-44.9); Hemoglobin 11.6 g/dL (11.5-15.4); Immature Granulocytes % 0.6 % (0-4); Lymphocytes # 0.3 K/mcL (0.6-4.6); Mean Corpuscular HGB Conc 31.5 g/dL (31.6-35.5); Mean Corpuscular Hemoglobin 29.4 pg (28.0-33.3); Mean Corpuscular Volume 93.4 fL (83.0-100.0); Mean Platelet Volume 10.3 fL (9.4-12.4); Monocytes % 0.6 %; Neutrophils # 4.8 K/mcL (1.6-8.9); Platelet Count 217 K/mcL (140-400); Red Blood Count 3.94 M/mcL (3.82-4.97); Segmented Neutrophils % 92.6 %; White Blood Count 5.1 K/mcL (4.3-11.1)
[2019-11-30 02:44] LABS: INR 1.1
[2019-11-30 02:56] LABS: Chol/HDL Ratio 1.6 (0-4.9); Phosphorous 6.1 mg/dL (2.7-4.5); Potassium 4.9 mEq/L (3.5-5.1)
[2019-11-30 07:37] LABS: Hepatitis B Surface Antibody < 3.10 mIU/mL
[2019-11-30 07:47] LABS: Hepatitis B Surface Antigen Nonreactive (Nonreactive)
[2019-11-30] MEDS ORDERED: 0.9 % Sodium Chloride 250 ML IVC PRN (08:24)
[2019-11-30] MEDS ORDERED: 0.9 % Sodium Chloride 1,000 ML PRIME SCH (08:30)
[2019-11-30] MEDS: Aspirin Enteric Coated 81 MG Tablet PO SCH (08:34)
[2019-11-30] MEDS: Verapamil ER (24 HR) 120 MG TABLET.ER PO SCH (08:34)
[2019-11-30] MEDS: ARIPiprazole 5 MG TABLET PO SCH (08:35)
[2019-11-30] MEDS: tiZANidine 4 MG TABLET PO SCH ×3 (08:35→22:56)
[2019-11-30] MEDS: ALPRAZolam 0.25 MG TABLET PO SCH ×2 (08:35→20:16)
[2019-11-30] MEDS: Dexamethasone 4 MG/ML VIAL IVP SCH (08:36)
[2019-11-30] MEDS: RESTASIS OPH OP SCH (08:42)
[2019-11-30] MEDS: polyethylene glycoL 3350 17 GM POWD.PACK PO SCH (08:43)
[2019-11-30] MEDS ORDERED: PARoxetine 20 MG TABLET PO SCH (09:00)
[2019-11-30] MEDS ORDERED: Furosemide 20 MG TABLET PO SCH (09:00)
[2019-12-01] MEDS: *HR* OxyCODONE Immed Rel 5 MG TABLET PO PRN ×2 (03:45→08:09)
[2019-12-01 04:00] LABS: Hematocrit 30.8 % (35.3-44.9); Hemoglobin 10.2 g/dL (11.5-15.4); Mean Corpuscular HGB Conc 33.1 g/dL (31.6-35.5); Mean Corpuscular Hemoglobin 30.1 pg (28.0-33.3); Mean Corpuscular Volume 90.9 fL (83.0-100.0); Mean Platelet Volume 10.8 fL (9.4-12.4); Platelet Count 183 K/mcL (140-400); Red Blood Count 3.39 M/mcL (3.82-4.97); Red Cell Distribution Width 16.9 % (11.5-14.5)
[2019-12-01 04:06] LABS: White Blood Count 7.9 K/mcL (4.3-11.1)
[2019-12-01 04:23] LABS: Magnesium 1.9 mg/dL (1.6-2.6); Phosphorous 4.5 mg/dL (2.7-4.5); Potassium 4.3 mEq/L (3.5-5.1)
[2019-12-01] MEDS: Verapamil ER (24 HR) 120 MG TABLET.ER PO SCH (08:10)
[2019-12-01] MEDS: Aspirin Enteric Coated 81 MG Tablet PO SCH (08:10)
[2019-12-01] MEDS: ALPRAZolam 0.25 MG TABLET PO SCH ×2 (08:11→21:10)
[2019-12-01] MEDS: ARIPiprazole 5 MG TABLET PO SCH (08:11)
[2019-12-01] MEDS: Dexamethasone 4 MG/ML VIAL IVP SCH (08:12)
[2019-12-01] MEDS: polyethylene glycoL 3350 17 GM POWD.PACK PO SCH (08:12)
[2019-12-01] MEDS: tiZANidine 4 MG TABLET PO SCH ×2 (08:12→22:21)
[2019-12-01] MEDS: Furosemide 20 MG TABLET PO SCH (08:18)
[2019-12-01] MEDS ORDERED: 0.9 % Sodium Chloride 250 ML IVC PRN (10:01)
[2019-12-01] MEDS: *HR* OxyCODONE/APAP 5/325 TABLET PO PRN ×2 (14:08→22:21)
[2019-12-02 04:42] LABS: Hematocrit 33.9 % (35.3-44.9); Hemoglobin 10.6 g/dL (11.5-15.4); Mean Corpuscular HGB Conc 31.3 g/dL (31.6-35.5); Mean Corpuscular Hemoglobin 29.2 pg (28.0-33.3); Mean Corpuscular Volume 93.4 fL (83.0-100.0); Platelet Count 193 K/mcL (140-400); Red Blood Count 3.63 M/mcL (3.82-4.97); White Blood Count 8.6 K/mcL (4.3-11.1)
[2019-12-02] MEDS: *HR* OxyCODONE/APAP 5/325 TABLET PO PRN ×3 (06:04→20:58)
[2019-12-02 07:37] LABS: Calcium 6.6 mg/dL (8.6-10.3); Potassium 4.7 mEq/L (3.5-5.1)
[2019-12-02] MEDS ORDERED: 0.9 % Sodium Chloride 250 ML IVC PRN (07:46)
[2019-12-02] MEDS ORDERED: 0.9 % Sodium Chloride 1,000 ML PRIME SCH (08:00)
[2019-12-02] MEDS: ALPRAZolam 0.25 MG TABLET PO SCH ×2 (08:21→20:47)
[2019-12-02] MEDS: ARIPiprazole 5 MG TABLET PO SCH (08:21)
[2019-12-02] MEDS: polyethylene glycoL 3350 17 GM POWD.PACK PO SCH (08:21)
[2019-12-02] MEDS: Aspirin Enteric Coated 81 MG Tablet PO SCH (08:21)
[2019-12-02] MEDS: Sennosides/Docusate Sodium TABLET PO SCH (08:22)
[2019-12-02] MEDS: tiZANidine 4 MG TABLET PO SCH ×3 (08:22→23:20)
[2019-12-02] MEDS: Furosemide 20 MG TABLET PO SCH (08:22)
[2019-12-02] MEDS: Verapamil ER (24 HR) 120 MG TABLET.ER PO SCH (08:22)
[2019-12-02] MEDS: Dexamethasone 4 MG/ML VIAL IVP SCH (08:23)
[2019-12-02] MEDS: Acetaminophen 325 MG TABLET PO PRN (16:56)
[2019-12-03] MEDS: *HR* OxyCODONE/APAP 5/325 TABLET PO PRN ×3 (05:12→20:16)
[2019-12-03 05:30] LABS: Basophils % 0.1 %; Hematocrit 32.9 % (35.3-44.9); Hemoglobin 10.5 g/dL (11.5-15.4); Immature Granulocytes % 0.6 % (0-4); Lymphocytes # 0.7 K/mcL (0.6-4.6); Lymphocytes % 6.4 %; Mean Corpuscular HGB Conc 31.9 g/dL (31.6-35.5); Mean Corpuscular Hemoglobin 29.7 pg (28.0-33.3); Mean Corpuscular Volume 92.9 fL (83.0-100.0); Mean Platelet Volume 9.6 fL (9.4-12.4); Monocytes % 10.1 %; Neutrophils # 8.6 K/mcL (1.6-8.9); Platelet Count 170 K/mcL (140-400); Red Blood Count 3.54 M/mcL (3.82-4.97); Segmented Neutrophils % 82.8 %; White Blood Count 10.3 K/mcL (4.3-11.1)
[2019-12-03] MEDS ORDERED: 0.9 % Sodium Chloride 250 ML IVC PRN (06:44)
[2019-12-03] MEDS: polyethylene glycoL 3350 17 GM POWD.PACK PO SCH (08:06)
[2019-12-03] MEDS: Aspirin Enteric Coated 81 MG Tablet PO SCH (08:09)
[2019-12-03] MEDS: Sennosides/Docusate Sodium TABLET PO SCH (08:09)
[2019-12-03] MEDS: ARIPiprazole 5 MG TABLET PO SCH (08:10)
[2019-12-03] MEDS: tiZANidine 4 MG TABLET PO SCH ×2 (08:10→20:17)
[2019-12-03] MEDS: Verapamil ER (24 HR) 120 MG TABLET.ER PO SCH (08:11)
[2019-12-03] MEDS: ALPRAZolam 0.25 MG TABLET PO SCH ×2 (08:11→20:15)
[2019-12-03] MEDS: Furosemide 20 MG TABLET PO SCH (12:05)
[2019-12-03] MEDS: Acetaminophen 325 MG TABLET PO PRN ×2 (14:18→21:37)
[2019-12-04] MEDS: *HR* OxyCODONE/APAP 5/325 TABLET PO PRN ×3 (03:15→18:00)
[2019-12-04] MEDS: Verapamil ER (24 HR) 120 MG TABLET.ER PO SCH (08:01)
[2019-12-04] MEDS: ARIPiprazole 5 MG TABLET PO SCH (08:01)
[2019-12-04] MEDS: Sennosides/Docusate Sodium TABLET PO SCH (08:01)
[2019-12-04] MEDS: tiZANidine 4 MG TABLET PO SCH (08:01)
[2019-12-04] MEDS: Aspirin Enteric Coated 81 MG Tablet PO SCH (08:01)
[2019-12-04] MEDS: Acetaminophen 325 MG TABLET PO PRN ×3 (08:01→22:00)
[2019-12-04] MEDS: ALPRAZolam 0.25 MG TABLET PO SCH ×2 (08:01→20:31)
[2019-12-04] MEDS: polyethylene glycoL 3350 17 GM POWD.PACK PO SCH (08:02)
[2019-12-04] MEDS: Furosemide 20 MG TABLET PO SCH (08:05)
[2019-12-04] MEDS ORDERED: Orphenadrine 60 MG/2 ML VIAL IVP ONE (08:34)
[2019-12-04] MEDS ORDERED: Simethicone 80 MG TAB.CHEW PO PRN (15:05)
[2019-12-04] MEDS ORDERED: polyethylene glycoL 3350 17 GM POWD.PACK PO SCH (21:00)
[2019-12-05] MEDS: *HR* OxyCODONE/APAP 5/325 TABLET PO PRN ×3 (00:09→13:48)
[2019-12-05] MEDS: tiZANidine 4 MG TABLET PO SCH ×2 (00:10→07:51)
[2019-12-05 04:58] LABS: Hematocrit 29.2 % (35.3-44.9); Hemoglobin 9.4 g/dL (11.5-15.4); Mean Corpuscular HGB Conc 32.2 g/dL (31.6-35.5); Mean Corpuscular Hemoglobin 29.6 pg (28.0-33.3); Mean Corpuscular Volume 91.8 fL (83.0-100.0); Mean Platelet Volume 10.8 fL (9.4-12.4); Platelet Count 130 K/mcL (140-400); Red Blood Count 3.18 M/mcL (3.82-4.97); Red Cell Distribution Width 16.6 % (11.5-14.5); White Blood Count 7.8 K/mcL (4.3-11.1)
[2019-12-05 05:15] LABS: Calcium 6.8 mg/dL (8.6-10.3); Potassium 4.4 mEq/L (3.5-5.1)
[2019-12-05] MEDS ORDERED: 0.9 % Sodium Chloride 2,000 ML ONE (06:34)
[2019-12-05] MEDS ORDERED: 0.9 % Sodium Chloride 250 ML IVC PRN (07:21)
[2019-12-05] MEDS ORDERED: 0.9 % Sodium Chloride 1,000 ML PRIME SCH (07:30)
[2019-12-05] MEDS: ALPRAZolam 0.25 MG TABLET PO SCH (07:50)
[2019-12-05] MEDS: Sennosides/Docusate Sodium TABLET PO SCH (07:50)
[2019-12-05] MEDS: Verapamil ER (24 HR) 120 MG TABLET.ER PO SCH (07:50)
[2019-12-05] MEDS: Aspirin Enteric Coated 81 MG Tablet PO SCH (07:51)
[2019-12-05] MEDS: ARIPiprazole 5 MG TABLET PO SCH (07:51)
[2019-12-05] MEDS: Acetaminophen 325 MG TABLET PO PRN (10:33)
[2019-12-05] MEDS: Furosemide 20 MG TABLET PO SCH (11:59)
[2019-12-05 12:00] VITALS: BP 180/78
== END 2019-12-05 14:40 | disposition home health service (06) | DRG 542 ==
LOC: 2ANU → SUATTDRO 14:57
PROVIDERS: ADMIT Internal Medicine; ATTEND Internal Medicine

== ENCOUNTER 2019-12-14 13:58 | Inpatient (IN) ==
[2019-12-14] MEDS ORDERED: Calcium Gluconate 1gm/50mL 1 GM/50 ML BAG IVPB ONE (15:56)
[2019-12-14] MEDS ORDERED: 0.9 % Sodium Chloride 500 ML ONE (15:59)
[2019-12-14] MEDS ORDERED: 0.9 % Sodium Chloride 1,000 ML IVC ONE (16:00)
[2019-12-14] MEDS ORDERED: Naloxone 0.4 MG/ML INJ IVP PRN (16:00)
[2019-12-14] MEDS ORDERED: Ondansetron ODT 4 MG TAB.RAPDIS SL PRN (16:00)
[2019-12-14] MEDS ORDERED: Potassium Chloride 40 MEQ/200 ML BAG IVPB PRN (16:03)
[2019-12-14] MEDS ORDERED: Potassium Phosphate 44 MEQ in 0.9 % Sodium Chloride 250 ML IVPB PRN (16:03)
[2019-12-14] MEDS ORDERED: Albumin 25% 25gram/100mL 25 GM/100 ML IV.SOLN IVPB ONE (16:06)
[2019-12-14] MEDS: Calcium Gluconate 1gm/50mL 1 GM/50 ML BAG IVPB SCH ×3 (16:31→18:04)
[2019-12-14 16:40] LABS: Hematocrit 15.3 % (35.3-44.9); Lymphocytes # 0.9 K/mcL (0.6-4.6); Lymphocytes % 5.3 %; Mean Corpuscular Hemoglobin 32.7 pg (28.0-33.3); Mean Corpuscular Volume 96.2 fL (83.0-100.0); Mean Platelet Volume 10.4 fL (9.4-12.4); Monocytes # 1.1 K/mcL (0.0-1.3); Monocytes % 6.8 %; Nucleated Red Blood Cells 0.2 /100 WBC (0); Platelet Count 151 K/mcL (140-400); Red Blood Count 1.59 M/mcL (3.82-4.97); Red Cell Distribution Width 18.5 % (11.5-14.5); Segmented Neutrophils % 85.9 %; White Blood Count 16.3 K/mcL (4.3-11.1)
[2019-12-14 16:47] LABS: Hemoglobin 5.2 g/dL (11.5-15.4)
[2019-12-14 17:53] LABS: Fibrinogen 162 mg/dL (169-393)
[2019-12-14 17:54] LABS: D-Dimer 1402 ng/mLFEU (0-500)
[2019-12-14 18:01] LABS: % Iron Saturation 81 % (15-50); Iron 149 mcg/dL (50-170); Lactate Dehydrogenase 120 Units/L (140-271); Transferrin 131 mg/dL (203-362)
[2019-12-14] MEDS: Pantoprazole 40 MG VIAL IVP SCH (18:04)
[2019-12-14 18:21] LABS: Ferritin > 1500 ng/mL (10-120)
[2019-12-14 18:24] LABS: Folate 8.3 ng/mL (3.0-16.0)
[2019-12-14 18:34] LABS: Vitamin B12 > 1500 pg/mL (250-1100)
[2019-12-14] MEDS ORDERED: 0.9 % Sodium Chloride 250 ML ONE (20:14)
[2019-12-14 20:16] LABS: VBG Ionized Calcium 0.75 mmol/L (1.15-1.35)
[2019-12-14] MEDS: Calcium Gluconate 1gm/50mL 1 GM/50 ML BAG IVPB PRN (20:56)
[2019-12-14] MEDS ORDERED: *HR* Heparin 5,000 UNIT/ML VIAL SQ SCH (22:00)
[2019-12-14 22:13] LABS: Magnesium 1.5 mg/dL (1.6-2.6); Phosphorous 5.4 mg/dL (2.7-4.5)
[2019-12-14 22:52] LABS: Hemoglobin 6.1 g/dL (11.5-15.4)
[2019-12-14] MEDS ORDERED: Furosemide 40 MG/4 ML VIAL IVP ONE (23:46)
[2019-12-15 04:00] LABS: Basophils % 0.1 %; Eosinophils % 0.1 %; Hematocrit 20.7 % (35.3-44.9); Immature Granulocytes % 2.8 % (0-4); Lymphocytes # 1.3 K/mcL (0.6-4.6); Lymphocytes % 7.4 %; Mean Corpuscular HGB Conc 33.8 g/dL (31.6-35.5); Mean Corpuscular Hemoglobin 30.4 pg (28.0-33.3); Mean Platelet Volume 10.6 fL (9.4-12.4); Monocytes # 1.7 K/mcL (0.0-1.3); Monocytes % 9.6 %; Neutrophils # 13.7 K/mcL (1.6-8.9); Nucleated Red Blood Cells 1.2 /100 WBC (0); Platelet Count 146 K/mcL (140-400); Red Cell Distribution Width 15.8 % (11.5-14.5); White Blood Count 17.1 K/mcL (4.3-11.1)
[2019-12-15 04:13] LABS: VBG Ionized Calcium 0.73 mmol/L (1.15-1.35)
[2019-12-15 04:15] LABS: Activated Partial Thrombo Time 27.2 Seconds (26.0-36.0); INR 1.3; Prothrombin Time 14.4 Seconds (9.4-12.1)
[2019-12-15 04:24] LABS: Calcium 5.3 mg/dL (8.6-10.3); Magnesium 1.7 mg/dL (1.6-2.6); Phosphorous 5.4 mg/dL (2.7-4.5); Potassium 5.5 mEq/L (3.5-5.1)
[2019-12-15] MEDS: Calcium Gluconate 1gm/50mL 1 GM/50 ML BAG IVPB PRN ×2 (05:05→18:23)
[2019-12-15] MEDS: Pantoprazole 40 MG VIAL IVP SCH (05:05)
[2019-12-15] MEDS: ARIPiprazole 5 MG TABLET PO SCH (07:29)
[2019-12-15] MEDS: Calcium Gluconate 1gm/50mL 1 GM/50 ML BAG IVPB SCH ×2 (08:38→10:19)
[2019-12-15] MEDS ORDERED: 0.9 % Sodium Chloride 1,000 ML ONE ×2 (08:57→11:48)
[2019-12-15] MEDS ORDERED: Pantoprazole 40 MG VIAL IVP SCH (09:00)
[2019-12-15] MEDS ORDERED: polyethylene glycoL 3350 17 GM POWD.PACK PO SCH (09:00)
[2019-12-15] MEDS ORDERED: 0.9 % Sodium Chloride 250 ML IVC PRN (09:07)
[2019-12-15] MEDS ORDERED: 0.9 % Sodium Chloride 1,000 ML PRIME SCH (09:15)
[2019-12-15 09:31] LABS: Bilirubin,Urine Negative (Negative); Blood,Urine Negative (Negative); Clarity,Urine Clear (Clear); Color,Urine Yellow (Yellow); Glucose,Urine (UA) Normal (Normal); Ketones,Urine Negative (Negative); Leukocyte Esterase,Urine Negative (Negative); Nitrite,Urine Negative (Negative); PH,Urine 5.5 pH Units (5.0-8.0); Protein,Urine Negative (Neg-Trace); Urobilinogen,Urine Normal (Normal)
[2019-12-15 09:37] LABS: Hematocrit 18.7 % (35.3-44.9); Hemoglobin 6.4 g/dL (11.5-15.4)
[2019-12-15] MEDS ORDERED: 0.9 % Sodium Chloride 250 ML ONE ×2 (09:52→14:19)
[2019-12-15] MEDS: cefTRIAXone 1,000 MG in Water for inj. (sterile) 10 ML IVP SCH (10:28)
[2019-12-15 11:49] LABS: VBG Ionized Calcium 0.82 mmol/L (1.15-1.35)
[2019-12-15] MEDS ORDERED: Albumin 25% 25gram/100mL 25 GM/100 ML IV.SOLN ONE (12:32)
[2019-12-15] MEDS ORDERED: Albumin 25% 25gram/100mL 25 GM/100 ML IV.SOLN IVPB PRN (12:49)
[2019-12-15 13:32] LABS: Hematocrit 22.7 % (35.3-44.9); Hemoglobin 8.2 g/dL (11.5-15.4)
[2019-12-15] MEDS: Pantoprazole 40 MG in 0.9 % Sodium Chloride Mini Bag 100 ML IVC SCH ×5 (14:18→23:57)
[2019-12-15] MEDS: Octreotide 400 MCG in 0.9 % Sodium Chloride 100 ML IVC SCH ×2 (14:20→21:20)
[2019-12-15] MEDS: Acetaminophen 325 MG TABLET PO PRN ×2 (14:21→23:28)
[2019-12-15 17:52] LABS: Hematocrit 22.8 % (35.3-44.9); Hemoglobin 7.8 g/dL (11.5-15.4)
[2019-12-15] MEDS: polyethylene glycoL 3350 17 GM POWD.PACK PO SCH (19:50)
[2019-12-15 21:49] LABS: Hematocrit 22.2 % (35.3-44.9); Hemoglobin 7.6 g/dL (11.5-15.4)
[2019-12-16 00:38] LABS: Hematocrit 21.9 % (35.3-44.9); Hemoglobin 7.2 g/dL (11.5-15.4)
[2019-12-16 04:19] LABS: Basophils % 0.1 %; Eosinophils % 0.1 %; Hematocrit 21.9 % (35.3-44.9); Hemoglobin 7.3 g/dL (11.5-15.4); Immature Granulocytes % 1.4 % (0-4); Lymphocytes # 0.7 K/mcL (0.6-4.6); Lymphocytes % 4.2 %; Mean Corpuscular HGB Conc 33.3 g/dL (31.6-35.5); Mean Corpuscular Hemoglobin 30.5 pg (28.0-33.3); Mean Corpuscular Volume 91.6 fL (83.0-100.0); Mean Platelet Volume 10.2 fL (9.4-12.4); Monocytes # 1.6 K/mcL (0.0-1.3); Monocytes % 9.5 %; Neutrophils # 14.2 K/mcL (1.6-8.9); Platelet Count 107 K/mcL (140-400); Red Blood Count 2.39 M/mcL (3.82-4.97); Segmented Neutrophils % 84.7 %; White Blood Count 16.8 K/mcL (4.3-11.1)
[2019-12-16 04:33] LABS: Calcium 6.4 mg/dL (8.6-10.3); Potassium 4.3 mEq/L (3.5-5.1)
[2019-12-16] MEDS: Pantoprazole 40 MG in 0.9 % Sodium Chloride Mini Bag 100 ML IVC SCH ×2 (05:20→10:37)
[2019-12-16] MEDS: Octreotide 400 MCG in 0.9 % Sodium Chloride 100 ML IVC SCH (06:30)
[2019-12-16] MEDS: cefTRIAXone 1,000 MG in Water for inj. (sterile) 10 ML IVP SCH (07:20)
[2019-12-16] MEDS ORDERED: Calcium Gluconate 1gm/50mL 1 GM/50 ML BAG IVPB ONE (08:29)
[2019-12-16 08:53] LABS: Hematocrit 21.8 % (35.3-44.9); Hemoglobin 7.3 g/dL (11.5-15.4)
[2019-12-16] MEDS ORDERED: *HR* Propofol 200 MG/20 ML VIAL IVP ONE (08:59)
[2019-12-16] MEDS ORDERED: Lidocaine -MPF 2% 2 ML VIAL ONE (08:59)
[2019-12-16] MEDS: polyethylene glycoL 3350 17 GM POWD.PACK PO SCH (10:56)
[2019-12-16] MEDS: ARIPiprazole 5 MG TABLET PO SCH (13:17)
[2019-12-16 15:58] LABS: Immunoglobulin A (CELIAC) 35 mg/dL (68-408)
[2019-12-16 19:03] LABS: Hematocrit 20.7 % (35.3-44.9)
[2019-12-17] MEDS ORDERED: Melatonin 3 MG TABLET PO ONE (00:50)
[2019-12-17 04:19] LABS: Basophils % 0.1 %; Eosinophils # 0.1 K/mcL (0.0-0.6); Eosinophils % 0.6 %; Hematocrit 21.4 % (35.3-44.9); Hemoglobin 7.2 g/dL (11.5-15.4); Immature Granulocytes % 0.9 % (0-4); Lymphocytes # 0.8 K/mcL (0.6-4.6); Lymphocytes % 6.2 %; Mean Corpuscular HGB Conc 33.6 g/dL (31.6-35.5); Mean Corpuscular Hemoglobin 31.7 pg (28.0-33.3); Mean Corpuscular Volume 94.3 fL (83.0-100.0); Mean Platelet Volume 10.3 fL (9.4-12.4); Monocytes % 7.8 %; Nucleated Red Blood Cells 0.4 /100 WBC (0); Platelet Count 110 K/mcL (140-400); Red Blood Count 2.27 M/mcL (3.82-4.97); Red Cell Distribution Width 19.8 % (11.5-14.5); Segmented Neutrophils % 84.4 %
[2019-12-17] MEDS ORDERED: tiZANidine 4 MG TABLET PO ONE (04:19)
[2019-12-17 04:24] LABS: VBG Ionized Calcium 0.77 mmol/L (1.15-1.35)
[2019-12-17 04:42] LABS: Calcium 5.9 mg/dL (8.6-10.3); Potassium 4.4 mEq/L (3.5-5.1)
[2019-12-17 05:07] LABS: Phosphorous 4.9 mg/dL (2.7-4.5)
[2019-12-17] MEDS: Calcium Gluconate 1gm/50mL 1 GM/50 ML BAG IVPB PRN ×2 (05:11→15:38)
[2019-12-17] MEDS ORDERED: Calcium Chloride 2,000 MG in 0.9 % Sodium Chloride 100 ML IVPB ONE (08:01)
[2019-12-17] MEDS: ARIPiprazole 5 MG TABLET PO SCH (08:23)
[2019-12-17] MEDS: cefTRIAXone 1,000 MG in Water for inj. (sterile) 10 ML IVP SCH (08:24)
[2019-12-17] MEDS ORDERED: Pantoprazole 40 MG VIAL IVP SCH (09:00)
[2019-12-17] MEDS ORDERED: 0.9 % Sodium Chloride 250 ML IVC PRN (09:46)
[2019-12-17 15:06] LABS: VBG Ionized Calcium 0.87 mmol/L (1.15-1.35)
[2019-12-17 17:12] VITALS: BP 162/96
[2019-12-19 17:13] LABS: Celiac Disease Dual Antigen 3 Units (0-19)
== END 2019-12-17 17:15 | disposition short-term general hospital (02) | DRG 377 ==
LOC: ICNU 15:33
PROVIDERS: ADMIT Internal Medicine; ATTEND Internal Medicine